=== PATIENT | male | born 1950 | race Caucasian/White ===

== ENCOUNTER 2018-11-16 13:27 | Observation (INO) | payer MEDICARE, OTHER ==
[~2018-11-16] VITALS: Ht 182.9 cm; Wt 84.8 kg
--- OUTSIDE RECORDS SUMMARY | 2018-11-16 13:32 | XMS REPORT | Summary of Care ---
Author Author [facility] Address Unknown Phone Unavailable Encounter HQ Mame(ASHVIN) [id number] Date(s): 07/11/16 - 07/18/16 [facility] [address] [place] [address]- [phone] Discharge Disposition: Home or Self Care Attending Physician: Abelardo Houston MD Admitting Physician: Abelardo Houston MD Vital Signs 1 2 3 Most recent to oldest [Reference Range]: 182.88 cm (07/11/16 2:36 PM) Height 98.9 DegF (07/18/16 8:00 AM) 98 DegF (07/17/16 8:41 PM) 98.0 DegF (07/17/16 3:10 PM) Temperature Oral [96.4-99.1 DegF] 130/70 mmHg (07/18/16 8:00 AM) 126/75 mmHg (07/17/16 3:10 PM) Blood Pressure [90-140/60-90 mmHg] 127 mmHg (07/17/16 8:41 PM) Systolic Blood Pressure [90-140 mmHg] 72 mmHg (07/17/16 8:41 PM) Diastolic Blood Pressure [60-90 mmHg] 16 BRMIN (07/17/16 8:41 PM) 16 BRMIN (07/17/16 3:10 PM) 16 BRMIN (07/17/16 7:48 AM) Respiratory Rate [14-20 BRMIN] 78 bpm (07/18/16 8:00 AM) 80 bpm (07/17/16 8:41 PM) 74 bpm (07/17/16 3:10 PM) Peripheral Pulse Rate [60-100 bpm] 87.364 kg (07/11/16 2:36 PM) Weight 26.12 m2 (07/11/16 2:36 PM) Body Mass Index Problem List Condition Effective Dates Status Health Status Informant Atrial Active fibrillation(Confirm ed) Diabetes(Confirmed) Resolved FH: Resolved hyperlipidemia(Confi rmed) C1 cervical Active fracture(Confirmed) HTN Resolved (hypertension)(Confi rmed) Acute kidney Active injury(Confirmed) Generalized muscle Active weakness(Confirmed) Allergies, Adverse Reactions, Alerts Substance Reaction Severity Status penicillins Active Medications AMIODarone 200 mg oral tablet 200 mg=1 tab, PO, BID, # 60 tab, 0 Refill(s), Pharmacy: [facility] [id number] Start Date: 07/18/16 Stop Date: 08/17/16 Status: Ordered amLODIPine 5 mg, 1 tab, Route: PO, Drug form: TAB, Daily, Dosing Weight 95, kg, Start date: 07/12/16 9:00:00 CDT, Duration: 30 day, Stop date: 08/10/16 9:00:00 CDT Notes: (Same as: Norvasc) Start Date: 07/12/16 Stop Date: 07/12/16 Status: Discontinued aspirin 81 mg tablet, chewable 81 mg, 1 tab, Route: PO, Drug form: CHEWTAB, Daily, Dosing Weight 95, kg, Start date: 07/12/16 9:00:00 CDT, Duration: 30 day, Stop date: 08/10/16 9:00:00 CDT Notes: Take with food. Start Date: 07/12/16 Stop Date: 07/18/16 Status: Discontinued aspirin 81 mg tablet, chewable 81 mg=1 tab, PO, Daily, # 30 tab, 0 Refill(s), Pharmacy: [facility] [id number] Start Date: 07/18/16 Stop Date: 08/17/16 Status: Ordered atorvastatin 40 mg oral tablet 40 mg=1 tab, PO, Bedtime, # 30 tab, 0 Refill(s), Pharmacy: [facility] [id number] Start Date: 07/18/16 Stop Date: 08/17/16 Status: Ordered bisacodyl 10 mg, 1 supp, Route: ME, Drug form: SUPP, Daily, Dosing Weight 95, kg, PRN Cons tipation, Start date: 07/11/16 14:36:00 CDT, Duration: 30 day, Stop date: 14:35:00 CDT Notes: (Same As: Dulcolax, Bisco-Lax) Start Date: 07/11/16 Stop Date: 07/18/16 Status: Discontinued Carafate 1 gm, Route: PO, Drug form: TAB, BID, Dosing Weight 87.364, kg, Start date: 06/19 09/03 9:00:00 CDT, Duration: 30 day, Stop date: 08/10/16 17:00:00 CDT Start Date: 07/12/16 Stop Date: 07/11/16 Status: Canceled Carafate 1 g/10 mL oral suspension 1 gm, 1 tab, Route: PO, Drug form: TAB, BID, Dosing Weight 87.364, kg, Start drake e: 07/12/16 9:00:00 CDT, Duration: 30 day, Stop date: 08/10/16 17:00:00 CDT Notes: May interfere w/enteral feeds - Take 1 hr before or 2 hr after antacids, dairy pdt, meals & minerals - On empty stomach.For patients unable to swallow tablet, dissolve in 10mL - 30mL of water or juice and stir before giving. (Same As: Carafate) Start Date: 07/12/16 Stop Date: 07/18/16 Status: Discontinued Carafate 1 g/10 mL oral suspension 1 gm=10 mL, PO, BID, # 420 mL, 0 Refill(s), Pharmacy: [facility] [id number] Start Date: 07/18/16 Stop Date: 08/08/16 Status: Ordered Cordarone 200 mg, 1 tab, Route: PO, Drug form: TAB, BID, Dosing Weight 87.273, kg, Start d ate: 07/11/16 17:00:00 CDT, Duration: 30 day, Stop date: 08/10/16 9:00:00 CDT Notes: (Same as: Cordarone) Start Date: 07/11/16 Stop Date: 07/18/16 Status: Discontinued Coumadin 4 mg, 2 tab, Route: PO, Drug form: TAB, Q5PM, Dosing Weight 95, kg, Start date: 07/11/16 17:00:00 CDT, Duration: 30 day, Stop date: 08/09/16 17:00:00 CDT Notes: Nurse to ensure documentation of patient education per anticoagulation po licy.Avoid large intake of vitamin-K containing foods diet.(Same As: Coumadin)[place]: F/P - P Waste Black; E - P Waste Black Start Date: 07/11/16 Stop Date: 07/16/16 Status: Discontinued Dextrose 50% Syringe 25 gm, 50 mL, Route: IVP, Drug Form: INJ, Dosing Weight 87.364, kg, PRN, PRN Blo od Glucose Results, Start date: 07/11/16 14:51:00 CDT, Duration: 30 day, Stop da te: 08/10/16 14:50:00 CDT Start Date: 07/11/16 Stop Date: 07/18/16 Status: Discontinued Dextrose 50% Syringe 12.5 gm, 25 mL, Route: IVP, Drug Form: INJ, Dosing Weight 87.364, kg, PRN, PRN B lood Glucose Results, Start date: 07/11/16 14:51:00 CDT, Duration: 30 day, Stop date: 08/10/16 14:50:00 CDT Start Date: 07/11/16 Stop Date: 07/18/16 Status: Discontinued docusate 100 mg, 10 mL, Route: PO, Drug form: LIQ, BID, Dosing Weight 87.273, kg, PRN Con stipation, Start date: 07/11/16 14:51:00 CDT, Duration: 30 day, Stop date: 08/10 14:50:00 CDT Notes: (Same as: Colace) Start Date: 07/11/16 Stop Date: 07/18/16 Status: Discontinued docusate sodium 100 mg oral capsule 100 mg, 1 cap, Route: PO, Drug form: CAP, BID, Dosing Weight 95, kg, PRN Constip ation, Start date: 07/11/16 14:36:00 CDT, Duration: 30 day, Stop date: 08/10/16 14:35:00 CDT Notes: (Same as: Colace) (Do Not Crush) Start Date: 07/11/16 Stop Date: 07/18/16 Status: Discontinued epoetin carlos 10,000 units/mL preservative-free injectable solution 10,000 unit=1 mL, SUB-Q, Q, X 14 day, # 6 mL, 0 Refill(s), Pharmacy: [facility] [id number] Start Date: 07/18/16 Stop Date: 08/01/16 Status: Ordered Epogen 10,000 unit, 1 mL, Route: SUB-Q, Drug form: INJ, Q-Sa, Dosing Weight 87.36 4, kg, Start date: 07/15/16 17:00:00 CDT, Duration: 30 day, Stop date: 08/12/16 17:00:00 CDT Notes: (Same as: Procrit) epoetin carlos 84276 unit/1 ml VL.For dialysis use only. (Procrit)[place]: F/P - Red; E -Red MEDICATION WASTE Product Size: 33642 unitProduct Wasted: ___ unit Start Date: 07/15/16 Stop Date: 07/18/16 Status: Discontinued Epogen (ESRD) 10,000 unit, 1 mL, Route: IVP, Drug form: INJ, Q, Dosing Weight 87.364, kg, Priority: NOW, Start date: 07/12/16 11:45:00 CDT, Duration: 30 day, Stop da te: 08/09/16 17:00:00 CDT Notes: (Same as: Procrit) epoetin carlos 20722 unit/1 ml VL.For dialysis use only. (Procrit)[place]: F/P - Red; E -Red MEDICATION WASTE Product Size: 54878 unitProduct Wasted: ___ unit Start Date: 07/12/16 Stop Date: 07/14/16 Status: Discontinued glucagon 1 mg, Route: IM, Drug form: PDR/INJ, PRN, Dosing Weight 87.364, kg, PRN Blood Gl ucose Results, Start date: 07/11/16 14:51:00 CDT, Duration: 30 day, Stop date: 0 08/10/16 14:50:00 CDT Start Date: 07/11/16 Stop Date: 07/18/16 Status: Discontinued hydrocortisone topical 1% cream 1 appl, Route: TOP, BID, Drug form: CRM, PRN Rash, Start date: 07/11/16 14:50:00 CDT, Duration: 30 day, Stop date: 08/10/16 14:49:00 CDT Start Date: 07/11/16 Stop Date: 07/18/16 Status: Discontinued insulin aspart 1 unit, 0.01 mL, Route: SUB-Q, Drug form: SOLN, Bedtime, Dosing Weight 87.364, k g, PRN Blood Glucose Results, Start date: 07/11/16 14:51:00 CDT, Duration: 30 da y, Stop date: 08/10/16 14:50:00 CDT Notes: Roll in palms of hands gently; Do not shake vigorously. (Same as: Margaret Zurita)"single patient use only"[place]: F/P - Black; E - Municipal Trash Bin Stable f or 28 days at room temperature.Expires in days from Date Start Date: 07/11/16 Stop Date: 07/18/16 Status: Discontinued insulin aspart 4 unit, 0.04 mL, Route: SUB-Q, Drug form: SOLN, Bedtime, Dosing Weight 87.364, k g, PRN Blood Glucose Results, Start date: 07/11/16 14:51:00 CDT, Duration: 30 da y, Stop date: 08/10/16 14:50:00 CDT Notes: Roll in palms of hands gently; Do not shake vigorously. (Same as: Margaret Zurita)"single patient use only"[place]: F/P - Black; E - Municipal Trash Bin Stable f or 28 days at room temperature.Expires in days from Date Start Date: 07/11/16 Stop Date: 07/18/16 Status: Discontinued insulin aspart 3 unit, 0.03 mL, Route: SUB-Q, Drug form: SOLN, Bedtime, Dosing Weight 87.364, k g, PRN Blood Glucose Results, Start date: 07/11/16 14:51:00 CDT, Duration: 30 da y, Stop date: 08/10/16 14:50:00 CDT Notes: Roll in palms of hands gently; Do not shake vigorously. (Same as: Margaret Zurita)"single patient use only"[place]: F/P - Black; E - Municipal Trash Bin Stable f or 28 days at room temperature.Expires in days from Date Start Date: 07/11/16 Stop Date: 07/18/16 Status: Discontinued insulin aspart 2 unit, 0.02 mL, Route: SUB-Q, Drug form: SOLN, Bedtime, Dosing Weight 87.364, k g, PRN Blood Glucose Results, Start date: 07/11/16 14:51:00 CDT, Duration: 30 da y, Stop date: 08/10/16 14:50:00 CDT Notes: Roll in palms of hands gently; Do not shake vigorously. (Same as: Margaret Zurita)"single patient use only"[place]: F/P - Black; E - Municipal Trash Bin Stable f or 28 days at room temperature.Expires in days from Date Start Date: 07/11/16 Stop Date: 07/18/16 Status: Discontinued insulin aspart 3 unit, 0.03 mL, Route: SUB-Q, Drug form: SOLN, TID-Before Meals, Dosing Weight 87.364, kg, PRN Blood Glucose Results, Start date: 07/11/16 14:51:00 CDT, Durati on: 30 day, Stop date: 08/10/16 14:50:00 CDT Notes: Roll in palms of hands gently; Do not shake vigorously. (Same as: Margaret Zurita)"single patient use only"[place]: F/P - Black; E - Municipal Trash Bin Stable f or 28 days at room temperature.Expires in days from Date Start Date: 07/11/16 Stop Date: 07/18/16 Status: Discontinued insulin aspart 2 unit, 0.02 mL, Route: SUB-Q, Drug form: SOLN, TID-Before Meals, Dosing Weight 87.364, kg, PRN Blood Glucose Results, Start date: 07/11/16 14:51:00 CDT, Durati on: 30 day, Stop date: 08/10/16 14:50:00 CDT Notes: Roll in palms of hands gently; Do not shake vigorously. (Same as: NovoFROILAN G)"single patient use only"[place]: F/P - Black; E - Municipal Trash Bin Stable f or 28 days at room temperature.Expires in days from Date Start Date: 07/11/16 Stop Date: 07/18/16 Status: Discontinued insulin aspart 1 unit, 0.01 mL, Route: SUB-Q, Drug form: SOLN, TID-Before Meals, Dosing Weight 87.364, kg, PRN Blood Glucose Results, Start date: 07/11/16 14:51:00 CDT, Durati on: 30 day, Stop date: 08/10/16 14:50:00 CDT Notes: Roll in palms of hands gently; Do not shake vigorously. (Same as: NovoFROILAN G)"single patient use only"WASTE: F/P - Black; E - Municipal Trash Bin Stable f or 28 days at room temperature.Expires in days from Date Start Date: 07/11/16 Stop Date: 07/18/16 Status: Discontinued insulin aspart 5 unit, 0.05 mL, Route: SUB-Q, Drug form: SOLN, TID-Before Meals, Dosing Weight 87.364, kg, PRN Blood Glucose Results, Start date: 07/11/16 14:51:00 CDT, Durati on: 30 day, Stop date: 08/10/16 14:50:00 CDT Notes: Roll in palms of hands gently; Do not shake vigorously. (Same as: NovoFROILAN Zurita)"single patient use only"WASTE: F/P - Black; E - Municipal Trash Bin Stable f or 28 days at room temperature.Expires in days from Date Start Date: 07/11/16 Stop Date: 07/18/16 Status: Discontinued insulin aspart 4 unit, 0.04 mL, Route: SUB-Q, Drug form: SOLN, TID-Before Meals, Dosing Weight 87.364, kg, PRN Blood Glucose Results, Start date: 07/11/16 14:51:00 CDT, Durati on: 30 day, Stop date: 08/10/16 14:50:00 CDT Notes: Roll in palms of hands gently; Do not shake vigorously. (Same as: Margaret Zurita)"single patient use only"[place]STE: F/P - Black; E - Municipal Trash Bin Stable f or 28 days at room temperature.Expires in days from Date Start Date: 07/11/16 Stop Date: 07/18/16 Status: Discontinued Everett 24 gm packet 1 pkt, Route: PO, Drug Form: PWDR, Dosing Weight 87.364, kg, BID-Before Meals, S tart date: 07/14/16 16:30:00 CDT, Duration: 14 day, Stop date: 07/28/16 7:30:00 CDT Notes: (Same as: Everett Dhaliwal) Start Date: 07/14/16 Stop Date: 07/18/16 Status: Discontinued Klor-Con 20 mEq, 1 tab, Route: PO, Drug form: ERTAB, BID, Dosing Weight 87.364, kg, Start date: 07/14/16 9:51:00 CDT, Duration: 30 day, Stop date: 08/13/16 9:00:00 CDT Notes: (Same as: K-Dur 20)"Do Not Crush" With food and full glass of water Start Date: 07/14/16 Stop Date: 07/18/16 Status: Discontinued Lasix 40 mg, 4 mL, Route: IVP, Drug form: INJ, ONCE, Dosing Weight 87.364, kg, Start d ate: 07/11/16 18:34:00 CDT, Stop date: 07/11/16 18:34:00 CDT Notes: (Same as: Lasix) MEDICATION WASTE Product Size: 40 mgProduct Was grecia: ___ mg Start Date: 07/11/16 Stop Date: 07/11/16 Status: Completed Lasix 40 mg, 4 mL, Route: IVP, Drug form: INJ, Daily, Dosing Weight 87.364, kg, Priori ty: NOW, Start date: 07/12/16 11:44:00 CDT, Duration: 30 day, Stop date: 7 9:00:00 CDT Notes: (Same as: Lasix) MEDICATION WASTE Product Size: 40 mgProduct Was grecia: ___ mg Start Date: 07/12/16 Stop Date: 07/17/16 Status: Discontinued Lasix 20 mg oral tablet 40 mg, 1 tab, Route: PO, Drug form: TAB, Daily, Dosing Weight 87.364, kg, Start date: 07/18/16 9:00:00 CDT, Duration: 30 day, Stop date: 08/16/16 9:00:00 CDT Notes: (Same as: Lasix) May cause GI upset. Give with food or milk. Start Date: 07/18/16 Stop Date: 07/18/16 Status: Discontinued Lasix 40 mg oral tablet 40 mg=1 tab, PO, Daily, # 30 tab, 0 Refill(s), Pharmacy: [facility] [id number] Start Date: 07/18/16 Stop Date: 08/17/16 Status: Ordered Lipitor 40 mg, 1 tab, Route: PO, Drug form: TAB, Bedtime, Dosing Weight 87.273, kg, Star t date: 07/11/16 21:00:00 CDT, Duration: 30 day, Stop date: 08/09/16 21:00:00 CD T Notes: (Same as: Lipitor) Start Date: 07/11/16 Stop Date: 07/18/16 Status: Discontinued magnesium sulfate 2 gm, 50 mL, Route: IVPB, Drug form: INJ, Q2H, Dosing Weight 87.364, kg, Total d ose=4 gm, Start date: 07/12/16 20:00:00 CDT, Duration: 2 doses or times, Stop da te: 07/12/16 22:00:00 CDT Notes: WASTE: F/P - Sink; E - Municipal Trash Bin Start Date: 07/12/16 Stop Date: 07/12/16 Status: Completed melatonin 3 mg, 1 tab, Route: PO, Drug form: TAB, Bedtime, Dosing Weight 87.273, kg, PRN S leep, Start date: 07/11/16 14:53:00 CDT, Duration: 30 day, Stop date: 08/10/16 1 4:52:00 CDT Notes: (Same as: Melatonin) Start Date: 07/11/16 Stop Date: 07/18/16 Status: Discontinued metoprolol 100 mg oral tablet, extended release 100 mg=1 tab, PO, Daily, # 30 tab, 0 Refill(s), Pharmacy: [facility] [id number] Start Date: 07/18/16 Stop Date: 08/17/16 Status: Ordered MiraLax 17 gm, 1 pkt, Route: PO, Drug form: PWDR, BID, Dosing Weight 87.273, kg, PRN Con stipation, Start date: 07/11/16 14:53:00 CDT, Duration: 30 day, Stop date: 08/10 14:52:00 CDT Notes: Dissolve in 8 oz of water or juice.(Same as: Miralax) Start Date: 07/11/16 Stop Date: 07/11/16 Status: Deleted MiraLax 17 gm, 1 pkt, Route: PO, Drug form: PWDR, BID, Dosing Weight 95, kg, PRN Constip ation, Start date: 07/11/16 14:36:00 CDT, Duration: 30 day, Stop date: 08/10/16 14:35:00 CDT Notes: Dissolve in 8 oz of water or juice.(Same as: Miralax) Start Date: 07/11/16 Stop Date: 07/18/16 Status: Discontinued Occupational Therapy See Instructions, MISC, ONCALL, Evaluate and Treat 2-3 times per week for2-4 wee ks, # 1 unit, 0 Refill(s) Start Date: 07/18/16 Status: Ordered pantoprazole 40 mg oral enteric coated tablet 40 mg=1 tab, PO, BID, # 42 tab, 0 Refill(s), Pharmacy: [id number] Start Date: 07/18/16 Stop Date: 08/08/16 Status: Ordered Physical Therapy See Instructions, MISC, ONCALL, Evaluate and Treat 2-3 times per week for 4-6 we eks, # 1 ea, 0 Refill(s) Start Date: 07/18/16 Status: Ordered potassium chloride 40 mEq, 2 tab, Route: PO, Drug form: ERTAB, ONCE, Dosing Weight 87.364, kg, Star t date: 07/15/16 11:39:00 CDT, Stop date: 07/15/16 11:39:00 CDT Start Date: 07/15/16 Stop Date: 07/15/16 Status: Completed potassium chloride 20 mEq oral tablet, extended release 20 mEq=1 tab, PO, BID, # 60 tab, 0 Refill(s), Pharmacy: [facility] Start Date: 07/18/16 Stop Date: 08/17/16 Status: Ordered prednisoLONE acetate ophthalmic 1 drp, Route: RIGHT EYE, Daily, Drug form: SUSP, Start date: 07/12/16 9:00:00 CD T, Duration: 30 day, Stop date: 08/10/16 9:00:00 CDT Notes: (Same as: Pred Forte) Start Date: 07/12/16 Stop Date: 07/18/16 Status: Discontinued Protonix 40 mg, 1 tab, Route: PO, Drug form: ECTAB, BID, Dosing Weight 87.364, kg, Start date: 07/11/16 21:00:00 CDT, Duration: 30 day, Stop date: 08/10/16 17:00:00 CDT Notes: Tablet should not be chewed or crushed.(Same as: Protonix) Start Date: 07/11/16 Stop Date: 07/18/16 Status: Discontinued Renvela 0.8 gm, 1 pkt, Route: PO, Drug form: PDR/REC, TID-Meals, Dosing Weight 95, kg, S tart date: 07/11/16 17:00:00 CDT, Duration: 30 day, Stop date: 08/10/16 12:00:00 CDT Notes: Same as: Renvela Start Date: 07/11/16 Stop Date: 07/12/16 Status: Discontinued Saline Flush 0.9% 10 ml, Route: IVP, Drug Form: INJ, Dosing Weight 95, kg, PRN, PRN Line Flush, St art date: 07/11/16 14:36:00 CDT, Duration: 30 day, Stop date: 08/10/16 14:35:00 CDT Notes: (Same as: BD Posiflush) Start Date: 07/11/16 Stop Date: 07/18/16 Status: Discontinued Saline Flush 0.9% 10 ml, Route: IVP, Drug Form: INJ, Dosing Weight 95, kg, Q12H, Start date: 07/11 21:00:00 CDT, Duration: 30 day, Stop date: 08/10/16 9:00:00 CDT Notes: (Same as: BD Posiflush) Start Date: 07/11/16 Stop Date: 07/18/16 Status: Discontinued Senokot 8.6 mg, 1 tab, Route: PO, Drug Form: TAB, Dosing Weight 87.273, kg, BID, PRN Con stipation, Start date: 07/11/16 14:56:00 CDT, Duration: 30 day, Stop date: 08/10 14:55:00 CDT Notes: (Same as: Senokot) Start Date: 07/11/16 Stop Date: 07/18/16 Status: Discontinued Senokot S 1 tab, Route: PO, Drug Form: TAB, Dosing Weight 95, kg, Daily, Start date: 07/12 9:00:00 CDT, Duration: 30 day, Stop date: 08/10/16 9:00:00 CDT Notes: (Same as Senokot-S) Equiv. to Cris-Colace. Start Date: 07/12/16 Stop Date: 07/18/16 Status: Discontinued Toprol-XL 100 mg oral tablet, extended release 100 mg, 1 tab, Route: PO, Drug form: ERTAB, Daily, Start date: 07/12/16 9:00:00 CDT, Duration: 30 day, Stop date: 08/10/16 9:00:00 CDT Notes: (Same as: Toprol XL) May split tab, but do not crush. Start Date: 07/12/16 Stop Date: 07/18/16 Status: Discontinued trazodone 50 mg, 1 tab, Route: PO, Drug form: TAB, Bedtime, Dosing Weight 95, kg, PRN Inso mnia, Start date: 07/11/16 14:36:00 CDT, Duration: 30 day, Stop date: 08/10/16 1 4:35:00 CDT Notes: (Same As: Desyrel) Start Date: 07/11/16 Stop Date: 07/18/16 Status: Discontinued Tylenol 650 mg, 20.3 mL, Route: PO, Drug form: LIQ, Q6H, Dosing Weight 95, kg, PRN Pain Score 1-3, Start date: 07/11/16 14:48:00 CDT, Duration: 30 day, Stop date: 08/10 14:47:00 CDT Notes: Max btcmjrostyijx=8283tn/day (4 gm/day). (Same as: Tylenol) Start Date: 07/11/16 Stop Date: 07/18/16 Status: Discontinued Venofer + sodium chloride 0.9% INJ 90 mL 200 mg, 10 mL, Route: IVPB, Daily, Dosing Weight 87.364, kg, Start date: 7 9:00:00 CDT, Stop date: 07/16/16 6:00:00 CDT Notes: Each 5ml contains 100mg elemental iron. Mix with NSNon-Formulary(Same as :Venofer)Administer IV only. MEDICATION WASTE Product Size: [address] Wasted: ___ mg Start Date: 07/12/16 Stop Date: 07/16/16 Status: Completed warfarin 3 mg, 3 tab, Route: PO, Drug form: TAB, Q5PM, Dosing Weight 87.364, kg, Start da te: 07/16/16 17:00:00 CDT, Duration: 30 day, Stop date: 08/14/16 17:00:00 CDT Notes: Nurse to ensure documentation of patient education per anticoagulation po licy.Avoid large intake of vitamin-K containing foods diet.(Same As: Coumadin)[place]: F/P - P Waste Black; E - P Waste Black Start Date: 07/16/16 Stop Date: 07/18/16 Status: Discontinued warfarin 1 mg oral tablet 3 mg=3 tab, PO, Q5PM, # 90 tab, 0 Refill(s), Pharmacy: [facility] [id number] Start Date: 07/18/16 Stop Date: 08/17/16 Status: Ordered Xylocaine-MPF 1% preservative-free injectable solution 10 mL, Route: INJ, Drug form: INJ, ONCE, Dosing Weight 87.364, kg, Start date: 0 07/17/16 12:46:00 CDT, Stop date: 07/17/16 12:46:00 CDT Notes: (Same as: Xylocaine) Start Date: 07/17/16 Stop Date: 07/17/16 Status: Completed Results ELECTROLYTES Most recent to 1 2 3 4 oldest [Reference Range]: Sodium Lvl [135-145 139 mEq/L 140 mEq/L 137 mEq/L 138 mEq/L mEq/L] (07/18/16 4:40 AM) (07/17/16 5:25 AM) (07/16/16 12:40 PM) (07/16/16 12:40 PM) Potassium Lvl 3.3 mEq/L 3.7 mEq/L 3.8 mEq/L 4.0 mEq/L [3.5-5.1 mEq/L] *LOW* (07/17/16 5:25 AM) (07/16/16 12:40 PM) (07/16/16 12:40 PM) (07/18/16 4:40 AM) Chloride Lvl [95-109 105 mEq/L 104 mEq/L 99 mEq/L 99 mEq/L mEq/L] (07/18/16 4:40 AM) (07/17/16 5:25 AM) (07/16/16 12:40 PM) (07/16/16 12:40 PM) CO2 [24-32 mEq/L] 27 mEq/L 29 mEq/L 27 mEq/L 28 mEq/L (07/18/16 4:40 AM) (07/17/16 5:25 AM) (07/16/16 12:40 PM) (07/16/16 12:40 PM) AGAP [10.0-20.0 10.3 mEq/L 10.7 mEq/L 14.8 mEq/L 15.0 mEq/L mEq/L] (07/18/16 4:40 AM) (07/17/16 5:25 AM) (07/16/16 12:40 PM) (07/16/16 12:40 PM) CHEM PANEL Most recent to 1 2 3 4 oldest [Reference Range]: Creatinine Lvl 3.30 mg/dL 3.40 mg/dL 3.50 mg/dL 3.50 mg/dL [0.50-1.40 mg/dL] *HI* *HI* *HI* *HI* (07/18/16 4:40 AM) (07/17/16 5:25 AM) (07/16/16 12:40 PM) (07/16/16 12:40 PM) eGFR 18 mL/min/1.73m2 1 18 mL/min/1.73m2 2 17 mL/min/1.73m2 3 17 mL/min/1.73m2 4 *NA* *NA* *NA* *NA* (07/18/16 4:40 AM) (07/17/16 5:25 AM) (07/16/16 12:40 PM) (07/16/16 12:40 PM) BUN [7-22 mg/dL] 53 mg/dL 46 mg/dL 47 mg/dL 49 mg/dL *HI* *HI* *HI* *HI* (07/18/16 4:40 AM) (07/17/16 5:25 AM) (07/16/16 12:40 PM) (07/16/16 12:40 PM) B/C Ratio [6-25] 9 (07/12/16 4:03 AM) Glucose Lvl [70-99 140 mg/dL 101 mg/dL 108 mg/dL 110 mg/dL mg/dL] *HI* *HI* *HI* *HI* (07/18/16 4:40 AM) (07/17/16 5:25 AM) (07/16/16 12:40 PM) (07/16/16 12:40 PM) Total Protein 5.1 g/dL 5.0 g/dL [6.4-8.4 g/dL] *LOW* *LOW* (07/12/16 4:03 AM) (07/12/16 4:03 AM) Albumin Lvl [3.5-5.0 2.1 g/dL 2.2 g/dL 2.5 g/dL g/dL] *LOW* *LOW* *LOW* (07/18/16 4:40 AM) (07/17/16 5:25 AM) (07/16/16 12:40 PM) Globulin [2.7-4.2 3.0 g/dL g/dL] (07/12/16 4:03 AM) A/G Ratio [0.7-1.6] 0.7 (07/12/16 4:03 AM) Calcium Lvl 7.4 mg/dL 7.9 mg/dL 8.0 mg/dL 7.7 mg/dL [8.5-10.5 mg/dL] *LOW* *LOW* *LOW* *LOW* (07/18/16 4:40 AM) (07/17/16 5:25 AM) (07/16/16 12:40 PM) (07/16/16 12:40 PM) Phosphorus [2.5-4.5 2.0 mg/dL 2.5 mg/dL 2.4 mg/dL mg/dL] *LOW* (07/17/16 5:25 AM) *LOW* (07/18/16 4:40 AM) (07/16/16 12:40 PM) Magnesium Lvl 2.0 mg/dL 1.4 mg/dL [1.8-2.4 mg/dL] (07/14/16 6:20 AM) *LOW* (07/12/16 4:03 AM) ALT [0-65 unit/L] 43 unit/L (07/12/16 4:03 AM) AST [0-37 unit/L] 23 unit/L (07/12/16 4:03 AM) Alk Phos [39-136 110 unit/L unit/L] (07/12/16 4:03 AM) Bili Total [0.2-1.3 0.7 mg/dL mg/dL] (07/12/16 4:03 AM) 1Result Comment: The eGFR is calculated using the CKD-EPI formula. In most young, healthy individuals the eGFR will be >90 mL/min/1.73m2. The eGFR declines with age. An eGFR of 60-89 may be normal in some populations, particularly the elderly, for whom the CKD-EPI formula has not been extensively validated. Use of the eGFR is not recommended in the following populations: Individuals with unstable creatinine concentrations, including patients and those with serious co-morbid conditions. Patients with extremes in muscle mass or diet. The data above are obtained from the [employer] ( [employer]) which additionally recommends that when the eGFR is used in patients with extremes of body mass index for purposes of drug dosing, the eGFR should be mul tiplied by the estimated BMI. 2Result Comment: The eGFR is calculated using the CKD-EPI formula. In most young, healthy individuals the eGFR will be >90 mL/min/1.73m2. The eGFR declines with age. An eGFR of 60-89 may be normal in some populations, particularly the elderly, for whom the CKD-EPI formula has not been extensively validated. Use of the eGFR is not recommended in the following populations: Individuals with unstable creatinine concentrations, including patients and those with serious co-morbid conditions. Patients with extremes in muscle mass or diet. The data above are obtained from the [employer] [facility] Disease Education Program ( [employer]) which additionally recommends that when the eGFR is used in patients with extremes of body mass index for purposes of drug dosing, the eGFR should be mul tiplied by the estimated BMI. 3Result Comment: The eGFR is calculated using the CKD-EPI formula. In most young, healthy individuals the eGFR will be >90 mL/min/1.73m2. The eGFR declines with age. An eGFR of 60-89 may be normal in some populations, particularly the elderly, for whom the CKD-EPI formula has not been extensively validated. Use of the eGFR is not recommended in the following populations: Individuals with unstable creatinine concentrations, including patients and those with serious co-morbid conditions. Patients with extremes in muscle mass or diet. The data above are obtained from the National Kidney Disease Education Program ( [employer]) which additionally recommends that when the eGFR is used in patients with extremes of body mass index for purposes of drug dosing, the eGFR should be mul tiplied by the estimated BMI. 4Result Comment: The eGFR is calculated using the CKD-EPI formula. In most young, healthy individuals the eGFR will be >90 mL/min/1.73m2. The eGFR declines with age. An eGFR of 60-89 may be normal in some populations, particularly the elderly, for whom the CKD-EPI formula has not been extensively validated. Use of the eGFR is not recommended in the following populations: Individuals with unstable creatinine concentrations, including patients and those with serious co-morbid conditions. Patients with extremes in muscle mass or diet. The data above are obtained from the National Kidney Disease Education Program ( [employer]) which additionally recommends that when the eGFR is used in patients with extremes of body mass index for purposes of drug dosing, the eGFR should be mul tiplied by the estimated BMI. IMMUNOLOGY Most recent to 1 2 3 4 oldest [Reference Range]: Prealbumin 16.8 mg/dL [18.0-45.0 mg/dL] *LOW* (07/12/16 4:03 AM) HEMATOLOGY Most recent to 1 2 3 4 oldest [Reference Range]: WBC [3.7-10.4 K/CMM] 6.6 K/CMM 5.3 K/CMM 5.3 K/CMM (07/17/16 5:25 AM) (07/14/16 6:20 AM) (07/12/16 4:03 AM) RBC [4.70-6.10 2.86 M/CMM 2.64 M/CMM 2.69 M/CMM M/CMM] *LOW* *LOW* *LOW* (07/17/16 5:25 AM) (07/14/16 6:20 AM) (07/12/16 4:03 AM) Hgb [14.0-18.0 g/dL] 7.9 g/dL 7.3 g/dL 7.4 g/dL *LOW* *LOW* *LOW* (07/17/16 5:25 AM) (07/14/16 6:20 AM) (07/12/16 4:03 AM) Hct [42.0-54.0 %] 24.1 % 21.8 % 21.9 % *LOW* *LOW* *LOW* (07/17/16 5:25 AM) (07/14/16 6:20 AM) (07/12/16 4:03 AM) MCV [80.0-94.0 fL] 84.3 fL 82.5 fL 81.5 fL (07/17/16 5:25 AM) (07/14/16 6:20 AM) (07/12/16 4:03 AM) MCH [27.0-31.0 pg] 27.7 pg 27.6 pg 27.7 pg (07/17/16 5:25 AM) (07/14/16 6:20 AM) (07/12/16 4:03 AM) MCHC [32.0-36.0 32.8 g/dL 33.4 g/dL 34.0 g/dL g/dL] (07/17/16 5:25 AM) (07/14/16 6:20 AM) (07/12/16 4:03 AM) RDW [11.5-14.5 %] 18.0 % 17.7 % 17.3 % *HI* *HI* *HI* (07/17/16 5:25 AM) (07/14/16 6:20 AM) (07/12/16 4:03 AM) Platelet [133-450 189 K/CMM 168 K/CMM 185 K/CMM K/CMM] (07/17/16 5:25 AM) (07/14/16 6:20 AM) (07/12/16 4:03 AM) MPV [7.4-10.4 fL] 7.2 fL 6.8 fL 7.4 fL *LOW* *LOW* (07/12/16 4:03 AM) (07/17/16 5:25 AM) (07/14/16 6:20 AM) Segs [45.0-75.0 %] 66.8 % (07/12/16 4:03 AM) Lymphocytes 16.0 % [20.0-40.0 %] *LOW* (07/12/16 4:03 AM) Monocytes [2.0-12.0 10.3 % %] (07/12/16 4:03 AM) Eosinophils [0.0-4.0 6.1 % %] *HI* (07/12/16 4:03 AM) Basophils [0.0-1.0 0.8 % %] (07/12/16 4:03 AM) Segs-Bands # 3.5 K/CMM [1.5-8.1 K/CMM] (07/12/16 4:03 AM) Lymphocytes # 0.8 K/CMM [1.0-5.5 K/CMM] *LOW* (07/12/16 4:03 AM) Monocytes # [0.0-0.8 0.5 K/CMM K/CMM] (07/12/16 4:03 AM) Eosinophils # 0.3 K/CMM [0.0-0.5 K/CMM] (07/12/16 4:03 AM) PT [12.0-14.7 30.4 seconds 28.9 seconds 31.1 seconds seconds] *HI* *HI* *HI* (07/18/16 4:19 AM) (07/17/16 5:25 AM) (07/16/16 12:40 PM) INR [0.85-1.17] 2.85 2.67 2.94 *HI* *HI* *HI* (07/18/16 4:19 AM) (07/17/16 5:25 AM) (07/16/16 12:40 PM) Immunizations Not Given Vaccine Date Status Refusal Reason influenza virus vaccine, inactivated 06/22/16 Not Given Patient Refuses Procedures Procedure Date Related Diagnosis Body Site Laser eye surgery Social History Social History Type Response Alcohol Current, Type Liquor. Previous treatment: None. Alcohol use interferes with work or home: No. Drinks more than intended: No. Others hurt by drinking: No. Ready to change: No. Household alcohol concerns: No. Smoking Status Never smoker; Ready to change: No; Concerns about tobacco use in household: No; Exposure to Tobacco Smoke None; Cigarette Smoking Last 365 Days No; Reg Smoking Cessation Counseling No Assessment and Plan Extracted from: Title: Clinical Document Author: Aldo Barrientos MD Date: 07/18/16 Progress Note SUBJECTIVE: Patient was seen early this morning and doing well. Patient to be discharged home later today. Patient seen and evaluated at bedside. No overnight events. Denies chest pain, nausea, vomiting, diarrhea, headache, lightheadness, abdomen pain or dizziness. OBJECTIVE: VitalsTmp(F)[id number] 07/18 08:[id number]/70--98--- 07/17 20:[id number]/7216------ 07/17 15:[id number]--- 07/17 07:[id number]/305224--- 07/16 20:0098.125455/72--98--- 24 Hr Tmax: 98.9F (37.17c) at 07/18 08:00Vital Signs are the last 5 in the past 48 hours. I&ORecordInOutBal 3124hr Tot 10 0 10 3024hr Tot 24 [id number] Labs (Last four charted values) WBC 6.6(JUL 17)5.3(JUL 14)5.3(JUL 12) Hgb L 7.9(JUL 17)L 7.3(JUL 14)L 7.4(JUL 12) Hct L 24.1(JUL 17)L 21.8(JUL 14)L 21.9(JUL 12) Plt 189(JUL 17)168(JUL 14)185(JUL 12) Na 139(JUL 18)140(JUL 17)137(JUL 16)138(JUL 16) K L 3.3(JUL 18)3.7(JUL 17)4.0(JUL 16)3.8(JUL 16) CO2 27(JUL 18)29(JUL 17)27(JUL 16)28(JUL 16) Cl 105(JUL 18)104(JUL 17)99(JUL 16)99(JUL 16) Cr H 3.30(JUL 18)H 3.40(JUL 17)H 3.50(JUL 16)H 3.50(JUL 16) BUN H 53(JUL 18)H 46(JUL 17)H 47(JUL 16)H 49(JUL 16) Glucose Random H 140(JUL 18)H 101(JUL 17)H 108(JUL 16)H 110(JUL 16) Mg 2.0(JUL 14)L 1.4(JUL 12) Phos L 2.0(JUL 18)2.5(JUL 17)L 2.4(JUL 16)2.6(JUL 15) Ca L 7.4(JUL 18)L 7.9(JUL 17)L 7.7(JUL 16)L 8.0(JUL 16) PT H 30.4(JUL 18)H 28.9(JUL 17)H 31.1(JUL 16)H 27.9(JUL 15) INR H 2.85(JUL 18)H 2.67(JUL 17)H 2.94(JUL 16)H 2.56(JUL 15) No qualifying data available PHYSICAL EXAM: General: Alert and oriented, No acute distress. Eye: Pupils are equal, round and reactive to light, Extraocular movements are intact, Normal conjunctiva. HENT: Normocephalic, Oral mucosa is moist. Neck: Supple, Non-tender, No jugular venous distention. Respiratory: Lungs are clear to auscultation, Respirations are non-labored, Breath sounds are equal, Symmetrical chest wall expansion. Cardiovascular: Normal rate, Regular rhythm, No murmur. Gastrointestinal: Soft, Non-tender, Non-distended. Genitourinary: No costovertebral angle tenderness. Lymphatics: No lymphadenopathy neck, axilla, groin. Musculoskeletal Normal range of motion. Normal strength. Integumentary: Warm, Dry, Intact. 2-3+ pedal edema bilateral lower extremities Neurologic: Alert, Oriented. Cognition and Speech: Oriented, Speech clear and coherent. Psychiatric: Cooperative, Appropriate mood & affect. Review / Management Results review: No qualifying data available. Upper extremity venous Doppler: IMPRESSION: 1. Thrombosis of the right cephalic vein. 2. No thrombus in the left upper extremity. ECHO: Conclusions 1) This is a limited echocardiogram. 2) The left ventricle is normal in size with low-normal global systolic function. Estimated left ventricular ejection fraction is 50-55%. 3) Right ventricle is normal in size and systolic function. 4) The left and right atria are mildly dilated. 5) Aortic valve is trileaflet with no aortic regurgitation. 6) Trace mitral regurgitation is seen. 7) There is mild tricuspid regurgitation present. 8) No pericardial effusion is seen. 9) The visualized ascending aorta is mildly dilated with a diameter of 3.8 cm. 10) Compared to TTE dated 06/27/2016, there is a slight improvement in ejection fraction. Impression and Plan 1. C1 fracture with J collar-according to the records neurosurgery recommends outpatient follow-up in their office for further surgical knee--> needs to follow-up with the outpatient neurosurgeon from the [facility] after discharge 2. Recent septic shock with multiorgan failure-all resolved 3. Cardiac tamponade status post her cardiocentesis status post 600 cc of bloody fluid removed-repeat echo shows EF of 50-55%, continue to follow, patient had multiple repeat echo at [facility], continue to follow 4. Acute kidney injury likely secondary to ATN from shock creatinine is stable and improving, nephrology consulted, Lasix 40 mg IV daily--> discharge on oral diuretics and needs to follow-up outpatient with the ore buyer 5. Anemia multifactorial from recent sickness, iron deficiency anemia and renal failure-hemoglobin 7.9, hemodynamically stable, may give 1 unit packed RBCs to help the patient's stamina, iron infusions 5 doses and Epogen, hemoglobin stable 6. Type 2 diabetes insulin sliding scale, Accu-Cheks, hemoglobin A1c: 7 7. Hypertension stable, continue same home medications 8. A. fib rate controlled, warfarin, cont w/ rate controlling medications, daily INR's, INR 2.8 continue same dose for now adjust accordingly 9. Right upper extremity thrombus-venous Doppler shows thrombus in the right cephalic vein, on anticoagulation 10. Prophylaxis warfarin 11. Fluid electrolytes nutrients diabetic diet, no IV fluids indicated 12. PT/OT inpatient rehab 13. Questionable GI bleed at [facility] recommends 4 weeks of PPI and Carafate, EGD and colonoscopy performed no evidence of bleeding, monitor stool 14. Disposition inpatient rehab, nephrology consulted 15. Hypokalemia replaced Discussed with the patient and the at bedside. Patient was discharged will need to follow-up with his oyster grader, neurosurgeon, nephrology, GI and primary care physician as an outpatient within 1-2 weeks. Extracted from: Title: Internal Medicine Author: Aldo Barrientos MD Date: 07/11/16 Consultation Impression and Plan 1. C1 fracture with J collar-according to the records neurosurgery recommends outpatient follow-up in their office for further surgical knee 2. Recent septic shock with multiorgan failure-all resolving 3. Cardiac tamponade status post her cardiocentesis status post 600 cc of bloody fluid removed-repeat echo shows EF of 50-55%, continue to follow, patient had multiple repeat echo was at [facility], continue to follow 4. Acute kidney injury likely secondary to ATN from shock creatinine is stable, nephrology consulted, Lasix 40 mg IV 1 5. Anemia multifactorial from recent sickness, iron deficiency anemia and renal failure-hemoglobin 7.3, hemodynamically stable, may give 1 unit packed RBCs to help the patient's stamina, iron infusions and Epogen 6. Type 2 diabetes insulin sliding scale, Accu-Cheks, hemoglobin A1c: 7 7. Hypertension stable, continue same home medications 8. A. fib rate controlled, warfarin, cont w/ rate controlling medications, daily INR's 9. Right upper extremity thrombus-venous Doppler shows thrombus in the right cephalic vein, on anticoagulation 10. Prophylaxis warfarin 11. Fluid electrolytes nutrients diabetic diet, no IV fluids indicated 12. PT/OT inpatient rehab 13. Questionable GI bleed at [facility] recommends 4 weeks of PPI and Carafate, EGD and colonoscopy performed no evidence of bleeding, monitor stool 14. Disposition inpatient rehab, nephrology consulted
--- OUTSIDE RECORDS SUMMARY | 2018-11-16 13:32 | XMS REPORT | Continuity of Care Document ---
Author Author [employer] Address Unknown Phone Unavailable Care Team Providers Care [employer] Server Name Role Phone [employer] Information [employer] Unavailable Unavailable Problems Problem Status Onset Date Classification Date Reported Comments Source CERVICAL FRACTURE Active 07/19/2016 [facility] [place] [facility] [employer] C1 CERVICAL FRACTURE Active 07/07/2016 [facility] DKA Active 06/18/2016 [facility] CARDIAC TAMPONADE, DKA Active 06/18/2016 [facility] Atrial fibrillation Active Problem 07/21/2016 [facility] Diabetes Resolved Problem 07/21/2016 [facility] FH: hyperlipidemia Resolved Problem 07/21/2016 [facility] C1 cervical fracture Active Problem 07/21/2016 [facility] HTN (Confirmed) Resolved Problem 07/21/2016 [facility] Acute kidney injury Active Problem 07/21/2016 [facility] Generalized muscle weakness Active Problem 07/21/2016 [facility] CARDIAC TAMPONADE Active [facility] QUADRIPLEGIA, UNSPECIFIED Active [facility] Medications Medication Details Route Status Patient Instructions Ordering Provider Order Date Source Physical Therapy See Instructions, MISC, ONCALL, Evaluate and Treat 2-3 times per week for 4-6 weeks, # 1 ea, 0 Refill(s) Active 07/18/2016 [facility] Occupational Therapy See Instructions, MISC, ONCALL, Evaluate and Treat 2-3 times per week for2-4 weeks, # 1 unit, 0 Refill(s) Active 07/18/2016 [facility] Furosemide 20 MG Oral Tablet [Lasix] 40 mg, 1 tab, Route: PO, Drug form: TAB, Daily, Dosing Weight 87.364, kg, Start date: 07/18/16 9:00:00 CDT, Duration: 30 day, Stop date: 08/16/16 9:00:00 CDTNotes: (Same as: Lasix) May cause GI upset. Give with food or milk. Inactive 07/18/2016 [facility] metoprolol 100 mg oral tablet, extended release 100 mg=1 tab, PO, Daily, # 30 tab, 0 Refill(s), Pharmacy: [facility] [id number] Active 07/18/2016 [facility] atorvastatin 40 mg oral tablet 40 mg=1 tab, PO, Bedtime, # 30 tab, 0 Refill(s), Pharmacy: [facility] [id number] Active 07/18/2016 [facility] Aspirin 81 MG Chewable Tablet 81 mg=1 tab, PO, Daily, # 30 tab, 0 Refill(s), Pharmacy: [facility] [id number] Active 07/18/2016 [facility] Furosemide 40 MG Oral Tablet [Lasix] 40 mg=1 tab, PO, Daily, # 30 tab, 0 Refill(s), Pharmacy: [facility] [id number] Active 07/18/2016 [facility] epoetin carlos 10,000 units/mL preservative-free injectable solution 10,000 unit=1 mL, SUB-Q, Q, X 14 day, # 6 mL, 0 Refill(s), Pharmacy: [facility] [id number] Active 07/18/2016 [facility] warfarin 1 mg oral tablet 3 mg=3 tab, PO, Q5PM, # 90 tab, 0 Refill(s), Pharmacy: [facility] [id number] Active 07/18/2016 [facility] pantoprazole 40 mg oral enteric coated tablet 40 mg=1 tab, PO, BID, # 42 tab, 0 Refill(s), Pharmacy: [facility] [id number] Active 07/18/2016 [facility] AMIODarone 200 mg oral tablet 200 mg=1 tab, PO, BID, # 60 tab, 0 Refill(s), Pharmacy: [facility] [id number] Active 07/18/2016 [facility] Sucralfate 100 MG/ML Oral Suspension [Carafate] 1 gm=10 mL, PO, BID, # 420 mL, 0 Refill(s), Pharmacy: [facility] [id number] Active 07/18/2016 [facility] potassium chloride 20 mEq oral tablet, extended release 20 mEq=1 tab, PO, BID, # 60 tab, 0 Refill(s), Pharmacy: [place] [id number] Active 07/18/2016 [facility] Xylocaine-MPF 1% preservative-free injectable solution 10 mL, Route: INJ, Drug form: INJ, ONCE, Dosing Weight 87.364, kg, Start date: 07/17/16 12:46:00 CDT, Stop date: 07/17/16 12:46:00 CDTNotes: (Same as: Xylocaine) Inactive 07/17/2016 [facility] Warfarin 3 mg, 3 tab, Route: PO, Drug form: TAB, Q5PM, Dosing Weight 87.364, kg, Start date: 07/16/16 17:00:00 CDT, Duration: 30 day, Stop date: 08/14/16 17:00:00 CDTNotes: Nurse to ensure documentation of patient education per anticoagulation policy. Avoid large intake of vitamin-K containing foods diet. (Same As: Coumadin) WASTE: F/P - P Waste Black; E - P Waste Black No Longer Active 07/16/2016 [facility] Epogen 10,000 unit, 1 mL, Route: SUB-Q, Drug form: INJ, Q-, Dosing Weight 87.364, kg, Start date: 07/15/16 17:00:00 CDT, Duration: 30 day, Stop date: 08/12/16 17:00:00 CDTNotes: (Same as: Procrit) epoe tin carlos 71665 unit/1 ml VL. For dialysis use only. (Procrit) WASTE: F/P - Red; E -Red MEDICATION WASTE Product Size: 00647 unit Product Wasted: ___ unit No Longer Active 07/15/2016 [facility] potassium chloride 40 mEq, 2 tab, Route: PO, Drug form: ERTAB, ONCE, Dosing Weight 87.364, kg, Start date: 07/15/16 11:39:00 CDT, Stop date: 07/15/16 11:39:00 CDT Inactive 07/15/2016 [facility] Everett 24 gm packet 1 pkt, Route: PO, Drug Form: PWDR, Dosing Weight 87.364, kg, BID-Before Meals, Start date: 07/14/16 16:30:00 CDT, Duration: 14 day, Stop date: 07/28/16 7:30:00 CDTNotes: (Same as: [place]) No Longer Active 07/14/2016 [facility] Klor-Con 20 mEq, 1 tab, Route: PO, Drug form: ERTAB, BID, Dosing Weight 87.364, kg, Start date: 07/14/16 9:51:00 CDT, Duration: 30 day, Stop date: 08/13/16 9:00:00 CDTNotes: (Same as: K-Dur 20) "Do Not Crush" With food and full glass of water No Longer Active 07/14/2016 [facility] Magnesium Sulfate 2 gm, 50 mL, Route: IVPB, Drug form: INJ, Q2H, Dosing Weight 87.364, kg, Total dose=4 gm, Start date: 07/12/16 20:00:00 CDT, Duration: 2 doses or times, Stop date: 07/12/16 22:00:00 CDTNotes: WASTE: F/P - Sink; E - Municipal Trash Bin Inactive 07/13/2016 [facility] Epogen 10,000 unit, 1 mL, Route: IVP, Drug form: INJ, Q, Dosing Weight 87.364, kg, Priority: NOW, Start date: 07/12/16 11:45:00 CDT, Duration: 30 day, Stop date: 08/09/16 17:00:00 CDTNotes: (Same as: Procrit) epoetin carlos 74080 unit/1 ml VL. For dialysis use only. (Procrit) WASTE: F/P - Red; E -Red MEDICATION WASTE Product Size: 80056 unit Product Wasted: ___ unit No Longer Active 07/12/2016 [facility] Lasix 40 mg, 4 mL, Route: IVP, Drug form: INJ, Daily, Dosing Weight 87.364, kg, Priority: NOW, Start date: 07/12/16 11:44:00 CDT, Duration: 30 day, Stop date: 08/11/16 9:00:00 CDTNotes: (Same as: Lasix) MEDICATION WASTE Product Size: 40 mg Product Wasted: ___ mg No Longer Active 07/12/2016 [facility] aspirin 81 mg tablet, chewable 81 mg, 1 tab, Route: PO, Drug form: CHEWTAB, Daily, Dosing Weight 95, kg, Start date: 07/12/16 9:00:00 CDT, Duration: 30 day, Stop date: 08/10/16 9:00:00 CDTNotes: Take with food. No Longer Active 07/12/2016 [facility] Carafate 1 gm, Route: PO, Drug form: TAB, BID, Dosing Weight 87.364, kg, Start date: 07/12/16 9:00:00 CDT, Duration: 30 day, Stop date: 08/10/16 17:00:00 CDT No Longer Active 07/12/2016 [facility] Venofer 200 mg, 10 mL, Route: IVPB, Daily, Dosing Weight 87.364, kg, Start date: 07/12/16 9:00:00 CDT, Stop date: 07/16/16 6:00:00 CDTNotes: Each 5ml contains 100mg elemental iron. Mix with NS Non-Formulary (S radha as:Venofer) Administer IV only. MEDICATION WASTE Product Size: 100 mg Product Wasted: ___ mg No Longer Active 07/12/2016 [facility] prednisoLONE acetate ophthalmic 1 drp, Route: RIGHT EYE, Daily, Drug form: SUSP, Start date: 07/12/16 9:00:00 CDT, Duration: 30 day, Stop date: 08/10/16 9:00:00 CDTNotes: (Same as: Pred Forte) No Longer Active 07/12/2016 [facility] Sucralfate 100 MG/ML Oral Suspension [Carafate] 1 gm, 1 tab, Route: PO, Drug form: TAB, BID, Dosing Weight 87.364, kg, Start date: 07/12/16 9:00:00 CDT, Duration: 30 day, Stop date: 08/10/16 17:00:00 CDTNotes: May interfere w/enteral feeds - Take 1 hr before or 2 hr after antacids, dairy pdt, meals & minerals - On empty stomach. For patients unable to swallow tablet, dissolve in 10mL - 30mL of water or juice and stir before giving. (Same As: Carafate) No Longer Active 07/12/2016 [facility] Toprol-XL 100 mg oral tablet, extended release 100 mg, 1 tab, Route: PO, Drug form: ERTAB, Daily, Start date: 07/12/16 9:00:00 CDT, Duration: 30 day, Stop date: 08/10/16 9:00:00 CDTNotes: (Same as: Toprol XL) May split tab, but do not crush. No Longer Active 07/12/2016 [facility] amLODIPine 5 mg, 1 tab, Route: PO, Drug form: TAB, Daily, Dosing Weight 95, kg, Start date: 07/12/16 9:00:00 CDT, Duration: 30 day, Stop date: 08/10/16 9:00:00 CDTNotes: (Same as: Norvasc) Inactive 07/12/2016 [facility] Senokot S 1 tab, Route: PO, Drug Form: TAB, Dosing Weight 95, kg, Daily, Start date: 07/12/16 9:00:00 CDT, Duration: 30 day, Stop date: 08/10/16 9:00:00 CDTNotes: (Same as Senokot-S) Equiv. to Cris-Colace. No Longer Active 07/12/2016 [facility] Lipitor 40 mg, 1 tab, Route: PO, Drug form: TAB, Bedtime, Dosing Weight 87.273, kg, Start date: 07/11/16 21:00:00 CDT, Duration: 30 day, Stop date: 08/09/16 21:00:00 CDTNotes: (Same as: Lipitor) No Longer Active 07/12/2016 [facility] Protonix 40 mg, 1 tab, Route: PO, Drug form: ECTAB, BID, Dosing Weight 87.364, kg, Start date: 07/11/16 21:00:00 CDT, Duration: 30 day, Stop date: 08/10/16 17:00:00 CDTNotes: Tablet should not be chewed or crushed. (Same as: Protonix) No Longer Active 07/12/2016 [facility] Saline Flush 0.9% 10 ml, Route: IVP, Drug Form: INJ, Dosing Weight 95, kg, Q12H, Start date: 07/11/16 21:00:00 CDT, Duration: 30 day, Stop date: 08/10/16 9:00:00 CDTNotes: (Same as: BD Posiflush) No Longer Active 07/12/2016 [facility] Lasix 40 mg, 4 mL, Route: IVP, Drug form: INJ, ONCE, Dosing Weight 87.364, kg, Start date: 07/11/16 18:34:00 CDT, Stop date: 07/11/16 18:34:00 CDTNotes: (Same as: Lasix) MEDICATION WASTE Product Size: 40 mg Product Wasted: ___ mg Inactive 07/11/2016 [facility] Renvela 0.8 gm, 1 pkt, Route: PO, Drug form: PDR/REC, TID- Meals, Dosing Weight 95, kg, Start date: 07/11/16 17:00:00 CDT, Duration: 30 day, Stop date: 08/10/16 12:00:00 CDTNotes: Same as: Renvela No Longer Active 07/11/2016 [facility] Coumadin 4 mg, 2 tab, Route: PO, Drug form: TAB, Q5PM, Dosing Weight 95, kg, Start date: 07/11/16 17:00:00 CDT, Duration: 30 day, Stop date: 08/09/16 17:00:00 CDTNotes: Nurse to ensure documentation of patient e ducation per anticoagulation policy. Avoid large intake of vitamin-K containing foods diet. (Same As: Coumadin) WASTE: F/P - P Waste Black; E - P Waste Black No Longer Active 07/11/2016 [facility] Cordarone 200 mg, 1 tab, Route: PO, Drug form: TAB, BID, Dosing Weight 87.273, kg, Start date: 07/11/16 17:00:00 CDT, Duration: 30 day, Stop date: 08/10/16 9:00:00 CDTNotes: (Same as: Cordarone) No Longer Active 07/11/2016 [facility] Warfarin 4 mg, 2 tab, Route: PO, Drug form: TAB, Q5PM, Dosing Weight 95, kg, Start date: 07/11/16 17:00:00 CDT, Duration: 1 doses or times, Stop date: 07/11/16 17:00:00 CDTNotes: Nurse to ensure documentation of patient education per anticoagulation policy. Avoid large intake of vitamin-K containing foods diet. (Same As: Coumadin) WASTE: F/P - P Waste Black; E - P Waste Black Inactive 07/11/2016 [facility] Senokot 8.6 mg, 1 tab, Route: PO, Drug Form: TAB, Dosing Weight 87.273, kg, BID, PRN Constipation, Start date: 07/11/16 14:56:00 CDT, Duration: 30 day, Stop date: 08/10/16 14:55:00 CDTNotes: (Same as: Senokot) No Longer Active 07/11/2016 [facility] MiraLax 17 gm, 1 pkt, Route: PO, Drug form: PWDR, BID, Dosing Weight 87.273, kg, PRN Constipation, Start date: 07/11/16 14:53:00 CDT, Duration: 30 day, Stop date: 08/10/16 14:52:00 CDTNotes: Dissolve in 8 oz of water or juice. (Same as: Miralax) Inactive 07/11/2016 [facility] melatonin 3 mg, 1 tab, Route: PO, Drug form: TAB, Bedtime, Dosing Weight 87.273, kg, PRN Sleep, Start date: 07/11/16 14:53:00 CDT, Duration: 30 day, Stop date: 08/10/16 14:52:00 CDTNotes: (Same as: Melatonin) No Longer Active 07/11/2016 [facility] Insulin, Aspart, Human 1 unit, 0.01 mL, Route: SUB-Q, Drug form: SOLN, Bedtime, Dosing Weight 87.364, kg, PRN Blood Glucose Results, Start date: 07/11/16 14:51:00 CDT, Duration: 30 day, Stop date: 08/10/16 14:50:00 CDTNotes: Roll in palms of hands gently; Do not shake vigorously. (Same as: NovoLOG) "single patient use only" WASTE: F/P - Black; E - Municipal Trash Bin Stable for 28 days at room temperature. Expires in days from Date No Longer Active 07/11/2016 [facility] Dextrose 50% Syringe 25 gm, 50 mL, Route: IVP, Drug Form: INJ, Dosing Weight 87.364, kg, PRN, PRN Blood Glucose Results, Start date: 07/11/16 14:51:00 CDT, Duration: 30 day, Stop date: 08/10/16 14:50:00 CDT No Longer Active 07/11/2016 [facility] Glucagon 1 mg, Route: IM, Drug form: PDR/INJ, PRN, Dosing Weight 87.364, kg, PRN Blood Glucose Results, Start date: 07/11/16 14:51:00 CDT, Duration: 30 day, Stop date: 08/10/16 14:50:00 CDT No Longer Active 07/11/2016 [facility] docusate 100 mg, 10 mL, Route: PO, Drug form: LIQ, BID, Dosing Weight 87.273, kg, PRN Constipation, Start date: 07/11/16 14:51:00 CDT, Duration: 30 day, Stop date: 08/10/16 14:50:00 CDTNotes: (Same as: Colace) No Longer Active 07/11/2016 [facility] hydrocortisone topical 1% cream 1 appl, Route: TOP, BID, Drug form: CRM, PRN Rash, Start date: 07/11/16 14:50:00 CDT, Duration: 30 day, Stop date: 08/10/16 14:49:00 CDT No Longer Active 07/11/2016 [facility] Tylenol 650 mg, 20.3 mL, Route: PO, Drug form: LIQ, Q6H, Dosing Weight 95, kg, PRN Pain Score 1-3, Start date: 07/11/16 14:48:00 CDT, Duration: 30 day, Stop date: 08/10/16 14:47:00 CDTNotes: Max acetaminophe p=8069wp/day (4 gm/day). (Same as: Tylenol) No Longer Active 07/11/2016 [facility] Saline Flush 0.9% 10 ml, Route: IVP, Drug Form: INJ, Dosing Weight 95, kg, PRN, PRN Line Flush, Start date: 07/11/16 14:36:00 CDT, Duration: 30 day, Stop date: 08/10/16 14:35:00 CDTNotes: (Same as: BD Posiflush) No Longer Active 07/11/2016 [facility] Trazodone 50 mg, 1 tab, Route: PO, Drug form: TAB, Bedtime, Dosing Weight 95, kg, PRN Insomnia, Start date: 07/11/16 14:36:00 CDT, Duration: 30 day, Stop date: 08/10/16 14:35:00 CDTNotes: (Same As: Desyrel) No Longer Active 07/11/2016 [facility] Docusate Sodium 100 MG Oral Capsule 100 mg, 1 cap, Route: PO, Drug form: CAP, BID, Dosing Weight 95, kg, PRN Constipation, Start date: 07/11/16 14:36:00 CDT, Duration: 30 day, Stop date: 08/10/16 14:35:00 CDTNotes: (Same as: Colace) (Do Not Crush) No Longer Active 07/11/2016 [facility] Miralax 17 gm, 1 pkt, Route: PO, Drug form: PWDR, BID, Dosing Weight 95, kg, PRN Constipation, Start date: 07/11/16 14:36:00 CDT, Duration: 30 day, Stop date: 08/10/16 14:35:00 CDTNotes: Dissolve in 8 oz of water or juice. (Same as: Miralax) No Longer Active 07/11/2016 [facility] Bisacodyl 10 mg, 1 supp, Route: CT, Drug form: SUPP, Daily, Dosing Weight 95, kg, PRN Constipation, Start date: 07/11/16 14:36:00 CDT, Duration: 30 day, Stop date: 08/10/16 14:35:00 CDTNotes: (Same As: Dulcolax, Bisco-Lax) No Longer Active 07/11/2016 [facility] Aspirin 81 MG Chewable Tablet 81 mg=1 tab, PO, Daily, # 30 tab, 0 Refill(s) Active 07/11/2016 [facility] amLODIPine 5 mg oral tablet 5 mg=1 tab, PO, Daily, # 30 tab, 0 Refill(s) Active 07/11/2016 [facility] AMIODarone 200 mg oral tablet 200 mg=1 tab, PO, BID, # 60 tab, 0 Refill(s) Active 07/11/2016 [facility] warfarin 2 mg oral tablet 4 mg=2 tab, PO, Q5PM, # 60 tab, 0 Refill(s) Active 07/11/2016 [facility] prednisolone acetate 10 MG/ML Ophthalmic Suspension 1 drp, RIGHT EYE, Daily, X 14 day, # 15 mL, 0 Refill(s) Active 07/11/2016 [facility] metoprolol 100 mg oral tablet, extended release 100 mg=1 tab, PO, Daily, # 30 tab, 0 Refill(s) Active 07/11/2016 [facility] pantoprazole 40 mg oral enteric coated tablet 40 mg=1 tab, PO, Daily, # 30 tab, 0 Refill(s) Active 07/11/2016 [facility] insulin aspart 100 units/mL subcutaneous solution 3 unit, SUB-Q, TID-Before Meals, # 15 mL, 0 Refill(s) Active 07/11/2016 [facility] sevelamer carbonate 26.7 MG/ML Oral Suspension 0.8 gm=1 pkt, PO, TID-Meals, # 90 pkt, 0 Refill(s) Active 07/11/2016 [facility] Insulin Glargine 100 UNT/ML Injectable Solution 10 unit, SUB-Q, Daily, # 10 mL, 0 Refill(s) Active 07/11/2016 [facility] Docusate Sodium 50 MG / sennosides, INTERMEDIATE 8.6 MG Oral Tablet 1 tab, PO, Daily, X 10 day, # 10 tab, 0 Refill(s) Active 07/11/2016 [facility] atorvastatin 40 mg oral tablet 40 mg=1 tab, PO, Bedtime, # 30 tab, 0 Refill(s) Active 07/11/2016 [facility] polyethylene glycol 3350 oral powder for reconstitution 17 gm, PO, Daily, X 7 day, # 12 ea, 0 Refill(s) Active 07/11/2016 [facility] Potassium Chloride 1.33 MEQ/ML Oral Solution 20 mEq, 15 mL, Route: PO, Drug form: LIQ, ONCE, Dosing Weight 95, kg, Start date: 07/11/16 7:45:00 CDT, Stop date: 07/11/16 7:45:00 CDTNotes: (Same as: Potassium Chloride) Inactive 07/11/2016 [facility] Warfarin 4 mg, 2 tab, Route: PO, Drug form: TAB, Q5PM, Dosing Weight 95, kg, Start date: 07/10/16 17:00:00 CDT, Duration: 1 doses or times, Stop date: 07/10/16 17:00:00 CDTNotes: Nurse to ensure documentation of patient education per anticoagulation policy. Avoid large intake of vitamin-K containing foods diet. (Same As: Coumadin) WASTE: F/P - P Waste Black; E - P Waste Black Inactive 07/10/2016 [facility] Potassium Chloride 1.33 MEQ/ML Oral Solution 20 mEq, 15 mL, Route: PO, Drug form: LIQ, ONCE, Dosing Weight 95, kg, Start date: 07/10/16 10:20:00 CDT, Stop date: 07/10/16 10:20:00 CDTNotes: (Same as: Potassium Chloride) Inactive 07/10/2016 [facility] Miralax 17 gm, 1 pkt, Route: PO, Drug form: PWDR, Daily, Dosing Weight 95, kg, Start date: 07/10/16 9:00:00 CDT, Duration: 30 day, Stop date: 08/08/16 9:00:00 CDTNotes: Dissolve in 8 oz of water or juice. (Same as: Miralax) No Longer Active 07/10/2016 [facility] Toprol-XL 100 mg oral tablet, extended release 100 mg, 1 tab, Route: PO, Drug form: ERTAB, Daily, Start date: 07/10/16 9:00:00 CDT, Duration: 30 day, Stop date: 08/08/16 9:00:00 CDTNotes: (Same as: Toprol XL) May split tab, but do not crush. No Longer Active 07/10/2016 [facility] Benadryl 25 mg, 1 cap, Route: PO, Drug form: CAP, ONCE, Dosing Weight 95, kg, Start date: 07/09/16 18:06:00 CDT, Stop date: 07/09/16 18:06:00 CDTNotes: (Same as: Benadryl) Inactive 07/09/2016 [facility] Warfarin 4 mg, 2 tab, Route: PO, Drug form: TAB, Q5PM, Dosing Weight 95, kg, Start date: 07/09/16 17:00:00 CDT, Duration: 1 doses or times, Stop date: 07/09/16 17:00:00 CDTNotes: Nurse to ensure documentation of patient education per anticoagulation policy. Avoid large intake of vitamin-K containing foods diet. (Same As: Coumadin) WASTE: F/P - P Waste Black; E - P Waste Black Inactive 07/09/2016 [facility] hydrocortisone topical 1% cream 1 appl, Route: TOP, BID, Drug form: CRM, PRN Rash, Start date: 07/09/16 11:49:00 CDT, Duration: 30 day, Stop date: 08/08/16 11:48:00 CDT No Longer Active 07/09/2016 [facility] Venofer 200 mg, 10 mL, Route: IVPB, Daily, Dosing Weight 95, kg, Start date: 07/09/16 9:00:00 CDT, Stop date: 07/12/16 9:00:00 CDTNotes: Each 5ml contains 100mg elemental iron. Mix with NS Non-Formulary (Same as:Venofer) Administer IV only. MEDICATION WASTE Product Size: 100 mg Product Wasted: ___ mg No Longer Active 07/09/2016 [facility] Warfarin 4 mg, 2 tab, Route: PO, Drug form: TAB, Q5PM, Dosing Weight 95, kg, Start date: 07/08/16 17:00:00 CDT, Duration: 1 doses or times, Stop date: 07/08/16 17:00:00 CDTNotes: Nurse to ensure documentation of patient education per anticoagulation policy. Avoid large intake of vitamin-K containing foods diet. (Same As: Coumadin) WASTE: F/P - P Waste Black; E - P Waste Black Inactive 07/08/2016 [facility] Docusate Sodium 50 MG / sennosides, INTERMEDIATE 8.6 MG Oral Tablet 1 tab, Route: PO, Drug Form: TAB, Dosing Weight 95, kg, Daily, Start date: 07/08/16 9:00:00 CDT, Duration: 30 day, Stop date: 08/06/16 9:00:00 CDTNotes: (Same as Senokot-S) Equiv. to Cris-Colace. No Longer Active 07/08/2016 [facility] potassium chloride 20 mEq oral tablet, extended release 40 mEq, 2 tab, Route: PO, Drug form: ERTAB, Q2H, Dosing Weight 95, kg, Start date: 07/08/16 6:00:00 CDT, Duration: 2 doses or times, Stop date: 07/08/16 8:00:00 CDTNotes: (Same as: K-Dur 20) "Do Not Crush" With food and full glass of water Inactive 07/08/2016 [facility] Warfarin 3 mg, 1 tab, Route: PO, Drug form: TAB, Q5PM, Dosing Weight 95, kg, Start date: 07/07/16 17:00:00 CDT, Duration: 1 doses or times, Stop date: 07/07/16 17:00:00 CDTNotes: Nurse to ensure documentation of patient education per anticoagulation policy. Avoid large intake of vitamin-K containing foods diet. (Same As: Coumadin) WASTE: F/P - P Waste Black; E - P Waste Black Inactive 07/07/2016 [facility] Miralax 17 gm, 1 pkt, Route: PO, Drug form: PWDR, ONCE, Dosing Weight 95, kg, Start date: 07/07/16 10:56:00 CDT, Duration: 1 doses or times, Stop date: 07/07/16 10:56:00 CDTNotes: Dissolve in 8 oz of water or juice. (Same as: Miralax) Inactive 07/07/2016 [facility] Potassium Chloride 1.33 MEQ/ML Oral Solution 40 mEq, 30 mL, Route: PO, Drug form: LIQ, BID, Dosing Weight 95, kg, Start date: 07/07/16 9:00:00 CDT, Duration: 1 day, Stop date: 07/07/16 17:00:00 CDT Inactive 07/07/2016 [facility] Insulin Glargine 10 unit, 0.1 mL, Route: SUB-Q, Drug form: SOLN, Daily, Dosing Weight 95, kg, Start date: 07/06/16 21:00:00 CDT, Duration: 30 day, Stop date: 08/04/16 21:00:00 CDTNotes: Same as: Lantus) Do not hold i nsulin without contacting prescriber WASTE: F/P - Black; E - Municipal Trash Bin No Longer Active 07/07/2016 [facility] Lasix 40 mg, 4 mL, Route: IV, Drug form: INJ, BID, Dosing Weight 87.273, kg, Start date: 07/06/16 20:00:00 CDT, Duration: 30 day, Stop date: 08/05/16 8:00:00 CDTNotes: (Same as: Lasix) MEDICATION WASTE Product Size: 40 mg Product Wasted: ___ mg No Longer Active 07/07/2016 [facility] Warfarin 3 mg, 1 tab, Route: PO, Drug form: TAB, Q5PM, Dosing Weight 95, kg, Start date: 07/06/16 17:00:00 CDT, Duration: 1 doses or times, Stop date: 07/06/16 17:00:00 CDTNotes: Nurse to ensure documentation of patient education per anticoagulation policy. Avoid large intake of vitamin-K containing foods diet. (Same As: Coumadin) WASTE: F/P - P Waste Black; E - P Waste Black Inactive 07/06/2016 [facility] Insulin, Aspart, Human 3 unit, 0.03 mL, Route: SUB-Q, Drug form: SOLN, TID-Before Meals, Dosing Weight 95, kg, Start date: 07/06/16 16:30:00 CDT, Duration: 30 day, Stop date: 08/05/16 11:30:00 CDTNotes: Roll in palms of hands gently; Do not shake vigorously. (Same as: NovoLOG) "single patient use only" WASTE: F/P - Black; E - Municipal Trash Bin Stable for 28 days at room temperature. Expires in days from Date No Longer Active 07/06/2016 [facility] Insulin Glargine 8 unit, 0.08 mL, Route: SUB-Q, Drug form: SOLN, Daily, Dosing Weight 95, kg, Start date: 07/05/16 21:00:00 CDT, Duration: 30 day, Stop date: 08/03/16 21:00:00 CDTNotes: Same as: Lantus) Do not hold i nsulin without contacting prescriber WASTE: F/P - Black; E - Municipal Trash Bin No Longer Active 07/06/2016 [facility] Insulin, Aspart, Human 2 unit, 0.02 mL, Route: SUB-Q, Drug form: SOLN, TID-Before Meals, Dosing Weight 95, kg, Start date: 07/05/16 11:30:00 CDT, Duration: 30 day, Stop date: 08/04/16 7:30:00 CDTNotes: Roll in palms of hands gently; Do not shake vigorously. (Same as: NovoLOG) "single patient use only" WASTE: F/P - Black; E - Municipal Trash Bin Stable for 28 days at room temperature. Expires in days from Date No Longer Active 07/05/2016 [facility] Insulin, Aspart, Human 2 unit, 0.02 mL, Route: SUB-Q, Drug form: SOLN, TID-Before Meals, Dosing Weight 95, kg, PRN Blood Glucose Results, Start date: 07/05/16 10:06:00 CDT, Duration: 30 day, Stop date: 08/04/16 10:05:00 CDTNotes: Roll in palms of hands gently; Do not shake vigorously. (Same as: NovoLOG) "single patient use only" WASTE: F/P - Black; E - Municipal Trash Bin Stable for 28 days at room temperature. Expires in days from Date No Longer Active 07/05/2016 [facility] Dextrose 50% Syringe 25 gm, 50 mL, Route: IVP, Drug Form: INJ, Dosing Weight 95, kg, PRN, PRN Blood Glucose Results, Start date: 07/05/16 10:06:00 CDT, Duration: 30 day, Stop date: 08/04/16 10:05:00 CDT No Longer Active 07/05/2016 [facility] Glucagon 1 mg, Route: IM, Drug form: PDR/INJ, PRN, Dosing Weight 95, kg, PRN Blood Glucose Results, Start date: 07/05/16 10:06:00 CDT, Duration: 30 day, Stop date: 08/04/16 10:05:00 CDT No Longer Active 07/05/2016 [facility] Venofer 200 mg, Route: IV, Daily, Dosing Weight 95, kg, Start date: 07/05/16 9:00:00 CDT, Duration: 5 day, Stop date: 07/09/16 9:00:00 CDT Inactive 07/05/2016 [facility] insulin, isophane 7 unit, 0.07 mL, Route: SUB-Q, Drug form: INJ, BID, Dosing Weight 95, kg, Start date: 07/05/16 9:00:00 CDT, Duration: 30 day, Stop date: 08/03/16 17:00:00 CDTNotes: Roll in palms of hands gently; Do not shake vigorously. (Same as: Humulin N) Do not hold insulin without contacting prescriber WASTE: F/P - Black; E - Municipal Trash Bin Stable for 28 days at room temperature Expires in days from Date Inactive 07/05/2016 [facility] Ferrlecit + sodium chloride 0.9% INJ 100 mL 125 mg, 10 mL, Route: IVPB, Daily, Start date: 07/05/16 9:00:00 CDT, Stop date: 07/12/16 9:00:00 CDT No Longer Active 07/05/2016 [facility] Calcium Gluconate 1,000 mg, 10 mL, Route: IVPB, ONCE, Dosing Weight 95, kg, Start date: 07/05/16 4:53:00 CDT, Stop date: 07/05/16 4:53:00 CDTNotes: WASTE: F/P - Sink; E - Municipal Trash Bin Inactive 07/05/2016 [facility] benzocaine-menthol topical 1 lozenge, Route: MUCOUS MEM, Drug Form: DAHLIA, Q2H, PRN Sore Throat, Start date: 07/04/16 22:29:00 CDT, Duration: 30 day, Stop date: 08/03/16 22:28:00 CDTNotes: Cepacol lozenges Dispense 1 box=16 lozenges (Same As: Cepacol Lozenges) No Longer Active 07/05/2016 [facility] Menthol 2.5 MG Lozenge 2.5 mg, 1 lozenge, Route: PO, Q2H, Start date: 07/04/16 22:00:00 CDT, Duration: 30 day, Stop date: 08/03/16 20:00:00 CDT Inactive 07/05/2016 [facility] Renvela 0.8 gm, 1 pkt, Route: PO, Drug form: PDR/REC, TID- Meals, Dosing Weight 95, kg, Start date: 07/04/16 18:12:00 CDT, Stop date: 08/03/16 17:00:00 CDTNotes: Same as: Renvela No Longer Active 07/04/2016 [facility] sevelamer 800 mg, 1 pkt, Route: PO, Drug form: PDR/REC, TID-Meals, Dosing Weight 95, kg, Start date: 07/04/16 17:00:00 CDT, Stop date: 08/03/16 12:00:00 CDTNotes: Same as: Renvela Inactive 07/04/2016 [facility] insulin, isophane 7 unit, 0.07 mL, Route: SUB-Q, Drug form: INJ, Q8H, Dosing Weight 95, kg, Start date: 07/04/16 16:00:00 CDT, Duration: 30 day, Stop date: 08/03/16 8:00:00 CDTNotes: Roll in palms of hands gently; Do not shake vigorously. (Same as: Humulin N) Do not hold insulin without contacting prescriber WASTE: F/P - Black; E - Municipal Trash Bin Stable for 28 days at room temperature Expires in days from Date No Longer Active 07/04/2016 [facility] Ondansetron 4 mg, 2 mL, Route: IVP, Drug form: INJ, ONCE, Dosing Weight 95, kg, PRN Nausea & Vomiting, Start date: 07/04/16 10:02:00 CDTNotes: (Same as: Zofran) MEDICATION WASTE Product Size: 4 mg Pro duct Wasted: ___ mg Inactive 07/04/2016 [facility] Naloxone 0.4 mg, 1 mL, Route: IVP, Drug form: INJ, Q2MIN, Dosing Weight 95, kg, PRN Narcotic Reversal, Start date: 07/04/16 10:02:00 CDT, Duration: 8 doses or times, Stop date: Limited # of timesNotes: Same as Narcan Inactive 07/04/2016 [facility] Flumazenil 0.2 mg, 2 mL, Route: IVP, Drug form: INJ, PRN, Dosing Weight 95, kg, PRN Benzodiazepine Reversal, Initial dose, Start date: 07/04/16 10:02:00 CDT, Duration: 30 day, Stop date: 08/03/16 10:01:00 CDTNotes: (Same as: Romazicon) Inactive 07/04/2016 [facility] Hydromorphone 0.5 mg, 0.25 mL, Route: IVP, Drug form: INJ, Q5Min, Dosing Weight 95, kg, PRN Pain Score 7-10, Start date: 07/04/16 10:02:00 CDT, Duration: 4 doses or times, Stop date: Limited # of timesNotes: Same as: Dilaudid Inactive 07/04/2016 [facility] Morphine 2 mg, 1 mL, Route: IVP, Drug form: INJ, Q5Min, Dosing Weight 95, kg, PRN Pain Score 4-6, Start date: 07/04/16 10:02:00 CDT, Duration: 5 doses or times, Stop date: Limited # of timesNotes: (Same as:MO RPhine Sulfate) Inactive 07/04/2016 [facility] Hydralazine 10 mg, 0.5 mL, Route: IVP, Drug form: INJ, Q20Min, Dosing Weight 95, kg, PRN Elevated BP, Start date: 07/04/16 10:02:00 CDT, Duration: 2 doses or times, Stop date: Limited # of timesNotes: (Same as: Apresoline) Push over 5 minutes Inactive 07/04/2016 [facility] Labetalol 10 mg, 2 mL, Route: IVP, Drug form: INJ, Q5Min, Dosing Weight 95, kg, PRN Elevated BP, Start date: 07/04/16 10:02:00 CDT, Duration: 5 doses or times, Stop date: Limited # of times Inactive 07/04/2016 [facility] Golytely 4,000 ml, Route: NG, Drug Form: PDR/REC, Dosing Weight 95, kg, ONCE, Start date: 07/03/16 17:53:00 CDT, Duration: 1 doses or times, Stop date: 07/03/16 17:53:00 CDTNotes: (polyethylene glycol electrolyte solution 4 Liter bottle) (Same as: Golytely, Colyte) Inactive 07/03/2016 [facility] sodium chloride 0.9% 500 ml INJ 500 mL 500 mL, Rate: 250 ml/hr, Infuse over: 2 hr, Route: IV, Dosing Weight 95 kg, Total Volume: 500, Start date: 07/03/16 11:53:00 CDT, Duration: 1 doses or times, Stop date: 07/03/16 13:52:00 CDT Inactive 07/03/2016 [facility] heparin additive 25,000 unit [14 unit/kg/hr] + Premix Diluent Dextrose 5% 500 mL 500 mL, Rate: 23.68 ml/hr, Infuse over: 21.1 hr, Route: IV, Dosing Weight 84.56 kg, Total Volume: 500 mL, Start date: 07/03/16 11:05:00 CDT, Duration: 30 day, Stop date: 08/02/16 11:04:00 CDT No Longer Active 07/03/2016 [facility] metoprolol tartrate 25 mg, 1 tab, Route: PO, Drug form: TAB, ONCE, Dosing Weight 95, kg, Start date: 07/03/16 10:42:00 CDT, Stop date: 07/03/16 10:42:00 CDTNotes: (Same as: Lopressor) Inactive 07/03/2016 [facility] metoprolol tartrate 50 mg, Route: PO, Drug form: TAB, ONCE, Dosing Weight 95, kg, Start date: 07/03/16 10:41:00 CDT, Stop date: 07/03/16 10:41:00 CDT Inactive 07/03/2016 [facility] Amiodarone 150 mg, 3 mL, Route: IVPB, ONCE, Dosing Weight 95, kg, Start date: 07/02/16 22:02:00 CDT, Stop date: 07/02/16 22:02:00 CDTNotes: Central administration only for concentrations > 2 mg/ml. "Recommendation: Use an in-line filter during administration for continuous infusions to reduce the incidence of phlebitis" (Same as Codarone) MEDICATION WASTE Product Size: 150 mg Product Wasted: 0___ mg Inactive 07/03/2016 [facility] Dulcolax Laxative 10 mg, 2 tab, Route: PO, Drug form: ECTAB, Q8H, Dosing Weight 95, kg, Start date: 07/02/16 12:00:00 CDT, Duration: 3 doses or times, Stop date: 07/03/16 0:00:00 CDTNotes: (Same As: Dulcolax, Correctol) (Do Not Crush) "Do Not Crush" No Longer Active 07/02/2016 [facility] Golytely 4,000 ml, Route: PO, Drug Form: PDR/REC, Dosing Weight 95, kg, ONCE, Start date: 07/02/16 10:19:00 CDT, Duration: 1 doses or times, Stop date: 07/02/16 10:19:00 CDTNotes: (Same as: Nulytely) Inactive 07/02/2016 [facility] Cordarone 200 mg, 1 tab, Route: PO, Drug form: TAB, BID, Dosing Weight 87.273, kg, Start date: 07/02/16 10:00:00 CDT, Duration: 30 day, Stop date: 08/01/16 9:00:00 CDTNotes: (Same as: Cordarone) No Longer Active 07/02/2016 [facility] sodium chloride 0.9% INJ 250 mL 250 mL, Rate: inbound call center representative for use with blood product administration, Dosing Weight 95, kg, Route: IV, Total Volume: 250, Start Date: 07/02/16 7:11:00 CDT, Duration: 30 day, Stop date: 08/01/16 7:10:00 CDT, Replace Every: 24 hr No Longer Active 07/02/2016 [facility] vancomycin + sodium chloride 0.9% INJ 50 mL 125 mg, Route: CT, Q6H, Start date: 07/02/16 0:00:00 CDT, Duration: 30 day, Stop date: 07/31/16 18:00:00 CDTNotes: TIME CRITICAL MEDICATION (Same As: Vancocin) Inactive 07/02/2016 [facility] Lopressor 5 mg, 5 mL, Route: IV, Drug form: INJ, Q6H, Start date: 07/02/16 0:00:00 CDT, Duration: 30 day, Stop date: 07/31/16 18:00:00 CDTNotes: (Same as: Lopressor) Push over 2 minutes Inactive 07/02/2016 [facility] AMIODarone 900 mg + D5W 500 ml INJ 482 mL 482 mL, Rate: 0.5mg/min, Route: IV, Dosing Weight 95 kg, Total Volume: 500, Start date: 07/01/16 22:45:00 CDT, Duration: 30 day, Stop date: 07/31/16 22:44:00 CDTNotes: Central administration only for concentration > 2 mg/ml. Use Glass Bottle or Non PVC Bag "Use 0.22 micron in-line filter" MEDICATION WASTE Product Size: 900 mg Product Wasted: ___ mg No Longer Active 07/02/2016 [facility] NovoLIN 70/30 7 unit, Route: SUB-Q, BID-Before Meals, Dosing Weight 95, kg, Start date: 07/01/16 16:30:00 CDT, Duration: 30 day, Stop date: 07/31/16 7:30:00 CDT Inactive 07/01/2016 [facility] Vancomycin 125 mg, 2.5 mL, Route: PO, Drug form: SOLN, ABXQ6H, Dosing Weight 95, kg, Start date: 07/01/16 14:00:00 CDT, Duration: 30 day, Stop date: 07/31/16 8:00:00 CDTNotes: TIME CRITICAL MEDICATION Concentratio n=50 mg/ml. Keep in refrigerator. For oral use only. Vancomycin 1gm vial are used and reconstituted with 20ml of sterile water for a concentration of 50mg/ml. Draw up in shama po syringes. DO NOT USE IV SYRINGES. No Longer Active 07/01/2016 [facility] Labetalol 10 mg, 2 mL, Route: IVP, Drug form: INJ, Q5Min, Dosing Weight 95, kg, PRN Elevated BP, Start date: 07/01/16 12:08:00 CDT, Duration: 5 doses or times, Stop date: 07/02/16 0:00:00 CDT Inactive 07/01/2016 [facility] Hydralazine 10 mg, 0.5 mL, Route: IVP, Drug form: INJ, Q20Min, Dosing Weight 95, kg, PRN Elevated BP, Start date: 07/01/16 12:08:00 CDT, Duration: 2 doses or times, Stop date: 07/02/16 0:00:00 CDTNotes: (Same as: Apresoline) Push over 5 minutes Inactive 07/01/2016 [facility] Morphine 2 mg, 1 mL, Route: IVP, Drug form: INJ, Q5Min, Dosing Weight 95, kg, PRN Pain Score 4-6, Start date: 07/01/16 12:08:00 CDT, Duration: 5 doses or times, Stop date: 07/02/16 0:00:00 CDTNotes: (Same as: MORPhine Sulfate) Inactive 07/01/2016 [facility] Naloxone 0.4 mg, 1 mL, Route: IVP, Drug form: INJ, Q2MIN, Dosing Weight 95, kg, PRN Narcotic Reversal, Start date: 07/01/16 12:08:00 CDT, Duration: 8 doses or times, Stop date: 07/02/16 0:00:00 CDTNotes: Same as Narcan Inactive 07/01/2016 [facility] Flumazenil 0.2 mg, 2 mL, Route: IVP, Drug form: INJ, PRN, Dosing Weight 95, kg, PRN Benzodiazepine Reversal, Initial dose, Start date: 07/01/16 12:08:00 CDT, Duration: 30 day, Stop date: 07/31/16 12:07:00 CDTNotes: (Same as: Romazicon) Inactive 07/01/2016 [facility] Ondansetron 4 mg, 2 mL, Route: IVP, Drug form: INJ, ONCE, Dosing Weight 95, kg, PRN Nausea & Vomiting, Start date: 07/01/16 12:08:00 CDTNotes: (Same as: Zofran) MEDICATION WASTE Product Size: 4 mg Pro duct Wasted: ___ mg Inactive 07/01/2016 [facility] lovastatin 20 mg oral tablet 20 mg=1 tab, PO, Bedtime, # 30 tab, 0 Refill(s) No Longer Active 07/01/2016 [facility] warfarin 5 mg oral tablet 7.5 mg=1.5 tab, PO, Daily, 0 Refill(s) No Longer Active 07/01/2016 [facility] Metformin hydrochloride 500 MG Oral Tablet 500 mg=1 tab, PO, BID-Meals, # 30 tab, 0 Refill(s) No Longer Active 07/01/2016 [facility] Colesevelam hydrochloride 625 MG Oral Tablet [Welchol] 1,875 mg=3 tab, PO, BID-Meals, # 180 tab, 0 Refill(s) No Longer Active 07/01/2016 [facility] metoprolol tartrate 50 mg oral tablet 50 mg=1 tab, PO, BID, 0 Refill(s) No Longer Active 07/01/2016 [facility] losartan 25 mg oral tablet See Instructions, 1 or 2 tab PO Daily if systolic BP is higher than 140, 0 Refill(s) No Longer Active 07/01/2016 [facility] NovoLIN 70/30 7 unit, 0.07 mL, Route: SUB-Q, Drug form: INJ, ONCE, Dosing Weight 95, kg, Start date: 07/01/16 9:24:00 CDT, Stop date: 07/01/16 9:24:00 CDTNotes: Roll in palms of hands gently; Do not shake. (Same a s: NovoLIN Mix 70/30) Do not hold insulin without contacting prescriber WASTE: F/P - Black; E - Municipal Trash Bin Inactive 07/01/2016 [facility] sodium chloride 0.9% INJ 250 mL 250 mL, Rate: Engraving Supervisor for use with blood product administration., Dosing Weight 95, kg, Route: IV, Total Volume: 250, Priority: Routine, Start Date: 07/01/16 8:54:00 CDT, Duration: 1 day, Stop date: 07/02/16 8:53:00 CDT, Replace Every: 24 hr No Longer Active 07/01/2016 [facility] metoprolol tartrate 25 mg, 1 tab, Route: PO, Drug form: TAB, ONCE, Dosing Weight 95, kg, Start date: 07/01/16 0:57:00 CDT, Stop date: 07/01/16 0:57:00 CDTNotes: (Same as: Lopressor) Inactive 07/01/2016 [facility] metoprolol extended release 50 mg, 1 tab, Route: PO, Drug form: ERTAB, BID, Start date: 06/30/16 17:00:00 CDT, Stop date: 07/30/16 9:00:00 CDTNotes: (Same as: Toprol XL) May split tab, but do not crush. No Longer Active 06/30/2016 [facility] Amlodipine 5 mg, 1 tab, Route: PO, Drug form: TAB, Daily, Dosing Weight 95, kg, Start date: 06/28/16 23:42:00 BLACK ASH BURNER OPERATOR, Duration: 30 day, Stop date: 07/28/16 9:00:00 CDTNotes: (Same as: Norvasc) No Longer Active 06/29/2016 [facility] heparin additive 25,000 unit [14 unit/kg/hr] + Premix Diluent Dextrose 5% 500 mL 500 mL, Rate: 24.44 ml/hr, Infuse over: 20.5 hr, Route: IVPB, Dosing Weight 87.273 kg, Total Volume: 500 mL, Start date: 06/28/16 23:17:00 BLACK ASH BURNER OPERATOR, Duration: 30 day, Stop date: 07/28/16 23:16:00 CDT No Longer Active 06/29/2016 [facility] Nifedical XL 30 mg, 1 tab, Route: PO, Drug form: ERTAB, ONCE, Dosing Weight 95, kg, Start date: 06/28/16 23:13:00 BLACK ASH BURNER OPERATOR, Stop date: 06/28/16 23:13:00 CSTNotes: (Same as: Adalat CC, Procardia XL) Give on empty stomach. Take 1 hour before or 2 hours after meal; "Avoid grapefruit and grapefruit juice". Do not crush Inactive 06/29/2016 [facility] heparin additive 26637 unit [14 unit/kg/hr] + Premix Diluent Dextrose 5% 500 mL 500 mL, Rate: 26.6 ml/hr, Infuse over: 18.8 hr, Route: IV, Dosing Weight 95 kg, Total Volume: 500 mL, Start date: 06/28/16 23:08:00 BLACK ASH BURNER OPERATOR, Duration: 30 day, Stop date: 07/28/16 23:07:00 CDT Inactive 06/29/2016 [facility] Warfarin 4 mg, 2 tab, Route: PO, Drug form: TAB, Q5PM, Dosing Weight 95, kg, Start date: 06/28/16 17:00:00 BLACK ASH BURNER OPERATOR, Duration: 1 doses or times, Stop date: 06/28/16 17:00:00 CSTNotes: Nurse to ensure documentation of patient education per anticoagulation policy. Avoid large intake of vitamin-K containing foods diet. (Same As: Coumadin) WASTE: F/P - P Waste Black; E - P Waste Black Inactive 06/28/2016 [facility] Aspirin 81 MG Chewable Tablet 81 mg, 1 tab, Route: PO, Drug form: CHEWTAB, Daily, Dosing Weight 95, kg, Start date: 06/28/16 15:00:00 BLACK ASH BURNER OPERATOR, Duration: 30 day, Stop date: 07/28/16 9:00:00 CDTNotes: Take with food. No Longer Active 06/28/2016 [facility] Lasix 40 mg, 4 mL, Route: IV, Drug form: INJ, TID, Dosing Weight 87.273, kg, Start date: 06/28/16 13:00:00 BLACK ASH BURNER OPERATOR, Duration: 30 day, Stop date: 07/28/16 9:00:00 CDTNotes: (Same as: Lasix) MEDICATION WASTE Product Size: 40 mg Product Wasted: ___ mg No Longer Active 06/28/2016 [facility] NovoLIN 70/30 14 unit, 0.14 mL, Route: SUB-Q, Drug form: INJ, Q8H, Dosing Weight 95, kg, Priority: Routine, Start date: 06/28/16 10:00:00 BLACK ASH BURNER OPERATOR, Stop date: 07/28/16 8:00:00 CDTNotes: Roll in palms of hands gently; Do not shake. (Same as: NovoLIN Mix 70/30) Do not hold insulin without contacting prescriber WASTE: F/P - Black; E - Municipal Trash Bin No Longer Active 06/28/2016 [facility] Acetaminophen 650 mg, 20.3 mL, Route: PO, Drug form: LIQ, Q6H, Dosing Weight 95, kg, PRN Pain Score 1-3, Start date: 06/28/16 1:39:00 BLACK ASH BURNER OPERATOR, Duration: 30 day, Stop date: 07/28/16 1:38:00 CDTNotes: Max acetaminophen= 4000mg/day (4 gm/day). (Same as: Tylenol) No Longer Active 06/28/2016 [facility] potassium chloride 20 mEq, 15 mL, Route: PO, Drug form: LIQ, ONCE, Dosing Weight 95, kg, Start date: 06/27/16 19:25:00 BLACK ASH BURNER OPERATOR, Stop date: 06/27/16 19:25:00 CSTNotes: (Same as: Potassium Chloride) Inactive 06/28/2016 [facility] NPH Insulin, Human 70 UNT/ML / Regular Insulin, Human 30 UNT/ML Injectable Suspension 28 unit, 0.28 mL, Route: SUB-Q, Drug form: INJ, Q8H, Dosing Weight 95, kg, Priority: NOW, Start date: 06/27/16 18:21:00 BLACK ASH BURNER OPERATOR, Stop date: 07/27/16 16:00:00 CDTNotes: Roll in palms of hands gently; Do not shake. (Same as: NovoLIN Mix 70/30) Do not hold insulin without contacting prescriber WASTE: F/P - Black; E - [employer] Trash Bin No Longer Active 06/28/2016 [facility] potassium chloride 20 mEq, 1 tab, Route: PO, Drug form: ERTAB, ONCE, Dosing Weight 95, kg, Start date: 06/27/16 18:19:00 BLACK ASH BURNER OPERATOR, Stop date: 06/27/16 18:19:00 BLACK ASH BURNER OPERATOR Inactive 06/28/2016 [facility] potassium chloride 40 mEq, 2 tab, Route: PO, Drug form: ERTAB, ONCE, Dosing Weight 95, kg, Start date: 06/27/16 17:57:00 BLACK ASH BURNER OPERATOR, Stop date: 06/27/16 17:57:00 BLACK ASH BURNER OPERATOR Inactive 06/27/2016 [facility] Calcium Gluconate 1,000 mg, 10 mL, Route: IVPB, Drug form: INJ, ONCE, Dosing Weight 95, kg, Start date: 06/27/16 17:56:00 BLACK ASH BURNER OPERATOR, Stop date: 06/27/16 17:56:00 CSTNotes: WASTE: F/P - Sink; E - Municipal Trash Bin Inactive 06/27/2016 [facility] Amiodarone 200 mg, 1 tab, Route: PO, Drug form: TAB, BID, Dosing Weight 87.273, kg, Start date: 06/27/16 17:00:00 BLACK ASH BURNER OPERATOR, Duration: 30 day, Stop date: 07/27/16 9:00:00 CDTNotes: (Same as: Cordarone) No Longer Active 06/27/2016 [facility] Warfarin 5 mg, 1 tab, Route: PO, Drug form: TAB, Q5PM, Dosing Weight 95, kg, Start date: 06/27/16 17:00:00 BLACK ASH BURNER OPERATOR, Duration: 1 doses or times, Stop date: 06/27/16 17:00:00 CSTNotes: Nurse to ensure documentation of patient education per anticoagulation policy. Avoid large intake of vitamin-K containing foods diet. WASTE: F/P - P Waste Black; E - P Waste Black (Same As: Coumadin) Inactive 06/27/2016 [facility] NPH Insulin, Human 70 UNT/ML / Regular Insulin, Human 30 UNT/ML Injectable Suspension 20 unit, 0.2 mL, Route: SUB-Q, Drug form: INJ, Q8H, Dosing Weight 95, kg, Start date: 06/27/16 16:00:00 BLACK ASH BURNER OPERATOR, Duration: 30 day, Stop date: 07/27/16 8:00:00 CDTNotes: Roll in palms of hands gently; Do not shake. (Same as: NovoLIN Mix 70/30) Do not hold insulin without contacting prescriber WASTE: F/P - Black; E - Municipal Trash Bin Inactive 06/27/2016 [facility] Seroquel 25 mg, 1 tab, Route: PO, Drug form: TAB, Bedtime, Dosing Weight 95, kg, Start date: 06/26/16 21:00:00 BLACK ASH BURNER OPERATOR, Duration: 30 day, Stop date: 07/25/16 21:00:00 CDTNotes: (Same as: SEROquel) No Longer Active 06/27/2016 [facility] Flagyl 500 mg, 10 mL, Route: NG, Drug form: SUSP, ABXQ8H, Dosing Weight 87.273, kg, Start date: 06/26/16 19:30:00 BLACK ASH BURNER OPERATOR, Duration: 30 day, Stop date: 07/26/16 11:30:00 CDTNotes: (Same as: Flagyl) Refrigerate - shake well Compounded Product - formulation not commercially available "Avoid alcohol" No Longer Active 06/27/2016 [facility] Coumadin 5 mg, 1 tab, Route: PO, Drug form: TAB, Q5PM, Dosing Weight 95, kg, Start date: 06/26/16 17:00:00 BLACK ASH BURNER OPERATOR, Duration: 1 doses or times, Stop date: 06/26/16 17:00:00 CSTNotes: Nurse to ensure documentation of patient education per anticoagulation policy. Avoid large intake of vitamin-K containing foods diet. WASTE: F/P - P Waste Black; E - P Waste Black (Same As: Coumadin) Inactive 06/26/2016 [facility] Flagyl 500 mg, 10 mL, Route: NG, Drug form: SUSP, ABXQ8H, Dosing Weight 87.273, kg, Start date: 06/26/16 17:00:00 BLACK ASH BURNER OPERATOR, Duration: 30 day, Stop date: 07/26/16 9:00:00 CDTNotes: (Same as: Flagyl) Refrigerate - shake well Compounded Product - formulation not commercially available "Avoid alcohol" Inactive 06/26/2016 [facility] insulin, isophane 16 unit, 0.16 mL, Route: SUB-Q, Drug form: INJ, TID-Before Meals, Dosing Weight 87.273, kg, Priority: Routine, Start date: 06/26/16 16:30:00 BLACK ASH BURNER OPERATOR, Stop date: 07/26/16 11:30:00 CDTNotes: Roll in palms of hands gently; Do not shake vigorously. (Same as: Humulin N) Do not hold insulin without contacting prescriber WASTE: F/P - Black; E - Municipal Trash Bin Stable for 28 days at room temperature Expires in days from Date No Longer Active 06/26/2016 [facility] 24 HR Nifedipine 30 MG Extended Release Tablet [Procardia] 30 mg, Route: PO, Drug form: ERTAB, Daily, Dosing Weight 87.273, kg, Start date: 06/26/16 9:00:00 BLACK ASH BURNER OPERATOR, Duration: 30 day, Stop date: 07/25/16 9:00:00 CDT Inactive 06/26/2016 [facility] insulin, isophane 10 unit, 0.1 mL, Route: SUB-Q, Drug form: INJ, Q8H, Dosing Weight 87.273, kg, Priority: Routine, Start date: 06/26/16 8:00:00 BLACK ASH BURNER OPERATOR, Duration: 30 day, Stop date: 07/26/16 0:00:00 CDTNotes: Roll in palms of hands gently; Do not shake vigorously. (Same as: Humulin N) Do not hold insulin without contacting prescriber WASTE: F/P - Black; E - Municipal Trash Bin Stable for 28 days at room temperature Expires in days from Date Inactive 06/26/2016 [facility] insulin, isophane 8 unit, 0.08 mL, Route: SUB-Q, Drug form: INJ, Q8H, Dosing Weight 87.273, kg, Priority: Routine, Start date: 06/26/16 0:00:00 BLACK ASH BURNER OPERATOR, Duration: 30 day, Stop date: 07/25/16 16:00:00 CDTNotes: Roll in palms of hands gently; Do not shake vigorously. (Same as: Humulin N) Do not hold insulin without contacting prescriber WASTE: F/P - Black; E - Municipal Trash Bin Stable for 28 days at room temperature Expires in days from Date Inactive 06/26/2016 [facility] atorvastatin 40 mg, 1 tab, Route: PO, Drug form: TAB, Bedtime, Dosing Weight 87.273, kg, Start date: 06/25/16 21:00:00 BLACK ASH BURNER OPERATOR, Duration: 30 day, Stop date: 07/24/16 21:00:00 CDTNotes: (Same as: Lipitor) No Longer Active 06/26/2016 [facility] Melatonin 3 mg, 1 tab, Route: PO, Drug form: TAB, Bedtime, Dosing Weight 87.273, kg, PRN Sleep, Start date: 06/25/16 20:55:00 BLACK ASH BURNER OPERATOR, Duration: 30 day, Stop date: 07/25/16 20:54:00 CDTNotes: (Same as: Melatonin) No Longer Active 06/26/2016 [facility] Coumadin 5 mg, 1 tab, Route: PO, Drug form: TAB, Q5PM, Dosing Weight 87.273, kg, Start date: 06/25/16 17:00:00 BLACK ASH BURNER OPERATOR, Duration: 1 doses or times, Stop date: 06/25/16 17:00:00 CSTNotes: Nurse to ensure documentation of patient education per anticoagulation policy. Avoid large intake of vitamin-K containing foods diet. WASTE: F/P - P Waste Black; E - P Waste Black (Same As: Coumadin) Inactive 06/25/2016 [facility] Lasix 100 mg, 10 mL, Route: IV, Drug form: INJ, TID, Dosing Weight 87.273, kg, Start date: 06/25/16 13:00:00 BLACK ASH BURNER OPERATOR, Stop date: 07/25/16 9:00:00 CDTNotes: (Same as: Lasix) MEDICATION WASTE Product Size: 40 mg Product Wasted: ___ mg No Longer Active 06/25/2016 [facility] Flagyl 500 mg, 100 mL, Route: IVPB, Drug form: INJ, [id number], Dosing Weight 87.273, kg, Start date: 06/25/16 12:00:00 BLACK ASH BURNER OPERATOR, Duration: 30 day, Stop date: 07/25/16 4:00:00 CDTNotes: (Same as: Flagyl) Avoid alcohol. No Longer Active 06/25/2016 [facility] insulin, isophane 8 unit, 0.08 mL, Route: SUB-Q, Drug form: INJ, TID, Dosing Weight 87.273, kg, Priority: Routine, Start date: 06/25/16 9:00:00 BLACK ASH BURNER OPERATOR, Duration: 30 day, Stop date: 07/24/16 17:00:00 CDTNotes: Roll in palms of hands gently; Do not shake vigorously. (Same as: Humulin N) Do not hold insulin without contacting prescriber WASTE: F/P - Black; E - Municipal Trash Bin Stable for 28 days at room temperature Expires in days from Date Inactive 06/25/2016 [facility] heparin additive 63415 unit [14 unit/kg/hr] + Premix Diluent Dextrose 5% 500 mL 500 mL, Rate: 24.44 ml/hr, Infuse over: 20.5 hr, Route: IV, Dosing Weight 87.273 kg, Total Volume: 500 mL, Start date: 06/25/16 8:44:00 BLACK ASH BURNER OPERATOR, Duration: 30 day, Stop date: 07/25/16 8:43:00 CDT No Longer Active 06/25/2016 [facility] cefepime 1 gm, Route: IVPB, Drug form: INJ, [id number], Dosing Weight 87.273, kg, (CrCl Notes: (Same As: Maxipime) MEDICATION WASTE Product Size: 1000 mg Product Wasted: ___ mg No Longer Active 06/25/2016 [facility] Lactulose 667 MG/ML Oral Solution 10 gm, 15 ml, Route: PO, Drug form: SYRP, ONCE, Dosing Weight 87.273, kg, Start date: 06/25/16 6:23:00 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 Avoid large intake of vitamin-K containing foods diet. 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 "single patient use only" (Restricted to patients requiring a dose > 60 units) WASTE: F/P - Black; E - Municipal Trash Bin Stable for 28 days at room temperature Expires in days from Date No Longer Active 06/24/2016 [facility] Glucagon 1 mg, Route: IM, Drug form: PDR/INJ, PRN, Dosing Weight 87.273, kg, PRN Blood Glucose Results, Start date: 06/24/16 14:42:00 BLACK ASH BURNER OPERATOR, Duration: 30 day, Stop date: 07/24/16 15:41:00 CDT No Longer Active 06/24/2016 [facility] Dextrose 50% Syringe 25 gm, 50 mL, Route: IVP, Drug Form: INJ, Dosing Weight 87.273, kg, PRN, PRN Blood Glucose Results, Start date: 06/24/16 14:42:00 BLACK ASH BURNER OPERATOR, Duration: 30 day, Stop date: 07/24/16 15:41:00 CDT No Longer Active 06/24/2016 [facility] insulin, isophane 8 unit, 0.08 mL, Route: SUB-Q, Drug form: INJ, BID, Dosing Weight 87.273, kg, Priority: Routine, Start date: 06/24/16 9:00:00 BLACK ASH BURNER OPERATOR, Stop date: 07/23/16 17:00:00 CDTNotes: Roll in palms of hands gently; Do not shake vigorously. (Same as: Humulin N) Do not hold insulin without contacting prescriber WASTE: F/P - Black; E - Municipal Trash Bin Stable for 28 days at room temperature Expires in days from Date No Longer Active 06/24/2016 [facility] Aspirin 81 mg, 1 tab, Route: PO, Drug form: ECTAB, Daily, Dosing Weight 87.273, kg, Start date: 06/24/16 9:00:00 BLACK ASH BURNER OPERATOR, Duration: 30 day, Stop date: 07/23/16 9:00:00 CDTNotes: Do not crush or chew. (Same As: Ecotrin) No Longer Active 06/24/2016 [facility] Dulcolax Laxative 10 mg, 1 supp, Route: CT, Drug form: SUPP, ONCE, Dosing Weight 87.273, kg, Start date: 06/24/16 7:46:00 BLACK ASH BURNER OPERATOR, Stop date: 06/24/16 7:46:00 CSTNotes: (Same As: Dulcolax, Bisco-Lax) Inactive 06/24/2016 [facility] Fleet Enema 133 mL, Route: CT, Drug Form: TEJAS, Dosing Weight 87.273, kg, ONCE, Start date: 06/24/16 6:23:00 BLACK ASH BURNER OPERATOR, Stop date: 06/24/16 6:23:00 BLACK ASH BURNER OPERATOR Inactive 06/24/2016 [facility] Miralax 17 gm, 1 pkt, Route: PO, Drug form: PWDR, BID, Dosing Weight 87.273, kg, PRN Constipation, Start date: 06/23/16 17:00:00 BLACK ASH BURNER OPERATOR, Duration: 30 day, Stop date: 07/23/16 9:00:00 CDTNotes: Dissolve in 8 oz of water or juice. (Same as: Miralax) No Longer Active 06/23/2016 [facility] insulin, isophane 5 unit, 0.05 mL, Route: SUB-Q, Drug form: INJ, Daily, Dosing Weight 87.273, kg, Priority: Routine, Start date: 06/23/16 17:00:00 BLACK ASH BURNER OPERATOR, Duration: 30 day, Stop date: 07/23/16 9:00:00 CDTNotes: Roll in p alms of hands gently; Do not shake vigorously. (Same as: Humulin N) Do not hold insulin without contacting prescriber WASTE: F/P - Black; E - Municipal Trash Bin Stable for 28 days at room temperature Expires in days from Date No Longer Active 06/23/2016 [facility] Lasix 80 mg, 8 mL, Route: IV, Drug form: INJ, BID, Dosing Weight 87.273, kg, Priority: NOW, Start date: 06/23/16 13:38:00 BLACK ASH BURNER OPERATOR, Duration: 30 day, Stop date: 07/23/16 9:00:00 CDTNotes: (Same as: Lasix) MEDICATION WASTE Product Size: 40 mg Product Wasted: _0_ mg No Longer Active 06/23/2016 [facility] cefepime 1 gm, Route: IVPB, Drug form: INJ, [id number], Dosing Weight 87.273, kg, (CrCl 10 - 29 ml/min), Start date: 06/23/16 12:00:00 BLACK ASH BURNER OPERATOR, Duration: 30 day, Stop date: 07/22/16 12:00:00 CDTNotes: (Same As: Maxipime) MEDICATION WASTE Product Size: 1000 mg Product Wasted: ___ mg No Longer Active 06/23/2016 [facility] Bisacodyl 10 mg, 1 supp, Route: CT, Drug form: SUPP, ONCE, Dosing Weight 87.273, kg, Start date: 06/23/16 11:03:00 BLACK ASH BURNER OPERATOR, Stop date: 06/23/16 11:03:00 CSTNotes: (Same As: Dulcolax, Bisco-Lax) Inactive 06/23/2016 [facility] Amiodarone 400 mg, 2 tab, Route: PO, Drug form: TAB, BID, Dosing Weight 87.273, kg, Start date: 06/23/16 9:00:00 BLACK ASH BURNER OPERATOR, Duration: 30 day, Stop date: 07/22/16 17:00:00 CDTNotes: (Same as: Cordarone) No Longer Active 06/23/2016 [facility] Sodium Chloride 0.9% IV 99 mL + Insulin regular 100 unit 99 mL, Rate: Start Insulin Drip Per ICU Protocol, Dosing Weight 87.273, kg, Route: IVPB, Total Volume: 99, Start Date: 06/23/16 8:16:00 BLACK ASH BURNER OPERATOR, Duration: 30 day, Stop date: 07/23/16 9:15:00 CDT, Replace Every: 24 hr Inactive 06/23/2016 [facility] Dextrose 50% Syringe 25 gm, 50 mL, Route: IVP, Drug Form: INJ, Dosing Weight 87.273, kg, PRN, PRN Blood Glucose Results, Start date: 06/23/16 8:16:00 BLACK ASH BURNER OPERATOR, Duration: 30 day, Stop date: 07/23/16 9:15:00 CDT No Longer Active 06/23/2016 [facility] heparin additive 25,000 unit [14 unit/kg/hr] + Premix Diluent Dextrose 5% 500 mL 500 mL, Rate: 24.44 ml/hr, Infuse over: 20.5 hr, Route: IV, Dosing Weight 87.273 kg, Total Volume: 500 mL, Start date: 06/22/16 21:00:00 BLACK ASH BURNER OPERATOR, Duration: 30 day, Stop date: 07/22/16 20:59:00 CDT No Longer Active 06/23/2016 [facility] Zofran 4 mg, 2 mL, Route: IVP, Drug form: INJ, Q8H, Dosing Weight 87.273, kg, PRN Nausea, Start date: 06/22/16 19:26:00 BLACK ASH BURNER OPERATOR, Duration: 30 day, Stop date: 07/22/16 19:25:00 CDTNotes: (Same as: Zofran) MEDICATION WASTE Product Size: 4 mg Product Wasted: _0__ mg No Longer Active 06/23/2016 [facility] docusate 100 mg, 10 mL, Route: PO, Drug form: LIQ, BID, Dosing Weight 87.273, kg, PRN Other -See Comment, Start date: 06/22/16 17:04:00 BLACK ASH BURNER OPERATOR, Duration: 30 day, Stop date: 07/22/16 17:00:00 CDTNotes: (Same as: Colace) No Longer Active 06/22/2016 [facility] Docusate Sodium 100 MG Oral Capsule [Colace] 100 mg, 10 mL, Route: PO, Drug form: LIQ, BID, Dosing Weight 87.273, kg, Start date: 06/22/16 17:00:00 BLACK ASH BURNER OPERATOR, Stop date: 07/22/16 9:00:00 CDTNotes: (Same as: Colace) Inactive 06/22/2016 [facility] sennosides, INTERMEDIATE 8.6 mg, 1 tab, Route: PO, Drug Form: TAB, Dosing Weight 87.273, kg, BID, PRN Other -See Comment, Start date: 06/22/16 17:00:00 BLACK ASH BURNER OPERATOR, Duration: 30 day, Stop date: 07/22/16 9:00:00 CDTNotes: (Same as: Senokot) No Longer Active 06/22/2016 [facility] Calcium Gluconate 1 gm, Route: IVPB, PRN, Dosing Weight 87.273, kg, PRN Abnormal Lab Result, Start date: 06/22/16 15:06:00 BLACK ASH BURNER OPERATOR, Duration: 30 day, Stop date: 07/22/16 16:05:00 CDT, FOR ICU USE ONLY Inactive 06/22/2016 [facility] Magnesium Oxide 800 mg, Route: PO, PRN, Dosing Weight 87.273, kg, PRN Abnormal Lab Result, FOR ICU USE ONLY, Start date: 06/22/16 15:06:00 BLACK ASH BURNER OPERATOR, Duration: 30 day, Stop date: 07/22/16 16:05:00 CDT Inactive 06/22/2016 [facility] Calcium Carbonate 500 MG Chewable Tablet 1,000 mg, Route: PO, PRN, Dosing Weight 87.273, kg, PRN Abnormal Lab Result, FOR ICU USE ONLY, Start date: 06/22/16 15:06:00 BLACK ASH BURNER OPERATOR, Duration: 30 day, Stop date: 07/22/16 16:05:00 CDT Inactive 06/22/2016 [facility] sodium phosphate 45 mmol, Route: IVPB, PRN, Dosing Weight 87.273, kg, PRN Abnormal Lab Result, Start date: 06/22/16 15:06:00 BLACK ASH BURNER OPERATOR, Duration: 30 day, Stop date: 07/22/16 16:05:00 CDT, FOR ICU USE ONLY Inactive 06/22/2016 [facility] potassium phosphate-sodium phosphate 250 mg-280 mg-160 mg oral powder for reconstitution 2 pkt, Route: PO, Dosing Weight 87.273, kg, PRN, PRN Abnormal Lab Result, FOR ICU USE ONLY, Start date: 06/22/16 15:06:00 BLACK ASH BURNER OPERATOR, Duration: 30 day, Stop date: 07/22/16 16:05:00 CDT Inactive 06/22/2016 [facility] potassium phosphate 30 mmol, Route: IVPB, PRN, Dosing Weight 87.273, kg, PRN Abnormal Lab Result, Start date: 06/22/16 15:06:00 BLACK ASH BURNER OPERATOR, Duration: 30 day, Stop date: 07/22/16 16:05:00 CDT, FOR ICU USE ONLY Inactive 06/22/2016 [facility] Magnesium Sulfate 2 gm, Route: IVPB, PRN, Dosing Weight 87.273, kg, PRN Abnormal Lab Result, Start date: 06/22/16 15:06:00 BLACK ASH BURNER OPERATOR, Duration: 30 day, Stop date: 07/22/16 16:05:00 CDT, FOR ICU USE ONLY Inactive 06/22/2016 [facility] potassium chloride 20 mEq, Route: PO, Drug form: ERTAB, PRN, Dosing Weight 87.273, kg, PRN Abnormal Lab Result, Start date: 06/22/16 15:06:00 BLACK ASH BURNER OPERATOR, Duration: 30 day, Stop date: 07/22/16 16:05:00 CDT, FOR ICU USE ONLY Inactive 06/22/2016 [facility] Flagyl 500 mg, 1 tab, Route: PO, Drug form: TAB, [id number], Dosing Weight 87.273, kg, Start date: 06/22/16 12:00:00 BLACK ASH BURNER OPERATOR, Duration: 30 day, Stop date: 07/22/16 4:00:00 CDTNotes: (Same as: Flagyl) Take with food/ avoid alcohol No Longer Active 06/22/2016 [facility] metoprolol tartrate 25 mg, 1 tab, Route: PO, Drug form: TAB, Q12H, Dosing Weight 87.273, kg, Start date: 06/22/16 9:00:00 BLACK ASH BURNER OPERATOR, Duration: 30 day, Stop date: 07/21/16 21:00:00 CDTNotes: (Same as: Lopressor) No Longer Active 06/22/2016 [facility] alteplase 2 mg injection 2 mg, 2 mL, Route: INJ, Drug form: INJ, ONCE, Dosing Weight 87.273, kg, CVC clearance, Start date: 06/21/16 21:53:00 BLACK ASH BURNER OPERATOR, Stop date: 06/21/16 21:53:00 CSTNotes: "Syringe for catheter clearance or interventional radiology use. Reconstitute each vial of Cathflo Activase with 2.2 ml Sterile Water resulting in a 1 mg/ml solution. Stable for 8 hours only. (Same as: Activase) MEDICATION WASTE Product Size: 2 mg Product Wasted: ___ mg Inactive 06/22/2016 [facility] alteplase 2 mg injection 2 mg, 2 mL, Route: INJ, Drug form: INJ, ONCE, Dosing Weight 87.273, kg, CVC clearance, Start date: 06/21/16 20:41:00 BLACK ASH BURNER OPERATOR, Stop date: 06/21/16 20:41:00 CSTNotes: "Syringe for catheter clearance or interventional radiology use. Reconstitute each vial of Cathflo Activase with 2.2 ml Sterile Water resulting in a 1 mg/ml solution. Stable for 8 hours only. (Same as: Activase) MEDICATION WASTE Product Size: 2 mg Product Wasted: ___ mg Inactive 06/22/2016 [facility] prednisoLONE acetate ophthalmic 1 drp, Route: RIGHT EYE, Daily, Drug form: SUSP, Start date: 06/21/16 9:00:00 BLACK ASH BURNER OPERATOR, Duration: 30 day, Stop date: 07/20/16 9:00:00 CDTNotes: (Same as: Pred Forte) No Longer Active 06/21/2016 [facility] Insulin regular 4 unit, 0.04 mL, Route: SUB-Q, Drug form: SOLN, Sliding Scale, Dosing Weight 87.273, kg, PRN Blood Glucose Results, Start date: 06/20/16 22:52:00 BLACK ASH BURNER OPERATOR, Duration: 30 day, Stop date: 07/20/16 23:51:00 C DTNotes: (Same as: Humulin R) Roll in palms of hands gently; Do not shake vigorously. "single patient use only" (Restricted to patients requiring a dose > 60 units) WASTE: F/P - Black; E - Municipal Trash Bin Stable for 28 days at room temperature Expires in days from Date No Longer Active 06/21/2016 [facility] Dextrose 50% Syringe 12.5 gm, 25 mL, Route: IVP, Drug Form: INJ, Dosing Weight 87.273, kg, PRN, PRN Blood Glucose Results, Start date: 06/20/16 22:52:00 BLACK ASH BURNER OPERATOR, Duration: 30 day, Stop date: 07/20/16 23:51:00 CDT No Longer Active 06/21/2016 [facility] Glucagon 1 mg, Route: IM, Drug form: PDR/INJ, PRN, Dosing Weight 87.273, kg, PRN Blood Glucose Results, Start date: 06/20/16 22:52:00 BLACK ASH BURNER OPERATOR, Duration: 30 day, Stop date: 07/20/16 23:51:00 CDT No Longer Active 06/21/2016 [facility] Beneprotein 7 gm pkt 1 pkt, Route: T FEED, Drug Form: PWDR, Dosing Weight 87.273, kg, TID-Before Meals, Start date: 06/20/16 16:30:00 BLACK ASH BURNER OPERATOR, Duration: 30 day, Stop date: 07/20/16 11:30:00 CDTNotes: (Same as: Beneprotein) No Longer Active 06/20/2016 [facility] Cathflo Activase 2 mg injection 2 mg, 2 mL, Route: MISC, Drug form: INJ, ONCE, Dosing Weight 87.273, kg, Start date: 06/20/16 13:48:00 BLACK ASH BURNER OPERATOR, Stop date: 06/20/16 13:48:00 CSTNotes: "Syringe for catheter clearance or interventional radiology use. Reconstitute each vial of Cathflo Activase with 2.2 ml Sterile Water resulting in a 1 mg/ml solution. Stable for 8 hours only. (Same as: Activase) MEDICATION WASTE Product Size: 2 mg Product Wasted: ___ mg Inactive 06/20/2016 [facility] nxstage pureflow rfp-401 5000ml SLN 5,000 mL 5,000 mL, Route: DIALYSIS, Irrigation Site: Vein, femoral, Rt, 2,500 ml/hr, 2 hr, Total Volume: 5,000, "For Irrigation Only", Start date: 06/20/16 8:18:00 BLACK ASH BURNER OPERATOR, Duration: 20 day, Stop date: 07/10/16 8:17:00 CDTNotes: NxStage RFP-401=K4/Ca3 Total ingredients in bag Na 140meq/L; K 4meq/L; HCO 35meq/L; Ca 3meq/L; Magnesium 1meq/L; CL 113meq/L; Glucose 100mg/dL; "Break seal Between compartment s and mix before hanging" No Longer Active 06/20/2016 [facility] Insulin regular 1 unit, 0.01 mL, Route: SUB-Q, Drug form: SOLN, TID-Before Meals, Dosing Weight 87.273, kg, PRN Blood Glucose Results, Start date: 06/20/16 7:00:00 BLACK ASH BURNER OPERATOR, Duration: 30 day, Stop date: 07/20/16 6:59:00 CDTNotes: (Same as: Humulin R) Roll in palms of hands gently; Do not shake vigorously. "single patient use only" (Restricted to patients requiring a dose > 60 units) WASTE: F/P - Black; E - Municipal Trash Bin Stable for 28 days at room temperature Expires in days from Date Inactive 06/20/2016 [facility] Dextrose 50% Syringe 12.5 gm, 25 mL, Route: IVP, Drug Form: INJ, Dosing Weight 87.273, kg, PRN, PRN Blood Glucose Results, Start date: 06/20/16 7:00:00 BLACK ASH BURNER OPERATOR, Duration: 30 day, Stop date: 07/20/16 7:59:00 CDT Inactive 06/20/2016 [facility] Glucagon 1 mg, Route: IM, Drug form: PDR/INJ, PRN, Dosing Weight 87.273, kg, PRN Blood Glucose Results, Start date: 06/20/16 7:00:00 BLACK ASH BURNER OPERATOR, Duration: 30 day, Stop date: 07/20/16 7:59:00 CDT Inactive 06/20/2016 [facility] Vancomycin 1,000 mg, Route: IVPB, Drug form: INJ, [id number], Dosing Weight 87.273, kg, Start date: 06/20/16 5:00:00 BLACK ASH BURNER OPERATOR, Duration: 30 day, Stop date: 07/19/16 5:00:00 CDTNotes: TIME CRITICAL MEDICATION (Same As: Van cocin) Infusion rate 2001 mg: infuse over 2.5 hours MEDICATION WASTE Product Size: 1000 mg Product Wasted: ___ mg No Longer Active 06/20/2016 [facility] alteplase 2 mg injection 2 mg, 2 mL, Route: INJ, Drug form: INJ, ONCE, Dosing Weight 87.273, kg, Start date: 06/20/16 3:56:00 BLACK ASH BURNER OPERATOR, Stop date: 06/20/16 3:56:00 CSTNotes: "Syringe for catheter clearance or interventional radiology use. Reconstitute each vial of Cathflo Activase with 2.2 ml Sterile Water resulting in a 1 mg/ml solution. Stable for 8 hours only. (Same as: Activase) MEDICATION WASTE Product Size: 2 mg Product Wasted: ___ mg Inactive 06/20/2016 [facility] alteplase 2 mg injection 2 mg, 2 mL, Route: INJ, Drug form: INJ, ONCE, Dosing Weight 87.273, kg, Start date: 06/20/16 3:55:00 BLACK ASH BURNER OPERATOR, Stop date: 06/20/16 3:55:00 CSTNotes: "Syringe for catheter clearance or interventional radiology use. Reconstitute each vial of Cathflo Activase with 2.2 ml Sterile Water resulting in a 1 mg/ml solution. Stable for 8 hours only. (Same as: Activase) MEDICATION WASTE Product Size: 2 mg Product Wasted: ___ mg Inactive 06/20/2016 [facility] Vancomycin 750 mg, Route: IVPB, Q12H, Dosing Weight 87.273, kg, Start date: 06/19/16 20:00:00 BLACK ASH BURNER OPERATOR, Stop date: 07/19/16 12:00:00 CDTNotes: TIME CRITICAL MEDICATION (Same As: Vancocin) No Longer Active 06/20/2016 [facility] nxstage pureflow rfp-454 5000ml SLN 5,000 mL 5,000 mL, Route: DIALYSIS, Irrigation Site: Vein, femoral, Lt, 200 ml/hr, 25 hr, Total Volume: 5,000, "For Irrigation Only", Start date: 06/19/16 13:57:00 BLACK ASH BURNER OPERATOR, Duration: 30 day, Stop date: 07/19/16 13:56:00 CDTNotes: Total ingredients in bag Na 130meq/L; K+ 4meq/L; HCO 25meq/L; Ca 0meq/L; Magnesium 1.5meq/L; Glucose 1g/L; "Break seal Between compartments and mix before hanging" No Longer Active 06/19/2016 [facility] Magnesium Sulfate 4 gm, 100 mL, Route: IVPB, Drug form: INJ, Q2H, Dosing Weight 87.273, kg, PRN Abnormal Lab Result, Via central line, Start date: 06/19/16 13:16:00 BLACK ASH BURNER OPERATOR, Duration: 2 doses or times, Stop date: 06/20/16 0:00:00 CSTNotes: WASTE: F/P - Sink; E - Municipal Trash Bin No Longer Active 06/19/2016 [facility] Calcium Chloride 1 gm, 10 mL, Route: IVPB, PRN, Dosing Weight 87.273, kg, PRN Abnormal Lab Result, Via central line, Start date: 06/19/16 13:16:00 BLACK ASH BURNER OPERATOR, Duration: 30 day, Stop date: 07/19/16 14:15:00 CDTNotes: WASTE: F/P - Sink; E - Municipal Trash Bin No Longer Active 06/19/2016 [facility] sodium phosphate + sodium chloride 0.9% INJ 250 mL 15 mmol, 5 mL, Route: IVPB, PRN, Dosing Weight 87.273, kg, PRN Abnormal Lab Result, Via central line, Start date: 06/19/16 13:16:00 BLACK ASH BURNER OPERATOR, Duration: 30 day, Stop date: 07/19/16 14:15:00 CDT No Longer Active 06/19/2016 [facility] potassium chloride 20 mEq, 100 mL, Route: IVPB, Drug form: INJ, PRN, Dosing Weight 87.273, kg, PRN Abnormal Lab Result, Via central line, Start date: 06/19/16 13:16:00 BLACK ASH BURNER OPERATOR, Duration: 30 day, Stop date: 07/19/16 14:15:0 0 CDTNotes: (Same as: KCL) Infuse no faster than 10 mEq/hr if given peripherally. No Longer Active 06/19/2016 [facility] Sodium Chloride 0.154 MEQ/ML Injectable Solution 73.6 mL, Rate: 140 ml/hr, Infuse over: 7.1 hr, Route: IV, Dosing Weight 87.273 kg, Total Volume: 1,000 mL, Start date: 06/19/16 13:16:00 BLACK ASH BURNER OPERATOR, Duration: 30 day, Stop date: 07/19/16 13:15:00 CDT No Longer Active 06/19/2016 [facility] nxstage pureflow rfp-401 5000ml SLN 5,000 mL 5,000 mL, Route: DIALYSIS, Irrigation Site: Vein, femoral, Lt, 2,500 ml/hr, 2 hr, Total Volume: 5,000 mL, "For Irrigation Only", Start date: 06/19/16 13:16:00 BLACK ASH BURNER OPERATOR, Duration: 30 day, Stop date: 07/19/16 13:15:00 CDTNotes: NxStage RFP-401=K4/Ca3 Total ingredients in bag Na 140meq/L; K 4meq/L; HCO 35meq/L; Ca 3meq/L; Magnesium 1meq/L; CL 113meq/L; Glucose 100mg/dL; "Break seal Between compar tments and mix before hanging" Inactive 06/19/2016 [facility] sodium citrate 500 mL, Rate: 200 ml/hr, Infuse over: 2.5 hr, Route: IV, Dosing Weight 87.273 kg, Total Volume: 500 mL, Start date: 06/19/16 13:16:00 BLACK ASH BURNER OPERATOR, Duration: 30 day, Stop date: 07/19/16 13:15:00 CDTNotes: (Same as: Sodium Citrate, anticoagulant) . No Longer Active 06/19/2016 [facility] Vancomycin 1,500 mg, Route: IVPB, Drug form: INJ, [id number], Dosing Weight 87.273, kg, Start date: 06/19/16 12:00:00 BLACK ASH BURNER OPERATOR, Duration: 30 day, Stop date: 07/19/16 0:00:00 CDT Inactive 06/19/2016 [facility] Insulin regular 100 unit + sodium chloride 0.9% INJ 99 mL 99 mL, Rate: Start Insulin Drip Per ICU Protocol, Dosing Weight 87.273, kg, Route: IVPB, Total Volume: 100, Start Date: 06/19/16 10:03:00 BLACK ASH BURNER OPERATOR, Duration: 30 day, Stop date: 07/19/16 10:02:00 CDT, Replace Every: 24 hrNotes: (Same as: Humulin R and NovoLIN R) WASTE: F/P - Black; E - Municipal Trash Bin (Do not shake) Inactive 06/19/2016 [facility] Dextrose 50% Syringe 25 gm, 50 mL, Route: IVP, Drug Form: INJ, Dosing Weight 87.273, kg, PRN, PRN Blood Glucose Results, Start date: 06/19/16 10:03:00 BLACK ASH BURNER OPERATOR, Duration: 30 day, Stop date: 07/19/16 11:02:00 CDT Inactive 06/19/2016 [facility] influenza virus vaccine, inactivated 0.5 mL, Route: IM, Drug Form: SUSP, Daily, Start date: 06/19/16 9:00:00 BLACK ASH BURNER OPERATOR, Duration: 1 doses or times, Stop date: 06/19/16 9:00:00 CSTNotes: (Same as: Fluzone Quadrivalent, Fluarix Quadrivalent) For 3 years of age and older (0.5 mL IM) Shake well before use Inactive 06/19/2016 [facility] sodium phosphate + sodium chloride 0.9% INJ 250 mL 30 mmol, 10 mL, Route: IVPB, PRN, Dosing Weight 87.273, kg, PRN Abnormal Lab Result, Via central line, Start date: 06/19/16 7:13:00 BLACK ASH BURNER OPERATOR, Duration: 30 day, Stop date: 07/19/16 8:12:00 CDT Inactive 06/19/2016 [facility] Magnesium Sulfate 4 gm, 100 mL, Route: IVPB, Drug form: INJ, Q2H, Dosing Weight 87.273, kg, PRN Abnormal Lab Result, Via central line, Start date: 06/19/16 7:13:00 BLACK ASH BURNER OPERATOR, Duration: 2 doses or times, Stop date: 07/20/16 0:00:00 CDTNotes: WASTE: F/P - Sink; E - Municipal Trash Bin Inactive 06/19/2016 [facility] Calcium Chloride 2 gm, 20 mL, Route: IVPB, PRN, Dosing Weight 87.273, kg, PRN Abnormal Lab Result, Via central line, Start date: 06/19/16 7:13:00 BLACK ASH BURNER OPERATOR, Duration: 30 day, Stop date: 07/19/16 8:12:00 CDTNotes: WASTE: F/P - Sink; E - Municipal Trash Bin Inactive 06/19/2016 [facility] potassium chloride 20 mEq, 100 mL, Route: IVPB, Drug form: INJ, PRN, Dosing Weight 87.273, kg, PRN Abnormal Lab Result, Via central line, Start date: 06/19/16 7:13:00 BLACK ASH BURNER OPERATOR, Duration: 30 day, Stop date: 07/19/16 8:12:00 CDTNotes: (Same as: KCL) Infuse no faster than 10 mEq/hr if given peripherally. Inactive 06/19/2016 [facility] cefepime 1 gm, Route: IVPB, Drug form: INJ, [id number], Dosing Weight 87.273, kg, (CrCl >/=50 ml/min), Start date: 06/19/16 7:00:00 BLACK ASH BURNER OPERATOR, Duration: 30 day, Stop date: 07/18/16 23:00:00 CDTNotes: (Same As: Maxipime) MEDICATION WASTE Product Size: 1000 mg Product Wasted: ___ mg No Longer Active 06/19/2016 [facility] nxstage pureflow rfp-400 5000ml SLN 5,000 mL 5,000 mL, Route: DIALYSIS, Irrigation Site: Vein, femoral, Lt, 3,500 ml/hr, 1.4 hr, Total Volume: 5,000 mL, "For Irrigation Only", Start date: 06/19/16 5:02:00 BLACK ASH BURNER OPERATOR, Duration: 30 day, Stop date: 07/19/16 5:01:00 CDTNotes: NxStage RFP-400=K2/Ca3 Total ingredients in bag Na 140meq/L; K 2meq/L; HCO 35meq/L; Ca 3meq/L; Magnesium 1meq/L; CL 111meq/L; Glucose 100mg/dL; "Break seal Between ceci rtments and mix before hanging" Inactive 06/19/2016 [facility] Calcium Chloride 1 gm, 10 mL, Route: IVPB, PRN, Dosing Weight 87.273, kg, PRN Abnormal Lab Result, Via central line, Start date: 06/19/16 5:02:00 BLACK ASH BURNER OPERATOR, Stop date: 07/19/16 6:01:00 CDTNotes: WASTE: F/P - Sink; E - Municipal Trash Bin Inactive 06/19/2016 [facility] Magnesium Sulfate 4 gm, 100 mL, Route: IVPB, Drug form: INJ, PRN, Dosing Weight 87.273, kg, PRN Abnormal Lab Result, Via central line, Start date: 06/19/16 5:02:00 BLACK ASH BURNER OPERATOR, Duration: 30 day, Stop date: 07/19/16 6:01:00 CDTNotes: WASTE: F/P - Sink; E - Municipal Trash Bin Inactive 06/19/2016 [facility] sodium phosphate + sodium chloride 0.9% INJ 250 mL 15 mmol, 5 mL, Route: IVPB, PRN, Dosing Weight 87.273, kg, PRN Abnormal Lab Result, Via central line, Start date: 06/19/16 5:02:00 BLACK ASH BURNER OPERATOR, Duration: 30 day, Stop date: 07/19/16 6:01:00 CDT Inactive 06/19/2016 [facility] potassium chloride 20 mEq, 100 mL, Route: IVPB, Drug form: INJ, PRN, Dosing Weight 87.273, kg, PRN Abnormal Lab Result, Via central line, Start date: 06/19/16 5:02:00 BLACK ASH BURNER OPERATOR, Duration: 30 day, Stop date: 07/19/16 6:01:00 CDTNotes: (Same as: KCL) Infuse no faster than 10 mEq/hr if given peripherally. 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, Stop date: 06/19/16 4:03:00 CSTNotes: (sodium bicarb 8.4% (1 mEq/ml) 50 ml VL) Inactive 06/19/2016 [facility] sodium chloride 0.9% INJ 150 mL 150 mL, Rate: To prime line and flush remaining blood products., Dosing Weight 87.273, kg, Route: IV, Total Volume: 150, Start Date: 06/19/16 4:02:00 BLACK ASH BURNER OPERATOR, Duration: 30 day, Stop date: 07/19/16 4:01:00 CDT, Replace Every: 24 hr No Longer Active 06/19/2016 [facility] sodium chloride 0.9% INJ 250 mL 250 mL, Rate: Engraving Supervisor for use with blood product administration., Dosing Weight 87.273, kg, Route: IV, Total Volume: 250, Priority: Routine, Start Date: 06/19/16 4:00:00 BLACK ASH BURNER OPERATOR, Duration: 30 day, Stop date: 07/19/16 3:59:00 CDT, Replace Every: 24 hr No Longer Active 06/19/2016 [facility] Tamiflu 75 mg, Route: PO, Drug form: CAP, [id number], Dosing Weight 87.273, kg, CrCl > 60 ml/hr, Start date: 06/19/16 4:00:00 BLACK ASH BURNER OPERATOR, Duration: 5 day, Stop date: 06/23/16 16:00:00 BLACK ASH BURNER OPERATOR Inactive 06/19/2016 [facility] Calcium Chloride 0.0014 MEQ/ML / Potassium Chloride 0.004 MEQ/ML / Sodium Chloride 0.103 MEQ/ML / Sodium Lactate 0.028 MEQ/ML Injectable Solution 1,000 mL, 4000 ml/hr, Infuse Over: 15 minutes, Route: IV, 1,000, Drug form: INJ, ONCE, Priority: STAT, Dosing Weight 87.273 kg, Start date: 06/19/16 3:48:00 BLACK ASH BURNER OPERATOR, Duration: 1 doses or times, Stop date: 06/19/16 3:48:00 BLACK ASH BURNER OPERATOR Inactive 06/19/2016 [facility] Calcium Chloride 0.0014 MEQ/ML / Potassium Chloride 0.004 MEQ/ML / Sodium Chloride 0.103 MEQ/ML / Sodium Lactate 0.028 MEQ/ML Injectable Solution 1,000 mL, 4,000 ml/hr, Infuse Over: 15 minutes, Route: IV, 1,000, Drug form: INJ, ONCE, Dosing Weight 87.273 kg, Start date: 06/19/16 3:47:00 BLACK ASH BURNER OPERATOR, Stop date: 06/19/16 3:47:00 BLACK ASH BURNER OPERATOR Inactive 06/19/2016 [facility] Calcium Chloride 0.0014 MEQ/ML / Potassium Chloride 0.004 MEQ/ML / Sodium Chloride 0.103 MEQ/ML / Sodium Lactate 0.028 MEQ/ML Injectable Solution 1,000 mL, 333.33 ml/hr, Infuse Over: 3 hr, Route: IV, 1,000, Drug form: INJ, ONCE, Priority: STAT, Dosing Weight 87.273 kg, Start date: 06/19/16 3:27:00 BLACK ASH BURNER OPERATOR, Duration: 1 doses or times, Stop date: 06/19/16 3:27:00 BLACK ASH BURNER OPERATOR Inactive 06/19/2016 [facility] Fentanyl 1,000 microgram, 20 mL, Rate: Titrate, Start Dose: 50 microgram/hr, Titration: 25 microgram/hour every 15 minutes, Goal(s): RASS - 2, Max Dose: 300 microgram/hr, Route: IV, Dosing Weight 87.273 kg, Total Volume: 20, Start date: 06/19/16 2:57:00 BLACK ASH BURNER OPERATOR, Du... No Longer Active 06/19/2016 [facility] sodium bicarbonate 8.4% 50 mEq, 50 ml, Route: IVP, Drug Form: INJ, Dosing Weight 87.273, kg, ONCE, Start date: 06/19/16 2:51:00 BLACK ASH BURNER OPERATOR, Stop date: 06/19/16 2:51:00 CSTNotes: (sodium bicarb 8.4% (1 mEq/ml) 50 ml VL) Inactive 06/19/2016 [facility] Norepinephrine 8 mg, 8 mL, Rate: Titrate, Start Dose: 5 microgram/min, Titration: 2 microgram/min every 2-5 minutes, Goal(s): MAP >=65 mmHg, Max Dose: 70 microgram/min, Route: IV, Dosing Weight 87.273 kg, Total Vol ume: 250, Start date: 06/19/16 0:56:00 BLACK ASH BURNER OPERATOR, Duratio...Notes: Not for direct administration - DILUTE. Protect from light. (Same as:Levophed). Administer by either central venous catheter or peripherally-inserted central catheter (PICC) line. No Longer Active 06/19/2016 [facility] sodium bicarbonate 8.4% 50 ml, Route: IVP, Dosing Weight 87.273, kg, ONCE, Start date: 06/19/16 0:27:00 BLACK ASH BURNER OPERATOR, Stop date: 06/19/16 0:27:00 BLACK ASH BURNER OPERATOR Inactive 06/19/2016 [facility] Amiodarone 150 mg, 3 mL, Route: IVPB, ONCE, Dosing Weight 87.273, kg, Start date: 06/19/16 0:16:00 BLACK ASH BURNER OPERATOR, Stop date: 06/19/16 0:16:00 CSTNotes: Central administration only for concentrations > 2 mg/ml. "Recommendation: Use an in-line filter during administration for continuous infusions to reduce the incidence of phlebitis" (Same as Codarone) MEDICATION WASTE Product Size: 150 mg Product Wasted: ___ mg Inactive 06/19/2016 [facility] AMIODarone INJ 900 mg + D5W 500 ml INJ 482 mL 900 mg, 18 mL, Rate: 1 mg/min for 6 hours, then reduce to 0.5 mg/min, Dosing Weight 87.273, kg, Route: IV, Total Volume: 500, Start Date: 06/19/16 0:16:00 BLACK ASH BURNER OPERATOR, Duration: 30 day, Stop date: 07/19/16 0:15:00 CDT, Replace Every: 24 hrNotes: Central administration only for concentration > 2 mg/ml. Use Glass Bottle or Non PVC Bag "Use 0.22 micron in-line filter" MEDICATION WASTE Product Size: 900 mg Product Wasted: ___ mg No Longer Active 06/19/2016 [facility] pantoprazole 40 mg, Route: IVP, Drug form: INJ, Daily, Dosing Weight 87.273, kg, Patient is NPO, Start date: 06/19/16 0:14:00 BLACK ASH BURNER OPERATOR, Duration: 30 day, Stop date: 07/18/16 9:00:00 CDTNotes: For IV push reconstitute with 10 ml 0.9% sodium chloride and push over 2 minutes. (Same as: Protonix) No Longer Active 06/19/2016 [facility] Vancomycin 2,000 mg, Route: IVPB, ONCE, Dosing Weight 87.273, kg, Start date: 06/19/16 0:02:00 BLACK ASH BURNER OPERATOR, Stop date: 06/19/16 0:02:00 CSTNotes: TIME CRITICAL MEDICATION (Same As: Vancocin) Infusion rate 2001 mg: infuse over 2.5 hours MEDICATION WASTE Product Size: 1000 mg Product Wasted: ___ mg Inactive 06/19/2016 [facility] D5W 1/2NS 1,000 mL 1,000 mL, Rate: 250 ml/hr, Infuse over: 4 hr, Route: IV, Dosing Weight 87.273 kg, Total Volume: 1,000, Start date: 06/18/16 23:33:00 BLACK ASH BURNER OPERATOR, Duration: 30 day, Stop date: 07/18/16 23:32:00 CDT No Longer Active 06/19/2016 [facility] Sodium Chloride 0.154 MEQ/ML Injectable Solution 1,000 mL, Rate: 250 ml/hr, Infuse over: 4 hr, Route: IV, Dosing Weight 87.273 kg, Total Volume: 1,000, When Finger stick blood glucose values remain ABOVE 250 mg/dL administer until BG is less than 250 mg/dL., Start date: 06/18/16 23:33:00 BLACK ASH BURNER OPERATOR, Durati... No Longer Active 06/19/2016 [facility] Insulin (regular) Titrate IV additive 100 unit + sodium chloride 0.9% INJ 99 mL 99 mL, Rate: Titrate, Dosing Weight 87.273, kg, Route: IV, Total Volume: 100, Priority: Routine, Start Date: 06/18/16 23:33:00 BLACK ASH BURNER OPERATOR, Duration: 30 day, Stop date: 07/18/16 23:32:00 CDT, Replace Every: 24 hrNotes: (Same as: Humulin R and NovoLIN R) WASTE: F/P - Black; E - Municipal Trash Bin (Do not shake) No Longer Active 06/19/2016 [facility] potassium phosphate + sodium chloride 0.9% INJ 250 mL 30 mmol, 10 mL, Route: IVPB, PRN, Dosing Weight 87.273, kg, PRN Abnormal Lab Result, Start date: 06/18/16 23:33:00 BLACK ASH BURNER OPERATOR, Duration: 30 day, Stop date: 07/19/16 0:32:00 CDTNotes: (Same as: K Phosphate.) 1 mMol phoshate has 1.47 mEq potassium Infuse over 4 hours No Longer Active 06/19/2016 [facility] Magnesium Sulfate 1 gm, 100 mL, Route: IVPB, Drug form: INJ, PRN, Dosing Weight 87.273, kg, PRN Abnormal Lab Result, Start date: 06/18/16 23:33:00 BLACK ASH BURNER OPERATOR, Duration: 30 day, Stop date: 07/19/16 0:32:00 CDTNotes: WASTE: F/P - Sink; E - Municipal Trash Bin No Longer Active 06/19/2016 [facility] Glucagon 1 mg, Route: IM, Drug form: PDR/INJ, PRN, Dosing Weight 87.273, kg, PRN Blood Glucose Results, Start date: 06/18/16 23:33:00 BLACK ASH BURNER OPERATOR, Duration: 30 day, Stop date: 07/19/16 0:32:00 CDT No Longer Active 06/19/2016 [facility] Dextrose 50% Syringe 25 gm, 50 mL, Route: IVP, Drug Form: INJ, Dosing Weight 87.273, kg, PRN, PRN Blood Glucose Results, Start date: 06/18/16 23:33:00 BLACK ASH BURNER OPERATOR, Duration: 30 day, Stop date: 07/19/16 0:32:00 CDT No Longer Active 06/19/2016 [facility] potassium chloride 10 mEq, 50 mL, Route: IVPB, Drug form: INJ, PRN, Dosing Weight 87.273, kg, PRN Abnormal Lab Result, Via peripheral line, Start date: 06/18/16 23:33:00 BLACK ASH BURNER OPERATOR, Duration: 30 day, Stop date: 07/19/16 0:32:00 CDTNotes: (Same as: KCL) Infuse over 2 hours. No Longer Active 06/19/2016 [facility] Ondansetron 4 mg, 2 mL, Route: IVP, Drug form: INJ, Q6H, Dosing Weight 87.273, kg, PRN Nausea & Vomiting, Start date: 06/18/16 23:29:00 BLACK ASH BURNER OPERATOR, Duration: 30 day, Stop date: 07/18/16 23:28:00 CDTNotes: (Same as: Ezra) MEDICATION WASTE Product Size: 4 mg Product Wasted: ___ mg No Longer Active 06/19/2016 [facility] Sodium Chloride 0.154 MEQ/ML Injectable Solution 1,000 mL, 1000 ml/hr, Infuse Over: 1 hr, Route: IV, 1,000, Drug form: INJ, ONCE, Priority: STAT, Dosing Weight 87.273 kg, Start date: 06/18/16 22:15:00 BLACK ASH BURNER OPERATOR, Duration: 1 doses or times, Stop date: 06/18/16 22:15:00 BLACK ASH BURNER OPERATOR No Longer Active 06/19/2016 [facility] phytonadione + sodium chloride 0.9% INJ 50 mL 10 mg, 1 mL, Route: IVPB, ONCE, Dosing Weight 87.273, kg, Priority: STAT, Start date: 06/18/16 22:14:00 BLACK ASH BURNER OPERATOR, Stop date: 06/18/16 22:14:00 CSTNotes: (Same as: Aqua- [place], Vitamin K) MEDICATION WASTE Product Size: 10 mg Product Wasted: ___ mg Inactive 06/19/2016 [facility] Factor 2-7-9-10 Prothrombin Complex Concentrate 4,268 unit + empty container 1 ea Route: IV, Drug form: INJ, ONCE, Dosing Weight 87.273, kg, ; INR > or=6; Use 100 kg max dosing weight for pt. > 100kg, Priority: STAT, Start date: 06/18/16 22:14:00 BLACK ASH BURNER OPERATOR, Stop date: 06/18/16 22:14:00 CSTNotes: Same as: Kcentra WASTE: F/P - Red; E -Red Maximum crlr=3259 units; Round down dose to the nearest vial size Hematology clinical pharmacist consult required Inactive 06/19/2016 [facility] Diltiazem 125 mg, 25 mL, Rate: Titrate, Start Dose: 5 mg/hr, Titration: 5 mg/hr every hour, Goal(s): Maintain HR Notes: (Same as: Cardizem) No Longer Active 06/19/2016 [facility] Magnesium Sulfate 1 gm, 100 mL, Route: IVPB, Drug form: INJ, PRN, Dosing Weight 87.273, kg, PRN Abnormal Lab Result, Start date: 06/18/16 22:11:00 BLACK ASH BURNER OPERATOR, Duration: 30 day, Stop date: 07/18/16 23:10:00 CDTNotes: WASTE: F/P - Sink; E - Municipal Trash Bin No Longer Active 06/19/2016 [facility] potassium chloride 10 mEq, 50 mL, Route: IVPB, Drug form: INJ, PRN, Dosing Weight 87.273, kg, PRN Abnormal Lab Result, Via peripheral line, Start date: 06/18/16 22:11:00 BLACK ASH BURNER OPERATOR, Duration: 30 day, Stop date: 07/18/16 23:10:00 CDTNotes: (Same as: KCL) Infuse over 2 hours. No Longer Active 06/19/2016 [facility] potassium phosphate + sodium chloride 0.9% INJ 250 mL 15 mmol, 5 mL, Route: IVPB, PRN, Dosing Weight 87.273, kg, PRN Abnormal Lab Result, Start date: 06/18/16 22:11:00 BLACK ASH BURNER OPERATOR, Duration: 30 day, Stop date: 07/18/16 23:10:00 CDTNotes: (Same as: K Phosphate.) 1 mMol phoshate has 1.47 mEq potassium Infuse over 4 hours No Longer Active 06/19/2016 [facility] Dextrose 50% Syringe 25 gm, 50 mL, Route: IVP, Drug Form: INJ, Dosing Weight 87.273, kg, PRN, PRN Blood Glucose Results, Start date: 06/18/16 22:11:00 BLACK ASH BURNER OPERATOR, Duration: 30 day, Stop date: 07/18/16 23:10:00 CDT No Longer Active 06/19/2016 [facility] Glucagon 1 mg, Route: IM, Drug form: PDR/INJ, PRN, Dosing Weight 87.273, kg, PRN Blood Glucose Results, Start date: 06/18/16 22:11:00 BLACK ASH BURNER OPERATOR, Duration: 30 day, Stop date: 07/18/16 23:10:00 CDT No Longer Active 06/19/2016 [facility] Insulin (regular) Titrate IV additive 100 unit + sodium chloride 0.9% INJ 99 mL 99 mL, Rate: Titrate, Dosing Weight 87.273, kg, Route: IV, Total Volume: 100, Priority: Routine, Start Date: 06/18/16 22:11:00 BLACK ASH BURNER OPERATOR, Duration: 30 day, Stop date: 07/18/16 22:10:00 CDT, Replace Every: 24 hrNotes: (Same as: Humulin R and NovoLIN R) WASTE: F/P - Black; E - Municipal Trash Bin (Do not shake) No Longer Active 06/19/2016 [facility] D5W 1/2NS 1,000 mL 1,000 mL, Rate: 250 ml/hr, Infuse over: 4 hr, Route: IV, Dosing Weight 87.273 kg, Total Volume: 1,000, Start date: 06/18/16 22:11:00 BLACK ASH BURNER OPERATOR, Duration: 30 day, Stop date: 07/18/16 22:10:00 CDT No Longer Active 06/19/2016 [facility] Diltiazem 125 mg, 25 mL, Rate: Titrate, Start Dose: 5 mg/hr, Titration: 5 mg/hr every hour, Goal(s): Maintain HR Notes: (Same as: Cardizem) No Longer Active 06/19/2016 [facility] cefepime 1 gm, Route: IVPB, ONCE, Dosing Weight 87.273, kg, Priority: STAT, Start date: 06/18/16 21:52:00 BLACK ASH BURNER OPERATOR, Stop date: 06/18/16 21:52:00 BLACK ASH BURNER OPERATOR Inactive 06/19/2016 [facility] niCARdipine 20 mg 20 mg, 200 mL, Rate: Titrate, Start Dose: 5 mg/hr, Titration: 2.5 mg/hr every 15 minutes, Goal(s): SBP Inactive 06/19/2016 [facility] Calcium Chloride 0.0014 MEQ/ML / Potassium Chloride 0.004 MEQ/ML / Sodium Chloride 0.103 MEQ/ML / Sodium Lactate 0.028 MEQ/ML Injectable Solution 1,000 mL, 2,000 ml/hr, Route: IV, ONCE, Priority: STAT, Dosing Weight 87.273 kg, Start date: 06/18/16 21:09:00 BLACK ASH BURNER OPERATOR, Duration: 1 doses or times, Stop date: 06/18/16 21:09:00 BLACK ASH BURNER OPERATOR Inactive 06/19/2016 [facility] Saline Flush 0.9% 10 mL, Route: IVP, Drug Form: INJ, Dosing Weight 87.273, kg, PRN, PRN Line Flush, Start date: 06/18/16 21:09:00 BLACK ASH BURNER OPERATOR, Duration: 30 day, Stop date: 07/18/16 22:08:00 CDTNotes: (Same as: BD Posiflush) No Longer Active 06/19/2016 [facility] Saline Flush 0.9% 10 mL, Route: IVP, Drug Form: INJ, Dosing Weight 87.273, kg, PRN, PRN Line Flush, Start date: 06/18/16 21:06:00 BLACK ASH BURNER OPERATOR, Duration: 30 day, Stop date: 07/18/16 22:05:00 CDT Inactive 06/19/2016 [facility] Allergies, Adverse Reactions, Alerts Substance Category Reaction Severity Reaction type Status Date Reported Comments Source penicillins Assertion Drug allergy Active [facility] Immunizations Immunization Date Given Site Status Last Updated Comments Source influenza virus vaccine, inactivated 06/23/2016 Not Given [facility] Results Order Name Results Value Reference Range Date Interpretation Comments Source CHEM PANEL Phosphorus 2.0 2.5 - 4.5 07/18/2016 [facility] CHEM PANEL eGFR 18 07/18/2016 Result Comment: The eGFR is calculated using the [...] from the National Kidney Disease Education Program (NKDEP) which additionally recommends that when the eGFR is used in patients with extremes of body mass index for purposes of drug dosing, the eGFR should be multiplied by the estimated BMI. [facility] CHEM PANEL Calcium Lvl 7.4 8.5 - 10.5 07/18/2016 [facility] CHEM PANEL CO2 27 24 - 32 07/18/2016 [facility] CHEM PANEL Albumin Lvl 2.1 3.5 - 5.0 07/18/2016 [facility] CHEM PANEL AGAP 10.3 10.0 - 20.0 07/18/2016 [facility] CHEM PANEL Glucose Lvl 140 70 - 99 07/18/2016 [facility] CHEM PANEL Chloride Lvl 105 95 - 109 07/18/2016 [facility] CHEM PANEL Potassium Lvl 3.3 3.5 - 5.1 07/18/2016 [facility] CHEM PANEL Sodium Lvl 139 135 - 145 07/18/2016 [facility] CHEM PANEL BUN 53 7 - 22 07/18/2016 [facility] CHEM PANEL Creatinine Lvl 3.30 0.50 - 1.40 07/18/2016 [facility] HEMATOLOGY PT 30.4 12.0 - 14.7 07/18/2016 [facility] HEMATOLOGY INR 2.85 0.85 - 1.17 07/18/2016 [facility] CHEM PANEL eGFR 18 07/17/2016 Result Comment: The eGFR is calculated using the [...] from the National Kidney Disease Education Program (NKDEP) which additionally recommends that when the eGFR is used in patients with extremes of body mass index for purposes of drug dosing, the eGFR should be multiplied by the estimated BMI. [facility] CHEM PANEL Calcium Lvl 7.9 8.5 - 10.5 07/17/2016 [facility] CHEM PANEL CO2 29 24 - 32 07/17/2016 [facility] CHEM PANEL Sodium Lvl 140 135 - 145 07/17/2016 [facility] CHEM PANEL Chloride Lvl 104 95 - 109 07/17/2016 [facility] CHEM PANEL Potassium Lvl 3.7 3.5 - 5.1 07/17/2016 [facility] CHEM PANEL BUN 46 7 - 22 07/17/2016 [facility] CHEM PANEL Glucose Lvl 101 70 - 99 07/17/2016 [facility] CHEM PANEL Creatinine Lvl 3.40 0.50 - 1.40 07/17/2016 [facility] CHEM PANEL Albumin Lvl 2.2 3.5 - 5.0 07/17/2016 [facility] CHEM PANEL AGAP 10.7 10.0 - 20.0 07/17/2016 [facility] CHEM PANEL Phosphorus 2.5 2.5 - 4.5 07/17/2016 [facility] HEMATOLOGY INR 2.67 0.85 - 1.17 07/17/2016 [facility] HEMATOLOGY PT 28.9 12.0 - 14.7 07/17/2016 [facility] RDW 18.0 11.5 - 14.5 07/17/2016 [facility] Hgb 7.9 14.0 - 18.0 07/17/2016 [facility] Hct 24.1 42.0 - 54.0 07/17/2016 [facility] MPV 7.2 7.4 - 10.4 07/17/2016 [facility] WBC 6.6 3.7 - 10.4 07/17/2016 [facility] RBC 2.86 4.70 - 6.10 07/17/2016 [facility] MCH 27.7 27.0 - 31.0 07/17/2016 [facility] MCV 84.3 80.0 - 94.0 07/17/2016 [facility] MCHC 32.8 32.0 - 36.0 07/17/2016 [facility] Platelet 189 133 - 450 07/17/2016 [facility] CHEM PANEL Phosphorus 2.4 2.5 - 4.5 07/16/2016 [facility] CHEM PANEL eGFR 17 07/16/2016 Result Comment: The eGFR is calculated using the [...] from the National Kidney Disease Education Program (NKDEP) which additionally recommends that when the eGFR is used in patients with extremes of body mass index for purposes of drug dosing, the eGFR should be multiplied by the estimated BMI. [facility] CHEM PANEL Sodium Lvl 137 135 - 145 07/16/2016 [facility] CHEM PANEL Creatinine Lvl 3.50 0.50 - 1.40 07/16/2016 [facility] CHEM PANEL Potassium Lvl 3.8 3.5 - 5.1 07/16/2016 [facility] CHEM PANEL Chloride Lvl 99 95 - 109 07/16/2016 [facility] CHEM PANEL CO2 27 24 - 32 07/16/2016 [facility] CHEM PANEL Glucose Lvl 108 70 - 99 07/16/2016 [facility] CHEM PANEL BUN 47 7 - 22 07/16/2016 [facility] CHEM PANEL Albumin Lvl 2.5 3.5 - 5.0 07/16/2016 [facility] CHEM PANEL Calcium Lvl 8.0 8.5 - 10.5 07/16/2016 [facility] CHEM PANEL AGAP 14.8 10.0 - 20.0 07/16/2016 [facility] ELECTROLYTES Sodium Lvl 138 135 - 145 07/16/2016 [facility] ELECTROLYTES Creatinine Lvl 3.50 0.50 - 1.40 07/16/2016 [facility] ELECTROLYTES CO2 28 24 - 32 07/16/2016 [facility] ELECTROLYTES Chloride Lvl 99 95 - 109 07/16/2016 [facility] ELECTROLYTES AGAP 15.0 10.0 - 20.0 07/16/2016 [facility] ELECTROLYTES Potassium Lvl 4.0 3.5 - 5.1 07/16/2016 [facility] ELECTROLYTES Calcium Lvl 7.7 8.5 - 10.5 07/16/2016 [facility] ELECTROLYTES eGFR 17 07/16/2016 Result Comment: The eGFR is calculated using the [...] from the National Kidney Disease Education Program (NKDEP) which additionally recommends that when the eGFR is used in patients with extremes of body mass index for purposes of drug dosing, the eGFR should be multiplied by the estimated BMI. [facility] ELECTROLYTES BUN 49 7 - 22 07/16/2016 [facility] [facility] ELECTROLYTES Glucose Lvl 110 70 - 99 07/16/2016 [facility] HEMATOLOGY PT 31.1 12.0 - 14.7 07/16/2016 [facility] HEMATOLOGY INR 2.94 0.85 - 1.17 07/16/2016 [facility] HEMATOLOGY MPV 6.8 7.4 - 10.4 07/14/2016 [facility] HEMATOLOGY Platelet 168 133 - 450 07/14/2016 [facility] HEMATOLOGY RDW 17.7 11.5 - 14.5 07/14/2016 [facility] HEMATOLOGY MCV 82.5 80.0 - 94.0 07/14/2016 [facility] HEMATOLOGY Hct 21.8 42.0 - 54.0 07/14/2016 [facility] Hgb 7.3 14.0 - 18.0 07/14/2016 [facility] RBC 2.64 4.70 - 6.10 07/14/2016 [facility] MCHC 33.4 32.0 - 36.0 07/14/2016 [facility] MCH 27.6 27.0 - 31.0 07/14/2016 [facility] HEMATOLOGY WBC 5.3 3.7 - 10.4 07/14/2016 [facility] CHEM PANEL Magnesium Lvl 2.0 1.8 - 2.4 07/14/2016 [facility] CHEM PANEL Total Protein 5.1 6.4 - 8.4 07/12/2016 [facility] CHEM PANEL Magnesium Lvl 1.4 1.8 - 2.4 07/12/2016 [facility] CHEM PANEL Alk Phos 110 39 - 136 07/12/2016 [facility] CHEM PANEL Bili Total 0.7 0.2 - 1.3 07/12/2016 [facility] CHEM PANEL A/G Ratio 0.7 0.7 - 1.6 07/12/2016 [facility] CHEM PANEL AST 23 0 - 37 07/12/2016 [facility] CHEM PANEL ALT 43 0 - 65 07/12/2016 [facility] CHEM PANEL Total Protein 5.0 6.4 - 8.4 07/12/2016 [facility] CHEM PANEL B/C Ratio 9 6 - 25 07/12/2016 [facility] CHEM PANEL Globulin 3.0 2.7 - 4.2 07/12/2016 [facility] HEMATOLOGY Monocytes 10.3 2.0 - 12.0 07/12/2016 [facility] HEMATOLOGY Segs 66.8 45.0 - 75.0 07/12/2016 [facility] Lymphocytes 16.0 20.0 - 40.0 07/12/2016 [facility] Eosinophils # 0.3 0.0 - 0.5 07/12/2016 [facility] HEMATOLOGY Monocytes # 0.5 0.0 - 0.8 07/12/2016 [facility] HEMATOLOGY Basophils 0.8 0.0 - 1.0 07/12/2016 [facility] Segs-Bands # 3.5 1.5 - 8.1 07/12/2016 [facility] Eosinophils 6.1 0.0 - 4.0 07/12/2016 [facility] Lymphocytes # 0.8 1.0 - 5.5 07/12/2016 [facility] Platelet 185 133 - 450 07/12/2016 [facility] MPV 7.4 7.4 - 10.4 07/12/2016 [facility] RDW 17.3 11.5 - 14.5 07/12/2016 [facility] MCHC 34.0 32.0 - 36.0 07/12/2016 [facility] MCH 27.7 27.0 - 31.0 07/12/2016 [facility] MCV 81.5 80.0 - 94.0 07/12/2016 [facility] Hct 21.9 42.0 - 54.0 07/12/2016 [facility] Hgb 7.4 14.0 - 18.0 07/12/2016 [facility] RBC 2.69 4.70 - 6.10 07/12/2016 [facility] WBC 5.3 3.7 - 10.4 07/12/2016 [facility] IMMUNOLOGY Prealbumin 16.8 18.0 - 45.0 07/12/2016 [facility] CHEM PANEL Magnesium Lvl 1.6 1.8 - 2.4 07/11/2016 [facility] CHEM PANEL eGFR 13 07/11/2016 Result Comment: The eGFR is calculated using the [...] from the National Kidney Disease Education Program (NKDEP) which additionally recommends that when the eGFR is used in patients with extremes of body mass index for purposes of drug dosing, the eGFR should be multiplied by the estimated BMI. [facility] CHEM PANEL Sodium Lvl 138 135 - 145 07/11/2016 [facility] CHEM PANEL Glucose Lvl 88 70 - 99 07/11/2016 [facility] CHEM PANEL BUN 40 7 - 22 07/11/2016 [facility] CHEM PANEL Creatinine Lvl 4.54 0.50 - 1.40 07/11/2016 [facility] CHEM PANEL CO2 28 24 - 32 07/11/2016 [facility] CHEM PANEL Chloride Lvl 100 95 - 109 07/11/2016 [facility] CHEM PANEL Potassium Lvl 3.4 3.5 - 5.1 07/11/2016 [facility] CHEM PANEL Phosphorus 4.0 2.5 - 4.5 07/11/2016 [facility] CHEM PANEL Albumin Lvl 1.9 3.5 - 5.0 07/11/2016 [facility] CHEM PANEL Calcium Lvl 8.1 8.5 - 10.5 07/11/2016 [facility] CHEM PANEL AGAP 13.4 10.0 - 20.0 07/11/2016 [facility] HEMATOLOGY Eosinophils # 0.4 0.0 - 0.5 07/11/2016 [facility] HEMATOLOGY Monocytes # 0.6 0.0 - 0.8 07/11/2016 [facility] HEMATOLOGY Segs 65.1 45.0 - 75.0 07/11/2016 [facility] HEMATOLOGY Basophils 0.4 0.0 - 1.0 07/11/2016 [facility] HEMATOLOGY Eosinophils 6.6 0.0 - 4.0 07/11/2016 [facility] HEMATOLOGY Lymphocytes 16.9 20.0 - 40.0 07/11/2016 [facility] HEMATOLOGY Monocytes 11.0 2.0 - 12.0 07/11/2016 [facility] HEMATOLOGY Segs-Bands # 3.5 1.5 - 8.1 07/11/2016 [facility] HEMATOLOGY Lymphocytes # 0.9 1.0 - 5.5 07/11/2016 [facility] HEMATOLOGY MPV 7.4 7.4 - 10.4 07/11/2016 [facility] HEMATOLOGY Platelet 191 133 - 450 07/11/2016 [facility] HEMATOLOGY Hgb 7.3 14.0 - 18.0 07/11/2016 [facility] HEMATOLOGY Hct 21.6 42.0 - 54.0 07/11/2016 [facility] HEMATOLOGY MCV 81.9 80.0 - 94.0 07/11/2016 [facility] HEMATOLOGY MCH 27.4 27.0 - 31.0 07/11/2016 [facility] HEMATOLOGY MCHC 33.5 32.0 - 36.0 07/11/2016 [facility] HEMATOLOGY RDW 17.3 11.5 - 14.5 07/11/2016 [facility] HEMATOLOGY RBC 2.64 4.70 - 6.10 07/11/2016 [facility] HEMATOLOGY WBC 5.4 3.7 - 10.4 07/11/2016 [facility] HEMATOLOGY INR 1.86 0.85 - 1.17 07/11/2016 [facility] HEMATOLOGY PT 21.8 12.0 - 14.7 07/11/2016 [facility] PARATHYROID PROFILE Ca Norm WB 1.09 1.05 - 1.25 07/11/2016 [facility] PARATHYROID PROFILE Ca Ion WB 1.06 1.05 - 1.25 07/11/2016 [facility] HEMATOLOGY PTT 80.4 22.9 - 35.8 07/10/2016 [facility] CHEM PANEL Magnesium Lvl 1.7 1.8 - 2.4 07/10/2016 [facility] CHEM PANEL Phosphorus 4.6 2.5 - 4.5 07/10/2016 [facility] CHEM PANEL Bili Indirect 0.2 0.0 - 1.0 07/10/2016 [facility] CHEM PANEL Globulin 3.5 2.7 - 4.2 07/10/2016 [facility] CHEM PANEL A/G Ratio 0.5 0.7 - 1.6 07/10/2016 [facility] CHEM PANEL Bili Direct 0.2 0.0 - 0.3 07/10/2016 [facility] CHEM PANEL Alk Phos 118 39 - 136 07/10/2016 [facility] CHEM PANEL Bili Total 0.4 0.2 - 1.3 07/10/2016 [facility] CHEM PANEL AST 27 0 - 37 07/10/2016 [facility] CHEM PANEL Albumin Lvl 1.8 3.5 - 5.0 07/10/2016 [facility] CHEM PANEL ALT 53 0 - 65 07/10/2016 [facility] CHEM PANEL Total Protein 5.3 6.4 - 8.4 07/10/2016 [facility] ELECTROLYTES AGAP 13.4 10.0 - 20.0 07/10/2016 [facility] ELECTROLYTES eGFR 13 07/10/2016 Result Comment: The eGFR is calculated using the [...] from the National Kidney Disease Education Program (NKDEP) which additionally recommends that when the eGFR is used in patients with extremes of body mass index for purposes of drug dosing, the eGFR should be multiplied by the estimated BMI. [facility] ELECTROLYTES Creatinine Lvl 4.48 0.50 - 1.40 07/10/2016 [facility] ELECTROLYTES Glucose Lvl 91 70 - 99 07/10/2016 [facility] ELECTROLYTES Potassium Lvl 3.4 3.5 - 5.1 07/10/2016 [facility] ELECTROLYTES Calcium Lvl 8.1 8.5 - 10.5 07/10/2016 [facility] ELECTROLYTES Chloride Lvl 98 95 - 109 07/10/2016 [facility] ELECTROLYTES Sodium Lvl 136 135 - 145 07/10/2016 [facility] ELECTROLYTES CO2 28 24 - 32 07/10/2016 [facility] ELECTROLYTES BUN 35 7 - 22 07/10/2016 [facility] HEMATOLOGY Hct 22.8 42.0 - 54.0 07/10/2016 [facility] HEMATOLOGY Hgb 7.6 14.0 - 18.0 07/10/2016 [facility] HEMATOLOGY MCH 27.4 27.0 - 31.0 07/10/2016 [facility] HEMATOLOGY WBC 6.1 3.7 - 10.4 07/10/2016 [facility] HEMATOLOGY MCHC 33.2 32.0 - 36.0 07/10/2016 [facility] HEMATOLOGY RDW 17.5 11.5 - 14.5 07/10/2016 [facility] HEMATOLOGY MPV 7.5 7.4 - 10.4 07/10/2016 [facility] HEMATOLOGY MCV 82.5 80.0 - 94.0 07/10/2016 [facility] HEMATOLOGY RBC 2.76 4.70 - 6.10 07/10/2016 [facility] HEMATOLOGY Platelet 203 133 - 450 07/10/2016 [facility] HEMATOLOGY INR 1.74 0.85 - 1.17 07/10/2016 [facility] HEMATOLOGY PT 20.7 12.0 - 14.7 07/10/2016 [facility] HEMATOLOGY Segs 68.9 45.0 - 75.0 07/10/2016 [facility] HEMATOLOGY Lymphocytes # 0.9 1.0 - 5.5 07/10/2016 [facility] HEMATOLOGY Eosinophils 5.6 0.0 - 4.0 07/10/2016 [facility] HEMATOLOGY Segs-Bands # 4.2 1.5 - 8.1 07/10/2016 [facility] HEMATOLOGY Basophils 0.5 0.0 - 1.0 07/10/2016 [facility] HEMATOLOGY Monocytes 10.7 2.0 - 12.0 07/10/2016 [facility] HEMATOLOGY Lymphocytes 14.3 20.0 - 40.0 07/10/2016 [facility] HEMATOLOGY Eosinophils # 0.3 0.0 - 0.5 07/10/2016 [facility] HEMATOLOGY Monocytes # 0.7 0.0 - 0.8 07/10/2016 [facility] HEMATOLOGY PTT 94.4 22.9 - 35.8 07/10/2016 [facility] HEMATOLOGY PTT 76.8 22.9 - 35.8 07/09/2016 [facility] ELECTROLYTES AGAP 13.5 10.0 - 20.0 07/09/2016 [facility] ELECTROLYTES Phosphorus 4.0 2.5 - 4.5 07/09/2016 [facility] ELECTROLYTES Albumin Lvl 1.8 3.5 - 5.0 07/09/2016 [facility] ELECTROLYTES Calcium Lvl 8.0 8.5 - 10.5 07/09/2016 [facility] ELECTROLYTES CO2 28 24 - 32 07/09/2016 [facility] ELECTROLYTES Chloride Lvl 98 95 - 109 07/09/2016 [facility] ELECTROLYTES eGFR 15 07/09/2016 Result Comment: The eGFR is calculated using the [...] from the National Kidney Disease Education Program (NKDEP) which additionally recommends that when the eGFR is used in patients with extremes of body mass index for purposes of drug dosing, the eGFR should be multiplied by the estimated BMI. [facility] ELECTROLYTES BUN 34 7 - 22 07/09/2016 [facility] ELECTROLYTES Potassium Lvl 3.5 3.5 - 5.1 07/09/2016 [facility] ELECTROLYTES Creatinine Lvl 4.01 0.50 - 1.40 07/09/2016 [facility] ELECTROLYTES Sodium Lvl 136 135 - 145 07/09/2016 [facility] ELECTROLYTES Glucose Lvl 94 70 - 99 07/09/2016 [facility] HEMATOLOGY MPV 7.5 7.4 - 10.4 07/09/2016 [facility] HEMATOLOGY Platelet 211 133 - 450 07/09/2016 [facility] HEMATOLOGY RDW 17.9 11.5 - 14.5 07/09/2016 [facility] HEMATOLOGY MCV 82.0 80.0 - 94.0 07/09/2016 [facility] HEMATOLOGY MCH 27.6 27.0 - 31.0 07/09/2016 [facility] HEMATOLOGY MCHC 33.6 32.0 - 36.0 07/09/2016 [facility] HEMATOLOGY RBC 2.75 4.70 - 6.10 07/09/2016 [facility] HEMATOLOGY Hct 22.5 42.0 - 54.0 07/09/2016 [facility] HEMATOLOGY Hgb 7.6 14.0 - 18.0 07/09/2016 [facility] HEMATOLOGY WBC 6.5 3.7 - 10.4 07/09/2016 [facility] HEMATOLOGY PT 17.6 12.0 - 14.7 07/09/2016 [facility] HEMATOLOGY INR 1.42 0.85 - 1.17 07/09/2016 [facility] HEMATOLOGY Eosinophils # 0.3 0.0 - 0.5 07/09/2016 [facility] HEMATOLOGY Monocytes # 0.7 0.0 - 0.8 07/09/2016 [facility] HEMATOLOGY Basophils 0.5 0.0 - 1.0 07/09/2016 [facility] HEMATOLOGY Monocytes 10.5 2.0 - 12.0 07/09/2016 [facility] HEMATOLOGY Eosinophils 4.4 0.0 - 4.0 07/09/2016 [facility] HEMATOLOGY Lymphocytes # 0.8 1.0 - 5.5 07/09/2016 [facility] HEMATOLOGY Segs-Bands # 4.7 1.5 - 8.1 07/09/2016 [facility] HEMATOLOGY Lymphocytes 12.6 20.0 - 40.0 07/09/2016 [facility] HEMATOLOGY Segs 72.0 45.0 - 75.0 07/09/2016 [facility] PARATHYROID PROFILE Ca Norm WB 1.08 1.05 - 1.25 07/09/2016 [facility] PARATHYROID PROFILE Ca Ion WB 1.05 1.05 - 1.25 07/09/2016 [facility] CHEM PANEL Magnesium Lvl 1.8 1.8 - 2.4 07/08/2016 [facility] PARATHYROID PROFILE Ca Norm WB 1.05 1.05 - 1.25 07/08/2016 [facility] PARATHYROID PROFILE Ca Ion WB 1.05 1.05 - 1.25 07/08/2016 [facility] CHEM PANEL Alk Phos 120 39 - 136 07/07/2016 [facility] CHEM PANEL Bili Total 0.5 0.2 - 1.3 07/07/2016 [facility] CHEM PANEL Bili Direct 0.2 0.0 - 0.3 07/07/2016 [facility] CHEM PANEL ALT 64 0 - 65 07/07/2016 [facility] CHEM PANEL AST 24 0 - 37 07/07/2016 [facility] CHEM PANEL Total Protein 5.4 6.4 - 8.4 07/07/2016 [facility] CHEM PANEL Globulin 3.5 2.7 - 4.2 07/07/2016 [facility] CHEM PANEL A/G Ratio 0.5 0.7 - 1.6 07/07/2016 [facility] CHEM PANEL Bili Indirect 0.3 0.0 - 1.0 07/07/2016 [facility] CHEM PANEL Alk Phos 139 39 - 136 07/06/2016 [facility] CHEM PANEL Bili Total 0.5 0.2 - 1.3 07/06/2016 [facility] CHEM PANEL Bili Direct 0.2 0.0 - 0.3 07/06/2016 [facility] CHEM PANEL Total Protein 5.2 6.4 - 8.4 07/06/2016 [facility] CHEM PANEL ALT 75 0 - 65 07/06/2016 [facility] CHEM PANEL AST 29 0 - 37 07/06/2016 [facility] CHEM PANEL A/G Ratio 0.5 0.7 - 1.6 07/06/2016 [facility] CHEM PANEL Bili Indirect 0.3 0.0 - 1.0 07/06/2016 [facility] CHEM PANEL Globulin 3.4 2.7 - 4.2 07/06/2016 [facility] IMMUNOLOGY Myeloperoxidase Ab <0.2 <=0.9 AI 07/06/2016 [facility] IMMUNOLOGY P-ANCA Negative (07/06/16 5:57 AM) Negative 07/06/2016 [facility] IMMUNOLOGY C-ANCA Negative (07/06/16 5:57 AM) Negative 07/06/2016 [facility] IMMUNOLOGY ANGELA Negative (07/06/16 5:57 AM) Negative 07/06/2016 [facility] BLOOD BANK RESULTS Antibody Scrn Negative (07/04/16 3:50 AM) 07/04/2016 [facility] BLOOD BANK RESULTS ABO/Rh B POS 07/04/2016 [facility] BLOOD BANK RESULTS RBC product Product available (07/02/16 7:11 AM) 07/02/2016 [facility] URINE CHEM U12 Cr Clear 2 97 - 137 07/01/2016 [facility] URINE CHEM TV CrCl 12H 223 800 - 1800 07/01/2016 [facility] URINE CHEM HT Crcl 73 07/01/2016 [facility] URINE CHEM WT Crcl 206 07/01/2016 [facility] URINE CHEM BSA Cr Clear 2.17 07/01/2016 [facility] URINE CHEM Ur Creat 35.60 07/01/2016 [facility] MOLECULAR DIAGNOSTIC C difficile DNA Negative (07/01/16 10:07 AM) Negative 07/01/2016 [facility] BLOOD BANK RESULTS FFP product Product available (07/01/16 8:54 AM) 07/01/2016 [facility] URINE AND STOOL Occult Bld Stl Positive *ABN* (06/30/16 6:21 PM) Negative 06/30/2016 [facility] BLOOD BANK RESULTS Antibody Scrn Negative (06/30/16 2:00 PM) 06/30/2016 [facility] BLOOD BANK RESULTS ABO/Rh B POS 06/30/2016 [facility] CHEM PANEL Procalcitonin Lvl 0.30 0.00 - 0.10 06/30/2016 [facility] URINE AND STOOL UA Urobilinogen <=1.0 mg/dL 0.1 - 1.0 06/30/2016 [facility] URINE AND STOOL UA Sq Epi None Seen 06/30/2016 [facility] URINE AND STOOL UA WBC 2 0 - 5 06/30/2016 [facility] URINE AND STOOL UA RBC 11 0 - 2 06/30/2016 [facility] URINE AND STOOL UA Leuk Est Negative (06/30/16 11:05 AM) Negative 06/30/2016 [facility] URINE AND STOOL UA Amorph Shelley Occasional /HPF None Seen /HPF 06/30/2016 [facility] URINE AND STOOL UA Mucus Few /LPF None Seen /LPF 06/30/2016 [facility] URINE AND STOOL UA Spec Grav 1.008 <=1.030 06/30/2016 [facility] URINE AND STOOL UA Turbidity Clear (06/30/16 11:05 AM) Clear 06/30/2016 [facility] URINE AND STOOL UA pH 5.0 5.0 - 8.0 06/30/2016 [facility] URINE AND STOOL UA Color Yellow *NA* (06/30/16 11:05 AM) Yellow 06/30/2016 [facility] URINE AND STOOL UA Nitrite Negative (06/30/16 11:05 AM) Negative 06/30/2016 [facility] URINE AND STOOL UA Blood Moderate *ABN* (06/30/16 11:05 AM) Negative 06/30/2016 [facility] URINE AND STOOL UA Bili Negative *NA* (06/30/16 11:05 AM) Negative 06/30/2016 [facility] URINE AND STOOL UA Protein 20 mg/dL Negative mg/dL 06/30/2016 [facility] URINE AND STOOL UA Ketones Negative mg/dL Negative mg/dL 06/30/2016 [facility] URINE AND STOOL UA Glucose Negative mg/dL Negative mg/dL 06/30/2016 [facility] TOXICOLOGY Vanco Lvl 17.1 06/28/2016 [facility] CHEM PANEL B/C Ratio 16 6 - 25 06/26/2016 [facility] TOXICOLOGY Vanco Lvl 21.7 06/26/2016 [facility] TOXICOLOGY Vanco Lvl 22.9 06/25/2016 [facility] HEMATOLOGY Anti-Xa Unfractionated Heparin 0.43 06/25/2016 [facility] CHEM PANEL Procalcitonin Lvl 0.64 0.00 - 0.10 06/24/2016 [facility] HEMATOLOGY Anti-Xa Unfractionated Heparin 0.42 06/24/2016 [facility] HEMATOLOGY Anti-Xa Unfractionated Heparin 0.37 06/23/2016 [facility] HEMATOLOGY Basophils # 0.1 0.0 - 0.2 06/23/2016 [facility] HEMATOLOGY RBC Morph Normal (06/23/16 5:21 AM) 06/23/2016 [facility] HEMATOLOGY Plt Morph Normal (06/23/16 5:21 AM) 06/23/2016 [facility] IMMUNOLOGY Beta2-Glycoprotein IgG 3.5 <=19.9 unit/mL 06/23/2016 [facility] IMMUNOLOGY Beta2-Glycoprotein IgM 0.7 <=19.9 unit/mL 06/23/2016 [facility] IMMUNOLOGY Beta2-Glycoprotein IgA 0.6 <=19.9 unit/mL 06/23/2016 [facility] IMMUNOLOGY Cardiolipin IgA 0.7 <=19.9 APL 06/23/2016 [facility] IMMUNOLOGY Cardiolipin IgG 2.9 <=19.9 GPL 06/23/2016 [facility] IMMUNOLOGY Cardiolipin IgM 0.5 <=19.9 MPL 06/23/2016 [facility] IMMUNOLOGY Homocyst Tot 8.2 3.7 - 13.9 06/23/2016 [facility] TOXICOLOGY Vanco Tr TND 1130 06/22/2016 [facility] TOXICOLOGY Vanco Tr 32.0 06/22/2016 [facility] HEMATOLOGY Plt Morph Normal (06/22/16 6:11 AM) 06/22/2016 [facility] HEMATOLOGY Atypical Lymphs 0.0 <=0.0 % 06/22/2016 [facility] HEMATOLOGY Metamyelocytes 5.0 0.0 - 1.0 06/22/2016 [facility] HEMATOLOGY Anisocyte 1+ *ABN* (06/22/16 6:11 AM) None Seen 06/22/2016 [facility] HEMATOLOGY Bands 1.0 0.0 - 11.0 06/22/2016 [facility] HEMATOLOGY Polychrom Moderate *ABN* (06/22/16 6:11 AM) None Seen 06/22/2016 [facility] HEMATOLOGY Schistocyte 1-3 per HPF (06/22/16 6:11 AM) None Seen 06/22/2016 [facility] IMMUNOLOGY 24UIFE Int Urine immunofixation electrophoresis revealed spillage of polyclonal immunoglobulins mainly of IgG and IgA isotypes. There is no spillage of monoclonal immunoglobulins or free monoclonal light chains. Relevant medical information in the EMR was reviewed. I have personally reviewed the test results and concur with the resident's interpretation. CPT 61805-[id number] 06/21/2016 [facility] IMMUNOLOGY 24UIFE Pattern Diffusely staining immunoreactivity is present in IgG, IgA, kappa and lambda lanes. No monoclonal bands are seen. 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 There is a faint constriction present in the anodal part of the gamma region. However, urine immunofixation electrophoresis is negative for the presence of either monoclonal immunoglobulin or free monoclonal light chains. I have personally reviewed the test results and concur with the resident's interpretation. CPT: [id number] 06/21/2016 [facility] HEMATOLOGY RBC Morph Normal (06/21/16 5:49 AM) 06/21/2016 [facility] HEMATOLOGY Plt Morph Normal (06/21/16 5:49 AM) 06/21/2016 [facility] CHEM PANEL LDH 658 98 - 192 06/20/2016 [facility] CHEM PANEL Uric Acid 6.5 3.8 - 8.0 06/20/2016 Result Comment: Specimen Slightly Hemolyzed. [facility] IMMUNOLOGY C-ANCA Negative (06/20/16 9:52 AM) Negative 06/20/2016 [facility] IMMUNOLOGY P-ANCA Negative (06/20/16 9:52 AM) Negative 06/20/2016 [facility] IMMUNOLOGY ANGELA Negative (06/20/16 9:52 AM) Negative 06/20/2016 [facility] IMMUNOLOGY Tot Prot (SPE) 4.4 6.4 - 8.4 06/20/2016 [facility] IMMUNOLOGY SPE Interp Total protein is significantly decreased. Serum protein electrophoresis shows markedly reduced albumin level and mild hypogammaglobulinemia. The other protein fractions are within the reference ranges. No monoclonal immunoglobulins or other evidence of monoclonal process is identified. This serum protein electrophoresis pattern is consistent with significant protein loss. I have personally reviewed the test results and concur with the resident's interpretation. CPT [id number] 06/20/2016 [facility] IMMUNOLOGY Alpha 2 Glob 0.68 0.45 - 1.00 06/20/2016 [facility] IMMUNOLOGY Gamma Glob 0.59 0.71 - 1.57 06/20/2016 [facility] IMMUNOLOGY Beta Glob 0.56 0.50 - 1.15 06/20/2016 [facility] IMMUNOLOGY Gamma % 13.4 11.1 - 18.7 06/20/2016 [facility] IMMUNOLOGY Albumin (SPE) 2.21 3.57 - 5.55 06/20/2016 [facility] IMMUNOLOGY Alpha 1 Glob 0.36 0.18 - 0.41 06/20/2016 [facility] IMMUNOLOGY Albumin % 50.3 55.8 - 66.1 06/20/2016 [facility] IMMUNOLOGY Alpha 2 % 15.4 7.0 - 11.9 06/20/2016 [facility] IMMUNOLOGY Alpha 1 % 8.2 2.8 - 4.9 06/20/2016 [facility] IMMUNOLOGY Beta % 12.7 7.8 - 13.7 06/20/2016 [facility] IMMUNOLOGY HIV 1/2 Ab Negative *NA* (06/20/16 9:52 AM) Negative 06/20/2016 [facility] IMMUNOLOGY Hep C Ab Negative *NA* (06/20/16 9:52 AM) 06/20/2016 [facility] IMMUNOLOGY Hep B Core IgM Negative *NA* (06/20/16 9:52 AM) Negative 06/20/2016 [facility] IMMUNOLOGY Hep A IgM Negative *NA* (06/20/16 9:52 AM) Negative 06/20/2016 [facility] IMMUNOLOGY Hep Bs Ag Negative *NA* (06/20/16 9:52 AM) Negative 06/20/2016 [facility] IMMUNOLOGY DNA Ab (DS) Negative (06/20/16 9:52 AM) Negative 06/20/2016 [facility] IMMUNOLOGY C4 Complement 9 16 - 47 06/20/2016 [facility] IMMUNOLOGY C3 Complement 39 88 - 201 06/20/2016 [facility] SPECIAL CHEMISTRY Hgb A1C 7.0 <=5.6 % 06/20/2016 [facility] CHEM PANEL Lactic Acid Lvl 1.8 0.5 - 2.2 06/19/2016 [facility] CHEM PANEL Lactic Acid Lvl 3.0 0.5 - 2.2 06/19/2016 [facility] CHEM PANEL Ketone Quantitative 0.24 <=0.27 mmol/L 06/19/2016 [facility] CHEM PANEL Lactic Acid Lvl 6.4 0.5 - 2.2 06/19/2016 Result Comment: Critical Result(s) called to Ksenia Barry at 06/19/2016 08:59 by ET. Read back OK. [facility] CHEM PANEL B/C Ratio 13 6 - 25 06/19/2016 [facility] HEMATOLOGY D-Dimer 4.19 06/19/2016 [facility] HEMATOLOGY Fibrinogen Lvl 400 230 - 510 06/19/2016 [facility] HEMATOLOGY Toxic Gran Moderate *ABN* (06/19/16 7:37 AM) None Seen 06/19/2016 [facility] HEMATOLOGY Polychrom Moderate *ABN* (06/19/16 7:37 AM) None Seen 06/19/2016 [facility] HEMATOLOGY PB Smear Path Peripheral smear shows normocytic normochromic anemia with mild anisocytosis and polychromasia. Neutrophilic leukocytosis with mild reactive features. Platelets are adequate, with large forms and rare microscopic clumps. Comment: The actual platelet count may be higher. For accurate platelet count, recommend recollection for CBC in a blue- top tube. CPT: 68749 06/19/2016 [facility] BLOOD BANK RESULTS RBC product Product available (06/19/16 4:08 AM) 06/19/2016 [facility] BLOOD BANK RESULTS FFP product Product available (06/19/16 4:08 AM) 06/19/2016 [facility] BLOOD BANK RESULTS Platelet product Product available (06/19/16 4:02 AM) 06/19/2016 [facility] BLOOD BANK RESULTS FFP product Product available (06/19/16 4:02 AM) 06/19/2016 [facility] BLOOD BANK RESULTS RBC product Product available (06/19/16 4:00 AM) 06/19/2016 [facility] HEMATOLOGY D-Dimer 3.89 06/19/2016 [facility] HEMATOLOGY Fibrinogen Lvl 482 230 - 510 06/19/2016 [facility] HEMATOLOGY Thrombin Time 13.8 15.0 - 21.2 06/19/2016 [facility] BODY FLUIDS Lymph BF 8 06/19/2016 [facility] BODY FLUIDS CellCnt BF Type Pericard (06/19/16 2:18 AM) 06/19/2016 [facility] BODY FLUIDS Macrophage BF 5 06/19/2016 [facility] BODY FLUIDS Segs BF 87 06/19/2016 [facility] BODY FLUIDS RBC BF [id number] 06/19/2016 [facility] BODY FLUIDS Color BF Red *ABN* (06/19/16 2:18 AM) Colorless 06/19/2016 [facility] [place] [id number] 06/19/2016 [facility] BODY FLUIDS Supernat BF Yellow *ABN* (06/19/16 2:18 AM) Colorless 06/19/2016 [facility] BODY FLUIDS Clarity BF Marked *ABN* (06/19/16 2:18 AM) Clear 06/19/2016 [facility] CHEM PANEL B/C Ratio 11 6 - 25 06/19/2016 [facility] HEMATOLOGY Myelocytes 4.0 <=0.0 % 06/19/2016 [facility] HEMATOLOGY Metamyelocytes 2.0 0.0 - 1.0 06/19/2016 [facility] HEMATOLOGY Promyelocytes 1.0 <=0.0 % 06/19/2016 [facility] HEMATOLOGY Bands 6.0 0.0 - 11.0 06/19/2016 [facility] HEMATOLOGY RBC Morph Normal (06/19/16 2:18 AM) 06/19/2016 [facility] HEMATOLOGY Atypical Lymphs 0.0 <=0.0 % 06/19/2016 [facility] BACTERIAL - SEROLOGY MRSA by PCR Negative (06/19/16 12:25 AM) 06/19/2016 [facility] BLOOD BANK RESULTS Antibody Scrn Negative (06/19/16 12:25 AM) 06/19/2016 [facility] BLOOD BANK RESULTS ABO/Rh B POS 06/19/2016 [facility] CARDIAC ENZYMES CK MB Index 0.7 0.0 - 2.5 06/19/2016 [facility] CARDIAC ENZYMES CK MB 0.6 0.5 - 3.6 06/19/2016 [facility] CARDIAC ENZYMES Total CK 90 12 - 191 06/19/2016 [facility] CARDIAC ENZYMES Troponin-T <0.010 0.000 - 0.100 06/19/2016 [facility] CARDIAC ENZYMES Troponin-I 0.01 0.00 - 0.40 06/19/2016 [facility] CHEM PANEL Procalcitonin Lvl 0.20 0.00 - 0.10 06/19/2016 [facility] CHEM PANEL Ketone Quantitative 0.64 <=0.27 mmol/L 06/19/2016 [facility] HEMATOLOGY Bands 3.0 0.0 - 11.0 06/19/2016 [facility] HEMATOLOGY Metamyelocytes 1.0 0.0 - 1.0 06/19/2016 [facility] HEMATOLOGY Anisocyte 1+ *ABN* (06/19/16 12:25 AM) None Seen 06/19/2016 [facility] HEMATOLOGY Atypical Lymphs 0.0 <=0.0 % 06/19/2016 [facility] HEMATOLOGY Large Plt slight 06/19/2016 [facility] LIPIDS CHD Risk 2.44 4.00 - 7.30 06/19/2016 [facility] LIPIDS VLDL 18 06/19/2016 [facility] LIPIDS LDL (Calculated) 21 <=99 mg/dL 06/19/2016 [facility] LIPIDS HDL 27 >=61 mg/dL 06/19/2016 [facility] LIPIDS Trig 89 <=149 mg/dL 06/19/2016 [facility] LIPIDS Chol 66 <=199 mg/dL 06/19/2016 [facility] MOLECULAR DIAGNOSTIC Source Respiratory Panel PCR Flocked MACHINE FORMER Swab (06/19/16 12:25 AM) 06/19/2016 [facility] MOLECULAR DIAGNOSTIC Influenza B PCR Negative (06/19/16 12:25 AM) Negative 06/19/2016 [facility] MOLECULAR DIAGNOSTIC Influenza A PCR Negative (06/19/16 12:25 AM) Negative 06/19/2016 [facility] MOLECULAR DIAGNOSTIC RSV PCR Negative (06/19/16 12:25 AM) Negative 06/19/2016 [facility] MYOGLOBIN Myoglobin 296 25 - 72 06/19/2016 [facility] SPECIAL CHEMISTRY Hgb A1C 7.0 <=5.6 % 06/19/2016 [facility] DRUG SCREEN U Amph Scr Negative *NA* (06/18/16 9:45 PM) Negative 06/19/2016 [facility] DRUG SCREEN U Cocaine Scr Negative *NA* (06/18/16 9:45 PM) Negative 06/19/2016 [facility] DRUG SCREEN U Benzodia Scr Negative *NA* (06/18/16 9:45 PM) Negative 06/19/2016 [facility] DRUG SCREEN U Maribell Scr Negative *NA* (06/18/16 9:45 PM) Negative 06/19/2016 [facility] DRUG SCREEN UDS Note See Note *NA* (06/18/16 9:45 PM) 06/19/2016 [facility] DRUG SCREEN U Phencyc Scr Negative *NA* (06/18/16 9:45 PM) Negative 06/19/2016 [facility] DRUG SCREEN U Opiate Scr Negative *NA* (06/18/16 9:45 PM) Negative 06/19/2016 [facility] DRUG SCREEN U Cannab Scr Negative *NA* (06/18/16 9:45 PM) Negative 06/19/2016 [facility] URINE AND STOOL UA Glucose 500 mg/dL Negative mg/dL 06/19/2016 [facility] URINE AND STOOL UA Protein 30 mg/dL Negative mg/dL 06/19/2016 [facility] URINE AND STOOL UA Ketones Negative *NA* (06/18/16 9:45 PM) Negative 06/19/2016 [facility] URINE AND STOOL UA Nitrite Negative (06/18/16 9:45 PM) Negative 06/19/2016 [facility] URINE AND STOOL UA Urobilinogen 0.2 0.1 - 1.0 06/19/2016 [facility] URINE AND STOOL UA Blood Large *ABN* (06/18/16 9:45 PM) Negative 06/19/2016 [facility] URINE AND STOOL UA Bili Negative *NA* (06/18/16 9:45 PM) Negative 06/19/2016 [facility] URINE AND STOOL UA Leuk Est Negative (06/18/16 9:45 PM) Negative 06/19/2016 [facility] URINE AND STOOL UA Color Yellow *NA* (06/18/16 9:45 PM) Yellow 06/19/2016 [facility] URINE AND STOOL UA Turbidity Slight Cloudy (06/18/16 9:45 PM) Clear 06/19/2016 [facility] URINE AND STOOL UA Spec Grav 1.020 <=1.030 06/19/2016 [facility] URINE AND STOOL UA pH 5.0 5.0 - 8.0 06/19/2016 [facility] URINE AND STOOL UA Sq Epi None Seen (06/18/16 9:45 PM) Few 06/19/2016 [facility] URINE AND STOOL UA WBC 0-2 /HPF None Seen /HPF 06/19/2016 [facility] URINE AND STOOL UA Mucus None Seen (06/18/16 9:45 PM) None Seen 06/19/2016 [facility] URINE AND STOOL UA RBC 51-100 /HPF 0 - 2 06/19/2016 [facility] URINE AND STOOL UA Amorph Shelley Moderate /HPF None Seen /HPF 06/19/2016 [facility] URINE AND STOOL UA Bacteria Few /HPF None Seen /HPF 06/19/2016 [facility] URINE AND STOOL UA Hyal Cast 3-5 (06/18/16 9:45 PM) 0 - 2 06/19/2016 [facility] HEMATOLOGY ACT (TEG) Rapid 269 86 - 118 06/19/2016 [facility] HEMATOLOGY Angle Rapid 80 64 - 80 06/19/2016 [facility] HEMATOLOGY Max Amplitude Rapid 81 52 - 71 06/19/2016 [facility] HEMATOLOGY G-value Rapid 21.2 5.0 - 11.6 06/19/2016 [facility] HEMATOLOGY K-time Rapid 0.8 0.6 - 2.3 06/19/2016 [facility] HEMATOLOGY R-time Rapid 2.3 0.4 - 0.7 06/19/2016 [facility] HEMATOLOGY Split Point Rapid 2.0 06/19/2016 [facility] HEMATOLOGY Estimated % Lysis Rapid 3.2 0.0 - 7.5 06/19/2016 Result Comment: "Significant Findings called to Dr. Zambrano/ER at 06/18/2016 22:21 by VV.Read Back OK." [facility] CARDIAC ENZYMES Troponin-I <0.02 0.00 - 0.40 06/19/2016 [facility] TOXICOLOGY Ethanol Lvl <3.0 mg/dL 06/19/2016 [facility] TOXICOLOGY Etoh (%) <0.003 % 06/19/2016 [facility] Pathology Reports No Data Provided for This Section Diagnostic Reports Report Value Date Source Ext Lower Venous Doppler Bilat US VENOUS DOPPLER BILATERAL LOWER EXTREMITIES: HISTORY: Bilateral lower extremity swelling for 3 weeks. FINDINGS: Compression duplex ultrasound of the lower extremities was done from the inguinal through the infrageniculate popliteal regions. The visualized superficial and deep veins are patent and compressible without evidence of intraluminal thrombus. Satisfactory spontaneous and augmented flow is demonstrated in the visualized segments. Mild subcutaneous edema is noted in both eyes. IMPRESSION: Negative venous Doppler of the lower extremities. SL [id number] 07/11/2016 [facility] Ext Upper Venous Doppler Bilat US DOPPLER ULTRASOUND OF THE BILATERAL UPPER EXTREMITY HISTORY: Swelling of limbs; COMPARISON: None available. TECHNIQUE: Sonographic evaluation of the bilateral upper extremity veins was performed using high resolution B-mode imaging, along with pulse and color Doppler imaging. RIGHT UPPER EXTREMITY: Echogenic noncompressible thrombus within the proximal, mid, and distal cephalic vein. The right internal jugular vein, subclavian vein, axillary vein, and brachial vein are patent. The basilic vein is patent and compressible. LEFT UPPER EXTREMITY: The left internal jugular vein, subclavian vein, axillary vein, and brachial vein are patent. There is no echogenic debris to suggest deep venous thrombosis. The basilic and cephalic veins are patent. IMPRESSION: 1. Thrombosis of the right cephalic vein. 2. No thrombus in the left upper extremity. SL: IRVING 07/11/2016 [facility] Abdomen AP DX EXAM: XR ABDOMEN 1 VIEW DATE: 07/03/2016 11:59 AM CDT INDICATION: Tube placement/removal/reposition TECHNIQUE: AP view of the abdomen. Exams at 1202 and 1359 on July 03. FINDINGS: Both exams show a feeding tube in place. The first study shows the feeding tube tip in the fundus. Second study shows that the feeding tube has been advanced so that the tube tip is along the greater curvature in the distal stomach. It is prepyloric. A double-lumen catheter enters from an inferior location and terminates at the T12 level just to the right of the spinal column. There is gaseous distention of large and small bowel loops without pathologic dilatation. There are patchy airspace densities in the left lung with or without left pleural effusion. IMPRESSION: 1. The second study shows that the feeding tube is directed towards the pylorus; recommend advancing it into the duodenum. 2. Left lower lung airspace disease with or without left pleural effusion. 07/03/2016 [facility] Abdomen AP DX EXAM: XR ABDOMEN 1 VIEW DATE: 07/03/2016 11:59 AM CDT INDICATION: Tube placement/removal/reposition TECHNIQUE: AP view of the abdomen. Exams at 1202 and 1359 on July 03. FINDINGS: Both exams show a feeding tube in place. The first study shows the feeding tube tip in the fundus. Second study shows that the feeding tube has been advanced so that the tube tip is along the greater curvature in the distal stomach. It is prepyloric. A double-lumen catheter enters from an inferior location and terminates at the T12 level just to the right of the spinal column. There is gaseous distention of large and small bowel loops without pathologic dilatation. There are patchy airspace densities in the left lung with or without left pleural effusion. IMPRESSION: 1. The second study shows that the feeding tube is directed towards the pylorus; recommend advancing it into the duodenum. 2. Left lower lung airspace disease with or without left pleural effusion. 07/03/2016 [facility] CVC insert tunnel w/-w/o port/pump age 5+ yrs VR EXAM: CVC insert tunnel w/-w/o port/pump age 5+ yrs VR HISTORY: 65 years old Male with renal failure presents for a dialysis catheter placement. FACULTY: LUKE CRAIG M.D. RESIDENT/FELLOW/HAIR CLIPPER POWER: Hesham Bunch RPA SUPERVISION: Level 1 Direct supervision: The supervising provider is physically present with the patient during the procedure. ANESTHESIA/SEDATION: Moderate sedation PHYSICIAN SUPERVISED ANESTHESIA TIME: 30 min SPECIMEN: None DRAINS: None ESTIMATED BLOOD LOSS: Less than 10 cc COMPLICATIONS: None immediate FLUOROSCOPY TIME: 0.1 min RADIATION DOZE: 0.9 mGy PROCEDURE: After the risks, benefits, and alternatives of the procedure were explained to the patient, verbal and written consent were obtained and a copy was placed in the chart. A time-out was performed. IV Versed and Fentanyl were titrated for moderate sedation by a trained observer. There is an existing nontunneled catheter in the right groin. 1% Lidocaine with epinephrine was used to anesthetize the subcutaneous tissues overlying the right femoral vein. The existing catheter in the right femoral vein was removed over a wire. A subcutaneous tunnel was created adjacent to the access site. The catheter was placed through the subcutaneous tunnel. The peel-away sheath was placed over the guidewire into the femoral vein.The catheter was deployed through the peel-away sheath and the catheter tip was positioned in the hepatic portion of the inferior vena cava under fluoroscopic visualization. The catheter hubs were secured to the catheter with the locking device. Satisfactory flow through the system was confirmed with saline flush. The venotomy site was closed with absorbable suture. The catheter was secured to the skin with 2-0 Prolene and an antibiotic disc was placed at the exit site. The catheter ports were packed with Heparin (1000 units/ml) and sterile caps were placed. An antiseptic dressing was applied. The patient was discharged to the recovery area in stable condition. FINDINGS: A 15-Wallisian, 55-cm long Medcomp tunneled hemodialysis catheter was placed. The tip of the catheter was positioned in the retrocaval inferior vena cava using fluoroscopic guidance. IMPRESSION: 1. Right common femoral vein tunneled dialysis catheter was placed without complications. FOLLOW-UP RECOMMENDATIONS: Per clinical team. 07/01/2016 [facility] Chest 1view DX EXAM: XR CHEST 1 VIEW DATE: 06/30/2016 at 1832 hours INDICATION: Line Placement COMPARISON: 06/30/2016 at 0747 hours TECHNIQUE: AP chest FINDINGS: Lines, tubes and hardware: Unchanged. Airway, lungs and pleura: After accounting for differences in technique, no significant changes are identified. Left retrocardiac opacity is unchanged. No pneumothorax. Heart, mediastinum and yann: Heart is unchanged in size. Other mediastinal contours are unchanged. Bones and soft tissues: Unchanged. IMPRESSION: 1. No significant change in cardiopulmonary status. 06/30/2016 [facility] Chest 1view DX EXAM: XR CHEST 1 VIEW DATE: 06/30/2016 3:00 AM CDT INDICATION: Coughing COMPARISON: Yesterday. TECHNIQUE: AP chest FINDINGS: Lines and tubes: Right IJ catheter with its tip overlying the SVC. Nasogastric tube extends below the inferior border of the exam. Lungs and pleura: Left retrocardiac opacity representing atelectasis, consolidation with or without layering pleural fluid. The right lung is clear. Heart and mediastinum: Stable mediastinal contours. IMPRESSION: 1. No significant changes. 06/30/2016 [facility] Chest 1view DX EXAM: XR CHEST 1 VIEW DATE: 06/29/2016 at 0740 hours INDICATION: Abnormal chest sounds . Comparison is made with 7 hours earlier today FINDINGS: Cartilage mediastinal silhouette and life-support lines are stable. There is an opacity at the left lung base obscuring the left hemidiaphragm and the silhouette of the descending thoracic aorta. This opacity may represent left pleural effusion with or without left lower lobe consolidation or atelectasis.. The left upper lobe and right lung are clear IMPRESSION: No significant interval change when compared to prior radiograph. 06/29/2016 [facility] Chest 1view DX EXAM: XR CHEST 1 VIEW DATE: 06/29/2016 at 24 minutes after midnight INDICATION: Shortness of Breath . Comparison is made with June 27 FINDINGS: Cardiomediastinal silhouette and life-support lines are stable. There is a left pleural effusion. The right costophrenic sulcus is sharp. There is an opacity at the left lung base obscuring the left hemidiaphragm and the silhouette of the descending thoracic aorta. This opacity may represent left pleural effusion with or without left lower lobe consolidation or atelectasis.. . The remainder of the lungs are clear IMPRESSION: No significant interval change when compared to prior radiograph. 06/29/2016 [facility] Chest 1view DX EXAM: XR CHEST 1 VIEW DATE: 06/27/2016 at 2145 hours INDICATION: Shortness of Breath . Comparison is made with 1 hour ago FINDINGS: Cardiomediastinal silhouette and life-support lines are stable. There is an opacity at the left lung base obscuring the left hemidiaphragm and the silhouette of the descending thoracic aorta. This opacity may represent left pleural effusion with or without left lower lobe consolidation or atelectasis.. The remainder the lungs are clear IMPRESSION: No significant interval change when compared to prior radiograph. 06/27/2016 [facility] Chest 1view DX EXAM: Chest 1view DX DATE: 06/27/2016 7:59 PM BLACK ASH BURNER OPERATOR INDICATION: Line Placement ADDITIONAL HISTORY: None. COMPARISON: 06/27/2016 at 0717 hours TECHNIQUE: Portable AP semierect chest with a total of 1 image(s). FINDINGS: Dobbhoff tube has been removed. NG tube in place with the tip in the gastric fundus. Right subclavian line with tip in the SVC is noted. Changes of cardiomegaly and a left basilar partial atelectasis versus consolidation of the left lower lobe remain unchanged. IMPRESSION: 1. Left basilar atelectasis/consolidation unchanged 2. Cardiomegaly. 06/27/2016 [facility] Chest 1view DX EXAM: XR CHEST 1 VIEW DATE: 06/27/2016 3:00 AM BLACK ASH BURNER OPERATOR INDICATION: Shortness of Breath COMPARISON: X-ray chest 1 view performed June 25, 2016 TECHNIQUE: AP chest FINDINGS: Support lines and tubes are unchanged in position. Low lung volumes result in vascular crowding and mild bibasilar subsegmental atelectasis. There are left retrocardiac opacities obscuring the left hemidiaphragm and silhouette of the descending thoracic aorta. The heart size is stable. No acute bony abnormality is identified. IMPRESSION: 1. Low lung volumes result in vascular crowding and mild bibasilar subsegmental atelectasis. 2. Left retrocardiac opacities obscure the left hemidiaphragm and silhouette of the descending thoracic aorta and may represent left pleural effusion with or without underlying atelectasis or consolidation of left lower lobe. 06/27/2016 [facility] Chest 1view DX EXAM: XR CHEST 1 VIEW DATE: 06/25/2016 3:00 AM BLACK ASH BURNER OPERATOR INDICATION: Pleural effusion. FINDINGS: Comparison is made to yesterday morning. The cardiomediastinal silhouette is stable. There is a small left pleural effusion. There is a left retrocardiac opacity which may be due to a layering left pleural effusion and/or a left lower lobe airspace opacity such as pneumonia or atelectasis. The left upper lobe and right lung are clear. A Dobbhoff feeding tube has been inserted. Other life-support lines and tubes remain in place. IMPRESSION: New Dobbhoff feeding tube. Otherwise, no significant change from yesterday morning. 06/25/2016 [facility] Abdomen AP DX EXAM: XR ABDOMEN 1 VIEW DATE: 06/24/2016 4:19 PM BLACK ASH BURNER OPERATOR INDICATION: Tube placement/removal/reposition ADDITIONAL INFORMATION: None. COMPARISON: Abdominal radiograph 06/24/2016 at 5:58 AM TECHNIQUE: AP view of the abdomen. FINDINGS: Lines and tubes: Nasogastric tube tip overlying the gastric antrum. Dobbhoff tube is been placed with tip overlying the pylorus. Lower thorax: Unremarkable where visualized. Bowel: Normal. Solid organs: No abnormal mass or organomegaly seen. No abnormal calcifications found. Bones: Mild lower lumbar spondylosis. IMPRESSION: 1. Dobbhoff tube placed with tip overlying the pylorus. 06/24/2016 [facility] Abdomen AP DX EXAM: XR ABDOMEN 1 VIEW DATE: 06/24/2016 5:09 AM BLACK ASH BURNER OPERATOR INDICATION: Vomiting TECHNIQUE: AP view of the abdomen. FINDINGS: Compared with 06/19/2016. An NG tube is present. The NG tube follows the course the greater curvature stomach with tip in the distal stomach. Tubing is projected over the penis consistent with a Stahl catheter. There is gaseous distention of the colon without pathologic dilatation. Gas is present in the distal colon. IMPRESSION: 1. The NG tube is in good position. 2. Gaseous distention of the colon without pathologic dilatation. 06/24/2016 [facility] Chest 1view DX EXAM: XR CHEST 1 VIEW DATE: 06/24/2016 INDICATION: Dyspnea . Comparison is made with yesterday FINDINGS: Cardiomediastinal silhouette and life-support lines are stable. Bilateral retrocardiac opacities. The upper lungs are clear IMPRESSION: No significant interval change when compared to prior radiograph. 06/24/2016 [facility] Chest 1view DX EXAM: XR CHEST 1 VIEW DATE: 06/23/2016 11:01 AM BLACK ASH BURNER OPERATOR INDICATION: Absent of breath sounds COMPARISON: Previous Day FINDINGS: Feeding tube coursing past the inferior field of view and right subclavian central venous catheter are stable. Drainage catheter overlying the left chest is been removed. There stable prominence of the cardiac silhouette. Trace right and small left pleural effusions with superimposed left retrocardiac airspace opacity again noted. While evaluation is limited given semi-erect positioning, no distinct pneumothorax is identified. IMPRESSION: 1. Removal of drainage catheter overlying the left chest. 2. Other lines and tubes stable. 3. Asymmetric to the left small effusions with superimposed atelectasis and/or pneumonia. 06/23/2016 [facility] Spine Cranio-junction wo contrast MRI EXAM: MRI CERVICAL SPINE WITHOUT CONTRAST EXAM: MRI CRANIOCERVICAL JUNCTION WITHOUT CONTRAST DATE: 06/22/2016 22:12 PM BLACK ASH BURNER OPERATOR INDICATION: Fracture COMPARISON: Cervical spine CT dated 06/18/2016 TECHNIQUE: Multiplanar, multisequence noncontrast MR imaging of the cervical spine. Axial and coronal high resolution images of the craniocervical junction. IV contrast: None. FINDINGS: Cervical spine: The craniocervical junction is normal. A segmental fracture of the anterior arch of C1 is again identified, better depicted in the CT. The height and alignment of the other vertebral bodies is normal, without bone marrow edema. A hemangioma in the T3 vertebral body is incidentally noted. Desiccation and minimal diffuse bulging is identified at C3-C4, C4-C5, C5-C6 and C7-T1. No significant narrowing of the spinal canal or the neural foramina is demonstrated. The facet joints are unremarkable. The cervical spinal cord has normal caliber and signal intensity. There is no intra or extra-axial hematoma. Swelling in the supraspinous soft tissues from C3 through C5 is demonstrated. There is no widening of the interspinous spaces. The ligamenta flava are intact. There is a lipoma in the left dorsal soft tissues at the in the upper thoracic region. Craniocervical junction: The images are slightly limited by motion artifact. Asymmetric positioning of the dens at the time of the exam is demonstrated, however, the C1-C2 lateral masses are well aligned. The transverse ligament is intact. The alar ligaments are difficult to visualize. IMPRESSION: 1. Segmental fracture of the anterior arch of C1 is again demonstrated. 2. The transverse ligament, tectorial membrane/posterior longitudinal ligament, and the anterior longitudinal ligament are intact. The alar ligaments are difficult to evaluate. 3. No cord contusion or spinal canal hematoma. 06/22/2016 [facility] Spine cervical wo contrast MRI EXAM: MRI CERVICAL SPINE WITHOUT CONTRAST EXAM: MRI CRANIOCERVICAL JUNCTION WITHOUT CONTRAST DATE: 06/22/2016 22:12 PM BLACK ASH BURNER OPERATOR INDICATION: Fracture COMPARISON: Cervical spine CT dated 06/18/2016 TECHNIQUE: Multiplanar, multisequence noncontrast MR imaging of the cervical spine. Axial and coronal high resolution images of the craniocervical junction. IV contrast: None. FINDINGS: Cervical spine: The craniocervical junction is normal. A segmental fracture of the anterior arch of C1 is again identified, better depicted in the CT. The height and alignment of the other vertebral bodies is normal, without bone marrow edema. A hemangioma in the T3 vertebral body is incidentally noted. Desiccation and minimal diffuse bulging is identified at C3-C4, C4-C5, C5-C6 and C7-T1. No significant narrowing of the spinal canal or the neural foramina is demonstrated. The facet joints are unremarkable. The cervical spinal cord has normal caliber and signal intensity. There is no intra or extra-axial hematoma. Swelling in the supraspinous soft tissues from C3 through C5 is demonstrated. There is no widening of the interspinous spaces. The ligamenta flava are intact. There is a lipoma in the left dorsal soft tissues at the in the upper thoracic region. Craniocervical junction: The images are slightly limited by motion artifact. Asymmetric positioning of the dens at the time of the exam is demonstrated, however, the C1-C2 lateral masses are well aligned. The transverse ligament is intact. The alar ligaments are difficult to visualize. IMPRESSION: 1. Segmental fracture of the anterior arch of C1 is again demonstrated. 2. The transverse ligament, tectorial membrane/posterior longitudinal ligament, and the anterior longitudinal ligament are intact. The alar ligaments are difficult to evaluate. 3. No cord contusion or spinal canal hematoma. 06/22/2016 [facility] Chest 1view DX EXAM: XR CHEST 1 VIEW DATE: 06/22/2016 11:07 AM BLACK ASH BURNER OPERATOR INDICATION: Coughing. FINDINGS: Comparison is made to June 22 at 2:31 AM. The cardiomediastinal silhouette is stable. There is a small left pleural effusion. There is a left retrocardiac opacity which may be due to a layering left pleural effusion and/or a left lower lobe airspace opacity such as pneumonia or atelectasis. The left upper lobe and right lung are clear. Life support lines and tubes remain in place. IMPRESSION: No significant change. 06/22/2016 [facility] Chest 1view DX EXAM: XR CHEST 1 VIEW DATE: 06/22/2016 3:00 AM BLACK ASH BURNER OPERATOR INDICATION: Respiratory distress. FINDINGS: Comparison is made to yesterday morning. The cardiomediastinal silhouette is stable. The endotracheal tube has been removed. Other life-support lines and tubes remain in place. There is a small left pleural effusion. There is a left retrocardiac opacity which may be due to a layering left pleural effusion and/or a left lower lobe airspace opacity such as pneumonia or atelectasis. IMPRESSION: Extubated. Otherwise, no significant change from yesterday morning. 06/22/2016 [facility] Chest 1view DX EXAM: XR CHEST 1 VIEW DATE: 06/21/2016 6:23 AM BLACK ASH BURNER OPERATOR INDICATION: Abnormal chest sounds. FINDINGS: Comparison is made to yesterday. The cardiomediastinal silhouette, life-support lines and tubes are stable. A small left pleural effusion obscures the left base. There is a left retrocardiac opacity which may be due to a layering left pleural effusion and/or a left lower lobe airspace opacity such as pneumonia or atelectasis. IMPRESSION: No significant change. 06/21/2016 [facility] Chest 1 v for Placement DX Chest one view, 06/20/2016 at 1753 hours HISTORY: 65-year-old man with central line placement. FINDINGS: Comparison is made to June 20 at 2:57 AM. The cardiomediastinal silhouette is stable. Life support lines and tubes remain in place. There is a new right subclavian central venous catheter with tip near the atriocaval junction. A small left pleural effusion layers posteriorly. There is a left retrocardiac opacity which may be due to a layering left pleural effusion and/or a left lower lobe airspace opacity such as pneumonia or atelectasis. IMPRESSION: New right subclavian central venous catheter. Otherwise, no significant change. 06/20/2016 [facility] Abdomen RUQ US EXAM: US ABDOMEN LIMITED DATE: 06/20/2016 6:08 AM BLACK ASH BURNER OPERATOR INDICATION: Abnormal Lab tests- LFT ADDITIONAL INFORMATION: 65-year-old male with cardiac tamponade. COMPARISON: CT chest 06/20/2016 TECHNIQUE: Multiplanar grayscale and color Doppler ultrasound of the right upper quadrant. FINDINGS: Liver: Craniocaudal length: 14.6 cm. Echogenicity: Diffuse increased parenchymal echogenicity, suggestive of steatosis. Surface nodularity: Normal. Mass (size and location): None. Portal vein: Portal vein is patent with normal direction of flow. It measures 0.7 cm which is within normal limits. Bile ducts: Common bile duct diameter: 0.4 cm at the rodney hepatis, which is within normal limits. Intrahepatic ducts: Normal. Gallbladder: Normal. Gallstones: None. Gallbladder sludge: None. Gallbladder wall: 0.3 cm. Pericholecystic fluid: None. Sonographic Yanes sign: Absent. Pancreas: Head and uncinate process: Normal. Body and tail: Not seen. Right kidney: Hydronephrosis: None. Size: 12.0 x 5.6 x 5.6 cm. Echogenicity: Normal. Mass/Stone/Cyst (size and location): 2.3 x 1.8 x 1.9 cm cyst in the mid pole. Ascites: None. Other: The visualized abdominal aorta has normal caliber. The visualized IVC is within normal limits. IMPRESSION: Diffuse hepatic steatosis. 06/20/2016 [facility] Chest 1view DX EXAM: XR CHEST 1 VIEW DATE: 06/20/2016 3:00 AM BLACK ASH BURNER OPERATOR INDICATION: Shortness of Breath COMPARISON: Yesterday. TECHNIQUE: AP chest FINDINGS: Lines and tubes: ET tube, NG tube, pericardial drain with stable positioning. Lungs and pleura: Left pleural effusion is noted. Right effusion better seen on chest CT. Left retrocardiac atelectasis. Heart and mediastinum: Stable mediastinal contours. IMPRESSION: 1. No significant changes. 06/20/2016 [facility] Chest wo contrast CT EXAM: CT CHEST WITHOUT CONTRAST DATE: 06/19/2016 3:12 PM BLACK ASH BURNER OPERATOR INDICATION: Mass TECHNIQUE: Volumetric CT acquisition of the chest without contrast. Axial, sagittal and coronal reconstructions. IV contrast: None. DLP: 1173.30 mGy-cm COMPARISON: Chest radiograph dated 06/20/2016, 06/19/2016, 01/27/2012. DISCUSSION: Lines and Tubes: ET tube in the trachea with adequate clearance of the ese. Minimal secretions in the trachea at the level of the ET tube. Pericardial drain is in place, looped posteriorly and terminating anteriorly and superiorly in the pericardial space. Enteric tube is seen with side-port and tip in the stomach. The side-port is in the mid gastric body. The tip is in the distal gastric body. Lower Neck: The visible portions or the lower neck and thyroid are unremarkable. Heart and Great Vessels: The heart is borderline in size. A small intermediate attenuation pericardial effusion is demonstrated. Accurate Hounsfield units difficult to determine due to small size of the effusion. Mild left anterior descending and branch coronary calcification is demonstrated. Lymph Nodes: Nonspecific mediastinal lymph nodes. No thoracic lymphadenopathy otherwise. Note limited evaluation of the yann without intravenous contrast. Lungs: Compressive atelectasis in the bilateral lower lobes. There is mild septal thickening in the right apex. Otherwise, no large focal airspace consolidation identified. Pleura: Small bilateral layering effusions. No pneumothorax. Upper abdomen: The visualized liver, gallbladder, spleen, adrenal glands, visualized upper kidneys are grossly unremarkable. Mild mesenteric stranding trace perihepatic, small perisplenic fluid, which could represent mesenteric edema. Bones and Soft Tissues: Unremarkable. IMPRESSION: 1. Small dense pericardial effusion, which is compatible with history of hemopericardium. 2. A pericardial drain is in place. 3. Other life-support lines as described above. 4. Small pleural effusions with lateral lower lobe compressive atelectasis. 06/20/2016 [facility] Brain wo contrast MRI and MRA EXAM: MRI BRAIN WITHOUT CONTRAST EXAM: MRA BRAIN WITHOUT CONTRAST DATE: 06/19/2016 11:22 AM BLACK ASH BURNER OPERATOR INDICATION: Syncope. Concern for CVA. COMPARISON: CT brain June 18, 2016 TECHNIQUE: - Multiplanar multisequence non-contrast MRI images of the brain were performed. - Three-dimensional time of flight brain MR angiography of the brain is performed, and MIP reformatted images are presented in multiple 3-D rotational projections. IV contrast: None. DISCUSSION: BRAIN MRI: Diffusion-weighted imaging does not demonstrate areas of acute infarct. Cluster of susceptibility artifact in the left middle frontal gyrus likely represent age-indeterminate hemorrhage. A few scattered FLAIR hyperintensities for example in the right frontal lobe (series 601, image 23) and in the periventricular white matter likely represents microangiopathic changes. Incidental note is made of a small arachnoid cyst in the posterior fossa. There is no mass or mass-effect. The ventricles and sulci are normal in size and shape. The basal cisterns are patent. There is extracalvarial fluid collections in the suboccipital, temporal and parietal convexities. Evidence of prior right lens extraction noted. Fluid levels are present in the sphenoid and ethmoidal sinuses.. BRAIN MRA: There is no aneurysm, stenosis, vascular malformation or branch occlusion of the major arteries of the [place]. IMPRESSION: 1. Age-indeterminate hemorrhage in the left middle frontal gyrus. 2. Extra calvarial fluid along the suboccipital, bilateral temporal and parietal convexities. 3. Fluid levels in the sphenoid, ethmoidal sinuses could be secondary to intubation. 4. No acute intracranial abnormality. No vascular abnormality on the brain MRA. 06/20/2016 [facility] Chest 1view DX EXAM: XR CHEST 1 VIEW DATE: 06/19/2016 at 1115 hours INDICATION: Tube placement/removal/reposition COMPARISON: Single view chest 06/19/2016 at 0407 hours TECHNIQUE: AP chest FINDINGS: Lines and tubes: Endotracheal tube remains in place with tip measured 3.64 cm above ese. There is interval placement of gastric drainage tube with the tip proceeding well below the level of left diaphragm and beyond the image border. Pericardial drain in place with tip overlying the medial aspect of left heart. Lungs and pleura: Focal alveolar opacity of retrocardiac left lung base persists. Left effusion layers posteriorly. Heart and mediastinum: The cardiomediastinal silhouette is stable. Bones: No acute bony abnormality is identified. IMPRESSION: 1. Endotracheal tube remains in place with tip measured 3.64 cm above ese. 2. Gastric drainage tube in place with tip traveling well below the level of left diaphragm and beyond the image border. 3. No change in position or appearance of pericardial drain overlying the left heart associated with a stable appearing cardiomediastinal silhouette. 4. Persistent left lower lobe opacity due singly or in combination to effusion, atelectasis or superimposed consolidation. 5. Left effusion. 06/19/2016 [facility] Abdomen 1 v for Placement DX EXAM: XR ABDOMEN 1 VIEW DATE: 06/19/2016 8:26 AM BLACK ASH BURNER OPERATOR INDICATION: Tube Placement NG ADDITIONAL INFORMATION: None. COMPARISON: None. TECHNIQUE: Limited AP view of the abdomen for tube placement assessment. Number of images: 1 FINDINGS: Transesophageal feeding tube: None Transesophageal suction tube: Suction tube side port and tip project over the gastric fundus and antrum respectively. Other tubes, lines and hardware: Drainage catheter overlying the left medial hemithorax may represent a pericardial drainage catheter. No other changes. IMPRESSION: 1. Tube positions as above. 06/19/2016 [facility] Chest 1view DX EXAM: XR CHEST 1 VIEW DATE: 06/19/2016 4:01 AM BLACK ASH BURNER OPERATOR INDICATION: Abnormal chest sounds. FINDINGS: Comparison is made to June 19 at 1:02 AM. There is a new drain over the left mid hemithorax medially. According to the electronic medical record, the patient is status post thoracentesis and placement of a pericardial drain for pericardial tamponade. This has resulted in decreased prominence of the cardiomediastinal silhouette. A left pleural effusion obscures the left lower lobe and left cardiac margin. There is a left retrocardiac opacity which may be due to a layering left pleural effusion and/or a left lower lobe airspace opacity such as pneumonia or atelectasis. The left upper lobe and right lung are clear. The patient is intubated. IMPRESSION: The cardiomediastinal silhouette has become less prominent following placement of a pericardial drain. 2. Left pleural effusion. 3. There is a left retrocardiac opacity which may be due to a layering left pleural effusion and/or a left lower lobe airspace opacity such as pneumonia or atelectasis. 06/19/2016 [facility] Chest 1view DX EXAM: XR CHEST 1 VIEW DATE: 06/19/2016 12:54 AM BLACK ASH BURNER OPERATOR INDICATION: Line Placement. FINDINGS: Comparison is made to June 18 at 0031 minutes after midnight. The cardiomediastinal silhouette is enlarged but stable. According to the electronic medical record, the patient has cardiac tamponade. The left retrocardiac opacity could be due to atelectasis and/or pneumonia. There is a small left pleural effusion. The patient is now intubated with the tip of the ET tube well above the ese. IMPRESSION: Intubated. Otherwise, no significant change. 06/19/2016 [facility] Chest 1view DX EXAM: XR CHEST 1 VIEW DATE: 06/19/2016 12:20 AM BLACK ASH BURNER OPERATOR INDICATION: Arrhythmias. FINDINGS: Comparison is made to yesterday. The cardiomediastinal silhouette is prominent but stable. A left retrocardiac opacity could be due to atelectasis and/or pneumonia. There is a small left pleural effusion. IMPRESSION: No significant change. 06/19/2016 [facility] Brain-Outside Consult CT EXAM: CT BRAIN WITHOUT CONTRAST DATE: 06/18/2016 9:43 PM BLACK ASH BURNER OPERATOR INDICATION: Second opinion consultation COMPARISON: None available TECHNIQUE: A brain CT obtained at [facility] was submitted for 2nd opinion consultation following patient transfer. FINDINGS: A fracture of the anterior arch of C1 is again demonstrated, already described in the CT of the cervical spine obtained the same day. Non-contrast images of the head demonstrate no edema, hemorrhage, mass lesion or other acute intracranial abnormality. The ventricles and sulci are minimally prominent, normal for the patient's age. The paranasal sinuses, orbits and mastoids are unremarkable. IMPRESSION: Fracture of the anterior arch of C1. No intracranial injury. I agree with the outside report. 06/18/2016 [facility] Spine-Outside Consult CT EXAM: CT CERVICAL SPINE WITHOUT CONTRAST DATE: 06/18/2016 9:36 PM BLACK ASH BURNER OPERATOR INDICATION: Outside facility CT for reinterpretation COMPARISON: None TECHNIQUE: Volumetric acquisition of the cervical spine without contrast. Axial, sagittal and coronal reconstructions. IV contrast: None. DLP: 1277.62 mGy-cm FINDINGS: The spine is imaged from the skull base to the level of T1. Mildly displaced segmental fracture of the anterior arch of atlas is visualized with oblique fractures extending through the right and left lateral aspects of the anterior arch. Posterior arch and bilateral lateral masses are intact. No extension of fracture into the foramen transversarium. Mild anterior subluxation of the left C1-C2 facet joint is likely positional. Alignment of the anterior atlantodental axial joint is normal. Note made of mild prevertebral soft tissue prominence at C1-C2 level. There is mild thickening and calcifications of the posterior longitudinal ligament at C2. Note is made of transverse ligament calcifications as well. There is a minimally displaced small left occipital condyle avulsion fracture consistent with type III injury. Alignment of the atlantooccipital joints is normal. No other acute cervical spine fracture is visualized. There are multilevel degenerative changes of the spine with C7-T1 disc space narrowing representing degenerative disc disease and multilevel anterior osteophytes. No apical pneumothorax is visualized. IMPRESSION: 1. Mildly displaced segmental fracture of the anterior arch of atlas with mild associated prevertebral soft tissue prominence likely representing prevertebral hematoma. 2. Small minimally displaced intra-articular ligament avulsion fracture of the left occipital condyle-type III fracture. 3. Multilevel degenerative changes of the cervical spine with C7-T1 degenerative disc disease 06/18/2016 [facility] Chest 1view DX EXAM: XR CHEST 1 VIEW DATE: 06/18/2016 9:05 PM BLACK ASH BURNER OPERATOR INDICATION: Fall COMPARISON: 01/27/2012 TECHNIQUE: AP chest FINDINGS: The cardiac silhouette is markedly enlarged. The upper mediastinum is also widened. Of note, the cardiac size was normal on prior chest x-ray dated 01/27/2012. A left retrocardiac opacity is present obscuring the left hemidiaphragm. The right lung appears clear. No acute bony abnormality is identified. IMPRESSION: Widened upper mediastinum and markedly enlarged cardiac silhouette. A CT of the chest is recommended for further evaluation. 06/18/2016 [facility] Pelvis AP DX EXAM: XR PELVIS 1 VIEW DATE: 06/18/2016 9:06 PM BLACK ASH BURNER OPERATOR INDICATION: Fall COMPARISON: None TECHNIQUE: A single AP supine radiograph of the pelvis FINDINGS: Multiple overlying button artifacts are identified. No acute fracture or malalignment is identified. The soft tissues are unremarkable. IMPRESSION: No acute bony abnormality. 06/18/2016 [facility] Consultation Notes No Data Provided for This Section Discharge Summaries No Data Provided for This Section History and Physicals No Data Provided for This Section Vital Signs Vital Sign Value Date Comments Source Heart Rate 78 07/18/2016 [facility] Temperature Oral (F) 98.9 F 07/18/2016 [facility] Systolic (mm Hg) 130 07/18/2016 [facility] Diastolic (mm Hg) 70 07/18/2016 [facility] Temperature Oral (F) 98 F 07/18/2016 [facility] Heart Rate 80 07/18/2016 [facility] Diastolic (mm Hg) 72 07/18/2016 [facility] Respitory Rate 16 07/18/2016 [facility] Systolic (mm Hg) 127 07/18/2016 [facility] Heart Rate 74 07/17/2016 [facility] Temperature Oral (F) 98.0 F 07/17/2016 [facility] Systolic (mm Hg) 126 07/17/2016 [facility] Diastolic (mm Hg) 75 07/17/2016 [facility] Respitory Rate 16 07/17/2016 [facility] Respitory Rate 16 07/17/2016 [facility] BMI Calculated 26.12 07/11/2016 [facility] Height 182.88 cm 07/11/2016 [facility] Weight 87.364 07/11/2016 [facility] Systolic (mm Hg) 114 07/11/2016 [facility] Diastolic (mm Hg) 69 07/11/2016 [facility] Respitory Rate 18 07/11/2016 [facility] Heart Rate 80 07/11/2016 [facility] Temperature Oral (F) 98.8 F 07/11/2016 [facility] Heart Rate 92 07/11/2016 [facility] Temperature Oral (F) 98.5 F 07/11/2016 [facility] Respitory Rate 18 07/11/2016 [facility] Systolic (mm Hg) 119 07/11/2016 [facility] Diastolic (mm Hg) 79 07/11/2016 [facility] Systolic (mm Hg) 125 07/11/2016 [facility] Diastolic (mm Hg) 79 07/11/2016 [facility] Temperature Oral (F) 98.2 F 07/11/2016 [facility] Heart Rate 85 07/11/2016 [facility] Respitory Rate 18 07/11/2016 [facility] Weight 95 06/26/2016 [facility] Height 182.88 cm 06/21/2016 [facility] Height 182.88 cm 06/21/2016 [facility] Height 182.88 cm 06/21/2016 [facility] Weight 87.273 06/19/2016 [facility] BMI Calculated 26.09 06/19/2016 [facility] Encounters Location Location Details Encounter Type Encounter Number Reason For Visit Attending Provider ADM Date DC Date Status Source [facility] Inpatient [id number] Tyrese Pineda 06/19/2016 07/11/2016 [facility] [id number] Abelardo Loco 07/11/2016 07/18/2016 [facility] Procedures Procedure Code Date Perfomer Comments Source Laser eye surgery [id number] [facility] Laser eye surgery [id number] [facility] Assessment and Plan Assessment and Plan Date Source Extracted from:Title: Clinical Document Author: Aldo Barrientos MD Date: 07/18/16 Progress Note SUBJECTIVE: Patient was seen early this morning and doing well. Patient to be discharged home later today. Patient seen and evaluated at bedside. No overnight events. Denies chest pain, nausea, vomiting, diarrhea, headache, lightheadness, abdomen pain or dizziness. OBJECTIVE: Vitals Tmp(F) Pulse BP RR SpO2 FIO2 07/18 08:00 98.9 78 130/70 -- 98 --- 07/17 20:41 98 80 127/72 16 --- --- 07/17 15:10 98.0 74 126/75 16 99 --- 07/17 07:48 98.0 81 130/75 16 98 --- 07/16 20:00 98.7 77 119/72 -- 98 --- 24 Hr Tmax: 98.9F (37.17c) at 07/18 08:00 Vital Signs are the last 5 in the past 48 hours. I&O Record In Out Bal 07/18 24hr Tot 10 0 10 07/17 24hr Tot 24 1890 -[id number] Labs (Last four charted values) WBC 6.6 (JUL 17) 5.3 (JUL 14) 5.3 (JUL 12) Hgb L 7.9 (JUL 17) L 7.3 (JUL 14) L 7.4 (JUL 12) Hct L 24.1 (JUL 17) L 21.8 (JUL 14) L 21.9 (JUL 12) Plt 189 (JUL 17) 168 (JUL 14) 185 (JUL 12) Na 139 (JUL 18) 140 (JUL 17) 137 (JUL 16) 138 (JUL 16) K L 3.3 (JUL 18) 3.7 (JUL 17) 4.0 (JUL 16) 3.8 (JUL 16) CO2 27 (JUL 18) 29 (JUL 17) 27 (JUL 16) 28 (JUL 16) Cl 105 (JUL 18) 104 (JUL 17) 99 (JUL 16) 99 (JUL 16) Cr H 3.30 (JUL 18) H 3.40 (JUL 17) H 3.50 (JUL 16) H 3.50 (JUL 16) BUN H 53 (JUL 18) H 46 (JUL 17) H 47 (JUL 16) H 49 (JUL 16) Glucose Random H 140 (JUL 18) H 101 (JUL 17) H 108 (JUL 16) H 110 (JUL 16) Mg 2.0 (JUL 14) L 1.4 (JUL 12) Phos L 2.0 (JUL 18) 2.5 (JUL 17) L 2.4 (JUL 16) 2.6 (JUL 15) Ca L 7.4 (JUL 18) L 7.9 (JUL 17) L 7.7 (JUL 16) L 8.0 (JUL 16) PT H 30.4 (JUL 18) H 28.9 (JUL 17) H 31.1 (JUL 16) H 27.9 (JUL 15) INR H 2.85 (JUL 18) H 2.67 (JUL 17) H 2.94 (JUL 16) H 2.56 (JUL 15) No qualifying data available PHYSICAL EXAM: [...] clear and coherent. Psychiatric: Cooperative, Appropriate mood and affect. Review / Management Results review: No [...] follow-up with the outpatient neurosurgeon from the [facility] after discharge 2. Recent septic shock with multiorgan failure-all resolved 3. Cardiac tamponade status post her cardiocentesis status post 600 cc of bloody fluid removed-repeat echo shows EF of 50-55%, continue to follow, patient had multiple [place] [facility] [place] continue to follow 4. Acute kidney injury likely secondary to ATN from shockcreatinine is stable and improving, nephrology consulted, Lasix 40 mg IV daily--> discharge on oral diuretics and needs to follow-up outpatient with the nitroglycerin separator operator 5. Anemia multifactorial from recent sickness, iron deficiency anemia and renal failure-hemoglobin 7.9, hemodynamically stable, may give 1 unit packed RBCs to help the patient's stamina, iron infusions 5 doses and Epogen, hemoglobin stable 6. Type 2 diabetesinsulin sliding scale, Accu-Cheks, hemoglobin A1c: 7 7. Hypertensionstable, continue same home medications 8. A. fibrate controlled, warfarin, cont w/ rate controlling medications, daily INR's, INR 2.8 continue same dose for now adjust accordingly 9. Right upper extremity thrombus-venous Doppler shows thrombus in the right cephalic vein, on anticoagulation 10. Prophylaxiswarfarin 11. Fluid electrolytes nutrientsdiabetic diet, no IV fluids indicated 12. PT/OTinpatient rehab 13. Questionable GI bleed at [facility] recommends 4 weeks of PPI and Carafate, EGD and colonoscopy performed no evidence of bleeding, monitor stool 14. Dispositioninpatient rehab, nephrology consulted 15. Hypokalemiareplaced Discussed with the patient and the at bedside. Patient was discharged will need to follow-up with his transcribing machine operator, neurosurgeon, nephrology, GI and primary care physician as an outpatient within 1-2 weeks. Extracted from:Title: Internal Medicine Consultation Author: Aldo Barrientos MD Date: 07/11/16 Impression and Plan 1. C1 fracture with J collar-according to the records neurosurgery recommends outpatient follow-up in their office for further surgical knee 2. Recent septic shock with multiorgan failure-all resolving 3. Cardiac tamponade status post her cardiocentesis status post 600 cc of bloody fluid removed-repeat echo shows EF of 50-55%, continue to follow, patient had multiple repeat echo was [place] [facility] [place] continue to follow 4. Acute kidney injury likely secondary to ATN from shockcreatinine is stable, nephrology consulted, Lasix 40 mg IV 1 5. Anemia multifactorial from recent sickness, iron deficiency anemia and renal failure-hemoglobin 7.3, hemodynamically stable, may give 1 unit packed RBCs to help the patient's stamina, iron infusions and Epogen 6. Type 2 diabetesinsulin sliding scale, Accu-Cheks, hemoglobin A1c: 7 7. Hypertensionstable, continue same home medications 8. A. fibrate controlled, warfarin, cont w/ rate controlling medications, daily INR's 9. Right upper extremity thrombus-venous Doppler shows thrombus in the right cephalic vein, on anticoagulation 10. Prophylaxiswarfarin 11. Fluid electrolytes nutrientsdiabetic diet, no IV fluids indicated 12. PT/OTinpatient rehab 13. Questionable GI bleed at [facility] recommends 4 weeks of PPI and Carafate, EGD and colonoscopy performed no evidence of bleeding, monitor stool 14. Dispositioninpatient rehab, nephrology consulted 07/18/2016 [facility] Plan of Care No Data Provided for This Section Social History Social History Date Source Social History TypeResponse Alcohol Current, Type Liquor. Previous treatment: None. [...] Days No; Reg Smoking Cessation Counseling No 06/19/2016 [facility] Social History TypeResponse Alcohol Current, Type Liquor. Previous treatment: None. [...] Days No; Reg Smoking Cessation Counseling No 06/19/2016 [facility] Family History No Data Provided for This Section Advance Directives No Data Provided for This Section Functional Status No Data Provided for This Section
--- OUTSIDE RECORDS SUMMARY | 2018-11-16 13:33 | XMS REPORT | Summary of Care ---
Author Author [facility] Organization [facility] Address Unknown Phone Unavailable Encounter GERALD Vilchis(ASHVIN) [id number] Date(s): 06/18/16 - 07/11/16 [facility] [address] [employer] provided by [facility] [place] [address]- Discharge Disposition: Acute Care Attending Physician: Sally Mills MD Admitting Physician: Shivam Angel MD Referring Physician: Tyrese Pineda MD Vital Signs 1 2 3 Most recent to oldest [Reference Range]: 182.88 cm (06/21/16 11:50 AM) 182.88 cm (06/21/16 8:20 AM) 182.88 cm (06/21/16 2:50 AM) Height 92.227 kg (07/01/16 5:51 AM) 93.818 kg (06/30/16 6:40 AM) Current Weight 98.8 DegF (07/11/16 11:28 AM) 98.5 DegF (07/11/16 7:47 AM) 98.2 DegF (07/11/16 3:40 AM) Temperature Oral [96.4-99.1 DegF] 114/69 mmHg (07/11/16 11:28 AM) 119/79 mmHg (07/11/16 7:47 AM) 125/79 mmHg (07/11/16 3:40 AM) Blood Pressure [90-140/60-90 mmHg] 18 BRMIN (07/11/16 11:28 AM) 18 BRMIN (07/11/16 7:47 AM) 18 BRMIN (07/11/16 3:40 AM) Respiratory Rate [14-20 BRMIN] 80 bpm (07/11/16 11:28 AM) 92 bpm (07/11/16 7:47 AM) 85 bpm (07/11/16 3:40 AM) Peripheral Pulse Rate [60-100 bpm] 95 kg (06/26/16 11:18 AM) 87.273 kg (06/18/16 8:47 PM) Weight 26.09 m2 (06/18/16 8:47 PM) Body Mass Index Problem List Condition Effective Dates Status Health Status Informant Atrial Active fibrillation(Confirm ed) Diabetes(Confirmed) Resolved FH: Resolved hyperlipidemia(Confi rmed) C1 cervical Active fracture(Confirmed) HTN Resolved (hypertension)(Confi rmed) Acute kidney Active injury(Confirmed) Generalized muscle Active weakness(Confirmed) Allergies, Adverse Reactions, Alerts Substance Reaction Severity Status penicillins Active Medications acetaminophen 650 mg, 20.3 mL, Route: PO, Drug form: LIQ, Q6H, Dosing Weight 95, kg, PRN Pain Score 1-3, Start date: 06/28/16 1:39:00 FLORAL ARTIST, Duration: 30 day, Stop date: 1:38:00 CDT Notes: Max lsiyjojaarmws=9042uc/day (4 gm/day). (Same as: Tylenol) Start Date: 06/28/16 Stop Date: 07/11/16 Status: Discontinued alteplase 2 mg injection 2 mg, 2 mL, Route: INJ, Drug form: INJ, ONCE, Dosing Weight 87.273, kg, CVC eliza cathleen, Start date: 06/21/16 21:53:00 FLORAL ARTIST, Stop date: 06/21/16 21:53:00 FLORAL ARTIST Notes: "Syringe for catheter clearance or interventional radiology use.Reconstit missy each vial of Cathflo Activase with 2.2 ml Sterile Water resulting in a 1 mg/ ml solution. Stable for 8 hours only. (Same as: Activase) MEDICATION WASTE * Product Size: 2 mgProduct Wasted: ___ mg Start Date: 06/21/16 Stop Date: 06/21/16 Status: Completed alteplase 2 mg injection 2 mg, 2 mL, Route: INJ, Drug form: INJ, ONCE, Dosing Weight 87.273, kg, Start da te: 06/20/16 3:56:00 FLORAL ARTIST, Stop date: 06/20/16 3:56:00 FLORAL ARTIST Notes: "Syringe for catheter clearance or interventional radiology use.Reconstit missy each vial of Cathflo Activase with 2.2 ml Sterile Water resulting in a 1 mg/ ml solution. Stable for 8 hours only. (Same as: Activase) MEDICATION WASTE * Product Size: 2 mgProduct Wasted: ___ mg Start Date: 06/20/16 Stop Date: 06/20/16 Status: Completed alteplase 2 mg injection 2 mg, 2 mL, Route: INJ, Drug form: INJ, ONCE, Dosing Weight 87.273, kg, Start da te: 06/20/16 3:55:00 FLORAL ARTIST, Stop date: 06/20/16 3:55:00 FLORAL ARTIST Notes: "Syringe for catheter clearance or interventional radiology use.Reconstit missy each vial of Cathflo Activase with 2.2 ml Sterile Water resulting in a 1 mg/ ml solution. Stable for 8 hours only. (Same as: Activase) MEDICATION WASTE * Product Size: 2 mgProduct Wasted: ___ mg Start Date: 06/20/16 Stop Date: 06/20/16 Status: Completed alteplase 2 mg injection 2 mg, 2 mL, Route: INJ, Drug form: INJ, ONCE, Dosing Weight 87.273, kg, CVC eliza cathleen, Start date: 06/21/16 20:41:00 FLORAL ARTIST, Stop date: 06/21/16 20:41:00 FLORAL ARTIST Notes: "Syringe for catheter clearance or interventional radiology use.Reconstit missy each vial of Cathflo Activase with 2.2 ml Sterile Water resulting in a 1 mg/ ml solution. Stable for 8 hours only. (Same as: Activase) MEDICATION WASTE * Product Size: 2 mgProduct Wasted: ___ mg Start Date: 06/21/16 Stop Date: 06/21/16 Status: Completed AMIODarone 200 mg, 1 tab, Route: PO, Drug form: TAB, BID, Dosing Weight 87.273, kg, Start d ate: 06/27/16 17:00:00 FLORAL ARTIST, Duration: 30 day, Stop date: 07/27/16 9:00:00 CDT Notes: (Same as: Cordarone) Start Date: 06/27/16 Stop Date: 07/02/16 Status: Discontinued AMIODarone 400 mg, 2 tab, Route: PO, Drug form: TAB, BID, Dosing Weight 87.273, kg, Start d ate: 06/23/16 9:00:00 FLORAL ARTIST, Duration: 30 day, Stop date: 07/22/16 17:00:00 CDT Notes: (Same as: Cordarone) Start Date: 06/23/16 Stop Date: 06/27/16 Status: Discontinued AMIODarone + D5W 100 mL 150 mg, 3 mL, Route: IVPB, ONCE, Dosing Weight 95, kg, Start date: 07/02/16 22:0 2:00 CDT, Stop date: 07/02/16 22:02:00 CDT Notes: Central administration only for concentrations > 2 mg/ml."Recommendation: Use an in-line filter during administration for continuous infusions to reduce the incidence of phlebitis"(Same as Codarone) MEDICATION WASTE Product Size: 150 mgProduct Wasted: 0___ mg Start Date: 07/02/16 Stop Date: 07/02/16 Status: Completed AMIODarone + D5W 100 mL 150 mg, 3 mL, Route: IVPB, ONCE, Dosing Weight 87.273, kg, Start date: 06/19/16 0:16:00 FLORAL ARTIST, Stop date: 06/19/16 0:16:00 FLORAL ARTIST Notes: Central administration only for concentrations > 2 mg/ml."Recommendation: Use an in-line filter during administration for continuous infusions to reduce the incidence of phlebitis"(Same as Codarone) MEDICATION WASTE Product Size: 150 mgProduct Wasted: ___ mg Start Date: 06/19/16 Stop Date: 06/19/16 Status: Completed AMIODarone 200 mg oral tablet 200 mg=1 tab, PO, BID, # 60 tab, 0 Refill(s) Start Date: 07/11/16 Stop Date: 08/10/16 Status: Ordered AMIODarone 900 mg + D5W 500 ml INJ 482 mL 482 mL, Rate: 0.5mg/min, Route: IV, Dosing Weight 95 kg, Total Volume: 500, Star t date: 07/01/16 22:45:00 CDT, Duration: 30 day, Stop date: 07/31/16 22:44:00 CD T Notes: Central administration only for concentration > 2 mg/ml. Use Glass Bottle or Non PVC Bag"Use 0.22 micron in-line filter" MEDICATION WASTE Product Size: 900 mgProduct Wasted: ___ mg Start Date: 07/01/16 Stop Date: 07/02/16 Status: Discontinued AMIODarone INJ 900 mg + D5W 500 ml INJ 482 mL 900 mg, 18 mL, Rate: 1 mg/min for 6 hours, then reduce to 0.5 mg/min, Dosing Shay ght 87.273, kg, Route: IV, Total Volume: 500, Start Date: 06/19/16 0:16:00 FLORAL ARTIST, Duration: 30 day, Stop date: 07/19/16 0:15:00 CDT, Replace Every: 24 hr Notes: Central administration only for concentration > 2 mg/ml. Use Glass Bottle or Non PVC Bag"Use 0.22 micron in-line filter" MEDICATION WASTE Product Size: 900 mgProduct Wasted: ___ mg Start Date: 06/19/16 Stop Date: 06/23/16 Status: Discontinued amLODIPine 5 mg, 1 tab, Route: PO, Drug form: TAB, Daily, Dosing Weight 95, kg, Start date: 06/28/16 23:42:00 FLORAL ARTIST, Duration: 30 day, Stop date: 07/28/16 9:00:00 CDT Notes: (Same as: Norvasc) Start Date: 06/28/16 Stop Date: 07/11/16 Status: Discontinued amLODIPine 5 mg oral tablet 5 mg=1 tab, PO, Daily, # 30 tab, 0 Refill(s) Start Date: 07/11/16 Stop Date: 08/10/16 Status: Ordered ANES flumazenil 0.2 mg, 2 mL, Route: IVP, Drug form: INJ, PRN, Dosing Weight 95, kg, PRN Benzodi azepine Reversal, Initial dose, Start date: 07/04/16 10:02:00 CDT, Duration: 30 day, Stop date: 08/03/16 10:01:00 CDT Notes: (Same as: Romazicon) Start Date: 07/04/16 Stop Date: 07/04/16 Status: Discontinued ANES flumazenil 0.2 mg, 2 mL, Route: IVP, Drug form: INJ, PRN, Dosing Weight 95, kg, PRN Benzodi azepine Reversal, Initial dose, Start date: 07/01/16 12:08:00 CDT, Duration: 30 day, Stop date: 07/31/16 12:07:00 CDT Notes: (Same as: Romazicon) Start Date: 07/01/16 Stop Date: 07/01/16 Status: Discontinued ANES hydrALAZINE 10 mg, 0.5 mL, Route: IVP, Drug form: INJ, Q20Min, Dosing Weight 95, kg, PRN Ebony vated BP, Start date: 07/04/16 10:02:00 CDT, Duration: 2 doses or times, Stop da te: Limited # of times Notes: (Same as: Apresoline)Push over 5 minutes Start Date: 07/04/16 Stop Date: 07/04/16 Status: Discontinued ANES hydrALAZINE 10 mg, 0.5 mL, Route: IVP, Drug form: INJ, Q20Min, Dosing Weight 95, kg, PRN Ebony vated BP, Start date: 07/01/16 12:08:00 CDT, Duration: 2 doses or times, Stop da te: 07/02/16 0:00:00 CDT Notes: (Same as: Apresoline)Push over 5 minutes Start Date: 07/01/16 Stop Date: 07/01/16 Status: Discontinued ANES HYDROmorphone 0.5 mg, 0.25 mL, Route: IVP, Drug form: INJ, Q5Min, Dosing Weight 95, kg, PRN Pa in Score 7-10, Start date: 07/04/16 10:02:00 CDT, Duration: 4 doses or times, St op date: Limited # of times Notes: Same as: Dilaudid Start Date: 07/04/16 Stop Date: 07/04/16 Status: Discontinued ANES labetalol 10 mg, 2 mL, Route: IVP, Drug form: INJ, Q5Min, Dosing Weight 95, kg, PRN Elevat ed BP, Start date: 07/04/16 10:02:00 CDT, Duration: 5 doses or times, Stop date: Limited # of times Start Date: 07/04/16 Stop Date: 07/04/16 Status: Discontinued ANES labetalol 10 mg, 2 mL, Route: IVP, Drug form: INJ, Q5Min, Dosing Weight 95, kg, PRN Elevat ed BP, Start date: 07/01/16 12:08:00 CDT, Duration: 5 doses or times, Stop date: 07/02/16 0:00:00 CDT Start Date: 07/01/16 Stop Date: 07/01/16 Status: Discontinued ANES morphine Sulfate 2 mg, 1 mL, Route: IVP, Drug form: INJ, Q5Min, Dosing Weight 95, kg, PRN Pain Sc ore 4-6, Start date: 07/04/16 10:02:00 CDT, Duration: 5 doses or times, Stop drake e: Limited # of times Notes: (Same as:MORPhine Sulfate) Start Date: 07/04/16 Stop Date: 07/04/16 Status: Discontinued ANES morphine Sulfate 2 mg, 1 mL, Route: IVP, Drug form: INJ, Q5Min, Dosing Weight 95, kg, PRN Pain Sc ore 4-6, Start date: 07/01/16 12:08:00 CDT, Duration: 5 doses or times, Stop drake e: 07/02/16 0:00:00 CDT Notes: (Same as:MORPhine Sulfate) Start Date: 07/01/16 Stop Date: 07/01/16 Status: Discontinued ANES naloxone 0.4 mg, 1 mL, Route: IVP, Drug form: INJ, Q2MIN, Dosing Weight 95, kg, PRN Narco tic Reversal, Start date: 07/04/16 10:02:00 CDT, Duration: 8 doses or times, Sto p date: Limited # of times Notes: Same as Narcan Start Date: 07/04/16 Stop Date: 07/04/16 Status: Discontinued ANES naloxone 0.4 mg, 1 mL, Route: IVP, Drug form: INJ, Q2MIN, Dosing Weight 95, kg, PRN Narco tic Reversal, Start date: 07/01/16 12:08:00 CDT, Duration: 8 doses or times, Sto p date: 07/02/16 0:00:00 CDT Notes: Same as Narcan Start Date: 07/01/16 Stop Date: 07/01/16 Status: Discontinued ANES ondansetron 4 mg, 2 mL, Route: IVP, Drug form: INJ, ONCE, Dosing Weight 95, kg, PRN Nausea & Vomiting, Start date: 07/04/16 10:02:00 CDT Notes: (Same as: Zofran) MEDICATION WASTE Product Size: 4 mgProduct Was grecia: ___ mg Start Date: 07/04/16 Stop Date: 07/04/16 Status: Discontinued ANES ondansetron 4 mg, 2 mL, Route: IVP, Drug form: INJ, ONCE, Dosing Weight 95, kg, PRN Nausea & Vomiting, Start date: 07/01/16 12:08:00 CDT Notes: (Same as: Zofran) MEDICATION WASTE Product Size: 4 mgProduct Was grecia: ___ mg Start Date: 07/01/16 Stop Date: 07/01/16 Status: Discontinued anticoagulant sod citrate 4% 500 ml INJ 500 mL 500 mL, Rate: 200 ml/hr, Infuse over: 2.5 hr, Route: IV, Dosing Weight 87.273 kg , Total Volume: 500 mL, Start date: 06/19/16 13:16:00 FLORAL ARTIST, Duration: 30 day, Sto p date: 07/19/16 13:15:00 CDT Notes: (Same as: Sodium Citrate, anticoagulant) . Start Date: 06/19/16 Stop Date: 06/20/16 Status: Discontinued aspirin 81 mg, 1 tab, Route: PO, Drug form: ECTAB, Daily, Dosing Weight 87.273, kg, Star t date: 06/24/16 9:00:00 FLORAL ARTIST, Duration: 30 day, Stop date: 07/23/16 9:00:00 CDT Notes: Do not crush or chew.(Same As: Ecotrin) Start Date: 06/24/16 Stop Date: 06/28/16 Status: Discontinued aspirin 81 mg tablet, chewable 81 mg=1 tab, PO, Daily, # 30 tab, 0 Refill(s) Start Date: 07/11/16 Stop Date: 08/10/16 Status: Ordered aspirin 81 mg tablet, chewable 81 mg, 1 tab, Route: PO, Drug form: CHEWTAB, Daily, Dosing Weight 95, kg, Start date: 06/28/16 15:00:00 FLORAL ARTIST, Duration: 30 day, Stop date: 07/28/16 9:00:00 CDT Notes: Take with food. Start Date: 06/28/16 Stop Date: 07/11/16 Status: Discontinued atorvastatin 40 mg, 1 tab, Route: PO, Drug form: TAB, Bedtime, Dosing Weight 87.273, kg, Star t date: 06/25/16 21:00:00 FLORAL ARTIST, Duration: 30 day, Stop date: 07/24/16 21:00:00 CD T Notes: (Same as: Lipitor) Start Date: 06/25/16 Stop Date: 07/11/16 Status: Discontinued atorvastatin 40 mg oral tablet 40 mg=1 tab, PO, Bedtime, # 30 tab, 0 Refill(s) Start Date: 07/11/16 Stop Date: 08/10/16 Status: Ordered Benadryl 25 mg, 1 cap, Route: PO, Drug form: CAP, ONCE, Dosing Weight 95, kg, Start date: 07/09/16 18:06:00 CDT, Stop date: 07/09/16 18:06:00 CDT Notes: (Same as: Benadryl) Start Date: 07/09/16 Stop Date: 07/09/16 Status: Completed Beneprotein 7 gm pkt 1 pkt, Route: T FEED, Drug Form: PWDR, Dosing Weight 87.273, kg, TID-Before Meal s, Start date: 06/20/16 16:30:00 FLORAL ARTIST, Duration: 30 day, Stop date: 07/20/16 11:3 0:00 CDT Notes: (Same as: Beneprotein) Start Date: 06/20/16 Stop Date: 06/26/16 Status: Discontinued benzocaine-menthol topical 1 lozenge, Route: MUCOUS MEM, Drug Form: DAHLIA, Q2H, PRN Sore Throat, Start date: 07/04/16 22:29:00 CDT, Duration: 30 day, Stop date: 08/03/16 22:28:00 CDT Notes: Cepacol lozengesDispense 1 box=16 lozenges (Same As: Cepacol Lozenges) Start Date: 07/04/16 Stop Date: 07/11/16 Status: Discontinued bisacodyl 10 mg, 1 supp, Route: ID, Drug form: SUPP, ONCE, Dosing Weight 87.273, kg, Start date: 06/23/16 11:03:00 FLORAL ARTIST, Stop date: 06/23/16 11:03:00 FLORAL ARTIST Notes: (Same As: Dulcolax, Bisco-Lax) Start Date: 06/23/16 Stop Date: 06/23/16 Status: Completed calcium carbonate 500 mg (200 mg elemental calcium) oral tablet 1,000 mg, Route: PO, PRN, Dosing Weight 87.273, kg, PRN Abnormal Lab Result, FOR ICU USE ONLY, Start date: 06/22/16 15:06:00 FLORAL ARTIST, Duration: 30 day, Stop date: 0 07/22/16 16:05:00 CDT Start Date: 06/22/16 Stop Date: 06/22/16 Status: Discontinued calcium carbonate 500 mg (200 mg elemental calcium) oral tablet 500 mg, Route: PO, PRN, Dosing Weight 87.273, kg, PRN Abnormal Lab Result, FOR I CU USE ONLY, Start date: 06/22/16 15:06:00 FLORAL ARTIST, Duration: 30 day, Stop date: 08/04 16:05:00 CDT Start Date: 06/22/16 Stop Date: 06/22/16 Status: Discontinued calcium chloride + sodium chloride 0.9% INJ 100 mL 2 gm, 20 mL, Route: IVPB, PRN, Dosing Weight 87.273, kg, PRN Abnormal Lab Result , Via central line, Start date: 06/19/16 5:02:00 FLORAL ARTIST, Stop date: 07/19/16 6:01:0 0 CDT Notes: WASTE: F/P - Sink; E - Municipal Trash Bin Start Date: 06/19/16 Stop Date: 06/19/16 Status: Discontinued calcium chloride + sodium chloride 0.9% INJ 100 mL 2 gm, 20 mL, Route: IVPB, PRN, Dosing Weight 87.273, kg, PRN Abnormal Lab Result , Via central line, Start date: 06/19/16 13:16:00 FLORAL ARTIST, Duration: 30 day, Stop da te: 07/19/16 14:15:00 CDT Notes: WASTE: F/P - Sink; E - Municipal Trash Bin Start Date: 06/19/16 Stop Date: 06/22/16 Status: Discontinued calcium chloride + sodium chloride 0.9% INJ 100 mL 2 gm, 20 mL, Route: IVPB, PRN, Dosing Weight 87.273, kg, PRN Abnormal Lab Result , Via central line, Start date: 06/19/16 7:13:00 FLORAL ARTIST, Duration: 30 day, Stop drake e: 07/19/16 8:12:00 CDT Notes: WASTE: F/P - Sink; E - Municipal Trash Bin Start Date: 06/19/16 Stop Date: 06/19/16 Status: Discontinued calcium chloride + sodium chloride 0.9% INJ 50 mL 1 gm, 10 mL, Route: IVPB, PRN, Dosing Weight 87.273, kg, PRN Abnormal Lab Result , Via central line, Start date: 06/19/16 5:02:00 FLORAL ARTIST, Stop date: 07/19/16 6:01:0 0 CDT Notes: WASTE: F/P - Sink; E - Municipal Trash Bin Start Date: 06/19/16 Stop Date: 06/19/16 Status: Discontinued calcium chloride + sodium chloride 0.9% INJ 50 mL 1 gm, 10 mL, Route: IVPB, PRN, Dosing Weight 87.273, kg, PRN Abnormal Lab Result , Via central line, Start date: 06/19/16 13:16:00 FLORAL ARTIST, Duration: 30 day, Stop da te: 07/19/16 14:15:00 CDT Notes: WASTE: F/P - Sink; E - Municipal Trash Bin Start Date: 06/19/16 Stop Date: 06/22/16 Status: Discontinued calcium chloride + sodium chloride 0.9% INJ 50 mL 1 gm, 10 mL, Route: IVPB, PRN, Dosing Weight 87.273, kg, PRN Abnormal Lab Result , Via central line, Start date: 06/19/16 7:13:00 FLORAL ARTIST, Duration: 30 day, Stop drake e: 07/19/16 8:12:00 CDT Notes: WASTE: F/P - Sink; E - Municipal Trash Bin Start Date: 06/19/16 Stop Date: 06/19/16 Status: Discontinued calcium chloride INJ 7,360 mg + sodium chloride 0.9% 1000 ml INJ 926.4 mL 73.6 mL, Rate: 140 ml/hr, Infuse over: 7.1 hr, Route: IV, Dosing Weight 87.273 k g, Total Volume: 1,000 mL, Start date: 06/19/16 13:16:00 FLORAL ARTIST, Duration: 30 day, Stop date: 07/19/16 13:15:00 CDT Start Date: 06/19/16 Stop Date: 06/20/16 Status: Discontinued calcium gluconate 1 gm, Route: IVPB, PRN, Dosing Weight 87.273, kg, PRN Abnormal Lab Result, Start date: 06/22/16 15:06:00 FLORAL ARTIST, Duration: 30 day, Stop date: 07/22/16 16:05:00 CDT, FOR ICU USE ONLY Start Date: 06/22/16 Stop Date: 06/22/16 Status: Discontinued calcium gluconate + sodium chloride 0.9% INJ 50 mL 1,000 mg, 10 mL, Route: IVPB, Drug form: INJ, ONCE, Dosing Weight 95, kg, Start date: 06/27/16 17:56:00 FLORAL ARTIST, Stop date: 06/27/16 17:56:00 FLORAL ARTIST Notes: WASTE: F/P - Sink; E - Municipal Trash Bin Start Date: 06/27/16 Stop Date: 06/27/16 Status: Completed calcium gluconate + sodium chloride 0.9% INJ 50 mL 1,000 mg, 10 mL, Route: IVPB, ONCE, Dosing Weight 95, kg, Start date: 07/05/16 4 :53:00 CDT, Stop date: 07/05/16 4:53:00 CDT Notes: WASTE: F/P - Sink; E - Municipal Trash Bin Start Date: 07/05/16 Stop Date: 07/05/16 Status: Completed Cathflo Activase 2 mg injection 2 mg, 2 mL, Route: MISC, Drug form: INJ, ONCE, Dosing Weight 87.273, kg, Start d ate: 06/20/16 13:48:00 FLORAL ARTIST, Stop date: 06/20/16 13:48:00 FLORAL ARTIST Notes: "Syringe for catheter clearance or interventional radiology use.Reconstit missy each vial of Cathflo Activase with 2.2 ml Sterile Water resulting in a 1 mg/ ml solution. Stable for 8 hours only. (Same as: Activase) MEDICATION WASTE * Product Size: 2 mgProduct Wasted: ___ mg Start Date: 06/20/16 Stop Date: 06/20/16 Status: Completed cefepime 1 gm, Route: IVPB, Drug form: INJ, [id number], Dosing Weight 87.273, kg, (CrCl >/=50 ml/min), Start date: 06/19/16 7:00:00 FLORAL ARTIST, Duration: 30 day, Stop date: 07/18/16 23:00:00 CDT Notes: (Same As: Maxipime) MEDICATION WASTE Product Size: 1000 mgProduc t Wasted: ___ mg Start Date: 06/19/16 Stop Date: 06/22/16 Status: Discontinued cefepime 1 gm, Route: IVPB, Drug form: INJ, [id number], Dosing Weight 87.273, kg, (CrCl <10 ml/min or IHD), Start date: 06/25/16 8:00:00 FLORAL ARTIST, Duration: 30 day, Stop date: 07/24/16 8:00:00 CDT Notes: (Same As: Maxipime) MEDICATION WASTE Product Size: 1000 mgProduc t Wasted: ___ mg Start Date: 06/25/16 Stop Date: 06/29/16 Status: Discontinued cefepime 1 gm, Route: IVPB, ONCE, Dosing Weight 87.273, kg, Priority: STAT, Start date: 0 06/18/16 21:52:00 FLORAL ARTIST, Stop date: 06/18/16 21:52:00 FLORAL ARTIST Start Date: 06/18/16 Stop Date: 06/18/16 Status: Completed cefepime 1 gm, Route: IVPB, Drug form: INJ, [id number], Dosing Weight 87.273, kg, (CrCl 10 - 29 ml/min), Start date: 06/23/16 12:00:00 FLORAL ARTIST, Duration: 30 day, Stop date: 08/04 12:00:00 CDT Notes: (Same As: Maxipime) MEDICATION WASTE Product Size: 1000 mgProduc t Wasted: ___ mg Start Date: 06/23/16 Stop Date: 06/24/16 Status: Discontinued Cordarone 200 mg, 1 tab, Route: PO, Drug form: TAB, BID, Dosing Weight 87.273, kg, Start d ate: 07/02/16 10:00:00 CDT, Duration: 30 day, Stop date: 08/01/16 9:00:00 CDT Notes: (Same as: Cordarone) Start Date: 07/02/16 Stop Date: 07/11/16 Status: Discontinued Coumadin 5 mg, 1 tab, Route: PO, Drug form: TAB, Q5PM, Dosing Weight 95, kg, Start date: 06/26/16 17:00:00 FLORAL ARTIST, Duration: 1 doses or times, Stop date: 06/26/16 17:00:00 FLORAL ARTIST Notes: Nurse to ensure documentation of patient education per anticoagulation po licy.Avoid large intake of vitamin-K containing foods diet.WASTE: F/P - P Waste Black; E - P Waste Black(Same As: Coumadin) Start Date: 06/26/16 Stop Date: 06/26/16 Status: Completed Coumadin 5 mg, 1 tab, Route: PO, Drug form: TAB, Q5PM, Dosing Weight 87.273, kg, Start da te: 06/25/16 17:00:00 FLORAL ARTIST, Duration: 1 doses or times, Stop date: 06/25/16 17:00 :00 FLORAL ARTIST Notes: Nurse to ensure documentation of patient education per anticoagulation po licy.Avoid large intake of vitamin-K containing foods diet.WASTE: F/P - P Waste Black; E - P Waste Black(Same As: Coumadin) Start Date: 06/25/16 Stop Date: 06/25/16 Status: Completed D5W 1/2NS 1,000 mL 1,000 mL, Rate: 250 ml/hr, Infuse over: 4 hr, Route: IV, Dosing Weight 87.273 kg , Total Volume: 1,000, Start date: 06/18/16 23:33:00 FLORAL ARTIST, Duration: 30 day, Stop date: 07/18/16 23:32:00 CDT Start Date: 06/18/16 Stop Date: 06/19/16 Status: Discontinued D5W 1/2NS 1,000 mL 1,000 mL, Rate: 250 ml/hr, Infuse over: 4 hr, Route: IV, Dosing Weight 87.273 kg , Total Volume: 1,000, Start date: 06/18/16 22:11:00 FLORAL ARTIST, Duration: 30 day, Stop date: 07/18/16 22:10:00 CDT Start Date: 06/18/16 Stop Date: 06/19/16 Status: Discontinued Dextrose 50% Syringe 25 gm, 50 mL, Route: IVP, Drug Form: INJ, Dosing Weight 95, kg, PRN, PRN Blood G lucose Results, Start date: 07/05/16 10:06:00 CDT, Duration: 30 day, Stop date: 08/04/16 10:05:00 CDT Start Date: 07/05/16 Stop Date: 07/11/16 Status: Discontinued Dextrose 50% Syringe 12.5 gm, 25 mL, Route: IVP, Drug Form: INJ, Dosing Weight 95, kg, PRN, PRN Blood Glucose Results, Start date: 07/05/16 10:06:00 CDT, Duration: 30 day, Stop date: 08/04/16 10:05:00 CDT Start Date: 07/05/16 Stop Date: 07/11/16 Status: Discontinued Dextrose 50% Syringe 25 gm, 50 mL, Route: IVP, Drug Form: INJ, Dosing Weight 87.273, kg, PRN, PRN Blo od Glucose Results, Start date: 06/18/16 23:33:00 FLORAL ARTIST, Duration: 30 day, Stop da te: 07/19/16 0:32:00 CDT Start Date: 06/18/16 Stop Date: 06/19/16 Status: Discontinued Dextrose 50% Syringe 12.5 gm, 25 mL, Route: IVP, Drug Form: INJ, Dosing Weight 87.273, kg, PRN, PRN B lood Glucose Results, Start date: 06/18/16 23:33:00 FLORAL ARTIST, Duration: 30 day, Stop date: 07/19/16 0:32:00 CDT Start Date: 06/18/16 Stop Date: 06/19/16 Status: Discontinued Dextrose 50% Syringe 25 gm, 50 mL, Route: IVP, Drug Form: INJ, Dosing Weight 87.273, kg, PRN, PRN Blo od Glucose Results, Start date: 06/23/16 8:16:00 FLORAL ARTIST, Duration: 30 day, Stop drake e: 07/23/16 9:15:00 CDT Start Date: 06/23/16 Stop Date: 06/24/16 Status: Discontinued Dextrose 50% Syringe 12.5 gm, 25 mL, Route: IVP, Drug Form: INJ, Dosing Weight 87.273, kg, PRN, PRN B lood Glucose Results, Start date: 06/23/16 8:16:00 [employer]OR[employer], Duration: 30 day, Stop d ate: 07/23/16 9:15:00 CDT Start Date: 06/23/16 Stop Date: 06/24/16 Status: Discontinued Dextrose 50% Syringe 25 gm, 50 mL, Route: IVP, Drug Form: INJ, Dosing Weight 87.273, kg, PRN, PRN Blo od Glucose Results, Start date: 06/24/16 14:42:00 FLORAL ARTIST, Duration: 30 day, Stop da te: 07/24/16 15:41:00 CDT Start Date: 06/24/16 Stop Date: 07/05/16 Status: Discontinued Dextrose 50% Syringe 12.5 gm, 25 mL, Route: IVP, Drug Form: INJ, Dosing Weight 87.273, kg, PRN, PRN B lood Glucose Results, Start date: 06/24/16 14:42:00 [employer]ORAL ARTIST, Duration: 30 day, Stop date: 07/24/16 15:41:00 CDT Start Date: 06/24/16 Stop Date: 07/05/16 Status: Discontinued Dextrose 50% Syringe 12.5 gm, 25 mL, Route: IVP, Drug Form: INJ, Dosing Weight 87.273, kg, PRN, PRN B lood Glucose Results, Start date: 06/20/16 22:52:00 FLORAL [employer]IST, Duration: 30 day, Stop date: 07/20/16 23:51:00 CDT Start Date: 06/20/16 Stop Date: 06/23/16 Status: Discontinued Dextrose 50% Syringe 25 gm, 50 mL, Route: IVP, Drug Form: INJ, Dosing Weight 87.273, kg, PRN, PRN Blo od Glucose Results, Start date: 06/20/16 22:52:00 FLORAL ARTIST, Duration: 30 day, Stop da te: 07/20/16 23:51:00 CDT Start Date: 06/20/16 Stop Date: 06/23/16 Status: Discontinued Dextrose 50% Syringe 12.5 gm, 25 mL, Route: IVP, Drug Form: INJ, Dosing Weight 87.273, kg, PRN, PRN B lood Glucose Results, Start date: 06/20/16 7:00:00 FLORAL ARTIST, Duration: 30 day, Stop d ate: 07/20/16 7:59:00 CDT Start Date: 06/20/16 Stop Date: 06/20/16 Status: Discontinued Dextrose 50% Syringe 25 gm, 50 mL, Route: IVP, Drug Form: INJ, Dosing Weight 87.273, kg, PRN, PRN Blo od Glucose Results, Start date: 06/20/16 7:00:00 FLORAL ARTIST, Duration: 30 day, Stop drake e: 07/20/16 7:59:00 CDT Start Date: 06/20/16 Stop Date: 06/20/16 Status: Discontinued Dextrose 50% Syringe 25 gm, 50 mL, Route: IVP, Drug Form: INJ, Dosing Weight 87.273, kg, PRN, PRN Blo od Glucose Results, Start date: 06/18/16 22:11:00 FLORAL ARTIST, Duration: 30 day, Stop da te: 07/18/16 23:10:00 CDT Start Date: 06/18/16 Stop Date: 06/19/16 Status: Discontinued Dextrose 50% Syringe 12.5 gm, 25 mL, Route: IVP, Drug Form: INJ, Dosing Weight 87.273, kg, PRN, PRN B lood Glucose Results, Start date: 06/18/16 22:11:00 FLORAL ARTIST, Duration: 30 day, Stop date: 07/18/16 23:10:00 CDT Start Date: 06/18/16 Stop Date: 06/19/16 Status: Discontinued Dextrose 50% Syringe 25 gm, 50 mL, Route: IVP, Drug Form: INJ, Dosing Weight 87.273, kg, PRN, PRN Blo od Glucose Results, Start date: 06/19/16 10:03:00 FLORAL ARTIST, Duration: 30 day, Stop da te: 07/19/16 11:02:00 CDT Start Date: 06/19/16 Stop Date: 06/19/16 Status: Discontinued Dextrose 50% Syringe 12.5 gm, 25 mL, Route: IVP, Drug Form: INJ, Dosing Weight 87.273, kg, PRN, PRN B lood Glucose Results, Start date: 06/19/16 10:03:00 FLORAL ARTIST, Duration: 30 day, Stop date: 07/19/16 11:02:00 CDT Start Date: 06/19/16 Stop Date: 06/19/16 Status: Discontinued diltiazem 25 mg/5 ml VL 125 mg + sodium chloride 0.9% INJ 100 mL 125 mg, 25 mL, Rate: Titrate, Start Dose: 5 mg/hr, Titration: 5 mg/hr every hour , Goal(s): Maintain HR < 100, Max Dose: 15 mg/hr, Route: IV, Dosing Weight 87.273 kg, Total Volume: 125, Start date: 06/18/16 22:12:00 FLORAL ARTIST, Duration: 30 day, Stop date: 03... Notes: (Same as: Cardizem) Start Date: 06/18/16 Stop Date: 06/20/16 Status: Discontinued diltiazem 25 mg/5 ml VL 125 mg + sodium chloride 0.9% INJ 100 mL 125 mg, 25 mL, Rate: Titrate, Start Dose: 5 mg/hr, Titration: 5 mg/hr every hour , Goal(s): Maintain HR < 100, Max Dose: 15 mg/hr, Route: IV, Dosing Weight 87.273 kg, Total Volume: 125, Start date: 06/18/16 22:11:00 FLORAL ARTIST, Duration: 30 day, Stop date: 03... Notes: (Same as: Cardizem) Start Date: 06/18/16 Stop Date: 06/19/16 Status: Discontinued docusate 100 mg, 10 mL, Route: PO, Drug form: LIQ, BID, Dosing Weight 87.273, kg, PRN Oth er -See Comment, Start date: 06/22/16 17:04:00 FLORAL ARTIST, Duration: 30 day, Stop date: 07/22/16 17:00:00 CDT Notes: (Same as: Colace) Start Date: 06/22/16 Stop Date: 07/11/16 Status: Discontinued docusate 100 mg, 10 mL, Route: PO, Drug form: LIQ, BID, Dosing Weight 87.273, kg, Start d ate: 06/22/16 17:00:00 FLORAL ARTIST, Stop date: 07/22/16 9:00:00 CDT Notes: (Same as: Colace) Start Date: 06/22/16 Stop Date: 06/22/16 Status: Discontinued docusate-senna 50 mg-8.6 mg oral tablet 1 tab, Route: PO, Drug Form: TAB, Dosing Weight 95, kg, Daily, Start date: 07/08 9:00:00 CDT, Duration: 30 day, Stop date: 08/06/16 9:00:00 CDT Notes: (Same as Senokot-S) Equiv. to Cris-Colace. Start Date: 07/08/16 Stop Date: 07/11/16 Status: Discontinued docusate-senna 50 mg-8.6 mg oral tablet 1 tab, PO, Daily, X 10 day, # 10 tab, 0 Refill(s) Start Date: 07/11/16 Stop Date: 07/21/16 Status: Ordered Dulcolax Laxative 10 mg, 1 supp, Route: ID, Drug form: SUPP, ONCE, Dosing Weight 87.273, kg, Start date: 06/24/16 7:46:00 FLORAL ARTIST, Stop date: 06/24/16 7:46:00 FLORAL ARTIST Notes: (Same As: Dulcolax, Bisco-Lax) Start Date: 06/24/16 Stop Date: 06/24/16 Status: Completed Dulcolax Laxative 10 mg, 2 tab, Route: PO, Drug form: ECTAB, Q8H, Dosing Weight 95, kg, Start date : 07/02/16 12:00:00 CDT, Duration: 3 doses or times, Stop date: 07/03/16 0:00:00 CDT Notes: (Same As: Dulcolax, Correctol) (Do Not Crush) "Do Not Crush" Start Date: 07/02/16 Stop Date: 07/03/16 Status: Completed Factor 2-7-9-10 Prothrombin Complex Concentrate 4,268 unit + empty container 1 e a Route: IV, Drug form: INJ, ONCE, Dosing Weight 87.273, kg, ; INR > or=6; Use 100 kg max dosing weight for pt. > 100kg, Priority: STAT, Start date: 06/18/16 22:14:00 FLORAL ARTIST, Stop date: 06/18/16 22:14:00 FLORAL ARTIST Notes: Same as: KcentrYonathan: F/P - Red; E -Red Maximum kscz=2097 units; Round down dose to the nearest vial size Hematology clinical pharmacist consult requi red Start Date: 06/18/16 Stop Date: 06/18/16 Status: Completed fentaNYL 1000microgram/20ml drip (pyxis) 1,000 microgram 1,000 microgram, 20 mL, Rate: Titrate, Start Dose: 50 microgram/hr, Titration: 2 5 microgram/hour every 15 minutes, Goal(s): RASS -2, Max Dose: 300 microgram/hr, Route: IV, Dosing Weight 87.273 kg, Total Volume: 20, Start date: 06/19/16 2:57 :00 FLORAL ARTIST, Du... Start Date: 06/19/16 Stop Date: 06/22/16 Status: Discontinued Ferrlecit + sodium chloride 0.9% INJ 100 mL 125 mg, 10 mL, Route: IVPB, Daily, Start date: 07/05/16 9:00:00 CDT, Stop date: 07/12/16 9:00:00 CDT Start Date: 07/05/16 Stop Date: 07/07/16 Status: Discontinued Flagyl 500 mg, 100 mL, Route: IVPB, Drug form: INJ, ABXQ8H, Dosing Weight 87.273, kg, S tart date: 06/25/16 12:00:00 FLORAL ARTIST, Duration: 30 day, Stop date: 07/25/16 4:00:00 CDT Notes: (Same as: Flagyl) Avoid alcohol. Start Date: 06/25/16 Stop Date: 06/26/16 Status: Discontinued Flagyl 500 mg, 1 tab, Route: PO, Drug form: TAB, ABXQ8H, Dosing Weight 87.273, kg, Star t date: 06/22/16 12:00:00 FLORAL ARTIST, Duration: 30 day, Stop date: 07/22/16 4:00:00 CDT Notes: (Same as: Flagyl) Take with food/ avoid alcohol Start Date: 06/22/16 Stop Date: 06/25/16 Status: Discontinued Flagyl 500 mg, 10 mL, Route: NG, Drug form: SUSP, ABXQ8H, Dosing Weight 87.273, kg, Sta rt date: 06/26/16 19:30:00 FLORAL ARTIST, Duration: 30 day, Stop date: 07/26/16 11:30:00 C DT Notes: (Same as: Flagyl)Refrigerate - shake well Compounded Product - formula tion not commercially available"Avoid alcohol" Start Date: 06/26/16 Stop Date: 07/02/16 Status: Discontinued Flagyl 500 mg, 10 mL, Route: NG, Drug form: SUSP, ABXQ8H, Dosing Weight 87.273, kg, Sta rt date: 06/26/16 17:00:00 FLORAL ARTIST, Duration: 30 day, Stop date: 07/26/16 9:00:00 CD T Notes: (Same as: Flagyl)Refrigerate - shake well Compounded Product - formula tion not commercially available"Avoid alcohol" Start Date: 06/26/16 Stop Date: 06/26/16 Status: Discontinued Fleet Enema 133 mL, Route: ID, Drug Form: TEJAS, Dosing Weight 87.273, kg, ONCE, Start date: 06/24/16 6:23:00 FLORAL ARTIST, Stop date: 06/24/16 6:23:00 FLORAL ARTIST Start Date: 06/24/16 Stop Date: 06/24/16 Status: Discontinued glucagon 1 mg, Route: IM, Drug form: PDR/INJ, PRN, Dosing Weight 95, kg, PRN Blood Glucos e Results, Start date: 07/05/16 10:06:00 CDT, Duration: 30 day, Stop date: 08/04 10:05:00 CDT Start Date: 07/05/16 Stop Date: 07/11/16 Status: Discontinued glucagon 1 mg, Route: IM, Drug form: PDR/INJ, PRN, Dosing Weight 87.273, kg, PRN Blood Gl ucose Results, Start date: 06/18/16 23:33:00 FLORAL ARTIST, Duration: 30 day, Stop date: 0 07/19/16 0:32:00 CDT Start Date: 06/18/16 Stop Date: 06/19/16 Status: Discontinued glucagon 1 mg, Route: IM, Drug form: PDR/INJ, PRN, Dosing Weight 87.273, kg, PRN Blood Gl ucose Results, Start date: 06/24/16 14:42:00 FLORAL ARTIST, Duration: 30 day, Stop date: 0 07/24/16 15:41:00 CDT Start Date: 06/24/16 Stop Date: 07/05/16 Status: Discontinued glucagon 1 mg, Route: IM, Drug form: PDR/INJ, PRN, Dosing Weight 87.273, kg, PRN Blood Gl ucose Results, Start date: 06/20/16 22:52:00 FLORAL ARTIST, Duration: 30 day, Stop date: 0 07/20/16 23:51:00 CDT Start Date: 06/20/16 Stop Date: 06/25/16 Status: Discontinued glucagon 1 mg, Route: IM, Drug form: PDR/INJ, PRN, Dosing Weight 87.273, kg, PRN Blood Gl ucose Results, Start date: 06/20/16 7:00:00 FLORAL ARTIST, Duration: 30 day, Stop date: 7:59:00 CDT Start Date: 06/20/16 Stop Date: 06/20/16 Status: Discontinued glucagon 1 mg, Route: IM, Drug form: PDR/INJ, PRN, Dosing Weight 87.273, kg, PRN Blood Gl ucose Results, Start date: 06/18/16 22:11:00 FLORAL ARTIST, Duration: 30 day, Stop date: 0 07/18/16 23:10:00 CDT Start Date: 06/18/16 Stop Date: 06/19/16 Status: Discontinued GoLYTELY 4,000 ml, Route: PO, Drug Form: PDR/REC, Dosing Weight 95, kg, ONCE, Start date: 07/02/16 10:19:00 CDT, Duration: 1 doses or times, Stop date: 07/02/16 10:19:00 CDT Notes: (Same as: Nulytely) Start Date: 07/02/16 Stop Date: 07/02/16 Status: Completed GoLYTELY 4,000 ml, Route: NG, Drug Form: PDR/REC, Dosing Weight 95, kg, ONCE, Start date: 07/03/16 17:53:00 CDT, Duration: 1 doses or times, Stop date: 07/03/16 17:53:00 CDT Notes: (polyethylene glycol electrolyte solution 4 Liter bottle) (Same as: Nima ytely Colyte) Start Date: 07/03/16 Stop Date: 07/03/16 Status: Completed heparin additive 25,000 unit [14 unit/kg/hr] + Premix Diluent Dextrose 5% 500 mL 500 mL, Rate: 24.44 ml/hr, Infuse over: 20.5 hr, Route: IVPB, Dosing Weight 87.2 73 kg, Total Volume: 500 mL, Start date: 06/28/16 23:17:00 FLORAL ARTIST, Duration: 30 day , Stop date: 07/28/16 23:16:00 CDT Start Date: 06/28/16 Stop Date: 06/29/16 Status: Discontinued heparin additive 25,000 unit [14 unit/kg/hr] + Premix Diluent Dextrose 5% 500 mL 500 mL, Rate: 24.44 ml/hr, Infuse over: 20.5 hr, Route: IV, Dosing Weight 87.273 kg, Total Volume: 500 mL, Start date: 06/22/16 21:00:00 FLORAL ARTIST, Duration: 30 day, Stop date: 07/22/16 20:59:00 CDT Start Date: 06/22/16 Stop Date: 06/25/16 Status: Discontinued heparin additive 25,000 unit [14 unit/kg/hr] + Premix Diluent Dextrose 5% 500 mL 500 mL, Rate: 23.68 ml/hr, Infuse over: 21.1 hr, Route: IV, Dosing Weight 84.56 kg, Total Volume: 500 mL, Start date: 07/03/16 11:05:00 CDT, Duration: 30 day, S top date: 08/02/16 11:04:00 CDT Start Date: 07/03/16 Stop Date: 07/10/16 Status: Discontinued heparin additive 37965 unit [14 unit/kg/hr] + Premix Diluent Dextrose 5% 500 mL 500 mL, Rate: 24.44 ml/hr, Infuse over: 20.5 hr, Route: IV, Dosing Weight 87.273 kg, Total Volume: 500 mL, Start date: 06/25/16 8:44:00 FLORAL ARTIST, Duration: 30 day, S top date: 07/25/16 8:43:00 CDT Start Date: 06/25/16 Stop Date: 06/28/16 Status: Discontinued heparin additive 57902 unit [14 unit/kg/hr] + Premix Diluent Dextrose 5% 500 mL 500 mL, Rate: 26.6 ml/hr, Infuse over: 18.8 hr, Route: IV, Dosing Weight 95 kg, Total Volume: 500 mL, Start date: 06/28/16 23:08:00 FLORAL ARTIST, Duration: 30 day, Stop date: 07/28/16 23:07:00 CDT Start Date: 06/28/16 Stop Date: 06/28/16 Status: Deleted hydrocortisone topical 1% cream 1 appl, Route: TOP, BID, Drug form: CRM, PRN Rash, Start date: 07/09/16 11:49:00 CDT, Duration: 30 day, Stop date: 08/08/16 11:48:00 CDT Start Date: 07/09/16 Stop Date: 07/11/16 Status: Discontinued influenza virus vaccine, inactivated 0.5 mL, Route: IM, Drug Form: SUSP, Daily, Start date: 06/19/16 9:00:00 FLORAL ARTIST, Dur ation: 1 doses or times, Stop date: 06/19/16 9:00:00 FLORAL ARTIST Notes: (Same as: Fluzone Quadrivalent, Fluarix Quadrivalent)For 3 years of age a nd older (0.5 mL IM)Shake well before use Start Date: 06/19/16 Stop Date: 06/19/16 Status: Completed Insulin (regular) Titrate IV additive 100 unit + sodium chloride 0.9% INJ 99 mL 99 mL, Rate: Titrate, Dosing Weight 87.273, kg, Route: IV, Total Volume: 100, Pr iority: Routine, Start Date: 06/18/16 23:33:00 FLORAL ARTIST, Duration: 30 day, Stop date: 07/18/16 23:32:00 CDT, Replace Every: 24 hr Notes: (Same as: Humulin R and NovoLIN R)WASTE: F/P - Black; E - [employer] Trash Bin (Do not shake) Start Date: 06/18/16 Stop Date: 06/19/16 Status: Discontinued Insulin (regular) Titrate IV additive 100 unit + sodium chloride 0.9% INJ 99 mL 99 mL, Rate: Titrate, Dosing Weight 87.273, kg, Route: IV, Total Volume: 100, Pr iority: Routine, Start Date: 06/18/16 22:11:00 FLORAL ARTIST, Duration: 30 day, Stop date: 07/18/16 22:10:00 CDT, Replace Every: 24 hr Notes: (Same as: Humulin R and NovoLIN R)WASTE: F/P - Black; E - [facility] Trash [facility] (Do not shake) Start Date: 06/18/16 Stop Date: 06/19/16 Status: Discontinued insulin aspart 2 unit, 0.02 mL, Route: SUB-Q, Drug form: SOLN, TID-Before Meals, Dosing Weight 95, kg, PRN Blood Glucose Results, Start date: 07/05/16 10:06:00 CDT, Duration: 30 day, Stop date: 08/04/16 10:05:00 CDT Notes: Roll in palms of hands gently; Do not shake vigorously. (Same as: Margaret Zurita)"single patient use only"WASTE: F/P - Black; E - [facility] Trash [facility] Stable f or 28 days at room temperature.Expires in days from Date Start Date: 07/05/16 Stop Date: 07/11/16 Status: Discontinued insulin aspart 3 unit, 0.03 mL, Route: SUB-Q, Drug form: SOLN, TID-Before Meals, Dosing Weight 95, kg, PRN Blood Glucose Results, Start date: 07/05/16 10:06:00 CDT, Duration: 30 day, Stop date: 08/04/16 10:05:00 CDT Notes: Roll in palms of hands gently; Do not shake vigorously. (Same as: Magraret Zurita)"single patient use only"WASTE: F/P - Black; E - [facility] Trash [facility] Stable f or 28 days at room temperature.Expires in days from Date Start Date: 07/05/16 Stop Date: 07/11/16 Status: Discontinued insulin aspart 1 unit, 0.01 mL, Route: SUB-Q, Drug form: SOLN, TID-Before Meals, Dosing Weight 95, kg, PRN Blood Glucose Results, Start date: 07/05/16 10:06:00 CDT, Duration: 30 day, Stop date: 08/04/16 10:05:00 CDT Notes: Roll in palms of hands gently; Do not shake vigorously. (Same as: Margaret Zurita)"single patient use only"WASTE: F/P - Black; E - [facility] Trash [facility] Stable f or 28 days at room temperature.Expires in days from Date Start Date: 07/05/16 Stop Date: 07/11/16 Status: Discontinued insulin aspart 4 unit, 0.04 mL, Route: SUB-Q, Drug form: SOLN, TID-Before Meals, Dosing Weight 95, kg, PRN Blood Glucose Results, Start date: 07/05/16 10:06:00 CDT, Duration: 30 day, Stop date: 08/04/16 10:05:00 CDT Notes: Roll in palms of hands gently; Do not shake vigorously. (Same as: Margaret Zurita)"single patient use only"WASTE: F/P - Black; E - [facility] Trash [facility] Stable f or 28 days at room temperature.Expires in days from Date Start Date: 07/05/16 Stop Date: 07/11/16 Status: Discontinued insulin aspart 5 unit, 0.05 mL, Route: SUB-Q, Drug form: SOLN, TID-Before Meals, Dosing Weight 95, kg, PRN Blood Glucose Results, Start date: 07/05/16 10:06:00 CDT, Duration: 30 day, Stop date: 08/04/16 10:05:00 CDT Notes: Roll in palms of hands gently; Do not shake vigorously. (Same as: Margaret Zurita)"single patient use only"WASTE: F/P - Black; E - [facility] Trash [facility] Stable f or 28 days at room temperature.Expires in days from Date Start Date: 07/05/16 Stop Date: 07/11/16 Status: Discontinued insulin aspart 2 unit, 0.02 mL, Route: SUB-Q, Drug form: SOLN, TID-Before Meals, Dosing Weight 95, kg, Start date: 07/05/16 11:30:00 CDT, Duration: 30 day, Stop date: 08/04/16 7:30:00 CDT Notes: Roll in palms of hands gently; Do not shake vigorously. (Same as: Margaret Zurita)"single patient use only"WASTE: F/P - Black; E - [facility] Trash [facility] Stable f or 28 days at room temperature.Expires in days from Date Start Date: 07/05/16 Stop Date: 07/06/16 Status: Discontinued insulin aspart 3 unit, 0.03 mL, Route: SUB-Q, Drug form: SOLN, TID-Before Meals, Dosing Weight 95, kg, Start date: 07/06/16 16:30:00 CDT, Duration: 30 day, Stop date: 08/05/16 11:30:00 CDT Notes: Roll in palms of hands gently; Do not shake vigorously. (Same as: NovoFROILAN G)"single patient use only"WASTE: F/P - Black; E - [facility]ash [facility] Stable f or 28 days at room temperature.Expires in days from Date Start Date: 07/06/16 Stop Date: 07/11/16 Status: Discontinued insulin aspart 100 units/mL subcutaneous solution 3 unit, SUB-Q, TID-Before Meals, # 15 mL, 0 Refill(s) Start Date: 07/11/16 Stop Date: 08/10/16 Status: Ordered insulin glargine 8 unit, 0.08 mL, Route: SUB-Q, Drug form: SOLN, Daily, Dosing Weight 95, kg, Sta rt date: 07/05/16 21:00:00 CDT, Duration: 30 day, Stop date: 08/03/16 21:00:00 C DT Notes: Same as: Lantus)Do not hold insulin without contacting prescriberWASTE: F /P - Black; E - [facility]ash [facility] Start Date: 07/05/16 Stop Date: 07/06/16 Status: Discontinued insulin glargine 10 unit, 0.1 mL, Route: SUB-Q, Drug form: SOLN, Daily, Dosing Weight 95, kg, Sta rt date: 07/06/16 21:00:00 CDT, Duration: 30 day, Stop date: 08/04/16 21:00:00 C DT Notes: Same as: Lantus)Do not hold insulin without contacting prescriberWASTE: F /P - Black; E - [facility] Trash [facility] Start Date: 07/06/16 Stop Date: 07/11/16 Status: Discontinued insulin glargine 100 units/mL subcutaneous solution 10 unit, SUB-Q, Daily, # 10 mL, 0 Refill(s) Start Date: 07/11/16 Stop Date: 08/10/16 Status: Ordered insulin isophane-insulin regular 70/30 28 unit, 0.28 mL, Route: SUB-Q, Drug form: INJ, Q8H, Dosing Weight 95, kg, Prior ity: NOW, Start date: 06/27/16 18:21:00 FLORAL ARTIST, Stop date: 07/27/16 16:00:00 CDT Notes: Roll in palms of hands gently; Do not shake. (Same as: NovoLIN Mix 70/30) Do not hold insulin without contacting prescriberWASTE: F/P Waqar Berrios; E - [facility] Start Date: 06/27/16 Stop Date: 06/28/16 Status: Discontinued insulin isophane-insulin regular 70/30 20 unit, 0.2 mL, Route: SUB-Q, Drug form: INJ, Q8H, Dosing Weight 95, kg, Start date: 06/27/16 16:00:00 FLORAL ARTIST, Duration: 30 day, Stop date: 07/27/16 8:00:00 CDT Notes: Roll in palms of hands gently; Do not shake. (Same as: NovoLIN Mix 70/30) Do not hold insulin without contacting prescriberWASTE: F/P - Black; E - [facility] Start Date: 06/27/16 Stop Date: 06/27/16 Status: Discontinued insulin isophane-NPH 8 unit, 0.08 mL, Route: SUB-Q, Drug form: INJ, BID, Dosing Weight 87.273, kg, Pr iority: Routine, Start date: 06/24/16 9:00:00 FLORAL ARTIST, Stop date: 07/23/16 17:00:00 CDT Notes: Roll in palms of hands gently; Do not shake vigorously. (Same as: Humuli n N)Do not hold insulin without contacting prescriberWASTE: F/P - Black; E - [employer] [facility] Stable for 28 days at room temperatureExpires in days f rom Date Start Date: 06/24/16 Stop Date: 06/25/16 Status: Discontinued insulin isophane-NPH 8 unit, 0.08 mL, Route: SUB-Q, Drug form: INJ, TID, Dosing Weight 87.273, kg, Pr iority: Routine, Start date: 06/25/16 9:00:00 FLORAL ARTIST, Duration: 30 day, Stop date: 07/24/16 17:00:00 CDT Notes: Roll in palms of hands gently; Do not shake vigorously. (Same as: Danielle patterson N)Do not hold insulin without contacting prescriberWASTE: Jacklyn Berrios; E - [place] [facility] Stable for 28 days at room temperatureExpires in days f rom Date Start Date: 06/25/16 Stop Date: 06/25/16 Status: Discontinued insulin isophane-NPH 7 unit, 0.07 mL, Route: SUB-Q, Drug form: INJ, Q8H, Dosing Weight 95, kg, Start date: 07/04/16 16:00:00 CDT, Duration: 30 day, Stop date: 08/03/16 8:00:00 CDT Notes: Roll in palms of hands gently; Do not shake vigorously. (Same as: Danielle patterson N)Do not hold insulin without contacting prescriberWASTE: Melody/P Waqar Berrios; E - [place] [facility] Stable for 28 days at room temperatureExpires in days f rom Date Start Date: 07/04/16 Stop Date: 07/05/16 Status: Discontinued insulin isophane-NPH 8 unit, 0.08 mL, Route: SUB-Q, Drug form: INJ, Q8H, Dosing Weight 87.273, kg, Pr iority: Routine, Start date: 06/26/16 0:00:00 FLORAL ARTIST, Duration: 30 day, Stop date: 07/25/16 16:00:00 CDT Notes: Roll in palms of hands gently; Do not shake vigorously. (Same as: Danielle Patterson)Do not hold insulin without contacting prescriberWASTE: Melody/P Waqar Black; E - [place] [facility] Stable for 28 days at room temperatureExpires in days f rom Date Start Date: 06/26/16 Stop Date: 06/26/16 Status: Discontinued insulin isophane-NPH 16 unit, 0.16 mL, Route: SUB-Q, Drug form: INJ, TID-Before Meals, Dosing Weight 87.273, kg, Priority: Routine, Start date: 06/26/16 16:30:00 FLORAL ARTIST, Stop date: 12/04 11:30:00 CDT Notes: Roll in palms of hands gently; Do not shake vigorously. (Same as: Danielle Patterson)Do not hold insulin without contacting prescriberWASTE: Jacklyn Berrios; E - [place] [facility] Stable for 28 days at room temperatureExpires in days f rom Date Start Date: 06/26/16 Stop Date: 06/27/16 Status: Discontinued insulin isophane-NPH 7 unit, 0.07 mL, Route: SUB-Q, Drug form: INJ, BID, Dosing Weight 95, kg, Start date: 07/05/16 9:00:00 CDT, Duration: 30 day, Stop date: 08/03/16 17:00:00 CDT Notes: Roll in palms of hands gently; Do not shake vigorously. (Same as: Danielle Patterson)Do not hold insulin without contacting prescriberWASTE: Melody/Angeles Berrios; E - [place] [facility] Stable for 28 days at room temperatureExpires in days f rom Date Start Date: 07/05/16 Stop Date: 07/05/16 Status: Discontinued insulin isophane-NPH 12 unit, 0.12 mL, Route: SUB-Q, Drug form: INJ, TID-Before Meals, Dosing Weight 87.273, kg, Priority: Routine, Start date: 06/26/16 16:30:00 FLORAL ARTIST, Duration: 30 d ay, Stop date: 07/26/16 11:30:00 CDT Notes: Roll in palms of hands gently; Do not shake vigorously. (Same as: Danielle Patterson)Do not hold insulin without contacting prescriberWASTE: ZahraP Waqar Black; E - [place] [facility] Stable for 28 days at room temperatureExpires in days f rom Date Start Date: 06/26/16 Stop Date: 06/26/16 Status: Canceled insulin isophane-NPH 10 unit, 0.1 mL, Route: SUB-Q, Drug form: INJ, Q8H, Dosing Weight 87.273, kg, Pr iority: Routine, Start date: 06/26/16 8:00:00 FLORAL ARTIST, Duration: 30 day, Stop date: 07/26/16 0:00:00 CDT Notes: Roll in palms of hands gently; Do not shake vigorously. (Same as: Danielle Patterson)Do not hold insulin without contacting prescriberWASTE: Jacklyn Berrios; E - [place] [facility] Stable for 28 days at room temperatureExpires in days f rom Date Start Date: 06/26/16 Stop Date: 06/26/16 Status: Discontinued insulin isophane-NPH 5 unit, 0.05 mL, Route: SUB-Q, Drug form: INJ, Daily, Dosing Weight 87.273, kg, Priority: Routine, Start date: 06/23/16 17:00:00 FLORAL ARTIST, Duration: 30 day, Stop drake e: 07/23/16 9:00:00 CDT Notes: Roll in palms of hands gently; Do not shake vigorously. (Same as: Danielle Patterson)Do not hold insulin without contacting prescriberWASTE: Jacklyn Berrios; E - [place] [facility] Stable for 28 days at room temperatureExpires in days f rom Date Start Date: 06/23/16 Stop Date: 06/24/16 Status: Discontinued Insulin regular 1 unit, 0.01 mL, Route: SUB-Q, Drug form: SOLN, Sliding Scale, Dosing Weight 87. 273, kg, PRN Blood Glucose Results, Start date: 06/24/16 14:42:00 FLORAL ARTIST, Duration: 30 day, Stop date: 07/24/16 15:41:00 CDT Notes: (Same as: Humulin R) Roll in palms of hands gently; Do not shake vigorou sly. "single patient use only"(Restricted to patients requiring a dose > 60 units)WASTE: F/P - Black; E - [facility] Stable for 28 days at room temperatureExpires in days from Date Start Date: 06/24/16 Stop Date: 07/05/16 Status: Discontinued Insulin regular 5 unit, 0.05 mL, Route: SUB-Q, Drug form: SOLN, Sliding Scale, Dosing Weight 87. 273, kg, PRN Blood Glucose Results, Start date: 06/24/16 14:42:00 FLORAL ARTIST, Duration: 30 day, Stop date: 07/24/16 15:41:00 CDT Notes: (Same as: Humulin R) Roll in palms of hands gently; Do not shake vigorou sly. "single patient use only"(Restricted to patients requiring a dose > 60 units)WASTE: F/P - Black; E - [facility] Stable for 28 days at room temperatureExpires in days from Date Start Date: 06/24/16 Stop Date: 07/05/16 Status: Discontinued Insulin regular 4 unit, 0.04 mL, Route: SUB-Q, Drug form: SOLN, Sliding Scale, Dosing Weight 87. 273, kg, PRN Blood Glucose Results, Start date: 06/24/16 14:42:00 FLORAL ARTIST, Duration: 30 day, Stop date: 07/24/16 15:41:00 CDT Notes: (Same as: Humulin R) Roll in palms of hands gently; Do not shake vigorou sly. "single patient use only"(Restricted to patients requiring a dose > 60 units)WASTE: F/P - Black; E - Municipal Trash Bin Stable for 28 days at room temperatureExpires in days from Date Start Date: 06/24/16 Stop Date: 07/05/16 Status: Discontinued Insulin regular 3 unit, 0.03 mL, Route: SUB-Q, Drug form: SOLN, Sliding Scale, Dosing Weight 87. 273, kg, PRN Blood Glucose Results, Start date: 06/24/16 14:42:00 FLORAL ARTIST, Duration: 30 day, Stop date: 07/24/16 15:41:00 CDT Notes: (Same as: Humulin R) Roll in palms of hands gently; Do not shake vigorou sly. "single patient use only"(Restricted to patients requiring a dose > 60 units)WASTE: F/P - Black; E - Municipal Trash Bin Stable for 28 days at room temperatureExpires in days from Date Start Date: 06/24/16 Stop Date: 07/05/16 Status: Discontinued Insulin regular 2 unit, 0.02 mL, Route: SUB-Q, Drug form: SOLN, Sliding Scale, Dosing Weight 87. 273, kg, PRN Blood Glucose Results, Start date: 06/24/16 14:42:00 FLORAL ARTIST, Duration: 30 day, Stop date: 07/24/16 15:41:00 CDT Notes: (Same as: Humulin R) Roll in palms of hands gently; Do not shake vigorou sly. "single patient use only"(Restricted to patients requiring a dose > 60 units)WASTE: F/P - Black; E - Municipal Trash Bin Stable for 28 days at room temperatureExpires in days from Date Start Date: 06/24/16 Stop Date: 07/05/16 Status: Discontinued Insulin regular 4 unit, 0.04 mL, Route: SUB-Q, Drug form: SOLN, Sliding Scale, Dosing Weight 87. 273, kg, PRN Blood Glucose Results, Start date: 06/20/16 22:52:00 FLORAL ARTIST, Duration: 30 day, Stop date: 07/20/16 23:51:00 CDT Notes: (Same as: Humulin R) Roll in palms of hands gently; Do not shake vigorou sly. "single patient use only"(Restricted to patients requiring a dose > 60 units)WASTE: F/P - Black; E - Municipal Trash Bin Stable for 28 days at room temperatureExpires in days from Date Start Date: 06/20/16 Stop Date: 06/24/16 Status: Discontinued Insulin regular 5 unit, 0.05 mL, Route: SUB-Q, Drug form: SOLN, Sliding Scale, Dosing Weight 87. 273, kg, PRN Blood Glucose Results, Start date: 06/20/16 22:52:00 FLORAL ARTIST, Duration: 30 day, Stop date: 07/20/16 23:51:00 CDT Notes: (Same as: Humulin R) Roll in palms of hands gently; Do not shake vigorou sly. "single patient use only"(Restricted to patients requiring a dose > 60 units)WASTE: F/P - Black; E - Municipal Trash Bin Stable for 28 days at room temperatureExpires in days from Date Start Date: 06/20/16 Stop Date: 06/24/16 Status: Discontinued Insulin regular 2 unit, 0.02 mL, Route: SUB-Q, Drug form: SOLN, Sliding Scale, Dosing Weight 87. 273, kg, PRN Blood Glucose Results, Start date: 06/20/16 22:52:00 FLORAL ARTIST, Duration: 30 day, Stop date: 07/20/16 23:51:00 CDT Notes: (Same as: Humulin R) Roll in palms of hands gently; Do not shake vigorou sly. "single patient use only"(Restricted to patients requiring a dose > 60 units)WASTE: F/P - Black; E - Municipal Trash Bin Stable for 28 days at room temperatureExpires in days from Date Start Date: 06/20/16 Stop Date: 06/24/16 Status: Discontinued Insulin regular 3 unit, 0.03 mL, Route: SUB-Q, Drug form: SOLN, Sliding Scale, Dosing Weight 87. 273, kg, PRN Blood Glucose Results, Start date: 06/20/16 22:52:00 FLORAL ARTIST, Duration: 30 day, Stop date: 07/20/16 23:51:00 CDT Notes: (Same as: Humulin R) Roll in palms of hands gently; Do not shake vigorou sly. "single patient use only"(Restricted to patients requiring a dose > 60 units)WASTE: F/P - Black; E - Municipal Trash Bin Stable for 28 days at room temperatureExpires in days from Date Start Date: 06/20/16 Stop Date: 06/24/16 Status: Discontinued Insulin regular 1 unit, 0.01 mL, Route: SUB-Q, Drug form: SOLN, Sliding Scale, Dosing Weight 87. 273, kg, PRN Blood Glucose Results, Start date: 06/20/16 22:52:00 FLORAL ARTIST, Duration: 30 day, Stop date: 07/20/16 23:51:00 CDT Notes: (Same as: Humulin R) Roll in palms of hands gently; Do not shake vigorou sly. "single patient use only"(Restricted to patients requiring a dose > 60 units)WASTE: F/P - Black; E - Municipal Trash Bin Stable for 28 days at room temperatureExpires in days from Date Start Date: 06/20/16 Stop Date: 06/24/16 Status: Discontinued Insulin regular 1 unit, 0.01 mL, Route: SUB-Q, Drug form: SOLN, TID-Before Meals, Dosing Weight 87.273, kg, PRN Blood Glucose Results, Start date: 06/20/16 7:00:00 FLORAL ARTIST, Duratio n: 30 day, Stop date: 07/20/16 6:59:00 CDT Notes: (Same as: Humulin R) Roll in palms of hands gently; Do not shake vigorou sly. "single patient use only"(Restricted to patients requiring a dose > 60 units)WASTE: F/P - Black; E - Municipal Trash Bin Stable for 28 days at room temperatureExpires in days from Date Start Date: 06/20/16 Stop Date: 06/20/16 Status: Discontinued Insulin regular 5 unit, 0.05 mL, Route: SUB-Q, Drug form: SOLN, TID-Before Meals, Dosing Weight 87.273, kg, PRN Blood Glucose Results, Start date: 06/20/16 7:00:00 FLORAL ARTIST, Duratio n: 30 day, Stop date: 07/20/16 6:59:00 CDT Notes: (Same as: Humulin R) Roll in palms of hands gently; Do not shake vigorou sly. "single patient use only"(Restricted to patients requiring a dose > 60 units)WASTE: F/P - Black; E - Municipal Trash Bin Stable for 28 days at room temperatureExpires in days from Date Start Date: 06/20/16 Stop Date: 06/20/16 Status: Discontinued Insulin regular 2 unit, 0.02 mL, Route: SUB-Q, Drug form: SOLN, TID-Before Meals, Dosing Weight 87.273, kg, PRN Blood Glucose Results, Start date: 06/20/16 7:00:00 FLORAL ARTIST, Duratio n: 30 day, Stop date: 07/20/16 6:59:00 CDT Notes: (Same as: Humulin R) Roll in palms of hands gently; Do not shake vigorou sly. "single patient use only"(Restricted to patients requiring a dose > 60 units)WASTE: F/P - Black; E - Municipal Trash Bin Stable for 28 days at room temperatureExpires in days from Date Start Date: 06/20/16 Stop Date: 06/20/16 Status: Discontinued Insulin regular 3 unit, 0.03 mL, Route: SUB-Q, Drug form: SOLN, TID-Before Meals, Dosing Weight 87.273, kg, PRN Blood Glucose Results, Start date: 06/20/16 7:00:00 FLORAL ARTIST, Duratio n: 30 day, Stop date: 07/20/16 6:59:00 CDT Notes: (Same as: Humulin R) Roll in palms of hands gently; Do not shake vigorou sly. "single patient use only"(Restricted to patients requiring a dose > 60 units)WASTE: F/P - Black; E - Municipal Trash Bin Stable for 28 days at room temperatureExpires in days from Date Start Date: 06/20/16 Stop Date: 06/20/16 Status: Discontinued Insulin regular 4 unit, 0.04 mL, Route: SUB-Q, Drug form: SOLN, TID-Before Meals, Dosing Weight 87.273, kg, PRN Blood Glucose Results, Start date: 06/20/16 7:00:00 FLORAL ARTIST, Duratio n: 30 day, Stop date: 07/20/16 6:59:00 CDT Notes: (Same as: Humulin R) Roll in palms of hands gently; Do not shake vigorou sly. "single patient use only"(Restricted to patients requiring a dose > 60 units)WASTE: F/P - Black; E - Municipal Trash Bin Stable for 28 days at room temperatureExpires in days from Date Start Date: 06/20/16 Stop Date: 06/20/16 Status: Discontinued Insulin regular 100 unit + sodium chloride 0.9% INJ 99 mL 99 mL, Rate: Start Insulin Drip Per ICU Protocol, Dosing Weight 87.273, kg, Rout e: IVPB, Total Volume: 100, Start Date: 06/19/16 10:03:00 FLORAL ARTIST, Duration: 30 day, Stop date: 07/19/16 10:02:00 CDT, Replace Every: 24 hr Notes: (Same as: Humulin R and NovoLIN R)WASTE: F/P - Black; E - Municipal Trash Bin (Do not shake) Start Date: 06/19/16 Stop Date: 06/19/16 Status: Discontinued Lactated Ringers (Bolus) IV 1,000 mL, 333.33 ml/hr, Infuse Over: 3 hr, Route: IV, 1,000, Drug form: INJ, ONC E, Priority: STAT, Dosing Weight 87.273 kg, Start date: 06/19/16 3:27:00 FLORAL ARTIST, Du ration: 1 doses or times, Stop date: 06/19/16 3:27:00 FLORAL ARTIST Start Date: 06/19/16 Stop Date: 06/19/16 Status: Discontinued Lactated Ringers (Bolus) IV 1,000 mL, 2,000 ml/hr, Route: IV, ONCE, Priority: STAT, Dosing Weight 87.273 kg, Start date: 06/18/16 21:09:00 FLORAL ARTIST, Duration: 1 doses or times, Stop date: 06/18 21:09:00 FLORAL ARTIST Start Date: 06/18/16 Stop Date: 06/18/16 Status: Completed Lactated Ringers (Bolus) IV 1,000 mL, 4000 ml/hr, Infuse Over: 15 minutes, Route: IV, 1,000, Drug form: INJ, ONCE, Priority: STAT, Dosing Weight 87.273 kg, Start date: 06/19/16 3:48:00 FLORAL ARTIST, Duration: 1 doses or times, Stop date: 06/19/16 3:48:00 FLORAL ARTIST Start Date: 06/19/16 Stop Date: 06/19/16 Status: Completed Lactated Ringers (Bolus) IV 1,000 mL, 4,000 ml/hr, Infuse Over: 15 minutes, Route: IV, 1,000, Drug form: INJ , ONCE, Dosing Weight 87.273 kg, Start date: 06/19/16 3:47:00 FLORAL ARTIST, Stop date: 3:47:00 FLORAL ARTIST Start Date: 06/19/16 Stop Date: 06/19/16 Status: Completed lactulose 10 g/15 mL oral syrup 10 gm, 15 ml, Route: PO, Drug form: SYRP, ONCE, Dosing Weight 87.273, kg, Start date: 06/25/16 6:23:00 FLORAL ARTIST, Stop date: 06/25/16 6:23:00 FLORAL ARTIST Notes: (Same as:Chronulac) Start Date: 06/25/16 Stop Date: 06/25/16 Status: Completed Lasix 80 mg, 8 mL, Route: IV, Drug form: INJ, BID, Dosing Weight 87.273, kg, Priority: NOW, Start date: 06/23/16 13:38:00 FLORAL ARTIST, Duration: 30 day, Stop date: 07/23/16 9 :00:00 CDT Notes: (Same as: Lasix) MEDICATION WASTE Product Size: 40 mgProduct Was grecia: _0_ mg Start Date: 06/23/16 Stop Date: 06/25/16 Status: Discontinued Lasix 100 mg, 10 mL, Route: IV, Drug form: INJ, TID, Dosing Weight 87.273, kg, Start d ate: 06/25/16 13:00:00 FLORAL ARTIST, Stop date: 07/25/16 9:00:00 CDT Notes: (Same as: Lasix) MEDICATION WASTE Product Size: 40 mgProduct Was grecia: ___ mg Start Date: 06/25/16 Stop Date: 06/28/16 Status: Discontinued Lasix 40 mg, 4 mL, Route: IV, Drug form: INJ, BID, Dosing Weight 87.273, kg, Start drake e: 07/06/16 20:00:00 CDT, Duration: 30 day, Stop date: 08/05/16 8:00:00 CDT Notes: (Same as: Lasix) MEDICATION WASTE Product Size: 40 mgProduct Was grecia: ___ mg Start Date: 07/06/16 Stop Date: 07/08/16 Status: Discontinued Lasix 40 mg, 4 mL, Route: IV, Drug form: INJ, TID, Dosing Weight 87.273, kg, Start drake e: 06/28/16 13:00:00 FLORAL ARTIST, Duration: 30 day, Stop date: 07/28/16 9:00:00 CDT Notes: (Same as: Lasix) MEDICATION WASTE Product Size: 40 mgProduct Was grecia: ___ mg Start Date: 06/28/16 Stop Date: 07/06/16 Status: Discontinued Lopressor 5 mg, 5 mL, Route: IV, Drug form: INJ, Q6H, Start date: 07/02/16 0:00:00 CDT, Du ration: 30 day, Stop date: 07/31/16 18:00:00 CDT Notes: (Same as: Lopressor)Push over 2 minutes Start Date: 07/02/16 Stop Date: 07/02/16 Status: Discontinued losartan 25 mg oral tablet See Instructions, 1 or 2 tab PO Daily if systolic BP is higher than 140, 0 Refi ll(s) Start Date: 07/01/16 Stop Date: 07/11/16 Status: Discontinued lovastatin 20 mg oral tablet 20 mg=1 tab, PO, Bedtime, # 30 tab, 0 Refill(s) Start Date: 07/01/16 Stop Date: 07/11/16 Status: Discontinued magnesium oxide 800 mg, Route: PO, PRN, Dosing Weight 87.273, kg, PRN Abnormal Lab Result, FOR I CU USE ONLY, Start date: 06/22/16 15:06:00 FLORAL ARTIST, Duration: 30 day, Stop date: 08/04 16:05:00 CDT Start Date: 06/22/16 Stop Date: 06/22/16 Status: Discontinued magnesium sulfate 4 gm, 100 mL, Route: IVPB, Drug form: INJ, PRN, Dosing Weight 87.273, kg, PRN Ab normal Lab Result, Via central line, Start date: 06/19/16 5:02:00 FLORAL ARTIST, Duration: 30 day, Stop date: 07/19/16 6:01:00 CDT Notes: WASTE: F/P - Sink; E - Municipal Trash Bin Start Date: 06/19/16 Stop Date: 06/19/16 Status: Discontinued magnesium sulfate 2 gm, 50 mL, Route: IVPB, Drug form: INJ, PRN, Dosing Weight 87.273, kg, PRN Abn ormal Lab Result, Via central line, Start date: 06/19/16 5:02:00 FLORAL ARTIST, Duration: 30 day, Stop date: 07/19/16 6:01:00 CDT Notes: WASTE: F/P - Sink; E - Municipal Trash Bin Start Date: 06/19/16 Stop Date: 06/19/16 Status: Discontinued magnesium sulfate 1 gm, 100 mL, Route: IVPB, Drug form: INJ, PRN, Dosing Weight 87.273, kg, PRN Ab normal Lab Result, Start date: 06/18/16 23:33:00 FLORAL ARTIST, Duration: 30 day, Stop drake e: 07/19/16 0:32:00 CDT Notes: WASTE: F/P - Sink; E - Municipal Trash Bin Start Date: 06/18/16 Stop Date: 06/19/16 Status: Discontinued magnesium sulfate 4 gm, 100 mL, Route: IVPB, Drug form: INJ, Q2H, Dosing Weight 87.273, kg, PRN Ab normal Lab Result, Via central line, Start date: 06/19/16 13:16:00 FLORAL ARTIST, Duration : 2 doses or times, Stop date: 06/20/16 0:00:00 FLORAL ARTIST Notes: WASTE: F/P - Sink; E - Municipal Trash Bin Start Date: 06/19/16 Stop Date: 06/20/16 Status: Completed magnesium sulfate 2 gm, 50 mL, Route: IVPB, Drug form: INJ, PRN, Dosing Weight 87.273, kg, PRN Abn ormal Lab Result, Via central line, Start date: 06/19/16 13:16:00 FLORAL ARTIST, Duration: 30 day, Stop date: 07/19/16 14:15:00 CDT Notes: WASTE: F/P - Sink; E - Municipal Trash Bin Start Date: 06/19/16 Stop Date: 06/22/16 Status: Discontinued magnesium sulfate 4 gm, 100 mL, Route: IVPB, Drug form: INJ, Q2H, Dosing Weight 87.273, kg, PRN Ab normal Lab Result, Via central line, Start date: 06/19/16 7:13:00 FLORAL ARTIST, Duration: 2 doses or times, Stop date: 07/20/16 0:00:00 CDT Notes: WASTE: F/P - Sink; E - Municipal Trash Bin Start Date: 06/19/16 Stop Date: 06/19/16 Status: Discontinued magnesium sulfate 2 gm, 50 mL, Route: IVPB, Drug form: INJ, PRN, Dosing Weight 87.273, kg, PRN Abn ormal Lab Result, Via central line, Start date: 06/19/16 7:13:00 FLORAL ARTIST, Duration: 30 day, Stop date: 07/19/16 8:12:00 CDT Notes: WASTE: F/P - Sink; E - Municipal Trash Bin Start Date: 06/19/16 Stop Date: 06/19/16 Status: Discontinued magnesium sulfate 1 gm, 100 mL, Route: IVPB, Drug form: INJ, PRN, Dosing Weight 87.273, kg, PRN Ab normal Lab Result, Start date: 06/18/16 22:11:00 FLORAL ARTIST, Duration: 30 day, Stop drake e: 07/18/16 23:10:00 CDT Notes: WASTE: F/P - Sink; E - Municipal Trash Bin Start Date: 06/18/16 Stop Date: 06/19/16 Status: Discontinued magnesium sulfate 2 gm, Route: IVPB, PRN, Dosing Weight 87.273, kg, PRN Abnormal Lab Result, Start date: 06/22/16 15:06:00 FLORAL ARTIST, Duration: 30 day, Stop date: 07/22/16 16:05:00 CDT, FOR ICU USE ONLY Start Date: 06/22/16 Stop Date: 06/22/16 Status: Discontinued melatonin 3 mg, 1 tab, Route: PO, Drug form: TAB, Bedtime, Dosing Weight 87.273, kg, PRN S leep, Start date: 06/25/16 20:55:00 FLORAL ARTIST, Duration: 30 day, Stop date: 07/25/16 2 0:54:00 CDT Notes: (Same as: Melatonin) Start Date: 06/25/16 Stop Date: 07/11/16 Status: Discontinued menthol topical 2.5 mg lozenge 2.5 mg, 1 lozenge, Route: PO, Q2H, Start date: 07/04/16 22:00:00 CDT, Duration: 30 day, Stop date: 08/03/16 20:00:00 CDT Start Date: 07/04/16 Stop Date: 07/04/16 Status: Deleted metFORMIN 500 mg oral tablet 500 mg=1 tab, PO, BID-Meals, # 30 tab, 0 Refill(s) Start Date: 07/01/16 Stop Date: 07/11/16 Status: Discontinued metoprolol 100 mg oral tablet, extended release 100 mg=1 tab, PO, Daily, # 30 tab, 0 Refill(s) Start Date: 07/11/16 Stop Date: 08/10/16 Status: Ordered metoprolol extended release 50 mg, 1 tab, Route: PO, Drug form: ERTAB, BID, Start date: 06/30/16 17:00:00 CD T, Stop date: 07/30/16 9:00:00 CDT Notes: (Same as: Toprol XL) May split tab, but do not crush. Start Date: 06/30/16 Stop Date: 07/10/16 Status: Discontinued metoprolol tartrate 25 mg, 1 tab, Route: PO, Drug form: TAB, Q12H, Dosing Weight 87.273, kg, Start d ate: 06/22/16 9:00:00 FLORAL ARTIST, Duration: 30 day, Stop date: 07/21/16 21:00:00 CDT Notes: (Same as: Lopressor) Start Date: 06/22/16 Stop Date: 06/30/16 Status: Discontinued metoprolol tartrate 25 mg, 1 tab, Route: PO, Drug form: TAB, ONCE, Dosing Weight 95, kg, Start date: 07/03/16 10:42:00 CDT, Stop date: 07/03/16 10:42:00 CDT Notes: (Same as: Lopressor) Start Date: 07/03/16 Stop Date: 07/03/16 Status: Completed metoprolol tartrate 50 mg, Route: PO, Drug form: TAB, ONCE, Dosing Weight 95, kg, Start date: 10:41:00 CDT, Stop date: 07/03/16 10:41:00 CDT Start Date: 07/03/16 Stop Date: 07/03/16 Status: Discontinued metoprolol tartrate 25 mg, 1 tab, Route: PO, Drug form: TAB, ONCE, Dosing Weight 95, kg, Start date: 07/01/16 0:57:00 CDT, Stop date: 07/01/16 0:57:00 CDT Notes: (Same as: Lopressor) Start Date: 07/01/16 Stop Date: 07/01/16 Status: Completed metoprolol tartrate 50 mg oral tablet 50 mg=1 tab, PO, BID, 0 Refill(s) Start Date: 07/01/16 Stop Date: 07/11/16 Status: Discontinued midazolam 50mg/ NS 50ml drip (premixed) 50 mg 50 mg, 50 mL, Rate: Titrate, Start Dose: 1 mg/hr, Titration: Rebolus 1 mg IV and /or Titrate infusion by 1 mg/hour every 30 minutes, Goal(s): RASS 3 to 4, Max Do se: 10 mg/hr, Route: IV, Dosing Weight 87.273 kg, Total Volume: 50, Start date: 06/19/16 4:... Notes: (Same as: Versed) Start Date: 06/19/16 Stop Date: 06/20/16 Status: Discontinued MiraLax 17 gm, 1 pkt, Route: PO, Drug form: PWDR, ONCE, Dosing Weight 95, kg, Start date : 07/07/16 10:56:00 CDT, Duration: 1 doses or times, Stop date: 07/07/16 10:56:0 0 CDT Notes: Dissolve in 8 oz of water or juice.(Same as: Miralax) Start Date: 07/07/16 Stop Date: 07/07/16 Status: Completed MiraLax 17 gm, 1 pkt, Route: PO, Drug form: PWDR, Daily, Dosing Weight 95, kg, Start drake e: 07/10/16 9:00:00 CDT, Duration: 30 day, Stop date: 08/08/16 9:00:00 CDT Notes: Dissolve in 8 oz of water or juice.(Same as: Miralax) Start Date: 07/10/16 Stop Date: 07/11/16 Status: Discontinued MiraLax 17 gm, 1 pkt, Route: PO, Drug form: PWDR, BID, Dosing Weight 87.273, kg, PRN Con stipation, Start date: 06/23/16 17:00:00 FLORAL ARTIST, Duration: 30 day, Stop date: 07/23 9:00:00 CDT Notes: Dissolve in 8 oz of water or juice.(Same as: Miralax) Start Date: 06/23/16 Stop Date: 07/11/16 Status: Discontinued niCARdipine 20 mg 20 mg, 200 mL, Rate: Titrate, Start Dose: 5 mg/hr, Titration: 2.5 mg/hr every 15 minutes, Goal(s): SBP <160, Max Dose: 15 mg/hr, Route: IV, Dosing Weight 87.273 kg, Total Volume: 200, Start date: 06/18/16 21:20:00 FLORAL ARTIST, Duration: 30 day, Stop date: ... Start Date: 06/18/16 Stop Date: 06/18/16 Status: Deleted Nifedical XL 30 mg, 1 tab, Route: PO, Drug form: ERTAB, ONCE, Dosing Weight 95, kg, Start drake e: 06/28/16 23:13:00 FLORAL ARTIST, Stop date: 06/28/16 23:13:00 FLORAL ARTIST Notes: (Same as: Adalat CC, Procardia XL) Give on empty stomach. Take 1 hour be fore or 2 hours after meal; "Avoid grapefruit and grapefruit juice". Do not cru sh Start Date: 06/28/16 Stop Date: 06/28/16 Status: Discontinued norepinephrine 4 mg/4 ml inj 8 mg + sodium chloride 0.9% INJ 242 mL 8 mg, 8 mL, Rate: Titrate, Start Dose: 5 microgram/min, Titration: 2 microgram/m in every 2-5 minutes, Goal(s): MAP >=65 mmHg, Max Dose: 70 microgram/min, Route: IV, Dosing Weight 87.273 kg, Total Volume: 250, Start date: 06/19/16 0:56:00 FLORAL ARTIST, Duratio... Notes: Not for direct administration - DILUTE. Protect from light. (Same as:Levo phed). Administer by either central venous catheter or peripherally-inserted buzz tral catheter (PICC) line. Start Date: 06/19/16 Stop Date: 06/21/16 Status: Discontinued NovoLIN 70/30 7 unit, 0.07 mL, Route: SUB-Q, Drug form: INJ, ONCE, Dosing Weight 95, kg, Start date: 07/01/16 9:24:00 CDT, Stop date: 07/01/16 9:24:00 CDT Notes: Roll in palms of hands gently; Do not shake. (Same as: NovoLIN Mix 70/30) Do not hold insulin without contacting prescriberWASTE: F/P - Black; E - Municip [facility] Trash Bin Start Date: 07/01/16 Stop Date: 07/01/16 Status: Completed NovoLIN 70/30 7 unit, Route: SUB-Q, BID-Before Meals, Dosing Weight 95, kg, Start date: 16:30:00 CDT, Duration: 30 day, Stop date: 07/31/16 7:30:00 CDT Start Date: 07/01/16 Stop Date: 07/01/16 Status: Canceled NovoLIN 70/30 14 unit, 0.14 mL, Route: SUB-Q, Drug form: INJ, Q8H, Dosing Weight 95, kg, Prior ity: Routine, Start date: 06/28/16 10:00:00 FLORAL ARTIST, Stop date: 07/28/16 8:00:00 CDT Notes: Roll in palms of hands gently; Do not shake. (Same as: NovoLIN Mix 70/30) Do not hold insulin without contacting prescriberWASTE: F/P - Black; E - Municip al Trash Bin Start Date: 06/28/16 Stop Date: 07/05/16 Status: Discontinued nxstage pureflow rfp-400 5000ml SLN 5,000 mL 5,000 mL, Route: DIALYSIS, Irrigation Site: Vein, femoral, Lt, 3,500 ml/hr, 1.4 hr, Total Volume: 5,000 mL, "For Irrigation Only", Start date: 06/19/16 5:02:00 FLORAL ARTIST, Duration: 30 day, Stop date: 07/19/16 5:01:00 CDT Notes: NxStage RFP-[id number] ingredients in bag Na 140meq/L; K 2meq/L; HCO 35meq/L; Ca 3meq/L; Magnesium 1meq/L; CL 111meq/L; Glucose 100mg/dL; "Break seal Between compartments and mix before hanging" Start Date: 06/19/16 Stop Date: 06/19/16 Status: Discontinued nxstage pureflow rfp-401 5000ml SLN 5,000 mL 5,000 mL, Route: DIALYSIS, Irrigation Site: Vein, femoral, Lt, 2,500 ml/hr, 2 hr , Total Volume: 5,000 mL, "For Irrigation Only", Start date: 06/19/16 13:16:[address], Duration: 30 day, Stop date: 07/19/16 13:15:00 CDT Notes: NxStage RFP-[id number] ingredients in bag Na 140meq/L; K 4meq/L; HCO 35meq/L; Ca 3meq/L; Magnesium 1meq/L; CL 113meq/L; Glucose 100mg/dL; "Break seal Between compartments and mix before hanging" Start Date: 06/19/16 Stop Date: 06/19/16 Status: Discontinued nxstage pureflow rfp-401 5000ml SLN 5,000 mL 5,000 mL, Route: DIALYSIS, Irrigation Site: Vein, femoral, Rt, 2,500 ml/hr, 2 hr , Total Volume: 5,000, "For Irrigation Only", Start date: 06/20/16 8:18:00 FLORAL ARTIST, Duration: 20 day, Stop date: 07/10/16 8:17:00 CDT Notes: NxStage [id number]-[id number] ingredients in bag Na 140meq/L; K 4meq/L; HCO 35meq/L; Ca 3meq/L; Magnesium 1meq/L; CL 113meq/L; Glucose 100mg/dL; "Break seal Between compartments and mix before hanging" Start Date: 06/20/16 Stop Date: 07/01/16 Status: Discontinued nxstage pureflow rfp-454 5000ml SLN 5,000 mL 5,000 mL, Route: DIALYSIS, Irrigation Site: Vein, femoral, Lt, 200 ml/hr, 25 hr, Total Volume: 5,000, "For Irrigation Only", Start date: 06/19/16 13:57:00 FLORAL ARTIST, Duration: 30 day, Stop date: 07/19/16 13:56:00 CDT Notes: Total ingredients in bag Na 130meq/L; K+ 4meq/L; HCO 25meq/L; Ca 0meq/L; Magnesium 1.5meq/L; Glucose 1g/L; "Break seal Between compartments and mix befor e hanging" Start Date: 06/19/16 Stop Date: 06/20/16 Status: Discontinued ondansetron 4 mg, 2 mL, Route: IVP, Drug form: INJ, Q6H, Dosing Weight 87.273, kg, PRN Nause a & Vomiting, Start date: 06/18/16 23:29:00 FLORAL ARTIST, Duration: 30 day, Stop date: 07/18/16 23:28:00 CDT Notes: (Same as: Zofran) MEDICATION WASTE Product Size: 4 mgProduct Was grecia: ___ mg Start Date: 06/18/16 Stop Date: 06/26/16 Status: Discontinued pantoprazole 40 mg, Route: IVP, Drug form: INJ, Daily, Dosing Weight 87.273, kg, Patient is N PO, Start date: 06/19/16 0:14:00 FLORAL ARTIST, Duration: 30 day, Stop date: 07/18/16 9:00 :00 CDT Notes: For IV push reconstitute with 10 ml 0.9% sodium chloride and push over 2 minutes. (Same as: Protonix) Start Date: 06/19/16 Stop Date: 07/11/16 Status: Discontinued pantoprazole 40 mg oral enteric coated tablet 40 mg=1 tab, PO, Daily, # 30 tab, 0 Refill(s) Start Date: 07/11/16 Stop Date: 08/10/16 Status: Ordered phytonadione + sodium chloride 0.9% INJ 50 mL 10 mg, 1 mL, Route: IVPB, ONCE, Dosing Weight 87.273, kg, Priority: STAT, Start date: 06/18/16 22:14:00 FLORAL ARTIST, Stop date: 06/18/16 22:14:00 FLORAL ARTIST Notes: (Same as: Aqua-Mephyton, Vitamin K) MEDICATION WASTE Product Size : 10 mgProduct Wasted: ___ mg Start Date: 06/18/16 Stop Date: 06/18/16 Status: Completed polyethylene glycol 3350 oral powder for reconstitution 17 gm, PO, Daily, X 7 day, # 12 ea, 0 Refill(s) Start Date: 07/11/16 Stop Date: 07/18/16 Status: Ordered potassium chloride 40 mEq, 2 tab, Route: PO, Drug form: ERTAB, ONCE, Dosing Weight 95, kg, Start da te: 06/27/16 17:57:00 FLORAL ARTIST, Stop date: 06/27/16 17:57:00 FLORAL ARTIST Start Date: 06/27/16 Stop Date: 06/27/16 Status: Discontinued potassium chloride 20 mEq, 100 mL, Route: IVPB, Drug form: INJ, PRN, Dosing Weight 87.273, kg, PRN Abnormal Lab Result, Via central line, Start date: 06/19/16 5:02:00 FLORAL ARTIST, Duratio n: 30 day, Stop date: 07/19/16 6:01:00 CDT Notes: (Same as: KCL) Infuse no faster than 10 mEq/hr if given peripherally. Start Date: 06/19/16 Stop Date: 06/19/16 Status: Discontinued potassium chloride 10 mEq, 50 mL, Route: IVPB, Drug form: INJ, PRN, Dosing Weight 87.273, kg, PRN A bnormal Lab Result, Via peripheral line, Start date: 06/18/16 23:33:00 FLORAL ARTIST, Dura tion: 30 day, Stop date: 07/19/16 0:32:00 CDT Notes: (Same as: KCL) Infuse over 2 hours. Start Date: 06/18/16 Stop Date: 06/19/16 Status: Discontinued potassium chloride 20 mEq, 100 mL, Route: IVPB, Drug form: INJ, PRN, Dosing Weight 87.273, kg, PRN Abnormal Lab Result, Via central line, Start date: 06/18/16 23:33:00 FLORAL ARTIST, Durati on: 30 day, Stop date: 07/19/16 0:32:00 CDT Notes: (Same as: KCL) Infuse no faster than 10 mEq/hr if given peripherally. Start Date: 06/18/16 Stop Date: 06/19/16 Status: Discontinued potassium chloride 20 mEq, 100 mL, Route: IVPB, Drug form: INJ, PRN, Dosing Weight 87.273, kg, PRN Abnormal Lab Result, Via central line, Start date: 06/19/16 13:16:00 FLORAL ARTIST, Durati on: 30 day, Stop date: 07/19/16 14:15:00 CDT Notes: (Same as: KCL) Infuse no faster than 10 mEq/hr if given peripherally. Start Date: 06/19/16 Stop Date: 06/22/16 Status: Discontinued potassium chloride 20 mEq, 100 mL, Route: IVPB, Drug form: INJ, PRN, Dosing Weight 87.273, kg, PRN Abnormal Lab Result, Via central line, Start date: 06/19/16 7:13:00 FLORAL ARTIST, Duratio n: 30 day, Stop date: 07/19/16 8:12:00 CDT Notes: (Same as: KCL) Infuse no faster than 10 mEq/hr if given peripherally. Start Date: 06/19/16 Stop Date: 06/19/16 Status: Discontinued potassium chloride 20 mEq, 15 mL, Route: PO, Drug form: LIQ, ONCE, Dosing Weight 95, kg, Start date : 06/27/16 19:25:00 FLORAL ARTIST, Stop date: 06/27/16 19:25:00 FLORAL ARTIST Notes: (Same as: Potassium Chloride) Start Date: 06/27/16 Stop Date: 06/27/16 Status: Completed potassium chloride 20 mEq, 1 tab, Route: PO, Drug form: ERTAB, ONCE, Dosing Weight 95, kg, Start da te: 06/27/16 18:19:00 FLORAL ARTIST, Stop date: 06/27/16 18:19:00 FLORAL ARTIST Start Date: 06/27/16 Stop Date: 06/27/16 Status: Deleted potassium chloride 10 mEq, 50 mL, Route: IVPB, Drug form: INJ, PRN, Dosing Weight 87.273, kg, PRN A bnormal Lab Result, Via peripheral line, Start date: 06/18/16 22:11:00 FLORAL ARTIST, Dura tion: 30 day, Stop date: 07/18/16 23:10:00 CDT Notes: (Same as: KCL) Infuse over 2 hours. Start Date: 06/18/16 Stop Date: 06/19/16 Status: Discontinued potassium chloride 20 mEq, 100 mL, Route: IVPB, Drug form: INJ, PRN, Dosing Weight 87.273, kg, PRN Abnormal Lab Result, Via central line, Start date: 06/18/16 22:11:00 FLORAL ARTIST, Durati on: 30 day, Stop date: 07/18/16 23:10:00 CDT Notes: (Same as: KCL) Infuse no faster than 10 mEq/hr if given peripherally. Start Date: 06/18/16 Stop Date: 06/19/16 Status: Discontinued potassium chloride 20 mEq, Route: PO, Drug form: ERTAB, PRN, Dosing Weight 87.273, kg, PRN Abnormal Lab Result, Start date: 06/22/16 15:06:00 FLORAL ARTIST, Duration: 30 day, Stop date: 08/04 16:05:00 CDT, FOR ICU USE ONLY Start Date: 06/22/16 Stop Date: 06/22/16 Status: Discontinued potassium chloride 10 mEq, Route: IVPB, PRN, Dosing Weight 87.273, kg, PRN Abnormal Lab Result, Via peripheral line, Start date: 06/22/16 15:06:00 FLORAL ARTIST, Duration: 30 day, Stop date: 07/22/16 16:05:00 CDT, FOR ICU USE ONLY Start Date: 06/22/16 Stop Date: 06/22/16 Status: Discontinued potassium chloride 20 mEq, Route: NJ, Drug form: LIQ, PRN, Dosing Weight 87.273, kg, PRN Abnormal L ab Result, Start date: 06/22/16 15:06:00 FLORAL ARTIST, Duration: 30 day, Stop date: 07/22 16:05:00 CDT, FOR ICU USE ONLY Start Date: 06/22/16 Stop Date: 06/22/16 Status: Discontinued potassium chloride 20 mEq, Route: IVPB, PRN, Dosing Weight 87.273, kg, PRN Abnormal Lab Result, Via central line, Start date: 06/22/16 15:06:00 FLORAL ARTIST, Duration: 30 day, Stop date: 0 07/22/16 16:05:00 CDT, FOR ICU USE ONLY Start Date: 06/22/16 Stop Date: 06/22/16 Status: Discontinued potassium chloride 20 mEq oral tablet, extended release 40 mEq, 2 tab, Route: PO, Drug form: ERTAB, Q2H, Dosing Weight 95, kg, Start drake e: 07/08/16 6:00:00 CDT, Duration: 2 doses or times, Stop date: 07/08/16 8:00:00 CDT Notes: (Same as: K-Dur 20)"Do Not Crush" With food and full glass of water Start Date: 07/08/16 Stop Date: 07/08/16 Status: Completed potassium chloride 20 mEq/15 mL oral liquid 40 mEq, 30 mL, Route: PO, Drug form: LIQ, BID, Dosing Weight 95, kg, Start date: 07/07/16 9:00:00 CDT, Duration: 1 day, Stop date: 07/07/16 17:00:00 CDT Start Date: 07/07/16 Stop Date: 07/07/16 Status: Canceled potassium chloride 20 mEq/15 mL oral liquid 20 mEq, 15 mL, Route: PO, Drug form: LIQ, ONCE, Dosing Weight 95, kg, Start date : 07/11/16 7:45:00 CDT, Stop date: 07/11/16 7:45:00 CDT Notes: (Same as: Potassium Chloride) Start Date: 07/11/16 Stop Date: 07/11/16 Status: Completed potassium chloride 20 mEq/15 mL oral liquid 20 mEq, 15 mL, Route: PO, Drug form: LIQ, ONCE, Dosing Weight 95, kg, Start date : 07/10/16 10:20:00 CDT, Stop date: 07/10/16 10:20:00 CDT Notes: (Same as: Potassium Chloride) Start Date: 07/10/16 Stop Date: 07/10/16 Status: Completed potassium phosphate 30 mmol, Route: IVPB, PRN, Dosing Weight 87.273, kg, PRN Abnormal Lab Result, St art date: 06/22/16 15:06:00 FLORAL ARTIST, Duration: 30 day, Stop date: 07/22/16 16:05:00 CDT, FOR ICU USE ONLY Start Date: 06/22/16 Stop Date: 06/22/16 Status: Discontinued potassium phosphate 15 mmol, Route: IVPB, PRN, Dosing Weight 87.273, kg, PRN Abnormal Lab Result, St art date: 06/22/16 15:06:00 FLORAL ARTIST, Duration: 30 day, Stop date: 07/22/16 16:05:00 CDT, FOR ICU USE ONLY Start Date: 06/22/16 Stop Date: 06/22/16 Status: Discontinued potassium phosphate 45 mmol, Route: IVPB, PRN, Dosing Weight 87.273, kg, PRN Abnormal Lab Result, St art date: 06/22/16 15:06:00 FLORAL ARTIST, Duration: 30 day, Stop date: 07/22/16 16:05:00 CDT, FOR ICU USE ONLY Start Date: 06/22/16 Stop Date: 06/22/16 Status: Discontinued potassium phosphate + sodium chloride 0.9% INJ 250 mL 30 mmol, 10 mL, Route: IVPB, PRN, Dosing Weight 87.273, kg, PRN Abnormal Lab Res ult, Start date: 06/18/16 23:33:00 FLORAL ARTIST, Duration: 30 day, Stop date: 07/19/16 0: 32:00 CDT Notes: (Same as: K Phosphate.) 1 mMol phoshate has 1.47 mEq potassium Infuse o yannick 4 hours Start Date: 06/18/16 Stop Date: 06/19/16 Status: Discontinued potassium phosphate + sodium chloride 0.9% INJ 250 mL 15 mmol, 5 mL, Route: IVPB, PRN, Dosing Weight 87.273, kg, PRN Abnormal Lab Resu lt, Start date: 06/18/16 23:33:00 FLORAL ARTIST, Duration: 30 day, Stop date: 07/19/16 0:3 2:00 CDT Notes: (Same as: K Phosphate.) 1 mMol phoshate has 1.47 mEq potassium Infuse o yannick 4 hours Start Date: 06/18/16 Stop Date: 06/19/16 Status: Discontinued potassium phosphate + sodium chloride 0.9% INJ 250 mL 15 mmol, 5 mL, Route: IVPB, PRN, Dosing Weight 87.273, kg, PRN Abnormal Lab Resu lt, Start date: 06/18/16 22:11:00 FLORAL ARTIST, Duration: 30 day, Stop date: 07/18/16 23: 10:00 CDT Notes: (Same as: K Phosphate.) 1 mMol phoshate has 1.47 mEq potassium Infuse o yannick 4 hours Start Date: 06/18/16 Stop Date: 06/19/16 Status: Discontinued potassium phosphate + sodium chloride 0.9% INJ 250 mL 30 mmol, 10 mL, Route: IVPB, PRN, Dosing Weight 87.273, kg, PRN Abnormal Lab Res ult, Start date: 06/18/16 22:11:00 FLORAL ARTIST, Duration: 30 day, Stop date: 07/18/16 23 :10:00 CDT Notes: (Same as: K Phosphate.) 1 mMol phoshate has 1.47 mEq potassium Infuse o yannick 4 hours Start Date: 06/18/16 Stop Date: 06/19/16 Status: Discontinued potassium phosphate-sodium phosphate 250 mg-280 mg-160 mg oral powder for recons titution 2 pkt, Route: PO, Dosing Weight 87.273, kg, PRN, PRN Abnormal Lab Result, FOR IC U USE ONLY, Start date: 06/22/16 15:06:00 FLORAL ARTIST, Duration: 30 day, Stop date: 08/04 16:05:00 CDT Start Date: 06/22/16 Stop Date: 06/22/16 Status: Discontinued prednisoLONE acetate ophthalmic 1 drp, Route: RIGHT EYE, Daily, Drug form: SUSP, Start date: 06/21/16 9:00:00 CS T, Duration: 30 day, Stop date: 07/20/16 9:00:00 CDT Notes: (Same as: Pred Forte) Start Date: 06/21/16 Stop Date: 07/11/16 Status: Discontinued prednisoLONE acetate ophthalmic 1% suspension 1 drp, RIGHT EYE, Daily, X 14 day, # 15 mL, 0 Refill(s) Start Date: 07/11/16 Stop Date: 07/25/16 Status: Ordered Procardia XL 30 mg oral tablet, extended release 30 mg, Route: PO, Drug form: ERTAB, Daily, Dosing Weight 87.273, kg, Start date: 06/26/16 9:00:00 FLORAL ARTIST, Duration: 30 day, Stop date: 07/25/16 9:00:00 CDT Start Date: 06/26/16 Stop Date: 06/26/16 Status: Canceled Renvela 0.8 gm, 1 pkt, Route: PO, Drug form: PDR/REC, TID-Meals, Dosing Weight 95, kg, S tart date: 07/04/16 18:12:00 CDT, Stop date: 08/03/16 17:00:00 CDT Notes: Same as: Renvela Start Date: 07/04/16 Stop Date: 07/11/16 Status: Discontinued Saline Flush 0.9% 10 mL, Route: IVP, Drug Form: INJ, Dosing Weight 87.273, kg, PRN, PRN Line Flush , Start date: 06/18/16 21:09:00 FLORAL ARTIST, Duration: 30 day, Stop date: 07/18/16 22:08 :00 CDT Notes: (Same as: BD Posiflush) Start Date: 06/18/16 Stop Date: 07/11/16 Status: Discontinued Saline Flush 0.9% 10 mL, Route: IVP, Drug Form: INJ, Dosing Weight 87.273, kg, PRN, PRN Line Flush , Start date: 06/18/16 21:06:00 FLORAL ARTIST, Duration: 30 day, Stop date: 07/18/16 22:05 :00 CDT Start Date: 06/18/16 Stop Date: 06/18/16 Status: Discontinued senna 8.6 mg, 1 tab, Route: PO, Drug Form: TAB, Dosing Weight 87.273, kg, BID, PRN Oth er -See Comment, Start date: 06/22/16 17:00:00 FLORAL ARTIST, Duration: 30 day, Stop date: 07/22/16 9:00:00 CDT Notes: (Same as: Senokot) Start Date: 06/22/16 Stop Date: 07/11/16 Status: Discontinued SEROquel 25 mg, 1 tab, Route: PO, Drug form: TAB, Bedtime, Dosing Weight 95, kg, Start da te: 06/26/16 21:00:00 FLORAL ARTIST, Duration: 30 day, Stop date: 07/25/16 21:00:00 CDT Notes: (Same as: SEROquel) Start Date: 06/26/16 Stop Date: 07/11/16 Status: Discontinued sevelamer carbonate 0.8 g oral powder for reconstitution 0.8 gm=1 pkt, PO, TID-Meals, # 90 pkt, 0 Refill(s) Start Date: 07/11/16 Stop Date: 08/10/16 Status: Ordered sevelamer carbonate 0.8 g oral powder for reconstitution 800 mg, 1 pkt, Route: PO, Drug form: PDR/REC, TID-Meals, Dosing Weight 95, kg, S tart date: 07/04/16 17:00:00 CDT, Stop date: 08/03/16 12:00:00 CDT Notes: Same as: Renvela Start Date: 07/04/16 Stop Date: 07/04/16 Status: Discontinued sodium bicarbonate 150 mEq + water for injection, sterile 1,000 mL 1,000 mL, Rate: Infuse as directed, Dosing Weight 87.273, kg, Route: IV, Total V olume: 1,150 mL, Start Date: 06/19/16 4:23:00 FLORAL ARTIST, Duration: 30 day, Stop date: 07/19/16 4:22:00 CDT, Replace Every: 24 hr Notes: (sodium bicarb 8.4% (1 mEq/ml) 50 ml VL) Start Date: 06/19/16 Stop Date: 06/20/16 Status: Discontinued sodium bicarbonate 8.4% 50 mEq, 50 ml, Route: IVP, Drug Form: INJ, Dosing Weight 87.273, kg, ONCE, Start date: 06/19/16 4:03:00 FLORAL ARTIST, Stop date: 06/19/16 4:03:00 FLORAL ARTIST Notes: (sodium bicarb 8.4% (1 mEq/ml) 50 ml VL) Start Date: 06/19/16 Stop Date: 06/19/16 Status: Completed sodium bicarbonate 8.4% 50 ml, Route: IVP, Dosing Weight 87.273, kg, ONCE, Start date: 06/19/16 0:27:00 FLORAL ARTIST, Stop date: 06/19/16 0:27:00 FLORAL ARTIST Start Date: 06/19/16 Stop Date: 06/19/16 Status: Completed sodium bicarbonate 8.4% 50 ml, Route: IVP, Dosing Weight 87.273, kg, ONCE, Start date: 06/19/16 0:27:00 FLORAL ARTIST, Stop date: 06/19/16 0:27:00 FLORAL ARTIST Start Date: 06/19/16 Stop Date: 06/19/16 Status: Completed sodium bicarbonate 8.4% 50 mEq, 50 ml, Route: IVP, Drug Form: INJ, Dosing Weight 87.273, kg, ONCE, Start date: 06/19/16 2:51:00 FLORAL ARTIST, Stop date: 06/19/16 2:51:00 FLORAL ARTIST Notes: (sodium bicarb 8.4% (1 mEq/ml) 50 ml VL) Start Date: 06/19/16 Stop Date: 06/19/16 Status: Completed Sodium Chloride 0.9% (Bolus) IV 1,000 mL, 1000 ml/hr, Infuse Over: 1 hr, Route: IV, 1,000, Drug form: INJ, ONCE, Priority: STAT, Dosing Weight 87.273 kg, Start date: 06/18/16 22:15:00 FLORAL ARTIST, Dur ation: 1 doses or times, Stop date: 06/18/16 22:15:00 FLORAL ARTIST Start Date: 06/18/16 Stop Date: 06/19/16 Status: Completed sodium chloride 0.9% 1000 ml INJ 1,000 mL 1,000 mL, Rate: 250 ml/hr, Infuse over: 4 hr, Route: IV, Dosing Weight 87.273 kg , Total Volume: 1,000, When Finger stick blood glucose values remain ABOVE 250 m g/dL administer until BG is less than 250 mg/dL., Start date: 06/18/16 23:33:00 FLORAL ARTIST, Durati... Start Date: 06/18/16 Stop Date: 06/19/16 Status: Discontinued sodium chloride 0.9% 500 ml INJ 500 mL 500 mL, Rate: 250 ml/hr, Infuse over: 2 hr, Route: IV, Dosing Weight 95 kg, Tota l Volume: 500, Start date: 07/03/16 11:53:00 CDT, Duration: 1 doses or times, St op date: 07/03/16 13:52:00 CDT Start Date: 07/03/16 Stop Date: 07/03/16 Status: Completed sodium chloride 0.9% INJ 150 mL 150 mL, Rate: To prime line and flush remaining blood products., Dosing Weight 8 7.273, kg, Route: IV, Total Volume: 150, Start Date: 06/19/16 4:02:00 FLORAL ARTIST, Durat ion: 30 day, Stop date: 07/19/16 4:01:00 CDT, Replace Every: 24 hr Start Date: 06/19/16 Stop Date: 07/11/16 Status: Discontinued sodium chloride 0.9% INJ 250 mL 250 mL, Rate: on call pharmacy technician for use with blood product administration, Dosing Weight 9 5, kg, Route: IV, Total Volume: 250, Start Date: 07/02/16 7:11:00 CDT, Duration: 30 day, Stop date: 08/01/16 7:10:00 CDT, Replace Every: 24 hr Start Date: 07/02/16 Stop Date: 07/11/16 Status: Discontinued sodium chloride 0.9% INJ 250 mL 250 mL, Rate: Ivory Carver for use with blood product administration., Dosing Weight 95, kg, Route: IV, Total Volume: 250, Priority: Routine, Start Date: 07/01/16 8: 54:00 CDT, Duration: 1 day, Stop date: 07/02/16 8:53:00 CDT, Replace Every: 24 h r Start Date: 07/01/16 Stop Date: 07/02/16 Status: Discontinued sodium chloride 0.9% INJ 250 mL 250 mL, Rate: Ivory Carver for use with blood product administration., Dosing Weight 87.273, kg, Route: IV, Total Volume: 250, Priority: Routine, Start Date: 7 4:00:00 FLORAL ARTIST, Duration: 30 day, Stop date: 07/19/16 3:59:00 CDT, Replace Every: 24 hr Start Date: 06/19/16 Stop Date: 06/20/16 Status: Discontinued Sodium Chloride 0.9% IV 99 mL + Insulin regular 100 unit 99 mL, Rate: Start Insulin Drip Per ICU Protocol, Dosing Weight 87.273, kg, Rout e: IVPB, Total Volume: 99, Start Date: 06/23/16 8:16:00 FLORAL ARTIST, Duration: 30 day, S top date: 07/23/16 9:15:00 CDT, Replace Every: 24 hr Start Date: 06/23/16 Stop Date: 06/23/16 Status: Discontinued sodium phosphate 45 mmol, Route: IVPB, PRN, Dosing Weight 87.273, kg, PRN Abnormal Lab Result, St art date: 06/22/16 15:06:00 FLORAL ARTIST, Duration: 30 day, Stop date: 07/22/16 16:05:00 CDT, FOR ICU USE ONLY Start Date: 06/22/16 Stop Date: 06/22/16 Status: Discontinued sodium phosphate 15 mmol, Route: IVPB, PRN, Dosing Weight 87.273, kg, PRN Abnormal Lab Result, St art date: 06/22/16 15:06:00 FLORAL ARTIST, Duration: 30 day, Stop date: 07/22/16 16:05:00 CDT, FOR ICU USE ONLY Start Date: 06/22/16 Stop Date: 06/22/16 Status: Discontinued sodium phosphate 30 mmol, Route: IVPB, PRN, Dosing Weight 87.273, kg, PRN Abnormal Lab Result, St art date: 06/22/16 15:06:00 FLORAL ARTIST, Duration: 30 day, Stop date: 07/22/16 16:05:00 CDT, FOR ICU USE ONLY Start Date: 06/22/16 Stop Date: 06/22/16 Status: Discontinued sodium phosphate + sodium chloride 0.9% INJ 250 mL 15 mmol, 5 mL, Route: IVPB, PRN, Dosing Weight 87.273, kg, PRN Abnormal Lab Resu lt, Via central line, Start date: 06/19/16 5:02:00 FLORAL ARTIST, Duration: 30 day, Stop d ate: 07/19/16 6:01:00 CDT Start Date: 06/19/16 Stop Date: 06/19/16 Status: Discontinued sodium phosphate + sodium chloride 0.9% INJ 250 mL 30 mmol, 10 mL, Route: IVPB, PRN, Dosing Weight 87.273, kg, PRN Abnormal Lab Res ult, Via central line, Start date: 06/19/16 5:02:00 FLORAL ARTIST, Duration: 30 day, Stop date: 07/19/16 6:01:00 CDT Start Date: 06/19/16 Stop Date: 06/19/16 Status: Discontinued sodium phosphate + sodium chloride 0.9% INJ 250 mL 15 mmol, 5 mL, Route: IVPB, PRN, Dosing Weight 87.273, kg, PRN Abnormal Lab Resu lt, Via central line, Start date: 06/19/16 13:16:00 FLORAL ARTIST, Duration: 30 day, Stop date: 07/19/16 14:15:00 CDT Start Date: 06/19/16 Stop Date: 06/22/16 Status: Discontinued sodium phosphate + sodium chloride 0.9% INJ 250 mL 30 mmol, 10 mL, Route: IVPB, PRN, Dosing Weight 87.273, kg, PRN Abnormal Lab Res ult, Via central line, Start date: 06/19/16 13:16:00 FLORAL ARTIST, Duration: 30 day, Stop date: 07/19/16 14:15:00 CDT Start Date: 06/19/16 Stop Date: 06/22/16 Status: Discontinued sodium phosphate + sodium chloride 0.9% INJ 250 mL 30 mmol, 10 mL, Route: IVPB, PRN, Dosing Weight 87.273, kg, PRN Abnormal Lab Res ult, Via central line, Start date: 06/19/16 7:13:00 FLORAL ARTIST, Duration: 30 day, Stop date: 07/19/16 8:12:00 CDT Start Date: 06/19/16 Stop Date: 06/19/16 Status: Discontinued sodium phosphate + sodium chloride 0.9% INJ 250 mL 15 mmol, 5 mL, Route: IVPB, PRN, Dosing Weight 87.273, kg, PRN Abnormal Lab Resu lt, Via central line, Start date: 06/19/16 7:13:00 FLORAL ARTIST, Duration: 30 day, Stop d ate: 07/19/16 8:12:00 CDT Start Date: 06/19/16 Stop Date: 06/19/16 Status: Discontinued TamiFLU 30 mg, 1 cap, Route: PO, Drug form: CAP, [id number], Start date: 06/19/16 5:00:[address], Duration: 5 day, Stop date: 06/23/16 5:00:00 FLORAL ARTIST Notes: Same as: TamilfuTake with Food Start Date: 06/19/16 Stop Date: 06/20/16 Status: Discontinued TamiFLU 75 mg, Route: PO, Drug form: CAP, [id number], Dosing Weight 87.273, kg, CrCl > 60 ml/hr, Start date: 06/19/16 4:00:00 FLORAL ARTIST, Duration: 5 day, Stop date: 06/23/16 16:00:00 FLORAL ARTIST Start Date: 06/19/16 Stop Date: 06/19/16 Status: Deleted Toprol-XL 100 mg oral tablet, extended release 100 mg, 1 tab, Route: PO, Drug form: ERTAB, Daily, Start date: 07/10/16 9:00:00 CDT, Duration: 30 day, Stop date: 08/08/16 9:00:00 CDT Notes: (Same as: Toprol XL) May split tab, but do not crush. Start Date: 07/10/16 Stop Date: 07/11/16 Status: Discontinued vancomycin 125 mg, 2.5 mL, Route: PO, Drug form: SOLN, [id number], Dosing Weight 95, kg, Start date: 07/01/16 14:00:00 CDT, Duration: 30 day, Stop date: 07/31/16 8:00:00 CDT Notes: TIME CRITICAL MEDICATIONConcentration=50 mg/ml. Keep in refrigerator. F or oral use only. Vancomycin 1gm vial are used and reconstituted with 20ml of s terile water for a concentration of 50mg/ml. Draw up in sh[facility] po syringes. DO N OT USE IV SYRINGES. Start Date: 07/01/16 Stop Date: 07/02/16 Status: Discontinued vancomycin 1,500 mg, Route: IVPB, Drug form: INJ, [id number], Dosing Weight 87.273, kg, Start date: 06/19/16 12:00:00 FLORAL ARTIST, Duration: 30 day, Stop date: 07/19/16 0:00:00 CDT Start Date: 06/19/16 Stop Date: 06/19/16 Status: Canceled vancomycin 1,000 mg, Route: IVPB, Drug form: INJ, [id number], Dosing Weight 87.273, kg, Start date: 06/20/16 5:00:00 FLORAL ARTIST, Duration: 30 day, Stop date: 07/19/16 5:00:00 CDT Notes: TIME CRITICAL MEDICATION(Same As: Vancocin)Infusion rate< 1000 mg: infuse over 1 [id number] - 1500 mg: infuse over 1.5 [id number] - 2000 mg: infuse over 2 hours> 2001 mg: infuse over 2.5 hours MEDICATION WASTE Product Size: 1000 mgProduct Wasted: ___ mg Start Date: 06/20/16 Stop Date: 06/19/16 Status: Canceled vancomycin + sodium chloride 0.9% 500 ml INJ 500 mL 2,000 mg, Route: IVPB, ONCE, Dosing Weight 87.273, kg, Start date: 06/19/16 0:02 :00 FLORAL ARTIST, Stop date: 06/19/16 0:02:00 FLORAL ARTIST Notes: TIME CRITICAL MEDICATION(Same As: Vancocin)Infusion rate< 1000 mg: infuse over 1 [id number] - 1500 mg: infuse over 1.5 hoursVancomycin FOR IV SET [id number] - 2000 mg: infuse over 2 hours> 2001 mg: infuse over 2.5 hours MEDICATION WASTE Product Size: 1000 mgProduct Wasted: ___ mg Start Date: 06/19/16 Stop Date: 06/19/16 Status: Completed vancomycin + sodium chloride 0.9% INJ 100 mL 750 mg, Route: IVPB, Q12H, Dosing Weight 87.273, kg, Start date: 06/19/16 20:00: 00 FLORAL ARTIST, Stop date: 07/19/16 12:00:00 CDT Notes: TIME CRITICAL MEDICATION(Same As: Vancocin) Start Date: 06/19/16 Stop Date: 06/22/16 Status: Discontinued vancomycin + sodium chloride 0.9% INJ 50 mL 125 mg, Route: ID, Q6H, Start date: 07/02/16 0:00:00 CDT, Duration: 30 day, Stop date: 07/31/16 18:00:00 CDT Notes: TIME CRITICAL MEDICATION(Same As: Vancocin) Start Date: 07/02/16 Stop Date: 07/02/16 Status: Discontinued vancomycin + sodium chloride 0.9% INJ 50 mL 500 mg, Route: ID, Q6H, Start date: 07/02/16 0:00:00 CDT, Duration: 30 day, Stop date: 07/31/16 18:00:00 CDT Notes: TIME CRITICAL MEDICATION(Same As: Vancocin) Start Date: 07/02/16 Stop Date: 07/01/16 Status: Discontinued Venofer 200 mg, Route: IV, Daily, Dosing Weight 95, kg, Start date: 07/05/16 9:00:00 CDT , Duration: 5 day, Stop date: 07/09/16 9:00:00 CDT Start Date: 07/05/16 Stop Date: 07/05/16 Status: Deleted Venofer + sodium chloride 0.9% INJ 90 mL 200 mg, 10 mL, Route: IVPB, ONCE, Dosing Weight 95, kg, Start date: 07/12/16 9:0 0:00 CDT, Stop date: 07/12/16 9:00:00 CDT Notes: Each 5ml contains 100mg elemental iron. Mix with NSNon-Formulary(Same as :Venofer)Administer IV only. MEDICATION WASTE Product Size: [address] Wasted: ___ mg Start Date: 07/12/16 Stop Date: 07/08/16 Status: Discontinued Venofer + sodium chloride 0.9% INJ 90 mL 200 mg, 10 mL, Route: IVPB, Daily, Dosing Weight 95, kg, Start date: 07/09/16 9: 00:00 CDT, Stop date: 07/12/16 9:00:00 CDT Notes: Each 5ml contains 100mg elemental iron. Mix with NSNon-Formulary(Same as :Venofer)Administer IV only. MEDICATION WASTE Product Size: [address] Wasted: ___ mg Start Date: 07/09/16 Stop Date: 07/11/16 Status: Discontinued warfarin 5 mg, 1 tab, Route: PO, Drug form: TAB, Q5PM, Dosing Weight 87.273, kg, Start da te: 06/24/16 17:00:00 FLORAL ARTIST, Duration: 1 doses or times, Stop date: 06/24/16 17:00 :00 FLORAL ARTIST Notes: Nurse to ensure documentation of patient education per anticoagulation po licy.Avoid large intake of vitamin-K containing foods diet.WASTE: F/P - P Waste Black; E - P Waste Black(Same As: Coumadin) Start Date: 06/24/16 Stop Date: 06/24/16 Status: Completed warfarin 4 mg, 2 tab, Route: PO, Drug form: TAB, Q5PM, Dosing Weight 95, kg, Start date: 07/09/16 17:00:00 CDT, Duration: 1 doses or times, Stop date: 07/09/16 17:00:00 CDT Notes: Nurse to ensure documentation of patient education per anticoagulation po licy.Avoid large intake of vitamin-K containing foods diet.(Same As: Coumadin)ID DAK[place]: F/P - P Waste Black; E - P Waste Black Start Date: 07/09/16 Stop Date: 07/09/16 Status: Completed warfarin 4 mg, 2 tab, Route: PO, Drug form: TAB, Q5PM, Dosing Weight 95, kg, Start date: 06/28/16 17:00:00 FLORAL ARTIST, Duration: 1 doses or times, Stop date: 06/28/16 17:00:00 FLORAL ARTIST Notes: Nurse to ensure documentation of patient education per anticoagulation po licy.Avoid large intake of vitamin-K containing foods diet.(Same As: Coumadin)ID [place]: F/P - P Waste Black; E - P Waste Black Start Date: 06/28/16 Stop Date: 06/28/16 Status: Completed warfarin 4 mg, 2 tab, Route: PO, Drug form: TAB, Q5PM, Dosing Weight 95, kg, Start date: 07/11/16 17:00:00 CDT, Duration: 1 doses or times, Stop date: 07/11/16 17:00:00 CDT Notes: Nurse to ensure documentation of patient education per anticoagulation po licy.Avoid large intake of vitamin-K containing foods diet.(Same As: Coumadin)ID [place]: F/P - P Waste Black; E - P Waste Black Start Date: 07/11/16 Stop Date: 07/11/16 Status: Canceled warfarin 4 mg, 2 tab, Route: PO, Drug form: TAB, Q5PM, Dosing Weight 95, kg, Start date: 07/08/16 17:00:00 CDT, Duration: 1 doses or times, Stop date: 07/08/16 17:00:00 CDT Notes: Nurse to ensure documentation of patient education per anticoagulation po licy.Avoid large intake of vitamin-K containing foods diet.(Same As: Coumadin)ID [place]: F/P - P Waste Black; E - P Waste Black Start Date: 07/08/16 Stop Date: 07/08/16 Status: Completed warfarin 4 mg, 2 tab, Route: PO, Drug form: TAB, Q5PM, Dosing Weight 95, kg, Start date: 07/10/16 17:00:00 CDT, Duration: 1 doses or times, Stop date: 07/10/16 17:00:00 CDT Notes: Nurse to ensure documentation of patient education per anticoagulation po licy.Avoid large intake of vitamin-K containing foods diet.(Same As: Coumadin)ID [place]: F/P - P Waste Black; E - P Waste Black Start Date: 07/10/16 Stop Date: 07/10/16 Status: Completed warfarin 3 mg, 1 tab, Route: PO, Drug form: TAB, Q5PM, Dosing Weight 95, kg, Start date: 07/07/16 17:00:00 CDT, Duration: 1 doses or times, Stop date: 07/07/16 17:00:00 CDT Notes: Nurse to ensure documentation of patient education per anticoagulation po licy.Avoid large intake of vitamin-K containing foods diet.(Same As: Coumadin)ID [place]: F/P - P Waste Black; E - P Waste Black Start Date: 07/07/16 Stop Date: 07/07/16 Status: Completed warfarin 3 mg, 1 tab, Route: PO, Drug form: TAB, Q5PM, Dosing Weight 95, kg, Start date: 07/06/16 17:00:00 CDT, Duration: 1 doses or times, Stop date: 07/06/16 17:00:00 CDT Notes: Nurse to ensure documentation of patient education per anticoagulation po licy.Avoid large intake of vitamin-K containing foods diet.(Same As: Coumadin)ID [place]: F/P - P Waste Black; E - P Waste Black Start Date: 07/06/16 Stop Date: 07/06/16 Status: Completed warfarin 5 mg, 1 tab, Route: PO, Drug form: TAB, Q5PM, Dosing Weight 95, kg, Start date: 06/27/16 17:00:00 FLORAL ARTIST, Duration: 1 doses or times, Stop date: 06/27/16 17:00:00 FLORAL ARTIST Notes: Nurse to ensure documentation of patient education per anticoagulation po licy.Avoid large intake of vitamin-K containing foods diet.WA[place]: F/P - P Waste Black; E - P Waste Black(Same As: Coumadin) Start Date: 06/27/16 Stop Date: 06/27/16 Status: Completed warfarin 2 mg oral tablet 4 mg=2 tab, PO, Q5PM, # 60 tab, 0 Refill(s) Start Date: 07/11/16 Stop Date: 08/10/16 Status: Ordered warfarin 5 mg oral tablet 7.5 mg=1.5 tab, PO, Daily, 0 Refill(s) Start Date: 07/01/16 Stop Date: 07/11/16 Status: Discontinued Welchol 625 mg oral tablet 1,875 mg=3 tab, PO, BID-Meals, # 180 tab, 0 Refill(s) Start Date: 07/01/16 Stop Date: 07/11/16 Status: Discontinued Zofran 4 mg, 2 mL, Route: IVP, Drug form: INJ, Q8H, Dosing Weight 87.273, kg, PRN Nause a, Start date: 06/22/16 19:26:00 FLORAL ARTIST, Duration: 30 day, Stop date: 07/22/16 19:2 5:00 CDT Notes: (Same as: Zofran) MEDICATION WASTE Product Size: 4 mgProduct Was grecia: _0__ mg Start Date: 06/22/16 Stop Date: 07/11/16 Status: Discontinued Results BLOOD BANK RESULTS 1 2 3 Most recent to oldest [Reference Range]: B POS *Unknown* (07/04/16 3:50 AM) B POS *Unknown* (06/30/16 2:00 PM) B POS *Unknown* (06/19/16 12:25 AM) ABO/Rh Negative (07/04/16 3:50 AM) Negative (06/30/16 2:00 PM) Negative (06/19/16 12:25 AM) Antibody Scrn Product available (07/01/16 8:54 AM) Product available (06/19/16 4:08 AM) Product available (06/19/16 4:02 AM) FFP product Product available (06/19/16 4:02 AM) Platelet product Product available (07/02/16 7:11 AM) Product available (06/19/16 4:08 AM) Product available (06/19/16 4:00 AM) RBC product ELECTROLYTES 1 2 3 Most recent to oldest [Reference Range]: 138 mEq/L (07/11/16 6:10 AM) 136 mEq/L (07/10/16 6:47 AM) 136 mEq/L (07/09/16 5:43 AM) Sodium Lvl [135-145 mEq/L] 3.4 mEq/L *LOW* (07/11/16 6:10 AM) 3.4 mEq/L *LOW* (07/10/16 6:47 AM) 3.5 mEq/L (07/09/16 5:43 AM) Potassium Lvl [3.5-5.1 mEq/L] 100 mEq/L (07/11/16 6:10 AM) 98 mEq/L (07/10/16 6:47 AM) 98 mEq/L (07/09/16 5:43 AM) Chloride Lvl [95-109 mEq/L] 28 mEq/L (07/11/16 6:10 AM) 28 mEq/L (07/10/16 6:47 AM) 28 mEq/L (07/09/16 5:43 AM) CO2 [24-32 mEq/L] 13.4 mEq/L (07/11/16 6:10 AM) 13.4 mEq/L (07/10/16 6:47 AM) 13.5 mEq/L (07/09/16 5:43 AM) AGAP [10.0-20.0 mEq/L] CHEM PANEL 1 2 3 Most recent to oldest [Reference Range]: 4.54 mg/dL *HI* (07/11/16 6:10 AM) 4.48 mg/dL *HI* (07/10/16 6:47 AM) 4.01 mg/dL *HI* (07/09/16 5:43 AM) Creatinine Lvl [0.50-1.40 mg/dL] 13 mL/min/1.73m2 1 *NA* (07/11/16 6:10 AM) 13 mL/min/1.73m2 2 *NA* (07/10/16 6:47 AM) 15 mL/min/1.73m2 3 *NA* (07/09/16 5:43 AM) eGFR 40 mg/dL *HI* (07/11/16 6:10 AM) 35 mg/dL *HI* (07/10/16 6:47 AM) 34 mg/dL *HI* (07/09/16 5:43 AM) BUN [7-22 mg/dL] 16 (06/26/16 3:36 AM) 13 (06/19/16 7:37 AM) 11 (06/19/16 2:18 AM) B/C Ratio [6-25] 88 mg/dL (07/11/16 6:10 AM) 91 mg/dL (07/10/16 6:47 AM) 94 mg/dL (07/09/16 5:43 AM) Glucose Lvl [70-99 mg/dL] 6.5 mg/dL 4 (06/20/16 9:52 AM) Uric Acid [3.8-8.0 mg/dL] 5.3 g/dL *LOW* (07/10/16 6:47 AM) 5.4 g/dL *LOW* (07/07/16 5:56 AM) 5.2 g/dL *LOW* (07/06/16 5:57 AM) Total Protein [6.4-8.4 g/dL] 1.9 g/dL *LOW* (07/11/16 6:10 AM) 1.8 g/dL *LOW* (07/10/16 6:47 AM) 1.8 g/dL *LOW* (07/09/16 5:43 AM) Albumin Lvl [3.5-5.0 g/dL] 3.5 g/dL (07/10/16 6:47 AM) 3.5 g/dL (07/07/16 5:56 AM) 3.4 g/dL (07/06/16 5:57 AM) Globulin [2.7-4.2 g/dL] 0.5 *LOW* (07/10/16 6:47 AM) 0.5 *LOW* (07/07/16 5:56 AM) 0.5 *LOW* (07/06/16 5:57 AM) A/G Ratio [0.7-1.6] 8.1 mg/dL *LOW* (07/11/16 6:10 AM) 8.1 mg/dL *LOW* (07/10/16 6:47 AM) 8.0 mg/dL *LOW* (07/09/16 5:43 AM) Calcium Lvl [8.5-10.5 mg/dL] 4.0 mg/dL (07/11/16 6:10 AM) 4.6 mg/dL *HI* (07/10/16 6:47 AM) 4.0 mg/dL (07/09/16 5:43 AM) Phosphorus [2.5-4.5 mg/dL] 1.6 mg/dL *LOW* (07/11/16 6:10 AM) 1.7 mg/dL *LOW* (07/10/16 6:47 AM) 1.8 mg/dL (07/08/16 3:18 AM) Magnesium Lvl [1.8-2.4 mg/dL] 53 unit/L (07/10/16 6:47 AM) 64 unit/L (07/07/16 5:56 AM) 75 unit/L *HI* (07/06/16 5:57 AM) ALT [0-65 unit/L] 27 unit/L (07/10/16 6:47 AM) 24 unit/L (07/07/16 5:56 AM) 29 unit/L (07/06/16 5:57 AM) AST [0-37 unit/L] 118 unit/L (07/10/16 6:47 AM) 120 unit/L (07/07/16 5:56 AM) 139 unit/L *HI* (07/06/16 5:57 AM) Alk Phos [39-136 unit/L] 658 unit/L *HI* (06/20/16 9:52 AM) LDH [98-192 unit/L] 0.4 mg/dL (07/10/16 6:47 AM) 0.5 mg/dL (07/07/16 5:56 AM) 0.5 mg/dL (07/06/16 5:57 AM) Bili Total [0.2-1.3 mg/dL] 0.2 mg/dL (07/10/16 6:47 AM) 0.2 mg/dL (07/07/16 5:56 AM) 0.2 mg/dL (07/06/16 5:57 AM) Bili Direct [0.0-0.3 mg/dL] 0.2 mg/dL (07/10/16 6:47 AM) 0.3 mg/dL (07/07/16 5:56 AM) 0.3 mg/dL (07/06/16 5:57 AM) Bili Indirect [0.0-1.0 mg/dL] 0.24 mmol/L (06/19/16 7:37 AM) 0.64 mmol/L *HI* (06/19/16 12:25 AM) Ketone Quantitative [<=0.27 mmol/L] 1.8 mMol/L (06/19/16 4:31 PM) 3.0 mMol/L *HI* (06/19/16 11:30 AM) 6.4 mMol/L 5 *CRIT* (06/19/16 7:37 AM) Lactic Acid Lvl [0.5-2.2 mMol/L] 0.30 ng/mL *HI* (06/30/16 12:31 PM) 0.64 ng/mL *HI* (06/24/16 2:39 PM) 0.20 ng/mL *HI* (06/19/16 12:25 AM) Procalcitonin Lvl [0.00-0.10 ng/mL] 1Result Comment: The eGFR is calculated using [...] tiplied by the estimated BMI. 4Result Comment: Specimen Slightly Hemolyzed. 5Result Comment: Critical Result(s) called to Ksenia Barry at 06/19/2016 08:59 by ET. Read back OK. CARDIAC ENZYMES 1 2 3 Most recent to oldest [Reference Range]: 90 unit/L (06/19/16 12:25 AM) Total CK [12-191 unit/L] 0.6 ng/mL (06/19/16 12:25 AM) CK MB [0.5-3.6 ng/mL] 0.7 (06/19/16 12:25 AM) CK MB Index [0.0-2.5] <0.010 ng/mL (06/19/16 12:25 AM) Troponin-T [0.000-0.100 ng/mL] 0.01 ng/mL (06/19/16 12:25 AM) <0.02 ng/mL (06/18/16 9:15 PM) Troponin-I [0.00-0.40 ng/mL] MYOGLOBIN 1 2 3 Most recent to oldest [Reference Range]: 296 ng/mL *HI* (06/19/16 12:25 AM) Myoglobin [25-72 ng/mL] LIPIDS 1 2 3 Most recent to oldest [Reference Range]: 2.44 *LOW* (06/19/16 12:25 AM) CHD Risk [4.00-7.30] 66 mg/dL (06/19/16 12:25 AM) Chol [<=199 mg/dL] 89 mg/dL (06/19/16 12:25 AM) Trig [<=149 mg/dL] 27 mg/dL *LOW* (06/19/16 12:25 AM) HDL [>=61 mg/dL] 21 mg/dL (06/19/16 12:25 AM) LDL (Calculated) [<=99 mg/dL] 18 *NA* (06/19/16 12:25 AM) VLDL SPECIAL CHEMISTRY 1 2 3 Most recent to oldest [Reference Range]: 7.0 % *HI* (06/20/16 5:11 AM) 7.0 % *HI* (06/19/16 12:25 AM) Hgb A1C [<=5.6 %] PARATHYROID PROFILE 1 2 3 Most recent to oldest [Reference Range]: 1.06 mMol/L (07/11/16 6:10 AM) 1.05 mMol/L (07/09/16 5:43 AM) 1.05 mMol/L (07/08/16 3:18 AM) Ca Ion WB [1.05-1.25 mMol/L] 1.09 mMol/L (07/11/16 6:10 AM) 1.08 mMol/L (07/09/16 5:43 AM) 1.05 mMol/L (07/08/16 3:18 AM) Ca Norm WB [1.05-1.25 mMol/L] DRUG SCREEN 1 2 3 Most recent to oldest [Reference Range]: Negative *NA* (06/18/16 9:45 PM) U Amph Scr [Negative] Negative *NA* (06/18/16 9:45 PM) U Maribell Scr [Negative] Negative *NA* (06/18/16 9:45 PM) U Benzodia Scr [Negative] Negative *NA* (06/18/16 9:45 PM) U Cocaine Scr [Negative] Negative *NA* (06/18/16 9:45 PM) U Opiate Scr [Negative] Negative *NA* (06/18/16 9:45 PM) U Phencyc Scr [Negative] Negative *NA* (06/18/16 9:45 PM) U Cannab Scr [Negative] See Note *NA* (06/18/16 9:45 PM) UDS Note TOXICOLOGY 1 2 3 Most recent to oldest [Reference Range]: 1130 *NA* (06/22/16 11:34 AM) Vanco Tr TND 17.1 ug/ml *NA* (06/28/16 8:31 AM) 21.7 ug/ml *NA* (06/26/16 3:36 AM) 22.9 ug/ml *NA* (06/25/16 9:24 AM) Vanco Lvl 32.0 ug/ml *NA* (06/22/16 11:34 AM) Vanco Tr <0.003 % (06/18/16 9:15 PM) Etoh (%) <3.0 mg/dL (06/18/16 9:15 PM) Ethanol Lvl URINE CHEM 1 2 3 Most recent to oldest [Reference Range]: 2 mL/min *LOW* (07/01/16 11:21 AM) U12 Cr Clear [97-137 mL/min] 35.60 mg/dL *NA* (07/01/16 11:21 AM) Ur Creat 2.17 *NA* (07/01/16 11:21 AM) BSA Cr Clear 206 lb *NA* (07/01/16 11:21 AM) WT Crcl 73 inch *NA* (07/01/16 11:21 AM) HT Crcl 223 mL *LOW* (07/01/16 11:21 AM) TV CrCl 12H [800-1800 mL] URINE AND STOOL 1 2 3 Most recent to oldest [Reference Range]: Clear (06/30/16 11:05 AM) Slight Cloudy (06/18/16 9:45 PM) UA Turbidity [Clear] Yellow *NA* (06/30/16 11:05 AM) Yellow *NA* (06/18/16 9:45 PM) UA Color [Yellow] 5.0 (06/30/16 11:05 AM) UA pH [5.0-8.0] 5.0 (06/18/16 9:45 PM) UA pH [5.0-8.0] 1.008 (06/30/16 11:05 AM) UA Spec Grav [<=1.030] 1.020 (06/18/16 9:45 PM) UA Spec Grav [<=1.030] Negative mg/dL *NA* (06/30/16 11:05 AM) 500 mg/dL *ABN* (06/18/16 9:45 PM) UA Glucose [Negative mg/dL] Moderate *ABN* (06/30/16 11:05 AM) Large *ABN* (06/18/16 9:45 PM) UA Blood [Negative] Negative mg/dL *NA* (06/30/16 11:05 AM) UA Ketones [Negative mg/dL] Negative *NA* (06/18/16 9:45 PM) UA Ketones [Negative] 20 mg/dL *ABN* (06/30/16 11:05 AM) 30 mg/dL *ABN* (06/18/16 9:45 PM) UA Protein [Negative mg/dL] <=1.0 mg/dL *NA* (06/30/16 11:05 AM) UA Urobilinogen [0.1-1.0 mg/dL] 0.2 EU/dL (06/18/16 9:45 PM) UA Urobilinogen [0.1-1.0 EU/dL] Negative *NA* (06/30/16 11:05 AM) Negative *NA* (06/18/16 9:45 PM) UA Bili [Negative] Negative (06/30/16 11:05 AM) Negative (06/18/16 9:45 PM) UA Leuk Est [Negative] Negative (06/30/16 11:05 AM) Negative (06/18/16 9:45 PM) UA Nitrite [Negative] 2 /HPF (06/30/16 11:05 AM) UA WBC [0-5 /HPF] 0-2 /HPF (06/18/16 9:45 PM) UA WBC [None Seen /HPF] 11 /HPF *HI* (06/30/16 11:05 AM) 51-100 /HPF *ABN* (06/18/16 9:45 PM) UA RBC [0-2 /HPF] Few /HPF (06/18/16 9:45 PM) UA Bacteria [None Seen /HPF] None Seen *NA* (06/30/16 11:05 AM) UA Sq Epi None Seen (06/18/16 9:45 PM) UA Sq Epi [Few] 3-5 (06/18/16 9:45 PM) UA Hyal Cast [0-2] Occasional /HPF *NA* (06/30/16 11:05 AM) Moderate /HPF *ABN* (06/18/16 9:45 PM) UA Amorph Shelley [None Seen /HPF] Few /LPF *NA* (06/30/16 11:05 AM) UA Mucus [None Seen /LPF] None Seen (06/18/16 9:45 PM) UA Mucus [None Seen] Positive *ABN* (06/30/16 6:21 PM) Occult Bld Stl [Negative] BODY FLUIDS 1 2 3 Most recent to oldest [Reference Range]: Red *ABN* (06/19/16 2:18 AM) Color BF [Colorless] Marked *ABN* (06/19/16 2:18 AM) Clarity BF [Clear] Yellow *ABN* (06/19/16 2:18 AM) Supernat BF [Colorless] 1794314 /mm3 *NA* (06/19/16 2:18 AM) [place] [address] /mm3 *NA* (06/19/16 2:18 AM) WBC BF 87 % *NA* (06/19/16 2:18 AM) Segs BF 8 % *NA* (06/19/16 2:18 AM) Lymph BF 5 % *NA* (06/19/16 2:18 AM) Macrophage BF Pericard (06/19/16 2:18 AM) CellCnt BF Type IMMUNOLOGY 1 2 3 Most recent to oldest [Reference Range]: Negative (07/06/16 5:57 AM) Negative (06/20/16 9:52 AM) ANGELA [Negative] 39 mg/dL *LOW* (06/20/16 9:52 AM) C3 Complement [88-201 mg/dL] 9 mg/dL *LOW* (06/20/16 9:52 AM) C4 Complement [16-47 mg/dL] Negative (06/20/16 9:52 AM) DNA Ab (DS) [Negative] Negative (07/06/16 5:57 AM) Negative (06/20/16 9:52 AM) C-ANCA [Negative] Negative (07/06/16 5:57 AM) Negative (06/20/16 9:52 AM) P-ANCA [Negative] Negative *NA* (06/20/16 9:52 AM) HIV 1/2 Ab [Negative] 0.7 APL-U/mL (06/22/16 6:00 PM) Cardiolipin IgA [<=19.9 APL-U/mL] 2.9 GPL-U/mL (06/22/16 6:00 PM) Cardiolipin IgG [<=19.9 GPL-U/mL] 0.5 MPL-U/mL (06/22/16 6:00 PM) Cardiolipin IgM [<=19.9 MPL-U/mL] 0.7 unit/mL (06/22/16 6:00 PM) Beta2-Glycoprotein IgM [<=19.9 unit/mL] 3.5 unit/mL (06/22/16 6:00 PM) Beta2-Glycoprotein IgG [<=19.9 unit/mL] 0.6 unit/mL (06/22/16 6:00 PM) Beta2-Glycoprotein IgA [<=19.9 unit/mL] 8.2 uMol/L (06/22/16 6:00 PM) Homocyst Tot [3.7-13.9 uMol/L] <0.2 AI (07/06/16 5:57 AM) Myeloperoxidase Ab [<=0.9 AI] 50.3 REL % *LOW* (06/20/16 9:52 AM) Albumin % [55.8-66.1 REL %] 8.2 REL % *HI* (06/20/16 9:52 AM) Alpha 1 % [2.8-4.9 REL %] 15.4 REL % *HI* (06/20/16 9:52 AM) Alpha 2 % [7.0-11.9 REL %] 12.7 REL % (06/20/16 9:52 AM) Beta % [7.8-13.7 REL %] 13.4 REL % (06/20/16 9:52 AM) Gamma % [11.1-18.7 REL %] 2.21 g/dL *LOW* (06/20/16 9:52 AM) Albumin (SPE) [3.57-5.55 g/dL] 0.36 g/dL (06/20/16 9:52 AM) Alpha 1 Glob [0.18-0.41 g/dL] 0.68 g/dL (06/20/16 9:52 AM) Alpha 2 Glob [0.45-1.00 g/dL] 0.56 g/dL (06/20/16 9:52 AM) Beta Glob [0.50-1.15 g/dL] 0.59 g/dL *LOW* (06/20/16 9:52 AM) Gamma Glob [0.71-1.57 g/dL] 4.4 g/dL *LOW* (06/20/16 9:52 AM) Tot Prot (SPE) [6.4-8.4 g/dL] Total protein is significantly decreased. Serum protein electrophoresis shows markedly reduced albumin level and mild hypogammaglobulinemia. The other protein fractions are within the reference ranges. No monoclonal immunoglobulins or other evidence of monoclonal process is identified. This serum protein electrophoresis pattern is consistent with significant protein loss. I have personally reviewed the test results and concur with the resident's interpretation. CPT 88215-GJ *NA* (06/20/16 9:52 AM) SPE Interp 368 mg/24hrs *NA* (06/21/16 8:05 AM) 24Hr UPE 142 mg/dL *NA* (06/21/16 8:05 AM) 24 UPE Tot Prot 259 mL *NA* (06/21/16 8:05 AM) 24 UPE Tot Vol Urine protein electrophoresis of a random urine specimen revealed presence of all protein fractions with a dominant albumin fraction consistent with nonselective glomerular proteinuria. There is a faint constriction present in the anodal part of the gamma region. However, urine immunofixation electrophoresis is negative for the presence of either monoclonal immunoglobulin or free monoclonal light c hains. I have personally reviewed the test results and concur with the resident's interpretation. CPT: 64478-OP *NA* (06/21/16 8:05 AM) 24Hr UPE Int Diffusely staining immunoreactivity is present in IgG, IgA, kappa and lambda lanes. No monoclonal bands are seen. *NA* (06/21/16 8:05 AM) 24UIFE Pattern Urine immunofixation electrophoresis revealed spillage of polyclonal immunoglobulins mainly of IgG and IgA isotypes. There is no spillage of monoclonal immunoglobulins or free monoclonal light chains. Relevant medical information in the EMR was reviewed. I have personally reviewed the test results and concur with the resident's interpretation. CPT 53356-RE *NA* (06/21/16 8:05 AM) 24UIFE Int Negative *NA* (06/20/16 9:52 AM) Hep Bs Ag [Negative] Negative *NA* (06/20/16 9:52 AM) Hep B Core IgM [Negative] Negative *NA* (06/20/16 9:52 AM) Hep A IgM [Negative] Negative *NA* (06/20/16 9:52 AM) Hep C Ab HEMATOLOGY 1 2 3 Most recent to oldest [Reference Range]: 5.4 K/CMM (07/11/16 6:10 AM) 6.1 K/CMM (07/10/16 6:47 AM) 6.5 K/CMM (07/09/16 5:43 AM) WBC [3.7-10.4 K/CMM] 2.64 M/CMM *LOW* (07/11/16 6:10 AM) 2.76 M/CMM *LOW* (07/10/16 6:47 AM) 2.75 M/CMM *LOW* (07/09/16 5:43 AM) RBC [4.70-6.10 M/CMM] 7.3 g/dL *LOW* (07/11/16 6:10 AM) 7.6 g/dL *LOW* (07/10/16 6:47 AM) 7.6 g/dL *LOW* (07/09/16 5:43 AM) Hgb [14.0-18.0 g/dL] 21.6 % *LOW* (07/11/16 6:10 AM) 22.8 % *LOW* (07/10/16 6:47 AM) 22.5 % *LOW* (07/09/16 5:43 AM) Hct [42.0-54.0 %] 81.9 fL (07/11/16 6:10 AM) 82.5 fL (07/10/16 6:47 AM) 82.0 fL (07/09/16 5:43 AM) MCV [80.0-94.0 fL] 27.4 pg (07/11/16 6:10 AM) 27.4 pg (07/10/16 6:47 AM) 27.6 pg (07/09/16 5:43 AM) MCH [27.0-31.0 pg] 33.5 g/dL (07/11/16 6:10 AM) 33.2 g/dL (07/10/16 6:47 AM) 33.6 g/dL (07/09/16 5:43 AM) MCHC [32.0-36.0 g/dL] 17.3 % *HI* (07/11/16 6:10 AM) 17.5 % *HI* (07/10/16 6:47 AM) 17.9 % *HI* (07/09/16 5:43 AM) RDW [11.5-14.5 %] 191 K/CMM (07/11/16 6:10 AM) 203 K/CMM (07/10/16 6:47 AM) 211 K/CMM (07/09/16 5:43 AM) Platelet [133-450 K/CMM] 7.4 fL (07/11/16 6:10 AM) 7.5 fL (07/10/16 6:47 AM) 7.5 fL (07/09/16 5:43 AM) MPV [7.4-10.4 fL] 65.1 % (07/11/16 6:10 AM) 68.9 % (07/10/16 6:47 AM) 72.0 % (07/09/16 5:43 AM) Segs [45.0-75.0 %] 1.0 % (06/22/16 6:11 AM) 6.0 % (06/19/16 2:18 AM) 3.0 % (06/19/16 12:25 AM) Bands [0.0-11.0 %] 16.9 % *LOW* (07/11/16 6:10 AM) 14.3 % *LOW* (07/10/16 6:47 AM) 12.6 % *LOW* (07/09/16 5:43 AM) Lymphocytes [20.0-40.0 %] 0.0 % (06/22/16 6:11 AM) 0.0 % (06/19/16 2:18 AM) 0.0 % (06/19/16 12:25 AM) Atypical Lymphs [<=0.0 %] 11.0 % (07/11/16 6:10 AM) 10.7 % (07/10/16 6:47 AM) 10.5 % (07/09/16 5:43 AM) Monocytes [2.0-12.0 %] 6.6 % *HI* (07/11/16 6:10 AM) 5.6 % *HI* (07/10/16 6:47 AM) 4.4 % *HI* (07/09/16 5:43 AM) Eosinophils [0.0-4.0 %] 0.4 % (07/11/16 6:10 AM) 0.5 % (07/10/16 6:47 AM) 0.5 % (07/09/16 5:43 AM) Basophils [0.0-1.0 %] 5.0 % *HI* (06/22/16 6:11 AM) 2.0 % *HI* (06/19/16 2:18 AM) 1.0 % (06/19/16 12:25 AM) Metamyelocytes [0.0-1.0 %] 4.0 % *HI* (06/19/16 2:18 AM) Myelocytes [<=0.0 %] 1.0 % *HI* (06/19/16 2:18 AM) Promyelocytes [<=0.0 %] 3.5 K/CMM (07/11/16 6:10 AM) 4.2 K/CMM (07/10/16 6:47 AM) 4.7 K/CMM (07/09/16 5:43 AM) Segs-Bands # [1.5-8.1 K/CMM] 0.9 K/CMM *LOW* (07/11/16 6:10 AM) 0.9 K/CMM *LOW* (07/10/16 6:47 AM) 0.8 K/CMM *LOW* (07/09/16 5:43 AM) Lymphocytes # [1.0-5.5 K/CMM] 0.6 K/CMM (07/11/16 6:10 AM) 0.7 K/CMM (07/10/16 6:47 AM) 0.7 K/CMM (07/09/16 5:43 AM) Monocytes # [0.0-0.8 K/CMM] 0.4 K/CMM (07/11/16 6:10 AM) 0.3 K/CMM (07/10/16 6:47 AM) 0.3 K/CMM (07/09/16 5:43 AM) Eosinophils # [0.0-0.5 K/CMM] 0.1 K/CMM (06/23/16 5:21 AM) Basophils # [0.0-0.2 K/CMM] Normal (06/23/16 5:21 AM) Normal (06/21/16 5:49 AM) Normal (06/19/16 2:18 AM) RBC Morph 1+ *ABN* (06/22/16 6:11 AM) 1+ *ABN* (06/19/16 12:25 AM) Anisocyte [None Seen] Moderate *ABN* (06/22/16 6:11 AM) Moderate *ABN* (06/19/16 7:37 AM) Polychrom [None Seen] Moderate *ABN* (06/19/16 7:37 AM) Toxic Gran [None Seen] Peripheral smear shows normocytic normochromic anemia with mild anisocytosis and polychromasia. Neutrophilic leukocytosis with mild reactive features. Platelets are adequate, with large forms and rare microscopic clumps. Comment: The actual platelet count may be higher. For accurate platelet count, recommend recollection for CBC in a blue-top tube. CPT: 67031 *NA* (06/19/16 7:37 AM) PB Smear Path 1-3 per HPF (3/5/17 6:11 AM) Schistocyte [None Seen] Normal (06/23/16 5:21 AM) Normal (06/22/16 6:11 AM) Normal (06/21/16 5:49 AM) Plt Morph slight *Unknown* (06/19/16 12:25 AM) Large Plt 21.8 seconds *HI* (07/11/16 6:10 AM) 20.7 seconds *HI* (07/10/16 6:47 AM) 17.6 seconds *HI* (07/09/16 5:43 AM) PT [12.0-14.7 seconds] 1.86 *HI* (07/11/16 6:10 AM) 1.74 *HI* (07/10/16 6:47 AM) 1.42 *HI* (07/09/16 5:43 AM) INR [0.85-1.17] 13.8 seconds *LOW* (06/19/16 3:30 AM) Thrombin Time [15.0-21.2 seconds] 400 mg/dL (06/19/16 7:37 AM) 482 mg/dL (06/19/16 3:30 AM) Fibrinogen Lvl [230-510 mg/dL] 4.19 ug/mL FEU *NA* (06/19/16 7:37 AM) 3.89 ug/mL FEU *NA* (06/19/16 3:30 AM) D-Dimer 80.4 seconds *HI* (07/10/16 6:52 AM) 94.4 seconds *HI* (07/09/16 11:03 PM) 76.8 seconds *HI* (07/09/16 2:39 PM) PTT [22.9-35.8 seconds] 269 seconds *HI* (06/18/16 9:18 PM) ACT (TEG) Rapid [86-118 seconds] 2.0 minutes *NA* (06/18/16 9:18 PM) Split Point Rapid 2.3 minutes *HI* (06/18/16 9:18 PM) R-time Rapid [0.4-0.7 minutes] 0.8 minutes (06/18/16 9:18 PM) K-time Rapid [0.6-2.3 minutes] 80 degrees (06/18/16 9:18 PM) Angle Rapid [64-80 degrees] 81 mm *HI* (06/18/16 9:18 PM) Max Amplitude Rapid [52-71 mm] 21.2 K d/sc *HI* (06/18/16 9:18 PM) G-value Rapid [5.0-11.6 K d/sc] 3.2 % 1 (06/18/16 9:18 PM) Estimated % Lysis Rapid [0.0-7.5 %] 0.43 IU/mL *NA* (06/25/16 12:58 AM) 0.42 IU/mL *NA* (06/24/16 3:42 AM) 0.37 IU/mL *NA* (06/23/16 5:33 PM) Anti-Xa Unfractionated Heparin 1Result Comment: "Significant Findings called to Dr. Zambrano/ER at 06/18/2016 22:21 by [email or web address] Back OK." MOLECULAR DIAGNOSTIC 1 2 3 Most recent to oldest [Reference Range]: Flocked [facility] RN Swab (06/19/16 12:25 AM) Source Respiratory Panel PCR Negative (06/19/16 12:25 AM) Influenza A PCR [Negative] Negative (06/19/16 12:25 AM) Influenza B PCR [Negative] Negative (06/19/16 12:25 AM) RSV PCR [Negative] Negative (07/01/16 10:07 AM) C difficile DNA [Negative] BACTERIAL - SEROLOGY 1 2 3 Most recent to oldest [Reference Range]: Negative (06/19/16 12:25 AM) MRSA by PCR Immunizations Not Given Vaccine Date Status Refusal [...] No Assessment and Plan Extracted from: Title: Medicine Team B Discharge Author: Meg Lyle MD Date: 07/11/16 Summary MEDICINE TEAM B DISCHARGE SUMMARY Name: Calixto Mike Admission Date: 06/18/16 Admission Diagnosis: Syncope Discharge date: 07/11/16 Discharge diagnosis: Cardiac tamponade, Shock liver, acute renal failure requiring HD, esophagitis, C1 cervical fracture, Supratherapeutic INR >10, Age- Indeterminate Hemorrhage, DMII, Atrial fibrillation, chronic Attending Physician: Dr. Mills Procedures: Pericardiocentesis EGD Colonoscopy R groin permacath placement Consults: Neurosurgery Renal GI Hospital Course: Pt is a 65 y.o. CM w/ a PMH significant for Afib s/p PVI on anticoagulation with coumadin, HTN, HLD, DM who presented to the ED after a syncopal episode. Per , patient was complaining of upper respiratory symptoms for over a week since returning from their trip to [place]. In addition, three days prior to admission, he started having decreased PO intake, increased fatigue, malaise, and weakness. On the day of admission, while sitting in a chair in the dining room, he had an episode of lightheadedness and apparent fall (not witnessed by ), patient was found by on the floor lying on his side moments after hearing him collapse. He was responsive, but had no recollection of the event. He denied chest pain or SOB, but was extremely weak and unable to stand on his own. He presented to an OSH and was then transferred to [facility] ED. At baseline patient is independent with his ADLs. In the ED, HR was in AFib w/ RVR (HR 130s) and was started on diltiazem gtt, BP 110s, O2 sats 96% on RA. He was found to have a C1 fracture, high anion gap metabolic acidosis, elevated lactic acidosis and severe pericardial effusion concerning for cardiac tamponade. Also found to have supratherapeutic INR >10, given vit K and 2 units of FFP. Patient was then admitted to CCU for further management of tamponade. He was intubated and underwent bedside pericardiocentesis (drained 600cc bloody fluid) & chest tube placement which was removed on 06/22, required pressors for 1 day only, successfully extubated on 06/21. He had a repeat TTE which showed an improvement in his EF from 25% on initial presentation to 50-55%. Of note, he was noted to have a C1 cervical fracture confirmed by MRI. He was seen by neurosurgery who determined that there was no need for surgical intervention at the time. The pt also had an age- indeterminant brain hemorrhage that neurosurgery also determined did not require surgical intervention. He had a [place] J collar placed which he is to wear at all times until his follow-up visit. He also suffered from shock liver w/ LFTs reaching the close to 8,000. He has had worsening renal dysfunction since the beginning of June, uptrending Cr, worsening volume overload, increasing BUN. Had has had intermittent HD sessions for clearance and recieved a right femoral permacath on 07/01/2016. He was recieving Lasix due to volume overload but was discontinued 2-3 days prior to discharge in order to see if pt's renal function improved. By the time he was discharged, his b/l LE edema had improved from 3+ pitting edema to 1+ pitting edema. He was also noted to have 2+ pitting edema of his R arm concernng for a DVT. An ultrasound was not done since it would not pattern changer if it was discovered he had a DVT since pt is already on anticoagulation. On 06/30/16 he had an episode of melena. His hemoglobin remained stable. He underwent upper endoscopy which was WNL and colonoscopy on 07/05 which showed diverticulosis. He was given 1g of IV iron & asked to complete 4 wks of daily PPI + carafate. He was started on a heparin gtt for his afib & was bridged to Coumadin. He was discharged to [facility] for rehab. Physical exam: General: Alert and oriented, In no acute distress. Eye: Pupils are equal, round and reactive to light, EOMI, Normal conjunctiva. HENT: Normocephalic, moist oral mucosa. nonerythematous oropharynx. Neck: [place] J collar in placed, subclavian central line in placed (c/d/i), R groin permacath in place (c/d/i). Respiratory: Respirations are non-labored, CTAB. Cardiovascular: Normal rate, Regular rhythm, No Murmur, 1+ LE pitting edema to mid-jhaveri, 2+ b/l RUE pitting edema, LUE no edema. Gastrointestinal: Soft, Non-distended, No TTP, R groin permacath w/ slight blood around insertion. Small hematoma around catheter. Musculoskeletal No swelling. No deformity. Moving all extremities equally. Integumentary: Warm. Neurologic: Alert, Oriented, No focal deficits, Cranial Nerves II-XII are grossly intact. Cognition and Speech: Oriented, Speech clear and coherent. Discharge meds: AMIODarone (AMIODarone 200 mg oral tablet) 1 tab, BY MOUTH, 2 Times Daily, 30 day, Refills: 0 amLODIPine (amLODIPine 5 mg oral tablet) 1 tab, BY MOUTH, Daily, 30 day, Refills: 0 aspirin (aspirin 81 mg tablet, chewable) 1 tab, BY MOUTH, Daily, 30 day, Refills: 0 atorvastatin (atorvastatin 40 mg oral tablet) 1 tab, BY MOUTH, Bedtime, 30 day, Refills: 0 docusate-senna (docusate-senna 50 mg-8.6 mg oral tablet) 1 tab, BY MOUTH, Daily, 10 day, Refills: 0 insulin aspart (insulin aspart 100 units/mL subcutaneous solution) 3 unit, Subcutaneous, 3 Times Daily Before Meals, 30 day, Refills: 0 insulin glargine (insulin glargine 100 units/mL subcutaneous solution) 10 unit, Subcutaneous, Daily, 30 day, Refills: 0 metoprolol (metoprolol 100 mg oral tablet, extended release) 1 tab, BY MOUTH, Daily, 30 day, Refills: 0 multivitamin , BY MOUTH, Daily, Refills: 0 omega-3 polyunsaturated fatty acids (Fish Oil 1000 mg oral capsule) 1 cap, BY MOUTH, 3 Times Daily, Refills: 0 pantoprazole (pantoprazole 40 mg oral enteric coated tablet) 1 tab, BY MOUTH, Daily, 30 day, Refills: 0 polyethylene glycol 3350 (polyethylene glycol 3350 oral powder for reconstitution) 17 gm, BY MOUTH, Daily, 7 day, Refills: 0 prednisoLONE ophthalmic (prednisoLONE acetate ophthalmic 1% suspension) 1 drp, Right eye, Daily, 14 day, Refills: 0 sevelamer (sevelamer carbonate 0.8 g oral powder for reconstitution) 1 pkt, BY MOUTH, 3 Times Daily With Meals, 30 day, Refills: 0 warfarin (warfarin 2 mg oral tablet) 2 tab, BY MOUTH, Every Afternoon at 5PM, 30 day, Refills: 0 Discharge condition: Good Discharge diet: Mechanical soft chopped diet w/ thin liquids, meds w/ water Discharge activity: As tolerated Disposition: Re[place] [facility] [place] Follow-up: Provider #1 : Shivam Angel MD Follow-Up Call : Call for appointment Follow-up with MH Provider within : As Needed Reason : Follow Up On Treatment Non MH Provider #1 : Primary Care Physician Follow-Up Call : Call for appointment Follow-Up Within : As Needed Reason : Follow Up On Treatment Addendum I saw and evaluated the patient. Agree with the findings and plan as documented by the by resident Gene. Sally Discharged to inpatient rehab after complicated hospital course as detailed. on Requires close monitoring of creatinine, electrolytes and volume status to determine need 07/11/2016 for HD. 19:13 Sally Mills MD Internal Medicine Extracted from: Title: Nephrology Progress Note Author: Norm Mayo MD Date: 07/11/16 NEPHROLOGY DAILY PROGRESS NOTE SUBJECTIVE: No acute events overnight. Potassium being replaced this morning. UOP 600cc documented in the past 24 hrs. Cr. 4.54 but rate of rise decreased. No complaints or concerns. Patient being transferred to [facility] for further care. OBJECTIVE: Vitals and Temp: VitalsTmp(F)BuyplEIKXFeU9RNK5 07/11 11:2898.733399/657925--- 07/11 07:4798.783285/112466--- 07/11 03:4098.412386/268898--- 07/10 23:1598.579063/623602--- 07/10 20:3898.764544/088601--- 24 Hr Tmax: 98.8F (37.11c) at 07/11 11:28Vital Signs are the last 5 in the past 48 hours. I&ORecordInOutBal 06/2423hr Tot [id number] 06/2323hr Tot 316 600 -284 General: AAOx3, in bed, NAD Head: in [place]-J collar Eyes: PERRL, EOMI Chest: coarse diminished breathsounds throughout Cardiac: RRR, normal S1 and S2, no m/r/g Abd: normoactive BS in all quadrants, NDNT Extremities: no rash, moderate LE edema Psychiatric: cooperative, appropriate Labs: 24hr Labs 07/11 1111 Glucose YUH202 H 07/11 0757 Glucose JVU846 H 07/11 0610 Ca Ion WB1.06 Ca Norm WB1.09 Magnesium Lvl1.6 L Glucose Lvl88 BUN40 H Creatinine Lvl4.54 H Sodium Vvw721 Potassium Lvl3.4 L Chloride Bkb432 CO228 AGAP13.4 Calcium Lvl8.1 L Phosphorus4.0 Albumin Lvl1.9 L eGFR13 WBC5.4 RBC2.64 L Hgb7.3 L Hct21.6 L MCV81.9 MCH27.4 MCHC33.5 RDW17.3 H Qstmopai758 MPV7.4 Segs65.1 Tcktbaqxi88.0 Bovavngcjeg48.9 L Eosinophils6.6 H Basophils0.4 Segs-Bands #3.5 Lymphocytes #0.9 L Monocytes #0.6 Eosinophils #0.4 PT21.8 H INR1.86 H 07/10 2129 Glucose EUZ411 H 07/10 1629 Glucose DVI185 H ASSESSMENT AND PLAN: 65M w/ hx of Afib on coumadin who was brought to the ED s/p syncope. Patient was found to have a C1 vertebral fracture and pericardial effusion in setting of supratherapeutic INR >10. Pt is s/p pericardiocentesis on arrival to the ED due to tamponade. Patient was also found to have ROBERT and was started on iHD. We have been re-evaluating on daily basis for TREE FELLER OPERATOR needs. # Oliguric ROBERT - electrolytes stable, no acidosis, Cr 4.54 today up from 4.48 yesterday and 4.01 prior but rate or rise lower - will asses daily for TREE FELLER OPERATOR; HD last on 07/08 over 4hrs with 800/400, CA 2.5, K 4, Na 140, Bicarb 30, UF 0-1L; no need for HD today - renal function improved and with good UOP - unclear how much is HD, lasix, vs. recovery at this point; continue off diuretics and monitor - avoid nephrotic agents; renally dose medications # Hyperphosphatemia - monitor # Hypervolemia - diuretics off since 07/08 and making good UOP - strict I/O's Thank you for the consult. Please page us with any questions. Please have patient follow-up with autocad draftsman at [facility] to monitor daily labs and UOP for any need for TREE FELLER OPERATOR. Patient discussed with team and attending physician Dr. Delgado. Norm Mayo, Internal Medicine-Pediatrics, PGY-4 MSO [phone] Addendum ATTENDING NOTE by I have reviewed the laboratory data, discussed the pertinent case findings with the Danny resident/fellow, and agree with the assessment and plan as documented below. Karol MD Date of Service on 07/11/2016 07/12/2016 15:34 Extracted from: Title: IR Consult Author: Sowmya Pratt MD Date: 07/01/16 INTERVENTIONAL RADIOLOGY CONSULTATION Reason for Consultation: ROBERT Referring Physician: [facility] team History of Presenting Illness: 65 yr old M with atrial fibrillation on Coumadin, brought to emergency room after he collapsed. He had C1 vertebral fracture, as well as pericardial effusion in the setting of supratherapeutic INR. Ir consulted for recent ROBERT and tunneled catheter placement Past Medical History: HTN (hypertension) FH: hyperlipidemia Diabetes Past Surgical History: Laser eye surgery Social Hx: Alcohol Details: Current, Type Liquor. Previous treatment: None. Alcohol use interferes with work or home: No. Drinks more than intended: No. Others hurt by drinking: No. Ready to change: No. Household alcohol concerns: No. Tobacco Details: Use: Never smoker. Ready to change: No. Household tobacco concerns: No. Tobacco smoke exposure: None. Did the Patient Smoke Cigarettes Anytime During the Last 365 Days? No. Cessation Counseling Provided? No. Family History: No qualifying data available Allergies Reviewed: Allergies: penicillins Current Medications: Medications (36) Active Scheduled Meds (12): 06/27/16 AMIODarone 200 mg PO BID 06/27/16 (Suspended) QUEtiapine (SEROquel) 25 mg PO Bedtime 06/28/16 amLODIPine 5 mg PO Daily 06/28/16 aspirin (aspirin 81 mg tablet, chewable) 81 mg PO Daily 06/25/16 atorvastatin 40 mg PO Bedtime 06/28/16 furosemide (Lasix) 40 mg IV TID 06/28/16 insulin isophane-insulin regular (NovoLIN 70/30) 14 unit SUB-Q Q8H 06/30/16 metoprolol (metoprolol extended release) 37.5 mg PO BID 06/26/16 metroNIDAZOLE (Flagyl) 500 mg NG ABXQ8H 06/19/16 pantoprazole 40 mg IVP Daily 06/21/16 prednisoLONE ophthalmic (prednisoLONE acetate ophthalmic) 1 drp RIGHT EYE Daily 07/01/16 vancomycin 125 mg PO ABXQ6H Unscheduled Meds: None PRN Meds (20): 06/24/16 Dextrose 50% in Water IV (Dextrose 50% Syringe) 12.5 gm IVP PRN 06/24/16 Dextrose 50% in Water IV (Dextrose 50% Syringe) 25 gm IVP PRN 06/24/16 Insulin regular 1 unit SUB-Q Sliding Scale 06/24/16 Insulin regular 2 unit SUB-Q Sliding Scale 06/24/16 Insulin regular 3 unit SUB-Q Sliding Scale 06/24/16 Insulin regular 4 unit SUB-Q Sliding Scale 06/24/16 Insulin regular 5 unit SUB-Q Sliding Scale 06/28/16 acetaminophen 650 mg PO Q6H 06/22/16 docusate 100 mg PO BID 07/01/16 flumazenil (ANES flumazenil) 0.2 mg IVP PRN 06/24/16 glucagon 1 mg IM PRN 07/01/16 hydrALAZINE (ANES hydrALAZINE) 10 mg IVP Q20Min 07/01/16 labetalol (ANES labetalol) 10 mg IVP Q5Min 06/25/16 melatonin 3 mg PO Bedtime 07/01/16 morphine Sulfate (ANES morphine Sulfate) 2 mg IVP Q5Min 07/01/16 naloxone (ANES naloxone) 0.4 mg IVP Q2MIN 06/22/16 ondansetron (Zofran) 4 mg IVP Q8H 06/23/16 polyethylene glycol 3350 (MiraLax) 17 gm PO BID 06/22/16 senna 8.6 mg PO BID 06/18/16 sodium chloride (Saline Flush 0.9%) 10 mL IVP PRN One Time Meds (2): 07/01/16 (Completed) insulin isophane-insulin regular (NovoLIN 70/30) 7 unit SUB- Q ONCE 07/01/16 (Completed) metoprolol (metoprolol tartrate) 25 mg PO ONCE Continuous Infusions (2): 06/19/16 sodium chloride 0.9% INJ 150 mL 150 mL To prime line and flush remaining blood products. 07/01/16 sodium chloride 0.9% INJ 250 mL 250 mL Ivory Carver for use with blood product administration. Labs: 24hr Labs 07/01 1252 Glucose QRI517 H 07/01 0930 Glucose GZS610 H 07/01 0854 FFP productProduct available 07/01 0511 Ca Ion WB1.06 Ca Norm WB1.08 Glucose Cvm916 H BUN49 H Creatinine Lvl3.76 H Sodium Bsc035 Potassium Lvl3.7 Chloride Osl767 CO229 AGAP12.7 Calcium Lvl8.1 L eGFR16 Magnesium Lvl2.3 Phosphorus4.1 WBC21.6 H RBC2.96 L Hgb8.3 L Hct25.0 L MCV84.6 MCH27.9 MCHC33.0 RDW17.8 H Mawvvdvz028 MPV8.3 Segs87.6 H Monocytes8.8 Lymphocytes3.3 L Eosinophils0.2 Basophils0.1 Segs-Bands #18.9 H Lymphocytes #0.7 L Monocytes #1.9 H PT24.6 H INR2.18 H PTT58.8 H 07/01 0013 Glucose FII072 H 06/30 1821 Occult Bld StlPositive 06/30 1737 Glucose SXJ228 H 06/30 1400 ABO/RhB POS Antibody ScrnNegative 06/30 1231 Procalcitonin Lvl0.30 H INR: 2.18 High (07/01/16 06:04:13) No qualifying data available. VitalsTmp(F)Tmp(C)FcjbeCVLTWGbdjtZMLvF3JDV1RGUN8 07/01 05:5098.637.00oral 07/01 05:00 108/063099763--------- 07/01 04:0096.635.89dvpi842/09540548333------ 07/01 03:30 98/905659828--------- 07/01 03:00 95/305241620--------- 24 Hr Tmax: 98.9F (37.17c) at 06/30 18:16Vital Signs are the last 5 in the past 48 hours. 24 Hr Tmin: 96.6F (35.89c) at 07/01 04:00Weights are the last 5 in 60 days, plus initial. DateWt(kg)Wt(lb)Ht(cm)Ht(in)MethodBMIBSA 07/01 92.23 202.90Measured 06/30 93.82 206.40Measured 06/26 95.00 209.00Measured 06/18 (initial) 87.27 192.00Estimated 26.12.11 25186.88 72.00Stated 24 Hr Point of Care Glucoses 07/01 1252Glucose LGS130 H 07/01 0930Glucose NXM480 H 07/01 0013Glucose LIX754 H 06/30 1737Glucose BLY442 H Most Recent Scores: 07/01/16Pain Intensity NRS (0-10)0 07/01/16Glasgow Coma Score15 06/30/16Braden Score14 06/30/16Johns Ahn Fall Score8 06/21/16Ramsey Sedation Score2 Lines, Tubes, and Drains: 06/25/2016 08:00 Central Lines: Subclavian, right Non-tunneled (most common) Triple 06/20/2016 18:15 Central Lines: Femoral, right Dialysis non-tunneled 06/19/2016 09:00 Gastric Tubes: Nasogastric Nostril, left 16 Turkmen 06/19/2016 09:00 (no surgical procedures documented) Impression: istory of Presenting Illness: 65 yr old M with atrial fibrillation on Coumadin, brought to emergency room after he collapsed. He had C1 vertebral fracture, as well as pericardial effusion in the setting of supratherapeutic INR. Ir consulted for recent ROBERT and tunneled catheter placement Plan: - At this time, we will postpone the procedure due to high INR. Recommend optimization of INR prior to intervention for an INR goal of <2. FFP may be administered if clinically indicated. - Plan d/w [facility] team. THANK YOU FOR CONSULTING INTERVENTIONAL RADIOLOGY, IF YOU HAVE ANY QUESTIONS PLEASE CONTACT [phone] Sowmya Pratt MD PGY3 Department of Diagnostic and Interventional Radiology Extracted from: Title: CCU Admission H&P Author: Kirt Thomas Date: 06/19/16 Patient: CALIXTO MIKE Age: 65 years Sex: Male : 1950 Associated Diagnoses: None Author: Kirt Thomas MD Basic Information Admit information: 06/18/2016 . Source of history: Family member, Not self. Present at bedside: Family member. Referral source: Emergency department. History limitation: Clinical condition. Chief Complaint 06/18/2016 20:47 Transfer from [facility] for c1 frx s/p fall w DKA sepsis afib w rvr on cardizem drip - HTC corneal transplant DM HTN HLD History of Present Illness Mr. Mike is a 65 yo male with PMH of Afib s/p PVI on anticoagulation with coumadin, HTN, HLD, DM who presents to the ED after syncopal episode. Per , patient has been complaining of upper respiratory symptoms for over a week since returning from their trip to [place]. Over the past 3 days however, has started having decreased PO intake, increasing fatigue, malaise and weakness. Today while sitting in a chair in the dining room had an episode of lightheadedness and apparent fall (not witnessed by ), patient was found by on the floor lying on his side moments after hearing him collapse. Patient at the time was responsive however had no recollection of the event. Denied chest pain, shortness of breath but was extremely weak and unable to stand on his own. Presented to an OSH and was then transferred to [facility] ED. At baseline patient is independent with his ADLs, however states patient "gets tired easily" and has had some degree of exertional dyspnea. In the ED, HR in the 130s in AFib started on diltiazem gtt, BP 110s, O2 sats 96% on RA. Found to have C1 fracture, high anion gap metabolic acidosis, elevated lactic acidosis and severe pericardial effusion concerning for cardiac tamponade. Also found to have supratherapeutic INR >10, given vit K and 2 units of reversal agent. Patient admitted to CCU for further management of tamponade. Review of Systems Constitutional: Weakness, Fatigue, Decreased activity, No fever, No chills. Eye: No icterus, No discharge, No blurring. Respiratory: Shortness of breath, Cough, Sputum production, No hemoptysis. Cardiovascular: Palpitations, No chest pain, No bradycardia, No tachycardia, No peripheral edema. Gastrointestinal: No nausea, No vomiting, No diarrhea. Genitourinary: No dysuria, No hematuria. Hematology/Lymphatics: No bruising tendency. Endocrine: No excessive thirst. Immunologic: Not immunocompromised. Musculoskeletal: No back pain, No neck pain. Integumentary: No rash, No pruritus, No abrasions. Neurologic: Alert and oriented X4, No abnormal balance, No confusion. Psychiatric: No anxiety, No depression. Health Status Allergies: Allergic Reactions (All) Severity Not Documented Penicillins- No reactions were documented., Allergies (1) ActiveReaction penicillinsNone Documented Current medications: (Selected) Inpatient Medications Ordered D5W 1/2NS 1,000 mL: 250 ml/hr, IV, Stop: 07/18/16 22:10:00 CDT Dextrose 5% with 0.45% NaCl IV 1000 mL: 250 ml/hr, IV, Stop: 07/18/16 23:32:00 CDT Dextrose 50% Syringe: 12.5 gm, 25 mL, IVP, PRN, PRN: Blood Glucose Results Dextrose 50% Syringe: 25 gm, 50 mL, IVP, PRN, PRN: Blood Glucose Results Dextrose 50% Syringe: 25 mL, IVP, PRN, PRN: Blood Glucose Results Dextrose 50% Syringe: 50 mL, IVP, PRN, PRN: Blood Glucose Results Insulin (regular) Titrate IV additive 100 unit + Sodium Chloride 0.9% IV 99 mL: Titrate, IV, Stop: 07/19/16 0:32:00 CDT Insulin (regular) Titrate IV additive 100 unit + sodium chloride 0.9% INJ 99 mL: Titrate, IV, Stop: 07/18/16 22:10:00 CDT Saline Flush 0.9%: 10 mL, IVP, PRN, PRN: Line Flush Sodium Chloride 0.9% (Bolus) IV: 1,000 mL, 1000 ml/hr, IV, ONCE Sodium Chloride 0.9% IV 1000 mL: 250 ml/hr, IV, Stop: 07/18/16 23:32:00 CDT diltiazem 25 mg/5 ml VL 125 mg + sodium chloride 0.9% INJ 100 mL: Titrate, IV, Stop: 07/18/16 22:10:00 CDT diltiazem 25 mg/5 ml VL 125 mg + sodium chloride 0.9% INJ 100 mL: Titrate, IV, Stop: 07/18/16 22:11:00 CDT glucagon: 1 mg, IM, PRN, PRN: Blood Glucose Results glucagon: 1 mg, IM, PRN, PRN: Blood Glucose Results magnesium sulfate: 1 gm, 100 mL, 100 ml/hr, IVPB, PRN, PRN: Abnormal Lab Result magnesium sulfate: 1 gm, IVPB, PRN, PRN: Abnormal Lab Result ondansetron: 4 mg, IVP, Q6H, PRN: Nausea & Vomiting potassium chloride: 10 mEq, 50 mL, 50 ml/hr, IVPB, PRN, PRN: Abnormal Lab Result potassium chloride: 10 mEq, IVPB, PRN, PRN: Abnormal Lab Result potassium chloride: 20 mEq, 100 mL, 50 ml/hr, IVPB, PRN, PRN: Abnormal Lab Result potassium chloride: 20 mEq, IVPB, PRN, PRN: Abnormal Lab Result potassium phosphate + sodium chloride 0.9% INJ 250 mL: 15 mmol, 5 mL, 63.75 ml/hr, IVPB, PRN, PRN: Abnormal Lab Result potassium phosphate + sodium chloride 0.9% INJ 250 mL: 30 mmol, 10 mL, 65 ml/hr, IVPB, PRN, PRN: Abnormal Lab Result potassium phosphate: 15 mmol, IVPB, PRN, PRN: Abnormal Lab Result potassium phosphate: 30 mmol, IVPB, PRN, PRN: Abnormal Lab Result Documented Medications Documented AMIODarone 200 mg oral tablet: 200 mg, 1 tab, PO, Daily Cinnamon 500 mg oral capsule: 1,000 mg, 2 cap, PO, BID, 100 cap Fish Oil 1000 mg oral capsule: 1,000 mg, 1 cap, PO, TID Glucosamine Chondroitin MSM Complex: PO, TID Multaq 400 mg oral tablet: 400 mg, 1 tab, PO, BID, 60 tab Prednisol 1% ophthalmic solution: 1 drp, BOTH EYES, Q4H, 5 ml Vitamin C 500 mg oral capsule: 500 mg, 1 cap, PO, Daily, 30 cap Vitamin D3 400 intl units oral capsule: 400 IntlUnit, 1 cap, PO, Daily Welchol 625 mg oral tablet: 1,875 mg, 3 tab, PO, BID, 180 tab digoxin 125 mcg (0.125 mg) oral tablet: 62.5 microgram, 0.5 tab, PO, Daily echinacea oral tablet: 400, PO, Daily garlic: 1000, PO, Daily loratadine 10 mg oral capsule: 10 mg, 1 cap, PO, Daily, 10 cap lovastatin 20 mg oral tablet: 20 mg, 1 tab, PO, Bedtime, 90 tab metFORMIN 500 mg oral tablet: 500 mg, 1 tab, PO, BID, 180 tab metoprolol tartrate 50 mg oral tablet: 50 mg, 1 tab, PO, BID, 180 tab multivitamin: PO, Daily warfarin 5 mg oral tablet: 5 mg, 1 tab, PO, Daily, 90 tab, Medications (26) Active Scheduled: (1) sodium chloride 0.9% 1000 ml INJ 1,000 mL, IV, ONCE Continuous: (7) D5W 1/2NS 1,000 mL 1,000 mL, IV, 250 ml/hr Dextrose 5% with 0.45% NaCl IV 1000 mL 1,000 mL, IV, 250 ml/hr diltiazem 25 mg/5 ml VL 125 mg + sodium chloride 0.9% INJ 100 mL 125 mg 25 mL, IV diltiazem 25 mg/5 ml VL 125 mg + sodium chloride 0.9% INJ 100 mL 125 mg 25 mL, IV insulin reg human rec 100 unit/ml INJ 1ml 100 unit + sodium chloride 0.9% INJ 99 mL 99 mL, IV Insulin regular 100 unit + Sodium Chloride 0.9% IV 99 mL 99 mL, IV Sodium Chloride 0.9% IV 1000 mL 1,000 mL, IV, 250 ml/hr PRN: (18) Dextrose 50% 50 ml INJ syringe 12.5 gm 25 mL, IVP, PRN Dextrose 50% 50 ml INJ syringe 25 gm 50 mL, IVP, PRN Dextrose 50% in Water IV 25 mL, IVP, PRN Dextrose 50% in Water IV 50 mL, IVP, PRN glucagon 1 mg, IM, PRN glucagon recombinant 1 mg PDR 1 mg, IM, PRN magnesium sulfate 1 gm, IVPB, PRN magnesium sulfate 1gm/100ml D5W premix 1 gm 100 mL, IVPB, PRN ondansetron 4 mg, IVP, Q6H potassium chloride 20 mEq, IVPB, PRN potassium chloride 10 mEq, IVPB, PRN potassium chloride 10 mEq/50 ml PB 10 mEq 50 mL, IVPB, PRN potassium chloride 20 mEq/100 ml PB 20 mEq 100 mL, IVPB, PRN potassium phosphate 15 mmol, IVPB, PRN potassium phosphate 30 mmol, IVPB, PRN potassium phosphate 3mmol/1ml 15ml VL + sodium chloride 0.9% INJ 250 mL 15 mmol 5 mL, IVPB, PRN potassium phosphate 3mmol/1ml 15ml VL + sodium chloride 0.9% INJ 250 mL 30 mmol 10 mL, IVPB, PRN sodium chloride 0.9% 10 ml flush syr BD 10 mL, IVP, PRN Problem list: No qualifying data available Histories Past Medical History: No active or resolved past medical history items have been selected or recorded. Family History: No family history items have been selected or recorded. Procedure history: No active procedure history items have been selected or recorded. Social History Social & Psychosocial Habits No Data Available . Physical Examination VS/Measurements Measurements from flowsheet : Measurements 06/18/2016 20:52 Heparin Dosing Weight (kg) 87.27 06/18/2016 20:47 Height 182.88 cm Height Collection Method Stated Weight 87.273 kg Dosing Weight Difference Percent 1.053 % Dosing Weight Collection Method Estimated Body Surface Area 2.1056 m2 Body Mass Index 26.09 m2 , Vital Signs (last 24 hrs) Last Charted Temp Oral97.5 DegF (JUN 18) Heart Rate ApicalH 108bpm (JUN 18:) Resp Rate H 24BRMIN (JUN 18:) OVU734 mmHg (JUN 18:) DBP60 mmHg (JUN 18:) EpF561 % (JUN 18:) Frmozx46.273 kg (JUN 18) Zqkulj186.88 cm (JUN 18) BMI26.09 (JUN 18) Review / Management Results review: Labs (Last four charted values) WBC H 19.2(JUN 18) Hgb L 10.4(JUN 18) Hct L 32.2(JUN 18) Plt H 720(JUN 18) Na L 132(JUN 18) K H 5.5(JUN 18) CO2 L 12(JUN 18) Cl 95(JUN 18) Cr H 2.00(JUN 18) BUN H 25(JUN 18) Glucose Random H 321(JUN 18) Ca 8.5(JUN 18) PT H >100.0(JUN 18) INR C >10(JUN 18) PTT H 68.2(JUN 18) Troponin <0.02(JUN 18). Impression and Plan Mr. Mike is a 65 yo male with PMH of Afib s/p PVI on anticoagulation with coumadin, HTN, HLD, DM who presents to the ED after syncopal episode. Found to have DKA, supratherapeutic INR and cardiac tamponade. Admitted to CCU for management of cardiac tamponade. Neuro: # Syncopal episode - CT head outside hospital negative - AOx4, no focal deficits on exam. With [place] J collar due to C1 fracture. # C1 cervical fracture - Neurological exam with no focal deficit. - CT spine reveals displaced segmental fracture of anterior arch of atlas, avulsion fracture of left occipital condile. - NSGY consulted recommend MRI cervical spine (pending) no acute intervention and [place] J collar at all times. CV # Cardiac tamponade s/p pericardiocentesis - pericardiocentesis at bedside with removal of +/- 600 cc bloody fluid. - Will send for culture, cytology, AFB. - Pericardial effusion with supratherapeutic INR. Bedside echo concerning for cardiac tamponade. - Unable to perform pericardiocentesis due to supratherapeutic INR, will reassess after coumadin reversal. # AFib - s/p PVI (2013), however new ablation planned for the upcoming weeks due to progressively worsening palpitations. - Started on amiodarone gtt, HR 100-120s. Previously on diltiazem gtt. Respiratory # URI - Intubated due to worsening respiratory patter and hypoxemia - Reportedly had been having progressive weakening and decreased PO intake 2/2 URI - CXR enlarged mediastinum + cardiach sillhoutte. - Started on empiric antibiotic therapy with vancomycin + cefepime. - Influenza PCR pending, empiric tamiflu started. GI - NPO for now. - Started on IV PPI Renal # ROBERT on CKD - Cr on admission 2.00, likely 2/2 prerenal + dehydration 2/2 DKA # HAGMA - pH 7.29 HCO 12, AG 27 - Multifactorial: 2/2 sepsis + DKA + shock # Hyperkalemia - K 5.5 on admission. Likely extracellular potassium shift due to acidemia. Will monitor closely once insulin started. Endocrine # DKA - Glucose 312 on admission. AG 30, HCO 12. Will start on DKA protocol - Will monitor K and q1h glucose checks - A1C 7.0 Heme # Supratherapeutic INR - No acute signs of bleed evident - INR > 10 on admission. On home warfarin 5 mg daily. Per INR checks 1 every month. - Given 10 mg of Vit K + prothrombin complex. Will recheck INR for possible pericardiocentesis. # Anemia - Hb on admission 10.4, will monitor for signs of bleed. CBC q6h. - Patient typed and screened will transfuse if Hb <7. ID # Sepsis - LA 12.9 on admission, IVF 1 L in ED. - Leukocytosis 19.500 on admission. - Prior history of uppper respiratory symptoms. - BCx drawn x 2, UCx and respiratory culture sent. Viral respiratory panel sent. - Empriic dose of vancomycin + cefepime started in ED (Day 1). DVT prophylaxis: hold as INR supratherapeutic Diet: NPO per DKA Dispo: correct DKA, pericardiocentesis. Kirt Page MD PGY-1 Internal Medicine Addendum ATTENDING ADDENDUM by Kelsie, This patient remains critically ill and I spent at least 30min coordinating his care. Amor MARTE I have seen and examined the patient. Furthermore, I have reviewed the on resident's/fellow's note dated today, and I agree with the assessment and plan. I have 06/19/2016 personally reviewed the laboratory results, radiology results, and tracings. 23:28 Dr. Amor Iglesias MD #[id number]
[2018-11-16] MEDS ORDERED: DIGOXIN125 MCG PO (13:43)
[2018-11-16] MEDS ORDERED: ATORVASTATIN CA20 MG PO (13:43)
[2018-11-16] MEDS ORDERED: IRBESARTAN150 MG PO (13:44)
[2018-11-16] MEDS ORDERED: LORATADINE10 MG PO (13:44)
[2018-11-16] MEDS ORDERED: METFORMIN HCL500 MG PO (13:44)
[2018-11-16] MEDS ORDERED: METOPROLOL SUCC50 MG PO (13:45)
[2018-11-16] MEDS ORDERED: MULTI-VITAMIN1 EACH (13:45)
[2018-11-16] MEDS ORDERED: ASPIRIN 81 MG CHEW TAB PO ONE (13:45)
[2018-11-16] MEDS ORDERED: COUMADIN5 MG PO (13:46)
[2018-11-16] MEDS ORDERED: PREDNISOLON5 MG/5 ML OD (13:47)
[2018-11-16] MEDS ORDERED: VITAMIN C500 M1 PEG (13:48)
[2018-11-16] MEDS ORDERED: CINNAMON500 MG PO ×2 (13:49→13:53)
[2018-11-16] MEDS ORDERED: VITAMIN D32000 UNIT PO (13:53)
[2018-11-16 13:54] LABS: BASOPHILS % 0.2 % (0.0-1.0); EOSINOPHILS # (AUTO) 0.1 (0.0-0.4); EOSINOPHILS % 0.6 % (0.0-6.0); HEMATOCRIT 42.4 % (38.2-49.6); HEMOGLOBIN 14.2 g/dL (14.0-18.0); LYMPHOCYTES % 20.9 % (18.0-39.1); MEAN CORPUSCULAR HEMOGLOBIN 27.8 pg (28-32); MEAN CORPUSCULAR HGB CONC 33.5 g/dL (31-35); MEAN CORPUSCULAR VOLUME 83.1 fL (81-99); MONOCYTES # (AUTO) 0.7 (0.2-0.8); MONOCYTES % 7.2 % (4.4-11.3); NEUTROPHILS # (AUTO) 6.6 (2.1-6.9); NEUTROPHILS % 70.5 % (38.7-80.0); PLATELET COUNT 221 x10e3/uL (140-360)
[2018-11-16] MEDS ORDERED: FISH OIL 1,0001 EAC2 PO (13:54)
[2018-11-16] MEDS ORDERED: ECHINACEA400 MG PO (13:54)
[2018-11-16] MEDS ORDERED: GARLIC1000 MG PO (13:55)
[2018-11-16] MEDS ORDERED: GLUCOSAMINE &1 EACH PO (13:55)
[2018-11-16] MEDS ORDERED: TURMERIC1 GM PO (13:56)
[2018-11-16 14:09] LABS: INR 1.75; PROTHROMBIN TIME 21.1 seconds (11.9-14.5)
[2018-11-16 14:10] LABS: PARTIAL THROMBOPLASTIN TIME 60.8 seconds (23.8-35.5)
[2018-11-16 14:11] LABS: BILIRUBIN,URINE NEGATIVE (NEGATIVE); CLARITY,URINE SL CLOUDY (CLEAR); COLOR,URINE YELLOW (YELLOW); KETONES,URINE TRACE (NEGATIVE); LEUKOCYTE ESTERASE ,URINE NEGATIVE (NEGATIVE); NITRITE,URINE NEGATIVE (NEGATIVE); PROTEIN,URINE DIPSTICK TRACE (NEGATIVE); URINE UROBILINOGEN 0.2 mg/dL (0.2 - 1)
[2018-11-16 14:21] LABS: ALANINE AMINOTRANSFERASE 20 IU/L (0-55); ALBUMIN 4.2 g/dL (3.5-5.0); ALBUMIN/GLOBULIN RATIO 1.3 (0.8-2.0); ALKALINE PHOSPHATASE 63 IU/L (40-150); BLOOD UREA NITROGEN 16 mg/dL (7-26); BUN/CREATININE RATIO 14 (6-25); CALCIUM 10.1 mg/dL (8.4-10.2); CARBON DIOXIDE 19 mmol/L (22-29); CHLORIDE 104 mmol/L (98-107); CREATINE KINASE 39 IU/L (30-200); CREATININE, SERUM 1.18 mg/dL (0.72-1.25); EST GLOMERULAR FILTRATION RATE > 60 ML/MIN (60-); GLUCOSE 188 mg/dL (74-118); SODIUM 138 mmol/L (136-145)
[2018-11-16 14:22] LABS: AMORPHOUS SEDIMENT,URINE MODERATE (FEW); BACTERIA,URINE MODERATE /HPF; MUCUS,URINE MANY (RARE); WBC,URINE (MAN) 0-5 /HPF (0-5)
[2018-11-16] MEDS ORDERED: ENOXAPARIN INJ 80 MG/0.8 ML SYR SC STA (14:39)
[2018-11-16 14:42] LABS: THYROID STIMULATING HORMONE 1.298 uIU/mL (0.350-4.940)
[2018-11-16] MEDS ORDERED: WARFARIN SOD 5 MG TAB PO ONE (14:45)
[2018-11-16] MEDS ORDERED: ONDANSETRON HCL INJ 2MG/ML 2ML 2 MG/ML VIAL IV PRN (14:45)
[2018-11-16] MEDS ORDERED: DEXTROSE 50% SYRINGE 50 ML IV PRN (14:45)
[2018-11-16] MEDS ORDERED: MORPHINE SULFATE 2 MG/ML SYR 1ML IV PRN (14:45)
--- OUTSIDE RECORDS SUMMARY | 2018-11-16 14:56 | XMS REPORT | Continuity of Care Document ---
Author Author [employer] Address Unknown Phone Unavailable Care Team Providers Care Nursing Home Physician Name Role Phone Apprion Information Playground Sessions Unavailable Unavailable Problems Problem Status Onset Date Classification Date Reported Comments Source CERVICAL FRACTURE Active 07/19/2016 [facility] [place] C1 CERVICAL FRACTURE Active 07/07/2016 [facility] DKA Active 06/18/2016 [facility] CARDIAC TAMPONADE, DKA Active 06/18/2016 [facility] Atrial fibrillation Active Problem 07/21/2016 [facility] Diabetes Resolved Problem 07/21/2016 [facility] FH: hyperlipidemia Resolved Problem 07/21/2016 [facility] C1 cervical fracture Active Problem 07/21/2016 [facility] HTN (Confirmed) Resolved Problem 07/21/2016 [facility] Acute kidney injury Active Problem 07/21/2016 [facility] Generalized muscle weakness Active Problem 07/21/2016 [facility] CARDIAC TAMPONADE Active [facility] QUADRIPLEGIA, UNSPECIFIED Active [facility] Medications Medication Details Route Status Patient Instructions Ordering Provider Order Date Source Physical Therapy See Instructions, MISC, ONCALL, Evaluate and Treat 2-3 times per week for 4-6 weeks, # 1 ea, 0 Refill(s) Active 07/18/2016 [facility] Occupational Therapy See Instructions, MISC, ONCALL, Evaluate and Treat 2-3 times per week for2-4 weeks, # 1 unit, 0 Refill(s) Active 07/18/2016 [facility] Furosemide 20 MG Oral Tablet [Lasix] 40 mg, 1 tab, Route: PO, Drug form: TAB, Daily, Dosing Weight 87.364, kg, Start date: 07/18/16 9:00:00 CDT, Duration: 30 day, Stop date: 08/16/16 9:00:00 CDTNotes: (Same as: Lasix) May cause GI upset. Give with food or milk. Inactive 07/18/2016 [facility] metoprolol 100 mg oral tablet, extended release 100 mg=1 tab, PO, Daily, # 30 tab, 0 Refill(s), Pharmacy: [facility] [id number] Active 07/18/2016 [facility] atorvastatin 40 mg oral tablet 40 mg=1 tab, PO, Bedtime, # 30 tab, 0 Refill(s), Pharmacy: [facility] [id number] Active 07/18/2016 [facility] Aspirin 81 MG Chewable Tablet 81 mg=1 tab, PO, Daily, # 30 tab, 0 Refill(s), Pharmacy: [facility] [id number] Active 07/18/2016 [facility] Furosemide 40 MG Oral Tablet [Lasix] 40 mg=1 tab, PO, Daily, # 30 tab, 0 Refill(s), Pharmacy: [facility] [id number] Active 07/18/2016 [facility] epoetin carlos 10,000 units/mL preservative-free injectable solution 10,000 unit=1 mL, SUB-Q, Q, X 14 day, # 6 mL, 0 Refill(s), Pharmacy: [facility] [id number] Active 07/18/2016 [facility] warfarin 1 mg oral tablet 3 mg=3 tab, PO, Q5PM, # 90 tab, 0 Refill(s), Pharmacy: [facility] [id number] Active 07/18/2016 [facility] pantoprazole 40 mg oral enteric coated tablet 40 mg=1 tab, PO, BID, # 42 tab, 0 Refill(s), Pharmacy: [facility] [id number] Active 07/18/2016 [facility] AMIODarone 200 mg oral tablet 200 mg=1 tab, PO, BID, # 60 tab, 0 Refill(s), Pharmacy: [facility] [id number] Active 07/18/2016 [facility] Sucralfate 100 MG/ML Oral Suspension [Carafate] 1 gm=10 mL, PO, BID, # 420 mL, 0 Refill(s), Pharmacy: [facility] [id number] Active 07/18/2016 [facility] potassium chloride 20 mEq oral tablet, extended release 20 mEq=1 tab, PO, BID, # 60 tab, 0 Refill(s), Pharmacy: [place] [id number] Active 07/18/2016 [facility] Xylocaine-MPF 1% preservative-free injectable solution 10 mL, Route: INJ, Drug form: INJ, ONCE, Dosing Weight 87.364, kg, Start date: 07/17/16 12:46:00 CDT, Stop date: 07/17/16 12:46:00 CDTNotes: (Same as: Xylocaine) Inactive 07/17/2016 [facility] Warfarin 3 mg, 3 tab, Route: PO, [...] P Waste Black No Longer Active 07/16/2016 [facility] Epogen 10,000 unit, 1 mL, Route: SUB-Q, Drug form: INJ, Q-, Dosing Weight 87.364, kg, Start date: 07/15/16 17:00:00 CDT, Duration: 30 day, Stop date: 08/12/16 17:00:00 CDTNotes: (Same as: Procrit) epoe tin carlos 87202 unit/1 ml VL. For dialysis use only. (Procrit) WASTE: F/P - Red; E -Red MEDICATION WASTE Product Size: 86944 unit Product Wasted: ___ unit No Longer Active 07/15/2016 [facility] potassium chloride 40 mEq, 2 tab, Route: PO, Drug form: ERTAB, ONCE, Dosing Weight 87.364, kg, Start date: 07/15/16 11:39:00 CDT, Stop date: 07/15/16 11:39:00 CDT Inactive 07/15/2016 [facility] Everett 24 gm packet 1 pkt, Route: PO, Drug Form: PWDR, Dosing Weight 87.364, kg, BID-Before Meals, Start date: 07/14/16 16:30:00 CDT, Duration: 14 day, Stop date: 07/28/16 7:30:00 CDTNotes: (Same as: Everett Manzanita) No Longer Active 07/14/2016 [facility] Klor-Con 20 mEq, 1 tab, Route: PO, Drug form: ERTAB, BID, Dosing Weight 87.364, kg, Start date: 07/14/16 9:51:00 CDT, Duration: 30 day, Stop date: 08/13/16 9:00:00 CDTNotes: (Same as: K-Dur 20) "Do Not Crush" With food and full glass of water No Longer Active 07/14/2016 [facility] Magnesium Sulfate 2 gm, 50 mL, Route: IVPB, Drug form: INJ, Q2H, Dosing Weight 87.364, kg, Total dose=4 gm, Start date: 07/12/16 20:00:00 CDT, Duration: 2 doses or times, Stop date: 07/12/16 22:00:00 CDTNotes: WASTE: F/P - Sink; E - Municipal Trash Bin Inactive 07/13/2016 [facility] Epogen 10,000 unit, 1 mL, Route: IVP, Drug form: INJ, Q, Dosing Weight 87.364, kg, Priority: NOW, Start date: 07/12/16 11:45:00 CDT, Duration: 30 day, Stop date: 08/09/16 17:00:00 CDTNotes: (Same as: Procrit) epoetin carlos 14826 unit/1 ml VL. For dialysis use only. (Procrit) WASTE: F/P - Red; E -Red MEDICATION WASTE Product Size: 53445 unit Product Wasted: ___ unit No Longer Active 07/12/2016 [facility] Lasix 40 mg, 4 mL, Route: IVP, Drug form: INJ, Daily, Dosing Weight 87.364, kg, Priority: NOW, Start date: 07/12/16 11:44:00 CDT, Duration: 30 day, Stop date: 08/11/16 9:00:00 CDTNotes: (Same as: Lasix) MEDICATION WASTE Product Size: 40 mg Product Wasted: ___ mg No Longer Active 07/12/2016 [facility] aspirin 81 mg tablet, chewable 81 mg, 1 tab, Route: PO, Drug form: CHEWTAB, Daily, Dosing Weight 95, kg, Start date: 07/12/16 9:00:00 CDT, Duration: 30 day, Stop date: 08/10/16 9:00:00 CDTNotes: Take with food. No Longer Active 07/12/2016 [facility] Carafate 1 gm, Route: PO, Drug form: TAB, BID, Dosing Weight 87.364, kg, Start date: 07/12/16 9:00:00 CDT, Duration: 30 day, Stop date: 08/10/16 17:00:00 CDT No Longer Active 07/12/2016 [facility] Venofer 200 mg, 10 mL, Route: IVPB, Daily, Dosing Weight 87.364, kg, Start date: 07/12/16 9:00:00 CDT, Stop date: 07/16/16 6:00:00 CDTNotes: Each 5ml contains 100mg elemental iron. Mix with NS Non-Formulary (S radha as:Venofer) Administer IV only. MEDICATION WASTE Product Size: 100 mg Product Wasted: ___ mg No Longer Active 07/12/2016 [facility] prednisoLONE acetate ophthalmic 1 drp, Route: RIGHT EYE, Daily, Drug form: SUSP, Start date: 07/12/16 9:00:00 CDT, Duration: 30 day, Stop date: 08/10/16 9:00:00 CDTNotes: (Same as: Pred Forte) No Longer Active 07/12/2016 [facility] Sucralfate 100 MG/ML Oral Suspension [Carafate] 1 [...] (Same As: Carafate) No Longer Active 07/12/2016 [facility] Toprol-XL 100 mg oral tablet, extended release 100 mg, 1 tab, Route: PO, Drug form: ERTAB, Daily, Start date: 07/12/16 9:00:00 CDT, Duration: 30 day, Stop date: 08/10/16 9:00:00 CDTNotes: (Same as: Toprol XL) May split tab, but do not crush. No Longer Active 07/12/2016 [facility] amLODIPine 5 mg, 1 tab, Route: PO, Drug form: TAB, Daily, Dosing Weight 95, kg, Start date: 07/12/16 9:00:00 CDT, Duration: 30 day, Stop date: 08/10/16 9:00:00 CDTNotes: (Same as: Norvasc) Inactive 07/12/2016 [facility] Senokot S 1 tab, Route: PO, Drug Form: TAB, Dosing Weight 95, kg, Daily, Start date: 07/12/16 9:00:00 CDT, Duration: 30 day, Stop date: 08/10/16 9:00:00 CDTNotes: (Same as Senokot-S) Equiv. to Cris-Colace. No Longer Active 07/12/2016 [facility] Lipitor 40 mg, 1 tab, Route: PO, Drug form: TAB, Bedtime, Dosing Weight 87.273, kg, Start date: 07/11/16 21:00:00 CDT, Duration: 30 day, Stop date: 08/09/16 21:00:00 CDTNotes: (Same as: Lipitor) No Longer Active 07/12/2016 [facility] Protonix 40 mg, 1 tab, Route: PO, Drug form: ECTAB, BID, Dosing Weight 87.364, kg, Start date: 07/11/16 21:00:00 CDT, Duration: 30 day, Stop date: 08/10/16 17:00:00 CDTNotes: Tablet should not be chewed or crushed. (Same as: Protonix) No Longer Active 07/12/2016 [facility] Saline Flush 0.9% 10 ml, Route: IVP, Drug Form: INJ, Dosing Weight 95, kg, Q12H, Start date: 07/11/16 21:00:00 CDT, Duration: 30 day, Stop date: 08/10/16 9:00:00 CDTNotes: (Same as: BD Posiflush) No Longer Active 07/12/2016 [facility] Lasix 40 mg, 4 mL, Route: IVP, Drug form: INJ, ONCE, Dosing Weight 87.364, kg, Start date: 07/11/16 18:34:00 CDT, Stop date: 07/11/16 18:34:00 CDTNotes: (Same as: Lasix) MEDICATION WASTE Product Size: 40 mg Product Wasted: ___ mg Inactive 07/11/2016 [facility] Renvela 0.8 gm, 1 pkt, Route: PO, Drug form: PDR/REC, TID- Meals, Dosing Weight 95, kg, Start date: 07/11/16 17:00:00 CDT, Duration: 30 day, Stop date: 08/10/16 12:00:00 CDTNotes: Same as: Renvela No Longer Active 07/11/2016 [facility] Coumadin 4 mg, 2 tab, Route: PO, [...] P Waste Black No Longer Active 07/11/2016 [facility] Cordarone 200 mg, 1 tab, Route: PO, Drug form: TAB, BID, Dosing Weight 87.273, kg, Start date: 07/11/16 17:00:00 CDT, Duration: 30 day, Stop date: 08/10/16 9:00:00 CDTNotes: (Same as: Cordarone) No Longer Active 07/11/2016 [facility] Warfarin 4 mg, 2 tab, Route: PO, [...] E - P Waste Black Inactive 07/11/2016 [facility] Senokot 8.6 mg, 1 tab, Route: PO, Drug Form: TAB, Dosing Weight 87.273, kg, BID, PRN Constipation, Start date: 07/11/16 14:56:00 CDT, Duration: 30 day, Stop date: 08/10/16 14:55:00 CDTNotes: (Same as: Senokot) No Longer Active 07/11/2016 [facility] MiraLax 17 gm, 1 pkt, Route: PO, Drug form: PWDR, BID, Dosing Weight 87.273, kg, PRN Constipation, Start date: 07/11/16 14:53:00 CDT, Duration: 30 day, Stop date: 08/10/16 14:52:00 CDTNotes: Dissolve in 8 oz of water or juice. (Same as: Miralax) Inactive 07/11/2016 [facility] melatonin 3 mg, 1 tab, Route: PO, Drug form: TAB, Bedtime, Dosing Weight 87.273, kg, PRN Sleep, Start date: 07/11/16 14:53:00 CDT, Duration: 30 day, Stop date: 08/10/16 14:52:00 CDTNotes: (Same as: Melatonin) No Longer Active 07/11/2016 [facility] Insulin, Aspart, Human 1 unit, 0.01 mL, [...] days from Date No Longer Active 07/11/2016 [facility] Dextrose 50% Syringe 25 gm, 50 mL, Route: IVP, Drug Form: INJ, Dosing Weight 87.364, kg, PRN, PRN Blood Glucose Results, Start date: 07/11/16 14:51:00 CDT, Duration: 30 day, Stop date: 08/10/16 14:50:00 CDT No Longer Active 07/11/2016 [facility] Glucagon 1 mg, Route: IM, Drug form: PDR/INJ, PRN, Dosing Weight 87.364, kg, PRN Blood Glucose Results, Start date: 07/11/16 14:51:00 CDT, Duration: 30 day, Stop date: 08/10/16 14:50:00 CDT No Longer Active 07/11/2016 [facility] docusate 100 mg, 10 mL, Route: PO, Drug form: LIQ, BID, Dosing Weight 87.273, kg, PRN Constipation, Start date: 07/11/16 14:51:00 CDT, Duration: 30 day, Stop date: 08/10/16 14:50:00 CDTNotes: (Same as: Colace) No Longer Active 07/11/2016 [facility] hydrocortisone topical 1% cream 1 appl, Route: TOP, BID, Drug form: CRM, PRN Rash, Start date: 07/11/16 14:50:00 CDT, Duration: 30 day, Stop date: 08/10/16 14:49:00 CDT No Longer Active 07/11/2016 [facility] Tylenol 650 mg, 20.3 mL, Route: PO, Drug form: LIQ, Q6H, Dosing Weight 95, kg, PRN Pain Score 1-3, Start date: 07/11/16 14:48:00 CDT, Duration: 30 day, Stop date: 08/10/16 14:47:00 CDTNotes: Max acetaminophe e=5939gr/day (4 gm/day). (Same as: Tylenol) No Longer Active 07/11/2016 [facility] Saline Flush 0.9% 10 ml, Route: IVP, Drug Form: INJ, Dosing Weight 95, kg, PRN, PRN Line Flush, Start date: 07/11/16 14:36:00 CDT, Duration: 30 day, Stop date: 08/10/16 14:35:00 CDTNotes: (Same as: BD Posiflush) No Longer Active 07/11/2016 [facility] Trazodone 50 mg, 1 tab, Route: PO, Drug form: TAB, Bedtime, Dosing Weight 95, kg, PRN Insomnia, Start date: 07/11/16 14:36:00 CDT, Duration: 30 day, Stop date: 08/10/16 14:35:00 CDTNotes: (Same As: Desyrel) No Longer Active 07/11/2016 [facility] Docusate Sodium 100 MG Oral Capsule 100 mg, 1 cap, Route: PO, Drug form: CAP, BID, Dosing Weight 95, kg, PRN Constipation, Start date: 07/11/16 14:36:00 CDT, Duration: 30 day, Stop date: 08/10/16 14:35:00 CDTNotes: (Same as: Colace) (Do Not Crush) No Longer Active 07/11/2016 [facility] Miralax 17 gm, 1 pkt, Route: PO, Drug form: PWDR, BID, Dosing Weight 95, kg, PRN Constipation, Start date: 07/11/16 14:36:00 CDT, Duration: 30 day, Stop date: 08/10/16 14:35:00 CDTNotes: Dissolve in 8 oz of water or juice. (Same as: Miralax) No Longer Active 07/11/2016 [facility] Bisacodyl 10 mg, 1 supp, Route: CT, Drug form: SUPP, Daily, Dosing Weight 95, kg, PRN Constipation, Start date: 07/11/16 14:36:00 CDT, Duration: 30 day, Stop date: 08/10/16 14:35:00 CDTNotes: (Same As: Dulcolax, Bisco-Lax) No Longer Active 07/11/2016 [facility] Aspirin 81 MG Chewable Tablet 81 mg=1 tab, PO, Daily, # 30 tab, 0 Refill(s) Active 07/11/2016 [facility] amLODIPine 5 mg oral tablet 5 mg=1 tab, PO, Daily, # 30 tab, 0 Refill(s) Active 07/11/2016 [facility] AMIODarone 200 mg oral tablet 200 mg=1 tab, PO, BID, # 60 tab, 0 Refill(s) Active 07/11/2016 [facility] warfarin 2 mg oral tablet 4 mg=2 tab, PO, Q5PM, # 60 tab, 0 Refill(s) Active 07/11/2016 [facility] prednisolone acetate 10 MG/ML Ophthalmic Suspension 1 drp, RIGHT EYE, Daily, X 14 day, # 15 mL, 0 Refill(s) Active 07/11/2016 [facility] metoprolol 100 mg oral tablet, extended release 100 mg=1 tab, PO, Daily, # 30 tab, 0 Refill(s) Active 07/11/2016 [facility] pantoprazole 40 mg oral enteric coated tablet 40 mg=1 tab, PO, Daily, # 30 tab, 0 Refill(s) Active 07/11/2016 [facility] insulin aspart 100 units/mL subcutaneous solution 3 unit, SUB-Q, TID-Before Meals, # 15 mL, 0 Refill(s) Active 07/11/2016 [facility] sevelamer carbonate 26.7 MG/ML Oral Suspension 0.8 gm=1 pkt, PO, TID-Meals, # 90 pkt, 0 Refill(s) Active 07/11/2016 [facility] Insulin Glargine 100 UNT/ML Injectable Solution 10 unit, SUB-Q, Daily, # 10 mL, 0 Refill(s) Active 07/11/2016 [facility] Docusate Sodium 50 MG / sennosides, RETIREMENT 8.6 MG Oral Tablet 1 tab, PO, Daily, X 10 day, # 10 tab, 0 Refill(s) Active 07/11/2016 [facility] atorvastatin 40 mg oral tablet 40 mg=1 tab, PO, Bedtime, # 30 tab, 0 Refill(s) Active 07/11/2016 [facility] polyethylene glycol 3350 oral powder for reconstitution 17 gm, PO, Daily, X 7 day, # 12 ea, 0 Refill(s) Active 07/11/2016 [facility] Potassium Chloride 1.33 MEQ/ML Oral Solution 20 mEq, 15 mL, Route: PO, Drug form: LIQ, ONCE, Dosing Weight 95, kg, Start date: 07/11/16 7:45:00 CDT, Stop date: 07/11/16 7:45:00 CDTNotes: (Same as: Potassium Chloride) Inactive 07/11/2016 [facility] Warfarin 4 mg, 2 tab, Route: [...] E - P Waste Black Inactive 07/10/2016 [facility] Potassium Chloride 1.33 MEQ/ML Oral Solution 20 mEq, 15 mL, Route: PO, Drug form: LIQ, ONCE, Dosing Weight 95, kg, Start date: 07/10/16 10:20:00 CDT, Stop date: 07/10/16 10:20:00 CDTNotes: (Same as: Potassium Chloride) Inactive 07/10/2016 [facility] Miralax 17 gm, 1 pkt, Route: PO, Drug form: PWDR, Daily, Dosing Weight 95, kg, Start date: 07/10/16 9:00:00 CDT, Duration: 30 day, Stop date: 08/08/16 9:00:00 CDTNotes: Dissolve in 8 oz of water or juice. (Same as: Miralax) No Longer Active 07/10/2016 [facility] Toprol-XL 100 mg oral tablet, extended release 100 mg, 1 tab, Route: PO, Drug form: ERTAB, Daily, Start date: 07/10/16 9:00:00 CDT, Duration: 30 day, Stop date: 08/08/16 9:00:00 CDTNotes: (Same as: Toprol XL) May split tab, but do not crush. No Longer Active 07/10/2016 [facility] Benadryl 25 mg, 1 cap, Route: PO, Drug form: CAP, ONCE, Dosing Weight 95, kg, Start date: 07/09/16 18:06:00 CDT, Stop date: 07/09/16 18:06:00 CDTNotes: (Same as: Benadryl) Inactive 07/09/2016 [facility] Warfarin 4 mg, 2 tab, Route: [...] E - P Waste Black Inactive 07/09/2016 [facility] hydrocortisone topical 1% cream 1 appl, Route: TOP, BID, Drug form: CRM, PRN Rash, Start date: 07/09/16 11:49:00 CDT, Duration: 30 day, Stop date: 08/08/16 11:48:00 CDT No Longer Active 07/09/2016 [facility] Venofer 200 mg, 10 mL, Route: IVPB, Daily, Dosing Weight 95, kg, Start date: 07/09/16 9:00:00 CDT, Stop date: 07/12/16 9:00:00 CDTNotes: Each 5ml contains 100mg elemental iron. Mix with NS Non-Formulary (Same as:Venofer) Administer IV only. MEDICATION WASTE Product Size: 100 mg Product Wasted: ___ mg No Longer Active 07/09/2016 [facility] Warfarin 4 mg, 2 tab, Route: [...] E - P Waste Black Inactive 07/08/2016 [facility] Docusate Sodium 50 MG / sennosides, RETIREMENT 8.6 MG Oral Tablet 1 tab, Route: PO, Drug Form: TAB, Dosing Weight 95, kg, Daily, Start date: 07/08/16 9:00:00 CDT, Duration: 30 day, Stop date: 08/06/16 9:00:00 CDTNotes: (Same as Senokot-S) Equiv. to Cris-Colace. No Longer Active 07/08/2016 [facility] potassium chloride 20 mEq oral tablet, extended release 40 mEq, 2 tab, Route: PO, Drug form: ERTAB, Q2H, Dosing Weight 95, kg, Start date: 07/08/16 6:00:00 CDT, Duration: 2 doses or times, Stop date: 07/08/16 8:00:00 CDTNotes: (Same as: K-Dur 20) "Do Not Crush" With food and full glass of water Inactive 07/08/2016 [facility] Warfarin 3 mg, 1 tab, Route: PO, [...] E - P Waste Black Inactive 07/07/2016 [facility] Miralax 17 gm, 1 pkt, Route: PO, Drug form: PWDR, ONCE, Dosing Weight 95, kg, Start date: 07/07/16 10:56:00 CDT, Duration: 1 doses or times, Stop date: 07/07/16 10:56:00 CDTNotes: Dissolve in 8 oz of water or juice. (Same as: Miralax) Inactive 07/07/2016 [facility] Potassium Chloride 1.33 MEQ/ML Oral Solution 40 mEq, 30 mL, Route: PO, Drug form: LIQ, BID, Dosing Weight 95, kg, Start date: 07/07/16 9:00:00 CDT, Duration: 1 day, Stop date: 07/07/16 17:00:00 CDT Inactive 07/07/2016 [facility] Insulin Glargine 10 unit, 0.1 mL, Route: SUB-Q, Drug form: SOLN, Daily, Dosing Weight 95, kg, Start date: 07/06/16 21:00:00 CDT, Duration: 30 day, Stop date: 08/04/16 21:00:00 CDTNotes: Same as: Lantus) Do not hold i nsulin without contacting prescriber WASTE: F/P - Black; E - Municipal Trash Bin No Longer Active 07/07/2016 [facility] Lasix 40 mg, 4 mL, Route: IV, Drug form: INJ, BID, Dosing Weight 87.273, kg, Start date: 07/06/16 20:00:00 CDT, Duration: 30 day, Stop date: 08/05/16 8:00:00 CDTNotes: (Same as: Lasix) MEDICATION WASTE Product Size: 40 mg Product Wasted: ___ mg No Longer Active 07/07/2016 [facility] Warfarin 3 mg, 1 tab, Route: PO, [...] E - P Waste Black Inactive 07/06/2016 [facility] Insulin, Aspart, Human 3 unit, 0.03 mL, [...] days from Date No Longer Active 07/06/2016 [facility] Insulin Glargine 8 unit, 0.08 mL, Route: SUB-Q, Drug form: SOLN, Daily, Dosing Weight 95, kg, Start date: 07/05/16 21:00:00 CDT, Duration: 30 day, Stop date: 08/03/16 21:00:00 CDTNotes: Same as: Lantus) Do not hold i nsulin without contacting prescriber WASTE: F/P - Black; E - Municipal Trash Bin No Longer Active 07/06/2016 [facility] Insulin, Aspart, Human 2 unit, 0.02 mL, [...] days from Date No Longer Active 07/05/2016 [facility] Insulin, Aspart, Human 2 unit, 0.02 mL, [...] days from Date No Longer Active 07/05/2016 [facility] Dextrose 50% Syringe 25 gm, 50 mL, Route: IVP, Drug Form: INJ, Dosing Weight 95, kg, PRN, PRN Blood Glucose Results, Start date: 07/05/16 10:06:00 CDT, Duration: 30 day, Stop date: 08/04/16 10:05:00 CDT No Longer Active 07/05/2016 [facility] Glucagon 1 mg, Route: IM, Drug form: PDR/INJ, PRN, Dosing Weight 95, kg, PRN Blood Glucose Results, Start date: 07/05/16 10:06:00 CDT, Duration: 30 day, Stop date: 08/04/16 10:05:00 CDT No Longer Active 07/05/2016 [facility] Venofer 200 mg, Route: IV, Daily, Dosing Weight 95, kg, Start date: 07/05/16 9:00:00 CDT, Duration: 5 day, Stop date: 07/09/16 9:00:00 CDT Inactive 07/05/2016 [facility] insulin, isophane 7 unit, 0.07 mL, Route: [...] Expires in days from Date Inactive 07/05/2016 [facility] Ferrlecit + sodium chloride 0.9% INJ 100 mL 125 mg, 10 mL, Route: IVPB, Daily, Start date: 07/05/16 9:00:00 CDT, Stop date: 07/12/16 9:00:00 CDT No Longer Active 07/05/2016 [facility] Calcium Gluconate 1,000 mg, 10 mL, Route: IVPB, ONCE, Dosing Weight 95, kg, Start date: 07/05/16 4:53:00 CDT, Stop date: 07/05/16 4:53:00 CDTNotes: WASTE: F/P - Sink; E - Municipal Trash Bin Inactive 07/05/2016 [facility] benzocaine-menthol topical 1 lozenge, Route: MUCOUS MEM, Drug Form: DAHLIA, Q2H, PRN Sore Throat, Start date: 07/04/16 22:29:00 CDT, Duration: 30 day, Stop date: 08/03/16 22:28:00 CDTNotes: Cepacol lozenges Dispense 1 box=16 lozenges (Same As: Cepacol Lozenges) No Longer Active 07/05/2016 [facility] Menthol 2.5 MG Lozenge 2.5 mg, 1 lozenge, Route: PO, Q2H, Start date: 07/04/16 22:00:00 CDT, Duration: 30 day, Stop date: 08/03/16 20:00:00 CDT Inactive 07/05/2016 [facility] Renvela 0.8 gm, 1 pkt, Route: PO, Drug form: PDR/REC, TID- Meals, Dosing Weight 95, kg, Start date: 07/04/16 18:12:00 CDT, Stop date: 08/03/16 17:00:00 CDTNotes: Same as: Renvela No Longer Active 07/04/2016 [facility] sevelamer 800 mg, 1 pkt, Route: PO, Drug form: PDR/REC, TID-Meals, Dosing Weight 95, kg, Start date: 07/04/16 17:00:00 CDT, Stop date: 08/03/16 12:00:00 CDTNotes: Same as: Renvela Inactive 07/04/2016 [facility] insulin, isophane 7 unit, 0.07 mL, Route: [...] days from Date No Longer Active 07/04/2016 [facility] [facility] Ondans[facility]ron 4 mg, 2 mL, Route: IVP, Drug form: INJ, ONCE, Dosing Weight 95, kg, PRN Nausea & Vomiting, Start date: 07/04/16 10:02:00 CDTNotes: (Same as: Zofran) MEDICATION WASTE Product Size: 4 mg Pro duct Wasted: ___ mg Inactive 07/04/2016 [facility] Naloxone 0.4 mg, 1 mL, Route: IVP, Drug form: INJ, Q2MIN, Dosing Weight 95, kg, PRN Narcotic Reversal, Start date: 07/04/16 10:02:00 CDT, Duration: 8 doses or times, Stop date: Limited # of timesNotes: Same as Narcan Inactive 07/04/2016 [facility] Flumazenil 0.2 mg, 2 mL, Route: IVP, Drug form: INJ, PRN, Dosing Weight 95, kg, PRN Benzodiazepine Reversal, Initial dose, Start date: 07/04/16 10:02:00 CDT, Duration: 30 day, Stop date: 08/03/16 10:01:00 CDTNotes: (Same as: Romazicon) Inactive 07/04/2016 [facility] Hydromorphone 0.5 mg, 0.25 mL, Route: IVP, Drug form: INJ, Q5Min, Dosing Weight 95, kg, PRN Pain Score 7-10, Start date: 07/04/16 10:02:00 CDT, Duration: 4 doses or times, Stop date: Limited # of timesNotes: Same as: Dilaudid Inactive 07/04/2016 [facility] Morphine 2 mg, 1 mL, Route: IVP, Drug form: INJ, Q5Min, Dosing Weight 95, kg, PRN Pain Score 4-6, Start date: 07/04/16 10:02:00 CDT, Duration: 5 doses or times, Stop date: Limited # of timesNotes: (Same as:MO RPhine Sulfate) Inactive 07/04/2016 [facility] Hydralazine 10 mg, 0.5 mL, Route: IVP, Drug form: INJ, Q20Min, Dosing Weight 95, kg, PRN Elevated BP, Start date: 07/04/16 10:02:00 CDT, Duration: 2 doses or times, Stop date: Limited # of timesNotes: (Same as: Apresoline) Push over 5 minutes Inactive 07/04/2016 [facility] Labetalol 10 mg, 2 mL, Route: IVP, Drug form: INJ, Q5Min, Dosing Weight 95, kg, PRN Elevated BP, Start date: 07/04/16 10:02:00 CDT, Duration: 5 doses or times, Stop date: Limited # of times Inactive 07/04/2016 [facility] Golytely 4,000 ml, Route: NG, Drug Form: PDR/REC, Dosing Weight 95, kg, ONCE, Start date: 07/03/16 17:53:00 CDT, Duration: 1 doses or times, Stop date: 07/03/16 17:53:00 CDTNotes: (polyethylene glycol electrolyte solution 4 Liter bottle) (Same as: Golytely, Colyte) Inactive 07/03/2016 [facility] sodium chloride 0.9% 500 ml INJ 500 mL 500 mL, Rate: 250 ml/hr, Infuse over: 2 hr, Route: IV, Dosing Weight 95 kg, Total Volume: 500, Start date: 07/03/16 11:53:00 CDT, Duration: 1 doses or times, Stop date: 07/03/16 13:52:00 CDT Inactive 07/03/2016 [facility] heparin additive 25,000 unit [14 unit/kg/hr] + Premix Diluent Dextrose 5% 500 mL 500 mL, Rate: 23.68 ml/hr, Infuse over: 21.1 hr, Route: IV, Dosing Weight 84.56 kg, Total Volume: 500 mL, Start date: 07/03/16 11:05:00 CDT, Duration: 30 day, Stop date: 08/02/16 11:04:00 CDT No Longer Active 07/03/2016 [facility] metoprolol tartrate 25 mg, 1 tab, Route: PO, Drug form: TAB, ONCE, Dosing Weight 95, kg, Start date: 07/03/16 10:42:00 CDT, Stop date: 07/03/16 10:42:00 CDTNotes: (Same as: Lopressor) Inactive 07/03/2016 [facility] metoprolol tartrate 50 mg, Route: PO, Drug form: TAB, ONCE, Dosing Weight 95, kg, Start date: 07/03/16 10:41:00 CDT, Stop date: 07/03/16 10:41:00 CDT Inactive 07/03/2016 [facility] Amiodarone 150 mg, 3 mL, Route: IVPB, ONCE, Dosing Weight 95, kg, Start date: 07/02/16 22:02:00 CDT, Stop date: 07/02/16 22:02:00 CDTNotes: Central administration only for concentrations > 2 mg/ml. "Recommendation: Use an in-line filter during administration for continuous infusions to reduce the incidence of phlebitis" (Same as Codarone) MEDICATION WASTE Product Size: 150 mg Product Wasted: 0___ mg Inactive 07/03/2016 [facility] Dulcolax Laxative 10 mg, 2 tab, Route: PO, Drug form: ECTAB, Q8H, Dosing Weight 95, kg, Start date: 07/02/16 12:00:00 CDT, Duration: 3 doses or times, Stop date: 07/03/16 0:00:00 CDTNotes: (Same As: Dulcolax, Correctol) (Do Not Crush) "Do Not Crush" No Longer Active 07/02/2016 [facility] Golytely 4,000 ml, Route: PO, Drug Form: PDR/REC, Dosing Weight 95, kg, ONCE, Start date: 07/02/16 10:19:00 CDT, Duration: 1 doses or times, Stop date: 07/02/16 10:19:00 CDTNotes: (Same as: Nulytely) Inactive 07/02/2016 [facility] Cordarone 200 mg, 1 tab, Route: PO, Drug form: TAB, BID, Dosing Weight 87.273, kg, Start date: 07/02/16 10:00:00 CDT, Duration: 30 day, Stop date: 08/01/16 9:00:00 CDTNotes: (Same as: Cordarone) No Longer Active 07/02/2016 [facility] sodium chloride 0.9% INJ 250 mL 250 mL, Rate: call center nurse for use with blood product administration, Dosing Weight 95, kg, Route: IV, Total Volume: 250, Start Date: 07/02/16 7:11:00 CDT, Duration: 30 day, Stop date: 08/01/16 7:10:00 CDT, Replace Every: 24 hr No Longer Active 07/02/2016 [facility] vancomycin + sodium chloride 0.9% INJ 50 mL 125 mg, Route: CT, Q6H, Start date: 07/02/16 0:00:00 CDT, Duration: 30 day, Stop date: 07/31/16 18:00:00 CDTNotes: TIME CRITICAL MEDICATION (Same As: Vancocin) Inactive 07/02/2016 [facility] Lopressor 5 mg, 5 mL, Route: IV, Drug form: INJ, Q6H, Start date: 07/02/16 0:00:00 CDT, Duration: 30 day, Stop date: 07/31/16 18:00:00 CDTNotes: (Same as: Lopressor) Push over 2 minutes Inactive 07/02/2016 [facility] AMIODarone 900 mg + D5W 500 ml [...] Wasted: ___ mg No Longer Active 07/02/2016 [facility] NovoLIN 70/30 7 unit, Route: SUB-Q, BID-Before Meals, Dosing Weight 95, kg, Start date: 07/01/16 16:30:00 CDT, Duration: 30 day, Stop date: 07/31/16 7:30:00 CDT Inactive 07/01/2016 [facility] Vancomycin 125 mg, 2.5 mL, Route: PO, [...] USE IV SYRINGES. No Longer Active 07/01/2016 [facility] Labetalol 10 mg, 2 mL, Route: IVP, Drug form: INJ, Q5Min, Dosing Weight 95, kg, PRN Elevated BP, Start date: 07/01/16 12:08:00 CDT, Duration: 5 doses or times, Stop date: 07/02/16 0:00:00 CDT Inactive 07/01/2016 [facility] Hydralazine 10 mg, 0.5 mL, Route: IVP, Drug form: INJ, Q20Min, Dosing Weight 95, kg, PRN Elevated BP, Start date: 07/01/16 12:08:00 CDT, Duration: 2 doses or times, Stop date: 07/02/16 0:00:00 CDTNotes: (Same as: Apresoline) Push over 5 minutes Inactive 07/01/2016 [facility] Morphine 2 mg, 1 mL, Route: IVP, Drug form: INJ, Q5Min, Dosing Weight 95, kg, PRN Pain Score 4-6, Start date: 07/01/16 12:08:00 CDT, Duration: 5 doses or times, Stop date: 07/02/16 0:00:00 CDTNotes: (Same as: MORPhine Sulfate) Inactive 07/01/2016 [facility] Naloxone 0.4 mg, 1 mL, Route: IVP, Drug form: INJ, Q2MIN, Dosing Weight 95, kg, PRN Narcotic Reversal, Start date: 07/01/16 12:08:00 CDT, Duration: 8 doses or times, Stop date: 07/02/16 0:00:00 CDTNotes: Same as Narcan Inactive 07/01/2016 [facility] Flumazenil 0.2 mg, 2 mL, Route: IVP, Drug form: INJ, PRN, Dosing Weight 95, kg, PRN Benzodiazepine Reversal, Initial dose, Start date: 07/01/16 12:08:00 CDT, Duration: 30 day, Stop date: 07/31/16 12:07:00 CDTNotes: (Same as: Romazicon) Inactive 07/01/2016 [facility] Ondansetron 4 mg, 2 mL, Route: IVP, Drug form: INJ, ONCE, Dosing Weight 95, kg, PRN Nausea & Vomiting, Start date: 07/01/16 12:08:00 CDTNotes: (Same as: Zofran) MEDICATION WASTE Product Size: 4 mg Pro duct Wasted: ___ mg Inactive 07/01/2016 [facility] lovastatin 20 mg oral tablet 20 mg=1 tab, PO, Bedtime, # 30 tab, 0 Refill(s) No Longer Active 07/01/2016 [facility] warfarin 5 mg oral tablet 7.5 mg=1.5 tab, PO, Daily, 0 Refill(s) No Longer Active 07/01/2016 [facility] Metformin hydrochloride 500 MG Oral Tablet 500 mg=1 tab, PO, BID-Meals, # 30 tab, 0 Refill(s) No Longer Active 07/01/2016 [facility] Colesevelam hydrochloride 625 MG Oral Tablet [Welchol] 1,875 mg=3 tab, PO, BID-Meals, # 180 tab, 0 Refill(s) No Longer Active 07/01/2016 [facility] metoprolol tartrate 50 mg oral tablet 50 mg=1 tab, PO, BID, 0 Refill(s) No Longer Active 07/01/2016 [facility] losartan 25 mg oral tablet See Instructions, 1 or 2 tab PO Daily if systolic BP is higher than 140, 0 Refill(s) No Longer Active 07/01/2016 [facility] NovoLIN 70/30 7 unit, 0.07 mL, Route: SUB-Q, Drug form: INJ, ONCE, Dosing Weight 95, kg, Start date: 07/01/16 9:24:00 CDT, Stop date: 07/01/16 9:24:00 CDTNotes: Roll in palms of hands gently; Do not shake. (Same a s: NovoLIN Mix 70/30) Do not hold insulin without contacting prescriber WASTE: F/P - Black; E - Municipal Trash Bin Inactive 07/01/2016 [facility] sodium chloride 0.9% INJ 250 mL 250 mL, Rate: Business Applications Analyst for use with blood product administration., Dosing Weight 95, kg, Route: IV, Total Volume: 250, Priority: Routine, Start Date: 07/01/16 8:54:00 CDT, Duration: 1 day, Stop date: 07/02/16 8:53:00 CDT, Replace Every: 24 hr No Longer Active 07/01/2016 [facility] metoprolol tartrate 25 mg, 1 tab, Route: PO, Drug form: TAB, ONCE, Dosing Weight 95, kg, Start date: 07/01/16 0:57:00 CDT, Stop date: 07/01/16 0:57:00 CDTNotes: (Same as: Lopressor) Inactive 07/01/2016 [facility] metoprolol extended release 50 mg, 1 tab, Route: PO, Drug form: ERTAB, BID, Start date: 06/30/16 17:00:00 CDT, Stop date: 07/30/16 9:00:00 CDTNotes: (Same as: Toprol XL) May split tab, but do not crush. No Longer Active 06/30/2016 [facility] Amlodipine 5 mg, 1 tab, Route: PO, Drug form: TAB, Daily, Dosing Weight 95, kg, Start date: 06/28/16 23:42:00 SUPERVISOR EDGING, Duration: 30 day, Stop date: 07/28/16 9:00:00 CDTNotes: (Same as: Norvasc) No Longer Active 06/29/2016 [facility] heparin additive 25,000 unit [14 unit/kg/hr] + Premix Diluent Dextrose 5% 500 mL 500 mL, Rate: 24.44 ml/hr, Infuse over: 20.5 hr, Route: IVPB, Dosing Weight 87.273 kg, Total Volume: 500 mL, Start date: 06/28/16 23:17:00 SUPERVISOR EDGING, Duration: 30 day, Stop date: 07/28/16 23:16:00 CDT No Longer Active 06/29/2016 [facility] Nifedical XL 30 mg, 1 tab, Route: PO, Drug form: ERTAB, ONCE, Dosing Weight 95, kg, Start date: 06/28/16 23:13:00 SUPERVISOR EDGING, Stop date: 06/28/16 23:13:00 CSTNotes: (Same as: Adalat CC, Procardia XL) Give on empty stomach. Take 1 hour before or 2 hours after meal; "Avoid grapefruit and grapefruit juice". Do not crush Inactive 06/29/2016 [facility] heparin additive 32930 unit [14 unit/kg/hr] + Premix Diluent Dextrose 5% 500 mL 500 mL, Rate: 26.6 ml/hr, Infuse over: 18.8 hr, Route: IV, Dosing Weight 95 kg, Total Volume: 500 mL, Start date: 06/28/16 23:08:00 SUPERVISOR EDGING, Duration: 30 day, Stop date: 07/28/16 23:07:00 CDT Inactive 06/29/2016 [facility] Warfarin 4 mg, 2 tab, Route: PO, Drug form: TAB, Q5PM, Dosing Weight 95, kg, Start date: 06/28/16 17:00:00 SUPERVISOR EDGING, Duration: 1 doses or times, Stop date: 06/28/16 17:00:00 CSTNotes: Nurse to ensure documentation of patient education per anticoagulation policy. Avoid large intake of vitamin-K containing foods diet. (Same As: Coumadin) WASTE: F/P - P Waste Black; E - P Waste Black Inactive 06/28/2016 [facility] Aspirin 81 MG Chewable Tablet 81 mg, 1 tab, Route: PO, Drug form: CHEWTAB, Daily, Dosing Weight 95, kg, Start date: 06/28/16 15:00:00 SUPERVISOR EDGING, Duration: 30 day, Stop date: 07/28/16 9:00:00 CDTNotes: Take with food. No Longer Active 06/28/2016 [facility] Lasix 40 mg, 4 mL, Route: IV, Drug form: INJ, TID, Dosing Weight 87.273, kg, Start date: 06/28/16 13:00:00 SUPERVISOR EDGING, Duration: 30 day, Stop date: 07/28/16 9:00:00 CDTNotes: (Same as: Lasix) MEDICATION WASTE Product Size: 40 mg Product Wasted: ___ mg No Longer Active 06/28/2016 [facility] NovoLIN 70/30 14 unit, 0.14 mL, Route: SUB-Q, Drug form: INJ, Q8H, Dosing Weight 95, kg, Priority: Routine, Start date: 06/28/16 10:00:00 SUPERVISOR EDGING, Stop date: 07/28/16 8:00:00 CDTNotes: Roll in palms of hands gently; Do not shake. (Same as: NovoLIN Mix 70/30) Do not hold insulin without contacting prescriber WASTE: F/P - Black; E - Municipal Trash Bin No Longer Active 06/28/2016 [facility] Acetaminophen 650 mg, 20.3 mL, Route: PO, Drug form: LIQ, Q6H, Dosing Weight 95, kg, PRN Pain Score 1-3, Start date: 06/28/16 1:39:00 SUPERVISOR EDGING, Duration: 30 day, Stop date: 07/28/16 1:38:00 CDTNotes: Max acetaminophen= 4000mg/day (4 gm/day). (Same as: Tylenol) No Longer Active 06/28/2016 [facility] potassium chloride 20 mEq, 15 mL, Route: PO, Drug form: LIQ, ONCE, Dosing Weight 95, kg, Start date: 06/27/16 19:25:00 SUPERVISOR EDGING, Stop date: 06/27/16 19:25:00 CSTNotes: (Same as: Potassium Chloride) Inactive 06/28/2016 [facility] NPH Insulin, Human 70 UNT/ML / Regular Insulin, Human 30 UNT/ML Injectable Suspension 28 unit, 0.28 mL, Route: SUB-Q, Drug form: INJ, Q8H, Dosing Weight 95, kg, Priority: NOW, Start date: 06/27/16 18:21:00 SUPERVISOR EDGING, Stop date: 07/27/16 16:00:00 CDTNotes: Roll in palms of hands gently; Do not shake. (Same as: NovoLIN Mix 70/30) Do not hold insulin without contacting prescriber WASTE: F/P - Black; E - [employer] Trash Bin No Longer Active 06/28/2016 [facility] potassium chloride 20 mEq, 1 tab, Route: PO, Drug form: ERTAB, ONCE, Dosing Weight 95, kg, Start date: 06/27/16 18:19:00 SUPERVISOR EDGING, Stop date: 06/27/16 18:19:00 SUPERVISOR EDGING Inactive 06/28/2016 [facility] potassium chloride 40 mEq, 2 tab, Route: PO, Drug form: ERTAB, ONCE, Dosing Weight 95, kg, Start date: 06/27/16 17:57:00 SUPERVISOR EDGING, Stop date: 06/27/16 17:57:00 SUPERVISOR EDGING Inactive 06/27/2016 [facility] Calcium Gluconate 1,000 mg, 10 mL, Route: IVPB, Drug form: INJ, ONCE, Dosing Weight 95, kg, Start date: 06/27/16 17:56:00 SUPERVISOR EDGING, Stop date: 06/27/16 17:56:00 CSTNotes: WASTE: F/P - Sink; E - Municipal Trash Bin Inactive 06/27/2016 [facility] Amiodarone 200 mg, 1 tab, Route: PO, Drug form: TAB, BID, Dosing Weight 87.273, kg, Start date: 06/27/16 17:00:00 SUPERVISOR EDGING, Duration: 30 day, Stop date: 07/27/16 9:00:00 CDTNotes: (Same as: Cordarone) No Longer Active 06/27/2016 [facility] Warfarin 5 mg, 1 tab, Route: PO, Drug form: TAB, Q5PM, Dosing Weight 95, kg, Start date: 06/27/16 17:00:00 SUPERVISOR EDGING, Duration: 1 doses or times, Stop date: 06/27/16 17:00:00 CSTNotes: Nurse to ensure documentation of patient education per anticoagulation policy. Avoid large intake of vitamin-K containing foods diet. WASTE: F/P - P Waste Black; E - P Waste Black (Same As: Coumadin) Inactive 06/27/2016 [facility] NPH Insulin, Human 70 UNT/ML / Regular Insulin, Human 30 UNT/ML Injectable Suspension 20 unit, 0.2 mL, Route: SUB-Q, Drug form: INJ, Q8H, Dosing Weight 95, kg, Start date: 06/27/16 16:00:00 SUPERVISOR EDGING, Duration: 30 day, Stop date: 07/27/16 8:00:00 CDTNotes: Roll in palms of hands gently; Do not shake. (Same as: NovoLIN Mix 70/30) Do not hold insulin without contacting prescriber WASTE: F/P - Black; E - Municipal Trash Bin Inactive 06/27/2016 [facility] Seroquel 25 mg, 1 tab, Route: PO, Drug form: TAB, Bedtime, Dosing Weight 95, kg, Start date: 06/26/16 21:00:00 SUPERVISOR EDGING, Duration: 30 day, Stop date: 07/25/16 21:00:00 CDTNotes: (Same as: SEROquel) No Longer Active 06/27/2016 [facility] Flagyl 500 mg, 10 mL, Route: NG, Drug form: SUSP, ABXQ8H, Dosing Weight 87.273, kg, Start date: 06/26/16 19:30:00 SUPERVISOR EDGING, Duration: 30 day, Stop date: 07/26/16 11:30:00 CDTNotes: (Same as: Flagyl) Refrigerate - shake well Compounded Product - formulation not commercially available "Avoid alcohol" No Longer Active 06/27/2016 [facility] Coumadin 5 mg, 1 tab, Route: PO, Drug form: TAB, Q5PM, Dosing Weight 95, kg, Start date: 06/26/16 17:00:00 SUPERVISOR EDGING, Duration: 1 doses or times, Stop date: 06/26/16 17:00:00 CSTNotes: Nurse to ensure documentation of patient education per anticoagulation policy. Avoid large intake of vitamin-K containing foods diet. WASTE: F/P - P Waste Black; E - P Waste Black (Same As: Coumadin) Inactive 06/26/2016 [facility] Flagyl 500 mg, 10 mL, Route: NG, Drug form: SUSP, ABXQ8H, Dosing Weight 87.273, kg, Start date: 06/26/16 17:00:00 SUPERVISOR EDGING, Duration: 30 day, Stop date: 07/26/16 9:00:00 CDTNotes: (Same as: Flagyl) Refrigerate - shake well Compounded Product - formulation not commercially available "Avoid alcohol" Inactive 06/26/2016 [facility] insulin, isophane 16 unit, 0.16 mL, Route: SUB-Q, Drug form: INJ, TID-Before Meals, Dosing Weight 87.273, kg, Priority: Routine, Start date: 06/26/16 16:30:00 SUPERVISOR EDGING, Stop date: 07/26/16 11:30:00 CDTNotes: Roll in palms of hands gently; Do not shake vigorously. (Same as: Humulin N) Do not hold insulin without contacting prescriber WASTE: F/P - Black; E - Municipal Trash Bin Stable for 28 days at room temperature Expires in days from Date No Longer Active 06/26/2016 [facility] 24 HR Nifedipine 30 MG Extended Release Tablet [Procardia] 30 mg, Route: PO, Drug form: ERTAB, Daily, Dosing Weight 87.273, kg, Start date: 06/26/16 9:00:00 SUPERVISOR EDGING, Duration: 30 day, Stop date: 07/25/16 9:00:00 CDT Inactive 06/26/2016 [facility] insulin, isophane 10 unit, 0.1 mL, Route: SUB-Q, Drug form: INJ, Q8H, Dosing Weight 87.273, kg, Priority: Routine, Start date: 06/26/16 8:00:00 SUPERVISOR EDGING, Duration: 30 day, Stop date: 07/26/16 0:00:00 CDTNotes: Roll in palms of hands gently; Do not shake vigorously. (Same as: Humulin N) Do not hold insulin without contacting prescriber WASTE: F/P - Black; E - Municipal Trash Bin Stable for 28 days at room temperature Expires in days from Date Inactive 06/26/2016 [facility] insulin, isophane 8 unit, 0.08 mL, Route: SUB-Q, Drug form: INJ, Q8H, Dosing Weight 87.273, kg, Priority: Routine, Start date: 06/26/16 0:00:00 SUPERVISOR EDGING, Duration: 30 day, Stop date: 07/25/16 16:00:00 CDTNotes: Roll in palms of hands gently; Do not shake vigorously. (Same as: Humulin N) Do not hold insulin without contacting prescriber WASTE: F/P - Black; E - Municipal Trash Bin Stable for 28 days at room temperature Expires in days from Date Inactive 06/26/2016 [facility] atorvastatin 40 mg, 1 tab, Route: PO, Drug form: TAB, Bedtime, Dosing Weight 87.273, kg, Start date: 06/25/16 21:00:00 SUPERVISOR EDGING, Duration: 30 day, Stop date: 07/24/16 21:00:00 CDTNotes: (Same as: Lipitor) No Longer Active 06/26/2016 [facility] Melatonin 3 mg, 1 tab, Route: PO, Drug form: TAB, Bedtime, Dosing Weight 87.273, kg, PRN Sleep, Start date: 06/25/16 20:55:00 SUPERVISOR EDGING, Duration: 30 day, Stop date: 07/25/16 20:54:00 CDTNotes: (Same as: Melatonin) No Longer Active 06/26/2016 [facility] Coumadin 5 mg, 1 tab, Route: PO, Drug form: TAB, Q5PM, Dosing Weight 87.273, kg, Start date: 06/25/16 17:00:00 SUPERVISOR EDGING, Duration: 1 doses or times, Stop date: 06/25/16 17:00:00 CSTNotes: Nurse to ensure documentation of patient education per anticoagulation policy. Avoid large intake of vitamin-K containing foods diet. WASTE: F/P - P Waste Black; E - P Waste Black (Same As: Coumadin) Inactive 06/25/2016 [facility] Lasix 100 mg, 10 mL, Route: IV, Drug form: INJ, TID, Dosing Weight 87.273, kg, Start date: 06/25/16 13:00:00 SUPERVISOR EDGING, Stop date: 07/25/16 9:00:00 CDTNotes: (Same as: Lasix) MEDICATION WASTE Product Size: 40 mg Product Wasted: ___ mg No Longer Active 06/25/2016 [facility] Flagyl 500 mg, 100 mL, Route: IVPB, Drug form: INJ, ABXQ8H, Dosing Weight 87.273, kg, Start date: 06/25/16 12:00:00 SUPERVISOR EDGING, Duration: 30 day, Stop date: 07/25/16 4:00:00 CDTNotes: (Same as: Flagyl) Avoid alcohol. No Longer Active 06/25/2016 [facility] insulin, isophane 8 unit, 0.08 mL, Route: SUB-Q, Drug form: INJ, TID, Dosing Weight 87.273, kg, Priority: Routine, Start date: 06/25/16 9:00:00 SUPERVISOR EDGING, Duration: 30 day, Stop date: 07/24/16 17:00:00 CDTNotes: Roll in palms of hands gently; Do not shake vigorously. (Same as: Humulin N) Do not hold insulin without contacting prescriber WASTE: F/P - Black; E - Municipal Trash Bin Stable for 28 days at room temperature Expires in days from Date Inactive 06/25/2016 [facility] heparin additive 32127 unit [14 unit/kg/hr] + Premix Diluent Dextrose 5% 500 mL 500 mL, Rate: 24.44 ml/hr, Infuse over: 20.5 hr, Route: IV, Dosing Weight 87.273 kg, Total Volume: 500 mL, Start date: 06/25/16 8:44:00 SUPERVISOR EDGING, Duration: 30 day, Stop date: 07/25/16 8:43:00 CDT No Longer Active 06/25/2016 [facility] cefepime 1 gm, Route: IVPB, Drug form: INJ, [id number], Dosing Weight 87.273, kg, (CrCl Notes: (Same As: Maxipime) MEDICATION WASTE Product Size: 1000 mg Product Wasted: ___ mg No Longer Active 06/25/2016 [facility] Lactulose 667 MG/ML Oral Solution 10 gm, 15 ml, Route: PO, Drug form: SYRP, ONCE, Dosing Weight 87.273, kg, Start date: 06/25/16 6:23:00 SUPERVISOR EDGING, Stop date: 06/25/16 6:23:00 CSTNotes: (Same as:Chronulac) Inactive 06/25/2016 [facility] Warfarin 5 mg, 1 tab, Route: PO, Drug form: TAB, Q5PM, Dosing Weight 87.273, kg, Start date: 06/24/16 17:00:00 SUPERVISOR EDGING, Duration: 1 doses or times, Stop date: 06/24/16 17:00:00 CSTNotes: Nurse to ensure documentation of patient education per anticoagulation policy. Avoid large intake of vitamin-K containing foods diet. WASTE: F/P - P Waste Black; E - P Waste Black (Same As: Coumadin) Inactive 06/24/2016 [facility] Insulin regular 1 unit, 0.01 mL, Route: SUB-Q, Drug form: SOLN, Sliding Scale, Dosing Weight 87.273, kg, PRN Blood Glucose Results, Start date: 06/24/16 14:42:00 SUPERVISOR EDGING, Duration: 30 day, Stop date: 07/24/16 15:41:00 CDTN otes: (Same as: Humulin R) Roll in palms of hands gently; Do not shake vigorously. "single patient use only" (Restricted to patients requiring a dose > 60 units) WASTE: F/P - Black; E - Municipal Trash Bin Stable for 28 days at room temperature Expires in days from Date No Longer Active 06/24/2016 [facility] Glucagon 1 mg, Route: IM, Drug form: PDR/INJ, PRN, Dosing Weight 87.273, kg, PRN Blood Glucose Results, Start date: 06/24/16 14:42:00 SUPERVISOR EDGING, Duration: 30 day, Stop date: 07/24/16 15:41:00 CDT No Longer Active 06/24/2016 [facility] Dextrose 50% Syringe 25 gm, 50 mL, Route: IVP, Drug Form: INJ, Dosing Weight 87.273, kg, PRN, PRN Blood Glucose Results, Start date: 06/24/16 14:42:00 SUPERVISOR EDGING, Duration: 30 day, Stop date: 07/24/16 15:41:00 CDT No Longer Active 06/24/2016 Formerly [facility] insulin, isophane 8 unit, 0.08 mL, Route: SUB-Q, Drug form: INJ, BID, Dosing Weight 87.273, kg, Priority: Routine, Start date: 06/24/16 9:00:00 SUPERVISOR EDGING, Stop date: 07/23/16 17:00:00 CDTNotes: Roll in palms of hands gently; Do not shake vigorously. (Same as: Humulin N) Do not hold insulin without contacting prescriber WASTE: F/P - Black; E - Municipal Trash Bin Stable for 28 days at room temperature Expires in days from Date No Longer Active 06/24/2016 [facility] Aspirin 81 mg, 1 tab, Route: PO, Drug form: ECTAB, Daily, Dosing Weight 87.273, kg, Start date: 06/24/16 9:00:00 SUPERVISOR EDGING, Duration: 30 day, Stop date: 07/23/16 9:00:00 CDTNotes: Do not crush or chew. (Same As: Ecotrin) No Longer Active 06/24/2016 [facility] Dulcolax Laxative 10 mg, 1 supp, Route: CT, Drug form: SUPP, ONCE, Dosing Weight 87.273, kg, Start date: 06/24/16 7:46:00 SUPERVISOR EDGING, Stop date: 06/24/16 7:46:00 CSTNotes: (Same As: Dulcolax, Bisco-Lax) Inactive 06/24/2016 [facility] Fleet Enema 133 mL, Route: CT, Drug Form: TEJAS, Dosing Weight 87.273, kg, ONCE, Start date: 06/24/16 6:23:00 SUPERVISOR EDGING, Stop date: 06/24/16 6:23:00 SUPERVISOR EDGING Inactive 06/24/2016 [facility] Miralax 17 gm, 1 pkt, Route: PO, Drug form: PWDR, BID, Dosing Weight 87.273, kg, PRN Constipation, Start date: 06/23/16 17:00:00 SUPERVISOR EDGING, Duration: 30 day, Stop date: 07/23/16 9:00:00 CDTNotes: Dissolve in 8 oz of water or juice. (Same as: Miralax) No Longer Active 06/23/2016 [facility] insulin, isophane 5 unit, 0.05 mL, Route: SUB-Q, Drug form: INJ, Daily, Dosing Weight 87.273, kg, Priority: Routine, Start date: 06/23/16 17:00:00 SUPERVISOR EDGING, Duration: 30 day, Stop date: 07/23/16 9:00:00 CDTNotes: Roll in p alms of hands gently; Do not shake vigorously. (Same as: Humulin N) Do not hold insulin without contacting prescriber WASTE: F/P - Black; E - Municipal Trash Bin Stable for 28 days at room temperature Expires in days from Date No Longer Active 06/23/2016 [facility] Lasix 80 mg, 8 mL, Route: IV, Drug form: INJ, BID, Dosing Weight 87.273, kg, Priority: NOW, Start date: 06/23/16 13:38:00 SUPERVISOR EDGING, Duration: 30 day, Stop date: 07/23/16 9:00:00 CDTNotes: (Same as: Lasix) MEDICATION WASTE Product Size: 40 mg Product Wasted: _0_ mg No Longer Active 06/23/2016 [facility] cefepime 1 gm, Route: IVPB, Drug form: INJ, [id number], Dosing Weight 87.273, kg, (CrCl 10 - 29 ml/min), Start date: 06/23/16 12:00:00 SUPERVISOR EDGING, Duration: 30 day, Stop date: 07/22/16 12:00:00 CDTNotes: (Same As: Maxipime) MEDICATION WASTE Product Size: 1000 mg Product Wasted: ___ mg No Longer Active 06/23/2016 [facility] Bisacodyl 10 mg, 1 supp, Route: CT, Drug form: SUPP, ONCE, Dosing Weight 87.273, kg, Start date: 06/23/16 11:03:00 SUPERVISOR EDGING, Stop date: 06/23/16 11:03:00 CSTNotes: (Same As: Dulcolax, Bisco-Lax) Inactive 06/23/2016 [facility] Amiodarone 400 mg, 2 tab, Route: PO, Drug form: TAB, BID, Dosing Weight 87.273, kg, Start date: 06/23/16 9:00:00 SUPERVISOR EDGING, Duration: 30 day, Stop date: 07/22/16 17:00:00 CDTNotes: (Same as: Cordarone) No Longer Active 06/23/2016 [facility] Sodium Chloride 0.9% IV 99 mL + Insulin regular 100 unit 99 mL, Rate: Start Insulin Drip Per ICU Protocol, Dosing Weight 87.273, kg, Route: IVPB, Total Volume: 99, Start Date: 06/23/16 8:16:00 SUPERVISOR EDGING, Duration: 30 day, Stop date: 07/23/16 9:15:00 CDT, Replace Every: 24 hr Inactive 06/23/2016 [facility] Dextrose 50% Syringe 25 gm, 50 mL, Route: IVP, Drug Form: INJ, Dosing Weight 87.273, kg, PRN, PRN Blood Glucose Results, Start date: 06/23/16 8:16:00 SUPERVISOR EDGING, Duration: 30 day, Stop date: 07/23/16 9:15:00 CDT No Longer Active 06/23/2016 [facility] heparin additive 25,000 unit [14 unit/kg/hr] + Premix Diluent Dextrose 5% 500 mL 500 mL, Rate: 24.44 ml/hr, Infuse over: 20.5 hr, Route: IV, Dosing Weight 87.273 kg, Total Volume: 500 mL, Start date: 06/22/16 21:00:00 SUPERVISOR EDGING, Duration: 30 day, Stop date: 07/22/16 20:59:00 CDT No Longer Active 06/23/2016 [facility] Zofran 4 mg, 2 mL, Route: IVP, Drug form: INJ, Q8H, Dosing Weight 87.273, kg, PRN Nausea, Start date: 06/22/16 19:26:00 SUPERVISOR EDGING, Duration: 30 day, Stop date: 07/22/16 19:25:00 CDTNotes: (Same as: Zofran) MEDICATION WASTE Product Size: 4 mg Product Wasted: _0__ mg No Longer Active 06/23/2016 [facility] docusate 100 mg, 10 mL, Route: PO, Drug form: LIQ, BID, Dosing Weight 87.273, kg, PRN Other -See Comment, Start date: 06/22/16 17:04:00 SUPERVISOR EDGING, Duration: 30 day, Stop date: 07/22/16 17:00:00 CDTNotes: (Same as: Colace) No Longer Active 06/22/2016 [facility] Docusate Sodium 100 MG Oral Capsule [Colace] 100 mg, 10 mL, Route: PO, Drug form: LIQ, BID, Dosing Weight 87.273, kg, Start date: 06/22/16 17:00:00 SUPERVISOR EDGING, Stop date: 07/22/16 9:00:00 CDTNotes: (Same as: Colace) Inactive 06/22/2016 [facility] sennosides, RETIREMENT 8.6 mg, 1 tab, Route: PO, Drug Form: TAB, Dosing Weight 87.273, kg, BID, PRN Other -See Comment, Start date: 06/22/16 17:00:00 SUPERVISOR EDGING, Duration: 30 day, Stop date: 07/22/16 9:00:00 CDTNotes: (Same as: Senokot) No Longer Active 06/22/2016 [facility] Calcium Gluconate 1 gm, Route: IVPB, PRN, Dosing Weight 87.273, kg, PRN Abnormal Lab Result, Start date: 06/22/16 15:06:00 SUPERVISOR EDGING, Duration: 30 day, Stop date: 07/22/16 16:05:00 CDT, FOR ICU USE ONLY Inactive 06/22/2016 [facility] Magnesium Oxide 800 mg, Route: PO, PRN, Dosing Weight 87.273, kg, PRN Abnormal Lab Result, FOR ICU USE ONLY, Start date: 06/22/16 15:06:00 SUPERVISOR EDGING, Duration: 30 day, Stop date: 07/22/16 16:05:00 CDT Inactive 06/22/2016 [facility] Calcium Carbonate 500 MG Chewable Tablet 1,000 mg, Route: PO, PRN, Dosing Weight 87.273, kg, PRN Abnormal Lab Result, FOR ICU USE ONLY, Start date: 06/22/16 15:06:00 SUPERVISOR EDGING, Duration: 30 day, Stop date: 07/22/16 16:05:00 CDT Inactive 06/22/2016 [facility] sodium phosphate 45 mmol, Route: IVPB, PRN, Dosing Weight 87.273, kg, PRN Abnormal Lab Result, Start date: 06/22/16 15:06:00 SUPERVISOR EDGING, Duration: 30 day, Stop date: 07/22/16 16:05:00 CDT, FOR ICU USE ONLY Inactive 06/22/2016 [facility] potassium phosphate-sodium phosphate 250 mg-280 mg-160 mg oral powder for reconstitution 2 pkt, Route: PO, Dosing Weight 87.273, kg, PRN, PRN Abnormal Lab Result, FOR ICU USE ONLY, Start date: 06/22/16 15:06:00 SUPERVISOR EDGING, Duration: 30 day, Stop date: 07/22/16 16:05:00 CDT Inactive 06/22/2016 [facility] potassium phosphate 30 mmol, Route: IVPB, PRN, Dosing Weight 87.273, kg, PRN Abnormal Lab Result, Start date: 06/22/16 15:06:00 SUPERVISOR EDGING, Duration: 30 day, Stop date: 07/22/16 16:05:00 CDT, FOR ICU USE ONLY Inactive 06/22/2016 [facility] Magnesium Sulfate 2 gm, Route: IVPB, PRN, Dosing Weight 87.273, kg, PRN Abnormal Lab Result, Start date: 06/22/16 15:06:00 SUPERVISOR EDGING, Duration: 30 day, Stop date: 07/22/16 16:05:00 CDT, FOR ICU USE ONLY Inactive 06/22/2016 [facility] potassium chloride 20 mEq, Route: PO, Drug form: ERTAB, PRN, Dosing Weight 87.273, kg, PRN Abnormal Lab Result, Start date: 06/22/16 15:06:00 SUPERVISOR EDGING, Duration: 30 day, Stop date: 07/22/16 16:05:00 CDT, FOR ICU USE ONLY Inactive 06/22/2016 [facility] Flagyl 500 mg, 1 tab, Route: PO, Drug form: TAB, [id number], Dosing Weight 87.273, kg, Start date: 06/22/16 12:00:00 SUPERVISOR EDGING, Duration: 30 day, Stop date: 07/22/16 4:00:00 CDTNotes: (Same as: Flagyl) Take with food/ avoid alcohol No Longer Active 06/22/2016 [facility] metoprolol tartrate 25 mg, 1 tab, Route: PO, Drug form: TAB, Q12H, Dosing Weight 87.273, kg, Start date: 06/22/16 9:00:00 SUPERVISOR EDGING, Duration: 30 day, Stop date: 07/21/16 21:00:00 CDTNotes: (Same as: Lopressor) No Longer Active 06/22/2016 [facility] alteplase 2 mg injection 2 mg, 2 mL, Route: INJ, Drug form: INJ, ONCE, Dosing Weight 87.273, kg, CVC clearance, Start date: 06/21/16 21:53:00 SUPERVISOR EDGING, Stop date: 06/21/16 21:53:00 CSTNotes: "Syringe for catheter clearance or interventional radiology use. Reconstitute each vial of Cathflo Activase with 2.2 ml Sterile Water resulting in a 1 mg/ml solution. Stable for 8 hours only. (Same as: Activase) MEDICATION WASTE Product Size: 2 mg Product Wasted: ___ mg Inactive 06/22/2016 [facility] alteplase 2 mg injection 2 mg, 2 mL, Route: INJ, Drug form: INJ, ONCE, Dosing Weight 87.273, kg, CVC clearance, Start date: 06/21/16 20:41:00 SUPERVISOR EDGING, Stop date: 06/21/16 20:41:00 CSTNotes: "Syringe for catheter clearance or interventional radiology use. Reconstitute each vial of Cathflo Activase with 2.2 ml Sterile Water resulting in a 1 mg/ml solution. Stable for 8 hours only. (Same as: Activase) MEDICATION WASTE Product Size: 2 mg Product Wasted: ___ mg Inactive 06/22/2016 [facility] prednisoLONE acetate ophthalmic 1 drp, Route: RIGHT EYE, Daily, Drug form: SUSP, Start date: 06/21/16 9:00:00 SUPERVISOR EDGING, Duration: 30 day, Stop date: 07/20/16 9:00:00 CDTNotes: (Same as: Pred Forte) No Longer Active 06/21/2016 [facility] Insulin regular 4 unit, 0.04 mL, Route: SUB-Q, Drug form: SOLN, Sliding Scale, Dosing Weight 87.273, kg, PRN Blood Glucose Results, Start date: 06/20/16 22:52:00 SUPERVISOR EDGING, Duration: 30 day, Stop date: 07/20/16 23:51:00 C DTNotes: (Same as: Humulin R) Roll in palms of hands gently; Do not shake vigorously. "single patient use only" (Restricted to patients requiring a dose > 60 units) WASTE: F/P - Black; E - Municipal Trash Bin Stable for 28 days at room temperature Expires in days from Date No Longer Active 06/21/2016 [facility] Dextrose 50% Syringe 12.5 gm, 25 mL, Route: IVP, Drug Form: INJ, Dosing Weight 87.273, kg, PRN, PRN Blood Glucose Results, Start date: 06/20/16 22:52:00 SUPERVISOR EDGING, Duration: 30 day, Stop date: 07/20/16 23:51:00 CDT No Longer Active 06/21/2016 [facility] Glucagon 1 mg, Route: IM, Drug form: PDR/INJ, PRN, Dosing Weight 87.273, kg, PRN Blood Glucose Results, Start date: 06/20/16 22:52:00 SUPERVISOR EDGING, Duration: 30 day, Stop date: 07/20/16 23:51:00 CDT No Longer Active 06/21/2016 [facility] Beneprotein 7 gm pkt 1 pkt, Route: T FEED, Drug Form: PWDR, Dosing Weight 87.273, kg, TID-Before Meals, Start date: 06/20/16 16:30:00 SUPERVISOR EDGING, Duration: 30 day, Stop date: 07/20/16 11:30:00 CDTNotes: (Same as: Beneprotein) No Longer Active 06/20/2016 [facility] Cathflo Activase 2 mg injection 2 mg, 2 mL, Route: MISC, Drug form: INJ, ONCE, Dosing Weight 87.273, kg, Start date: 06/20/16 13:48:00 SUPERVISOR EDGING, Stop date: 06/20/16 13:48:00 CSTNotes: "Syringe for catheter clearance or interventional radiology use. Reconstitute each vial of Cathflo Activase with 2.2 ml Sterile Water resulting in a 1 mg/ml solution. Stable for 8 hours only. (Same as: Activase) MEDICATION WASTE Product Size: 2 mg Product Wasted: ___ mg Inactive 06/20/2016 [facility] nxstage pureflow rfp-401 5000ml SLN 5,000 mL 5,000 mL, Route: DIALYSIS, Irrigation Site: Vein, femoral, Rt, 2,500 ml/hr, 2 hr, Total Volume: 5,000, "For Irrigation Only", Start date: 06/20/16 8:18:00 SUPERVISOR EDGING, Duration: 20 day, Stop date: 07/10/16 8:17:00 CDTNotes: NxStage RFP-401=K4/Ca3 Total ingredients in bag Na 140meq/L; K 4meq/L; HCO 35meq/L; Ca 3meq/L; Magnesium 1meq/L; CL 113meq/L; Glucose 100mg/dL; "Break seal Between compartment s and mix before hanging" No Longer Active 06/20/2016 [facility] Insulin regular 1 unit, 0.01 mL, Route: SUB-Q, Drug form: SOLN, TID-Before Meals, Dosing Weight 87.273, kg, PRN Blood Glucose Results, Start date: 06/20/16 7:00:00 SUPERVISOR EDGING, Duration: 30 day, Stop date: 07/20/16 6:59:00 CDTNotes: (Same as: Humulin R) Roll in palms of hands gently; Do not shake vigorously. "single patient use only" (Restricted to patients requiring a dose > 60 units) WASTE: F/P - Black; E - Municipal Trash Bin Stable for 28 days at room temperature Expires in days from Date Inactive 06/20/2016 [facility] Dextrose 50% Syringe 12.5 gm, 25 mL, Route: IVP, Drug Form: INJ, Dosing Weight 87.273, kg, PRN, PRN Blood Glucose Results, Start date: 06/20/16 7:00:00 SUPERVISOR EDGING, Duration: 30 day, Stop date: 07/20/16 7:59:00 CDT Inactive 06/20/2016 [facility] Glucagon 1 mg, Route: IM, Drug form: PDR/INJ, PRN, Dosing Weight 87.273, kg, PRN Blood Glucose Results, Start date: 06/20/16 7:00:00 SUPERVISOR EDGING, Duration: 30 day, Stop date: 07/20/16 7:59:00 CDT Inactive 06/20/2016 [facility] Vancomycin 1,000 mg, Route: IVPB, Drug form: INJ, [id number], Dosing Weight 87.273, kg, Start date: 06/20/16 5:00:00 SUPERVISOR EDGING, Duration: 30 day, Stop date: 07/19/16 5:00:00 CDTNotes: TIME CRITICAL MEDICATION (Same As: Van cocin) Infusion rate 2001 mg: infuse over 2.5 hours MEDICATION WASTE Product Size: 1000 mg Product Wasted: ___ mg No Longer Active 06/20/2016 [facility] alteplase 2 mg injection 2 mg, 2 mL, Route: INJ, Drug form: INJ, ONCE, Dosing Weight 87.273, kg, Start date: 06/20/16 3:56:00 SUPERVISOR EDGING, Stop date: 06/20/16 3:56:00 CSTNotes: "Syringe for catheter clearance or interventional radiology use. Reconstitute each vial of Cathflo Activase with 2.2 ml Sterile Water resulting in a 1 mg/ml solution. Stable for 8 hours only. (Same as: Activase) MEDICATION WASTE Product Size: 2 mg Product Wasted: ___ mg Inactive 06/20/2016 [facility] alteplase 2 mg injection 2 mg, 2 mL, Route: INJ, Drug form: INJ, ONCE, Dosing Weight 87.273, kg, Start date: 06/20/16 3:55:00 SUPERVISOR EDGING, Stop date: 06/20/16 3:55:00 CSTNotes: "Syringe for catheter clearance or interventional radiology use. Reconstitute each vial of Cathflo Activase with 2.2 ml Sterile Water resulting in a 1 mg/ml solution. Stable for 8 hours only. (Same as: Activase) MEDICATION WASTE Product Size: 2 mg Product Wasted: ___ mg Inactive 06/20/2016 [facility] Vancomycin 750 mg, Route: IVPB, Q12H, Dosing Weight 87.273, kg, Start date: 06/19/16 20:00:00 SUPERVISOR EDGING, Stop date: 07/19/16 12:00:00 CDTNotes: TIME CRITICAL MEDICATION (Same As: Vancocin) No Longer Active 06/20/2016 [facility] nxstage pureflow rfp-454 5000ml SLN 5,000 mL 5,000 mL, Route: DIALYSIS, Irrigation Site: Vein, femoral, Lt, 200 ml/hr, 25 hr, Total Volume: 5,000, "For Irrigation Only", Start date: 06/19/16 13:57:00 SUPERVISOR EDGING, Duration: 30 day, Stop date: 07/19/16 13:56:00 CDTNotes: Total ingredients in bag Na 130meq/L; K+ 4meq/L; HCO 25meq/L; Ca 0meq/L; Magnesium 1.5meq/L; Glucose 1g/L; "Break seal Between compartments and mix before hanging" No Longer Active 06/19/2016 [facility] Magnesium Sulfate 4 gm, 100 mL, Route: IVPB, Drug form: INJ, Q2H, Dosing Weight 87.273, kg, PRN Abnormal Lab Result, Via central line, Start date: 06/19/16 13:16:00 SUPERVISOR EDGING, Duration: 2 doses or times, Stop date: 06/20/16 0:00:00 CSTNotes: WASTE: F/P - Sink; E - Municipal Trash Bin No Longer Active 06/19/2016 [facility] Calcium Chloride 1 gm, 10 mL, Route: IVPB, PRN, Dosing Weight 87.273, kg, PRN Abnormal Lab Result, Via central line, Start date: 06/19/16 13:16:00 SUPERVISOR EDGING, Duration: 30 day, Stop date: 07/19/16 14:15:00 CDTNotes: WASTE: F/P - Sink; E - Municipal Trash Bin No Longer Active 06/19/2016 [facility] sodium phosphate + sodium chloride 0.9% INJ 250 mL 15 mmol, 5 mL, Route: IVPB, PRN, Dosing Weight 87.273, kg, PRN Abnormal Lab Result, Via central line, Start date: 06/19/16 13:16:00 SUPERVISOR EDGING, Duration: 30 day, Stop date: 07/19/16 14:15:00 CDT No Longer Active 06/19/2016 [facility] potassium chloride 20 mEq, 100 mL, Route: IVPB, Drug form: INJ, PRN, Dosing Weight 87.273, kg, PRN Abnormal Lab Result, Via central line, Start date: 06/19/16 13:16:00 SUPERVISOR EDGING, Duration: 30 day, Stop date: 07/19/16 14:15:0 0 CDTNotes: (Same as: KCL) Infuse no faster than 10 mEq/hr if given peripherally. No Longer Active 06/19/2016 [facility] Sodium Chloride 0.154 MEQ/ML Injectable Solution 73.6 mL, Rate: 140 ml/hr, Infuse over: 7.1 hr, Route: IV, Dosing Weight 87.273 kg, Total Volume: 1,000 mL, Start date: 06/19/16 13:16:00 SUPERVISOR EDGING, Duration: 30 day, Stop date: 07/19/16 13:15:00 CDT No Longer Active 06/19/2016 [facility] nxstage pureflow rfp-401 5000ml SLN 5,000 mL 5,000 mL, Route: DIALYSIS, Irrigation Site: Vein, femoral, Lt, 2,500 ml/hr, 2 hr, Total Volume: 5,000 mL, "For Irrigation Only", Start date: 06/19/16 13:16:00 SUPERVISOR EDGING, Duration: 30 day, Stop date: 07/19/16 13:15:00 CDTNotes: NxStage RFP-401=K4/Ca3 Total ingredients in bag Na 140meq/L; K 4meq/L; HCO 35meq/L; Ca 3meq/L; Magnesium 1meq/L; CL 113meq/L; Glucose 100mg/dL; "Break seal Between compar tments and mix before hanging" Inactive 06/19/2016 [facility] sodium citrate 500 mL, Rate: 200 ml/hr, Infuse over: 2.5 hr, Route: IV, Dosing Weight 87.273 kg, Total Volume: 500 mL, Start date: 06/19/16 13:16:00 SUPERVISOR EDGING, Duration: 30 day, Stop date: 07/19/16 13:15:00 CDTNotes: (Same as: Sodium Citrate, anticoagulant) . No Longer Active 06/19/2016 [facility] Vancomycin 1,500 mg, Route: IVPB, Drug form: INJ, [id number], Dosing Weight 87.273, kg, Start date: 06/19/16 12:00:00 SUPERVISOR EDGING, Duration: 30 day, Stop date: 07/19/16 0:00:00 CDT Inactive 06/19/2016 [facility] Insulin regular 100 unit + sodium chloride 0.9% INJ 99 mL 99 mL, Rate: Start Insulin Drip Per ICU Protocol, Dosing Weight 87.273, kg, Route: IVPB, Total Volume: 100, Start Date: 06/19/16 10:03:00 SUPERVISOR EDGING, Duration: 30 day, Stop date: 07/19/16 10:02:00 CDT, Replace Every: 24 hrNotes: (Same as: Humulin R and NovoLIN R) WASTE: F/P - Black; E - Municipal Trash Bin (Do not shake) Inactive 06/19/2016 [facility] Dextrose 50% Syringe 25 gm, 50 mL, Route: IVP, Drug Form: INJ, Dosing Weight 87.273, kg, PRN, PRN Blood Glucose Results, Start date: 06/19/16 10:03:00 SUPERVISOR EDGING, Duration: 30 day, Stop date: 07/19/16 11:02:00 CDT Inactive 06/19/2016 [facility] influenza virus vaccine, inactivated 0.5 mL, Route: IM, Drug Form: SUSP, Daily, Start date: 06/19/16 9:00:00 SUPERVISOR EDGING, Duration: 1 doses or times, Stop date: 06/19/16 9:00:00 CSTNotes: (Same as: Fluzone Quadrivalent, Fluarix Quadrivalent) For 3 years of age and older (0.5 mL IM) Shake well before use Inactive 06/19/2016 [facility] sodium phosphate + sodium chloride 0.9% INJ 250 mL 30 mmol, 10 mL, Route: IVPB, PRN, Dosing Weight 87.273, kg, PRN Abnormal Lab Result, Via central line, Start date: 06/19/16 7:13:00 SUPERVISOR EDGING, Duration: 30 day, Stop date: 07/19/16 8:12:00 CDT Inactive 06/19/2016 [facility] Magnesium Sulfate 4 gm, 100 mL, Route: IVPB, Drug form: INJ, Q2H, Dosing Weight 87.273, kg, PRN Abnormal Lab Result, Via central line, Start date: 06/19/16 7:13:00 SUPERVISOR EDGING, Duration: 2 doses or times, Stop date: 07/20/16 0:00:00 CDTNotes: WASTE: F/P - Sink; E - Municipal Trash Bin Inactive 06/19/2016 [facility] Calcium Chloride 2 gm, 20 mL, Route: IVPB, PRN, Dosing Weight 87.273, kg, PRN Abnormal Lab Result, Via central line, Start date: 06/19/16 7:13:00 SUPERVISOR EDGING, Duration: 30 day, Stop date: 07/19/16 8:12:00 CDTNotes: WASTE: F/P - Sink; E - Municipal Trash Bin Inactive 06/19/2016 [facility] potassium chloride 20 mEq, 100 mL, Route: IVPB, Drug form: INJ, PRN, Dosing Weight 87.273, kg, PRN Abnormal Lab Result, Via central line, Start date: 06/19/16 7:13:00 SUPERVISOR EDGING, Duration: 30 day, Stop date: 07/19/16 8:12:00 CDTNotes: (Same as: KCL) Infuse no faster than 10 mEq/hr if given peripherally. Inactive 06/19/2016 [facility] cefepime 1 gm, Route: IVPB, Drug form: INJ, [id number], Dosing Weight 87.273, kg, (CrCl >/=50 ml/min), Start date: 06/19/16 7:00:00 SUPERVISOR EDGING, Duration: 30 day, Stop date: 07/18/16 23:00:00 CDTNotes: (Same As: Maxipime) MEDICATION WASTE Product Size: 1000 mg Product Wasted: ___ mg No Longer Active 06/19/2016 [facility] nxstage pureflow rfp-400 5000ml SLN 5,000 mL 5,000 mL, Route: DIALYSIS, Irrigation Site: Vein, femoral, Lt, 3,500 ml/hr, 1.4 hr, Total Volume: 5,000 mL, "For Irrigation Only", Start date: 06/19/16 5:02:00 SUPERVISOR EDGING, Duration: 30 day, Stop date: 07/19/16 5:01:00 CDTNotes: NxStage RFP-400=K2/Ca3 Total ingredients in bag Na 140meq/L; K 2meq/L; HCO 35meq/L; Ca 3meq/L; Magnesium 1meq/L; CL 111meq/L; Glucose 100mg/dL; "Break seal Between ceci rtments and mix before hanging" Inactive 06/19/2016 [facility] Calcium Chloride 1 gm, 10 mL, Route: IVPB, PRN, Dosing Weight 87.273, kg, PRN Abnormal Lab Result, Via central line, Start date: 06/19/16 5:02:00 SUPERVISOR EDGING, Stop date: 07/19/16 6:01:00 CDTNotes: WASTE: F/P - Sink; E - Municipal Trash Bin Inactive 06/19/2016 [facility] Magnesium Sulfate 4 gm, 100 mL, Route: IVPB, Drug form: INJ, PRN, Dosing Weight 87.273, kg, PRN Abnormal Lab Result, Via central line, Start date: 06/19/16 5:02:00 SUPERVISOR EDGING, Duration: 30 day, Stop date: 07/19/16 6:01:00 CDTNotes: WASTE: F/P - Sink; E - Municipal Trash Bin Inactive 06/19/2016 [facility] sodium phosphate + sodium chloride 0.9% INJ 250 mL 15 mmol, 5 mL, Route: IVPB, PRN, Dosing Weight 87.273, kg, PRN Abnormal Lab Result, Via central line, Start date: 06/19/16 5:02:00 SUPERVISOR EDGING, Duration: 30 day, Stop date: 07/19/16 6:01:00 CDT Inactive 06/19/2016 [facility] potassium chloride 20 mEq, 100 mL, Route: IVPB, Drug form: INJ, PRN, Dosing Weight 87.273, kg, PRN Abnormal Lab Result, Via central line, Start date: 06/19/16 5:02:00 SUPERVISOR EDGING, Duration: 30 day, Stop date: 07/19/16 6:01:00 CDTNotes: (Same as: KCL) Infuse no faster than 10 mEq/hr if given peripherally. Inactive 06/19/2016 [facility] TamiFLU 30 mg, 1 cap, Route: PO, Drug form: CAP, [id number], Start date: 06/19/16 5:00:00 SUPERVISOR EDGING, Duration: 5 day, Stop date: 06/23/16 5:00:00 CSTNotes: Same as: Tamilfu Take with Food No Longer Active 06/19/2016 [facility] Water 1,000 mL, Rate: Infuse as directed, Dosing Weight 87.273, kg, Route: IV, Total Volume: 1,150 mL, Start Date: 06/19/16 4:23:00 SUPERVISOR EDGING, Duration: 30 day, Stop date: 07/19/16 4:22:00 CDT, Replace Every: 24 hr Notes: (sodium bicarb 8.4% (1 mEq/ml) 50 ml VL) No Longer Active 06/19/2016 Formerly [facility] Midazolam 50 mg, 50 mL, Rate: Titrate, Start Dose: 1 mg/hr, Titration: Rebolus 1 mg IV and/or Titrate infusion by 1 mg/hour every 30 minutes, Goal(s): RASS 3 to 4, Max Dose: 10 mg/hr, Route: IV, Dosing Weight 87. 273 kg, Total Volume: 50, Start date: 06/19/16 4:...Notes: (Same as: Versed) No Longer Active 06/19/2016 [facility] sodium bicarbonate 8.4% 50 mEq, 50 ml, Route: IVP, Drug Form: INJ, Dosing Weight 87.273, kg, ONCE, Start date: 06/19/16 4:03:00 SUPERVISOR EDGING, Stop date: 06/19/16 4:03:00 CSTNotes: (sodium bicarb 8.4% (1 mEq/ml) 50 ml VL) Inactive 06/19/2016 [facility] sodium chloride 0.9% INJ 150 mL 150 mL, Rate: To prime line and flush remaining blood products., Dosing Weight 87.273, kg, Route: IV, Total Volume: 150, Start Date: 06/19/16 4:02:00 SUPERVISOR EDGING, Duration: 30 day, Stop date: 07/19/16 4:01:00 CDT, Replace Every: 24 hr No Longer Active 06/19/2016 [facility] sodium chloride 0.9% INJ 250 mL 250 mL, Rate: Business Applications Analyst for use with blood product administration., Dosing Weight 87.273, kg, Route: IV, Total Volume: 250, Priority: Routine, Start Date: 06/19/16 4:00:00 SUPERVISOR EDGING, Duration: 30 day, Stop date: 07/19/16 3:59:00 CDT, Replace Every: 24 hr No Longer Active 06/19/2016 [facility] Tamiflu 75 mg, Route: PO, Drug form: CAP, [id number], Dosing Weight 87.273, kg, CrCl > 60 ml/hr, Start date: 06/19/16 4:00:00 SUPERVISOR EDGING, Duration: 5 day, Stop date: 06/23/16 16:00:00 SUPERVISOR EDGING Inactive 06/19/2016 [facility] Calcium Chloride 0.0014 MEQ/ML / Potassium Chloride 0.004 MEQ/ML / Sodium Chloride 0.103 MEQ/ML / Sodium Lactate 0.028 MEQ/ML Injectable Solution 1,000 mL, 4000 ml/hr, Infuse Over: 15 minutes, Route: IV, 1,000, Drug form: INJ, ONCE, Priority: STAT, Dosing Weight 87.273 kg, Start date: 06/19/16 3:48:00 SUPERVISOR EDGING, Duration: 1 doses or times, Stop date: 06/19/16 3:48:00 SUPERVISOR EDGING Inactive 06/19/2016 [facility] Calcium Chloride 0.0014 MEQ/ML / Potassium Chloride 0.004 MEQ/ML / Sodium Chloride 0.103 MEQ/ML / Sodium Lactate 0.028 MEQ/ML Injectable Solution 1,000 mL, 4,000 ml/hr, Infuse Over: 15 minutes, Route: IV, 1,000, Drug form: INJ, ONCE, Dosing Weight 87.273 kg, Start date: 06/19/16 3:47:00 SUPERVISOR EDGING, Stop date: 06/19/16 3:47:00 SUPERVISOR EDGING Inactive 06/19/2016 [facility] Calcium Chloride 0.0014 MEQ/ML / Potassium Chloride 0.004 MEQ/ML / Sodium Chloride 0.103 MEQ/ML / Sodium Lactate 0.028 MEQ/ML Injectable Solution 1,000 mL, 333.33 ml/hr, Infuse Over: 3 hr, Route: IV, 1,000, Drug form: INJ, ONCE, Priority: STAT, Dosing Weight 87.273 kg, Start date: 06/19/16 3:27:00 SUPERVISOR EDGING, Duration: 1 doses or times, Stop date: 06/19/16 3:27:00 SUPERVISOR EDGING Inactive 06/19/2016 [facility] Fentanyl 1,000 microgram, 20 mL, Rate: Titrate, Start Dose: 50 microgram/hr, Titration: 25 microgram/hour every 15 minutes, Goal(s): RASS - 2, Max Dose: 300 microgram/hr, Route: IV, Dosing Weight 87.273 kg, Total Volume: 20, Start date: 06/19/16 2:57:00 SUPERVISOR EDGING, Du... No Longer Active 06/19/2016 [facility] sodium bicarbonate 8.4% 50 mEq, 50 ml, Route: IVP, Drug Form: INJ, Dosing Weight 87.273, kg, ONCE, Start date: 06/19/16 2:51:00 SUPERVISOR EDGING, Stop date: 06/19/16 2:51:00 CSTNotes: (sodium bicarb 8.4% (1 mEq/ml) 50 ml VL) Inactive 06/19/2016 [facility] Norepinephrine 8 mg, 8 mL, Rate: Titrate, Start Dose: 5 microgram/min, Titration: 2 microgram/min every 2-5 minutes, Goal(s): MAP >=65 mmHg, Max Dose: 70 microgram/min, Route: IV, Dosing Weight 87.273 kg, Total Vol ume: 250, Start date: 06/19/16 0:56:00 SUPERVISOR EDGING, Duratio...Notes: Not for direct administration - DILUTE. Protect from light. (Same as:Levophed). Administer by either central venous catheter or peripherally-inserted central catheter (PICC) line. No Longer Active 06/19/2016 [facility] sodium bicarbonate 8.4% 50 ml, Route: IVP, Dosing Weight 87.273, kg, ONCE, Start date: 06/19/16 0:27:00 SUPERVISOR EDGING, Stop date: 06/19/16 0:27:00 SUPERVISOR EDGING Inactive 06/19/2016 [facility] Amiodarone 150 mg, 3 mL, Route: IVPB, ONCE, Dosing Weight 87.273, kg, Start date: 06/19/16 0:16:00 SUPERVISOR EDGING, Stop date: 06/19/16 0:16:00 CSTNotes: Central administration only for concentrations > 2 mg/ml. "Recommendation: Use an in-line filter during administration for continuous infusions to reduce the incidence of phlebitis" (Same as Codarone) MEDICATION WASTE Product Size: 150 mg Product Wasted: ___ mg Inactive 06/19/2016 [facility] AMIODarone INJ 900 mg + D5W 500 ml INJ 482 mL 900 mg, 18 mL, Rate: 1 mg/min for 6 hours, then reduce to 0.5 mg/min, Dosing Weight 87.273, kg, Route: IV, Total Volume: 500, Start Date: 06/19/16 0:16:00 SUPERVISOR EDGING, Duration: 30 day, Stop date: 07/19/16 0:15:00 CDT, Replace Every: 24 hrNotes: Central administration only for concentration > 2 mg/ml. Use Glass Bottle or Non PVC Bag "Use 0.22 micron in-line filter" MEDICATION WASTE Product Size: 900 mg Product Wasted: ___ mg No Longer Active 06/19/2016 [facility] pantoprazole 40 mg, Route: IVP, Drug form: INJ, Daily, Dosing Weight 87.273, kg, Patient is NPO, Start date: 06/19/16 0:14:00 SUPERVISOR EDGING, Duration: 30 day, Stop date: 07/18/16 9:00:00 CDTNotes: For IV push reconstitute with 10 ml 0.9% sodium chloride and push over 2 minutes. (Same as: Protonix) No Longer Active 06/19/2016 [facility] Vancomycin 2,000 mg, Route: IVPB, ONCE, Dosing Weight 87.273, kg, Start date: 06/19/16 0:02:00 SUPERVISOR EDGING, Stop date: 06/19/16 0:02:00 CSTNotes: TIME CRITICAL MEDICATION (Same As: Vancocin) Infusion rate 2001 mg: infuse over 2.5 hours MEDICATION WASTE Product Size: 1000 mg Product Wasted: ___ mg Inactive 06/19/2016 [facility] D5W 1/2NS 1,000 mL 1,000 mL, Rate: 250 ml/hr, Infuse over: 4 hr, Route: IV, Dosing Weight 87.273 kg, Total Volume: 1,000, Start date: 06/18/16 23:33:00 SUPERVISOR EDGING, Duration: 30 day, Stop date: 07/18/16 23:32:00 CDT No Longer Active 06/19/2016 [facility] Sodium Chloride 0.154 MEQ/ML Injectable Solution 1,000 mL, Rate: 250 ml/hr, Infuse over: 4 hr, Route: IV, Dosing Weight 87.273 kg, Total Volume: 1,000, When Finger stick blood glucose values remain ABOVE 250 mg/dL administer until BG is less than 250 mg/dL., Start date: 06/18/16 23:33:00 SUPERVISOR EDGING, Durati... No Longer Active 06/19/2016 [facility] Insulin (regular) Titrate IV additive 100 unit + sodium chloride 0.9% INJ 99 mL 99 mL, Rate: Titrate, Dosing Weight 87.273, kg, Route: IV, Total Volume: 100, Priority: Routine, Start Date: 06/18/16 23:33:00 SUPERVISOR EDGING, Duration: 30 day, Stop date: 07/18/16 23:32:00 CDT, Replace Every: 24 hrNotes: (Same as: Humulin R and NovoLIN R) WASTE: F/P - Black; E - Municipal Trash Bin (Do not shake) No Longer Active 06/19/2016 [facility] potassium phosphate + sodium chloride 0.9% INJ 250 mL 30 mmol, 10 mL, Route: IVPB, PRN, Dosing Weight 87.273, kg, PRN Abnormal Lab Result, Start date: 06/18/16 23:33:00 SUPERVISOR EDGING, Duration: 30 day, Stop date: 07/19/16 0:32:00 CDTNotes: (Same as: K Phosphate.) 1 mMol phoshate has 1.47 mEq potassium Infuse over 4 hours No Longer Active 06/19/2016 [facility] Magnesium Sulfate 1 gm, 100 mL, Route: IVPB, Drug form: INJ, PRN, Dosing Weight 87.273, kg, PRN Abnormal Lab Result, Start date: 06/18/16 23:33:00 SUPERVISOR EDGING, Duration: 30 day, Stop date: 07/19/16 0:32:00 CDTNotes: WASTE: F/P - Sink; E - Municipal Trash Bin No Longer Active 06/19/2016 [facility] Glucagon 1 mg, Route: IM, Drug form: PDR/INJ, PRN, Dosing Weight 87.273, kg, PRN Blood Glucose Results, Start date: 06/18/16 23:33:00 SUPERVISOR EDGING, Duration: 30 day, Stop date: 07/19/16 0:32:00 CDT No Longer Active 06/19/2016 [facility] Dextrose 50% Syringe 25 gm, 50 mL, Route: IVP, Drug Form: INJ, Dosing Weight 87.273, kg, PRN, PRN Blood Glucose Results, Start date: 06/18/16 23:33:00 SUPERVISOR EDGING, Duration: 30 day, Stop date: 07/19/16 0:32:00 CDT No Longer Active 06/19/2016 [facility] potassium chloride 10 mEq, 50 mL, Route: IVPB, Drug form: INJ, PRN, Dosing Weight 87.273, kg, PRN Abnormal Lab Result, Via peripheral line, Start date: 06/18/16 23:33:00 SUPERVISOR EDGING, Duration: 30 day, Stop date: 07/19/16 0:32:00 CDTNotes: (Same as: KCL) Infuse over 2 hours. No Longer Active 06/19/2016 [facility] Ondansetron 4 mg, 2 mL, Route: IVP, Drug form: INJ, Q6H, Dosing Weight 87.273, kg, PRN Nausea & Vomiting, Start date: 06/18/16 23:29:00 SUPERVISOR EDGING, Duration: 30 day, Stop date: 07/18/16 23:28:00 CDTNotes: (Same as: Ezra) MEDICATION WASTE Product Size: 4 mg Product Wasted: ___ mg No Longer Active 06/19/2016 [facility] Sodium Chloride 0.154 MEQ/ML Injectable Solution 1,000 mL, 1000 ml/hr, Infuse Over: 1 hr, Route: IV, 1,000, Drug form: INJ, ONCE, Priority: STAT, Dosing Weight 87.273 kg, Start date: 06/18/16 22:15:00 SUPERVISOR EDGING, Duration: 1 doses or times, Stop date: 06/18/16 22:15:00 SUPERVISOR EDGING No Longer Active 06/19/2016 [facility] phytonadione + sodium chloride 0.9% INJ 50 mL 10 mg, 1 mL, Route: IVPB, ONCE, Dosing Weight 87.273, kg, Priority: STAT, Start date: 06/18/16 22:14:00 SUPERVISOR EDGING, Stop date: 06/18/16 22:14:00 CSTNotes: (Same as: Aqua- [place], Vitamin K) MEDICATION WASTE Product Size: 10 mg Product Wasted: ___ mg Inactive 06/19/2016 [facility] Factor 2-7-9-10 Prothrombin Complex Concentrate 4,268 unit + empty container 1 ea Route: IV, Drug form: INJ, ONCE, Dosing Weight 87.273, kg, ; INR > or=6; Use 100 kg max dosing weight for pt. > 100kg, Priority: STAT, Start date: 06/18/16 22:14:00 SUPERVISOR EDGING, Stop date: 06/18/16 22:14:00 CSTNotes: Same as: Kcentra WASTE: F/P - Red; E -Red Maximum zlae=2119 units; Round down dose to the nearest vial size Hematology clinical pharmacist consult required Inactive 06/19/2016 [facility] Diltiazem 125 mg, 25 mL, Rate: Titrate, Start Dose: 5 mg/hr, Titration: 5 mg/hr every hour, Goal(s): Maintain HR Notes: (Same as: Cardizem) No Longer Active 06/19/2016 [facility] Magnesium Sulfate 1 gm, 100 mL, Route: IVPB, Drug form: INJ, PRN, Dosing Weight 87.273, kg, PRN Abnormal Lab Result, Start date: 06/18/16 22:11:00 SUPERVISOR EDGING, Duration: 30 day, Stop date: 07/18/16 23:10:00 CDTNotes: WASTE: F/P - Sink; E - Municipal Trash Bin No Longer Active 06/19/2016 [facility] potassium chloride 10 mEq, 50 mL, Route: IVPB, Drug form: INJ, PRN, Dosing Weight 87.273, kg, PRN Abnormal Lab Result, Via peripheral line, Start date: 06/18/16 22:11:00 SUPERVISOR EDGING, Duration: 30 day, Stop date: 07/18/16 23:10:00 CDTNotes: (Same as: KCL) Infuse over 2 hours. No Longer Active 06/19/2016 [facility] potassium phosphate + sodium chloride 0.9% INJ 250 mL 15 mmol, 5 mL, Route: IVPB, PRN, Dosing Weight 87.273, kg, PRN Abnormal Lab Result, Start date: 06/18/16 22:11:00 SUPERVISOR EDGING, Duration: 30 day, Stop date: 07/18/16 23:10:00 CDTNotes: (Same as: K Phosphate.) 1 mMol phoshate has 1.47 mEq potassium Infuse over 4 hours No Longer Active 06/19/2016 [facility] Dextrose 50% Syringe 25 gm, 50 mL, Route: IVP, Drug Form: INJ, Dosing Weight 87.273, kg, PRN, PRN Blood Glucose Results, Start date: 06/18/16 22:11:00 SUPERVISOR EDGING, Duration: 30 day, Stop date: 07/18/16 23:10:00 CDT No Longer Active 06/19/2016 [facility] Glucagon 1 mg, Route: IM, Drug form: PDR/INJ, PRN, Dosing Weight 87.273, kg, PRN Blood Glucose Results, Start date: 06/18/16 22:11:00 SUPERVISOR EDGING, Duration: 30 day, Stop date: 07/18/16 23:10:00 CDT No Longer Active 06/19/2016 [facility] Insulin (regular) Titrate IV additive 100 unit + sodium chloride 0.9% INJ 99 mL 99 mL, Rate: Titrate, Dosing Weight 87.273, kg, Route: IV, Total Volume: 100, Priority: Routine, Start Date: 06/18/16 22:11:00 SUPERVISOR EDGING, Duration: 30 day, Stop date: 07/18/16 22:10:00 CDT, Replace Every: 24 hrNotes: (Same as: Humulin R and NovoLIN R) WASTE: F/P - Black; E - Municipal Trash Bin (Do not shake) No Longer Active 06/19/2016 [facility] D5W 1/2NS 1,000 mL 1,000 mL, Rate: 250 ml/hr, Infuse over: 4 hr, Route: IV, Dosing Weight 87.273 kg, Total Volume: 1,000, Start date: 06/18/16 22:11:00 SUPERVISOR EDGING, Duration: 30 day, Stop date: 07/18/16 22:10:00 CDT No Longer Active 06/19/2016 [facility] Diltiazem 125 mg, 25 mL, Rate: Titrate, Start Dose: 5 mg/hr, Titration: 5 mg/hr every hour, Goal(s): Maintain HR Notes: (Same as: Cardizem) No Longer Active 06/19/2016 [facility] cefepime 1 gm, Route: IVPB, ONCE, Dosing Weight 87.273, kg, Priority: STAT, Start date: 06/18/16 21:52:00 SUPERVISOR EDGING, Stop date: 06/18/16 21:52:00 SUPERVISOR EDGING Inactive 06/19/2016 [facility] niCARdipine 20 mg 20 mg, 200 mL, Rate: Titrate, Start Dose: 5 mg/hr, Titration: 2.5 mg/hr every 15 minutes, Goal(s): SBP Inactive 06/19/2016 [facility] Calcium Chloride 0.0014 MEQ/ML / Potassium Chloride 0.004 MEQ/ML / Sodium Chloride 0.103 MEQ/ML / Sodium Lactate 0.028 MEQ/ML Injectable Solution 1,000 mL, 2,000 ml/hr, Route: IV, ONCE, Priority: STAT, Dosing Weight 87.273 kg, Start date: 06/18/16 21:09:00 SUPERVISOR EDGING, Duration: 1 doses or times, Stop date: 06/18/16 21:09:00 SUPERVISOR EDGING Inactive 06/19/2016 [facility] Saline Flush 0.9% 10 mL, Route: IVP, Drug Form: INJ, Dosing Weight 87.273, kg, PRN, PRN Line Flush, Start date: 06/18/16 21:09:00 SUPERVISOR EDGING, Duration: 30 day, Stop date: 07/18/16 22:08:00 CDTNotes: (Same as: BD Posiflush) No Longer Active 06/19/2016 [facility] Saline Flush 0.9% 10 mL, Route: IVP, Drug Form: INJ, Dosing Weight 87.273, kg, PRN, PRN Line Flush, Start date: 06/18/16 21:06:00 SUPERVISOR EDGING, Duration: 30 day, Stop date: 07/18/16 22:05:00 CDT Inactive 06/19/2016 [facility] Allergies, Adverse Reactions, Alerts Substance Category Reaction Severity Reaction type Status Date Reported Comments Source penicillins Assertion Drug allergy Active [facility] Immunizations Immunization Date Given Site Status Last Updated Comments Source influenza virus vaccine, inactivated 06/23/2016 Not Given [facility] Results Order Name Results Value Reference Range Date Interpretation Comments Source CHEM PANEL Phosphorus 2.0 2.5 - 4.5 07/18/2016 [facility] CHEM PANEL eGFR 18 07/18/2016 Result Comment: [...] should be multiplied by the estimated BMI. [facility] CHEM PANEL Calcium Lvl 7.4 8.5 - 10.5 07/18/2016 [facility] CHEM PANEL CO2 27 24 - 32 07/18/2016 [facility] CHEM PANEL Albumin Lvl 2.1 3.5 - 5.0 07/18/2016 [facility] CHEM PANEL AGAP 10.3 10.0 - 20.0 07/18/2016 [facility] CHEM PANEL Glucose Lvl 140 70 - 99 07/18/2016 [facility] CHEM PANEL Chloride Lvl 105 95 - 109 07/18/2016 [facility] CHEM PANEL Potassium Lvl 3.3 3.5 - 5.1 07/18/2016 [facility] CHEM PANEL Sodium Lvl 139 135 - 145 07/18/2016 [facility] CHEM PANEL BUN 53 7 - 22 07/18/2016 [facility] CHEM PANEL Creatinine Lvl 3.30 0.50 - 1.40 07/18/2016 [facility] HEMATOLOGY PT 30.4 12.0 - 14.7 07/18/2016 [facility] HEMATOLOGY INR 2.85 0.85 - 1.17 07/18/2016 [facility] CHEM PANEL eGFR 18 07/17/2016 Result Comment: [...] should be multiplied by the estimated BMI. [facility] CHEM PANEL Calcium Lvl 7.9 8.5 - 10.5 07/17/2016 [facility] CHEM PANEL CO2 29 24 - 32 07/17/2016 [facility] CHEM PANEL Sodium Lvl 140 135 - 145 07/17/2016 [facility] CHEM PANEL Chloride Lvl 104 95 - 109 07/17/2016 [facility] CHEM PANEL Potassium Lvl 3.7 3.5 - 5.1 07/17/2016 [facility] CHEM PANEL BUN 46 7 - 22 07/17/2016 [facility] CHEM PANEL Glucose Lvl 101 70 - 99 07/17/2016 [facility] CHEM PANEL Creatinine Lvl 3.40 0.50 - 1.40 07/17/2016 [facility] CHEM PANEL Albumin Lvl 2.2 3.5 - 5.0 07/17/2016 [facility] CHEM PANEL AGAP 10.7 10.0 - 20.0 07/17/2016 [facility] CHEM PANEL Phosphorus 2.5 2.5 - 4.5 07/17/2016 [facility] HEMATOLOGY INR 2.67 0.85 - 1.17 07/17/2016 [facility] HEMATOLOGY PT 28.9 12.0 - 14.7 07/17/[address] [facility] RDW 18.0 11.5 - 14.5 07/17/[address] [facility] Hgb 7.9 14.0 - 18.0 07/17/[address] [facility] Hct 24.1 42.0 - 54.0 07/17/[address] [facility] MPV 7.2 7.4 - 10.4 07/17/[address] [facility] WBC 6.6 3.7 - 10.4 07/17/[address] [facility] RBC 2.86 4.70 - 6.10 07/17/[address] [facility] MCH 27.7 27.0 - 31.0 07/17/[address] [facility] MCV 84.3 80.0 - 94.0 07/17/[address] [facility] MCHC 32.8 32.0 - 36.0 07/17/[address] [facility] Platelet 189 133 - 450 07/17/2016 [facility] CHEM PANEL Phosphorus 2.4 2.5 - 4.5 07/16/2016 [facility] CHEM PANEL eGFR 17 07/16/2016 Result Comment: [...] should be multiplied by the estimated BMI. [facility] CHEM PANEL Sodium Lvl 137 135 - 145 07/16/2016 [facility] CHEM PANEL Creatinine Lvl 3.50 0.50 - 1.40 07/16/2016 [facility] CHEM PANEL Potassium Lvl 3.8 3.5 - 5.1 07/16/2016 [facility] CHEM PANEL Chloride Lvl 99 95 - 109 07/16/2016 [facility] CHEM PANEL CO2 27 24 - 32 07/16/2016 [facility] CHEM PANEL Glucose Lvl 108 70 - 99 07/16/2016 [facility] CHEM PANEL BUN 47 7 - 22 07/16/2016 [facility] CHEM PANEL Albumin Lvl 2.5 3.5 - 5.0 07/16/2016 [facility] CHEM PANEL Calcium Lvl 8.0 8.5 - 10.5 07/16/2016 [facility] CHEM PANEL AGAP 14.8 10.0 - 20.0 07/16/2016 [facility] ELECTROLYTES Sodium Lvl 138 135 - 145 07/16/2016 [facility] ELECTROLYTES Creatinine Lvl 3.50 0.50 - 1.40 07/16/2016 [facility] ELECTROLYTES CO2 28 24 - 32 07/16/2016 [facility] ELECTROLYTES Chloride Lvl 99 95 - 109 07/16/2016 [facility] ELECTROLYTES AGAP 15.0 10.0 - 20.0 07/16/2016 [facility] ELECTROLYTES Potassium Lvl 4.0 3.5 - 5.1 07/16/2016 [facility] ELECTROLYTES Calcium Lvl 7.7 8.5 - 10.5 07/16/2016 [facility] ELECTROLYTES eGFR 17 07/16/2016 Result Comment: The [...] should be multiplied by the estimated BMI. [facility] ELECTROLYTES BUN 49 7 - 22 07/16/2016 [facility] ELECTROLYTES Glucose Lvl 110 70 - 99 07/16/2016 [facility] HEMATOLOGY PT 31.1 12.0 - 14.7 07/16/2016 [facility] HEMATOLOGY INR 2.94 0.85 - 1.17 07/16/2016 [facility] HEMATOLOGY MPV 6.8 7.4 - 10.4 07/14/2016 [facility] HEMATOLOGY Platelet 168 133 - 450 07/14/2016 [facility] HEMATOLOGY RDW 17.7 11.5 - 14.5 07/14/2016 [facility] HEMATOLOGY MCV 82.5 80.0 - 94.0 07/14/2016 [facility] HEMATOLOGY Hct 21.8 42.0 - 54.0 07/14/[address] [facility] Hgb 7.3 14.0 - 18.0 07/14/[address] [facility] RBC 2.64 4.70 - 6.10 07/14/[address] [facility] MCHC 33.4 32.0 - 36.0 07/14/[address] [facility] MCH 27.6 27.0 - 31.0 07/14/2016 [facility] HEMATOLOGY WBC 5.3 3.7 - 10.4 07/14/2016 [facility] CHEM PANEL Magnesium Lvl 2.0 1.8 - 2.4 07/14/2016 [facility] CHEM PANEL Total Protein 5.1 6.4 - 8.4 07/12/2016 [facility] CHEM PANEL Magnesium Lvl 1.4 1.8 - 2.4 07/12/2016 [facility] CHEM PANEL Alk Phos 110 39 - 136 07/12/2016 [facility] CHEM PANEL Bili Total 0.7 0.2 - 1.3 07/12/2016 [facility] CHEM PANEL A/G Ratio 0.7 0.7 - 1.6 07/12/2016 [facility] CHEM PANEL AST 23 0 - 37 07/12/2016 [facility] CHEM PANEL ALT 43 0 - 65 07/12/2016 [facility] CHEM PANEL Total Protein 5.0 6.4 - 8.4 07/12/2016 [facility] CHEM PANEL B/C Ratio 9 6 - 25 07/12/2016 [facility] CHEM PANEL Globulin 3.0 2.7 - 4.2 07/12/2016 [facility] HEMATOLOGY Monocytes 10.3 2.0 - 12.0 07/12/2016 [facility] HEMATOLOGY Segs 66.8 45.0 - 75.0 07/12/[address] [facility] Lymphocytes 16.0 20.0 - 40.0 07/12/[address] [facility] Eosinophils # 0.3 0.0 - 0.5 07/12/2016 [facility] HEMATOLOGY Monocytes # 0.5 0.0 - 0.8 07/12/2016 [facility] HEMATOLOGY Basophils 0.8 0.0 - 1.0 07/12/[address] [facility] Segs-Bands # 3.5 1.5 - 8.1 07/12/[address] [facility] Eosinophils 6.1 0.0 - 4.0 07/12/[address] [facility] Lymphocytes # 0.8 1.0 - 5.5 07/12/[address] [facility] Platelet 185 133 - 450 07/12/[address] [facility] MPV 7.4 7.4 - 10.4 07/12/[address] [facility] RDW 17.3 11.5 - 14.5 07/12/[address] [facility] MCHC 34.0 32.0 - 36.0 07/12/[address] [facility] MCH 27.7 27.0 - 31.0 07/12/[address] [facility] MCV 81.5 80.0 - 94.0 07/12/[address] [facility] Hct 21.9 42.0 - 54.0 07/12/[address] [facility] Hgb 7.4 14.0 - 18.0 07/12/[address] [facility] RBC 2.69 4.70 - 6.10 07/12/[address] [facility] WBC 5.3 3.7 - 10.4 07/12/2016 [facility] IMMUNOLOGY Prealbumin 16.8 18.0 - 45.0 07/12/2016 [facility] CHEM PANEL Magnesium Lvl 1.6 1.8 - 2.4 07/11/2016 [facility] CHEM PANEL eGFR 13 07/11/2016 Result Comment: [...] should be multiplied by the estimated BMI. [facility] CHEM PANEL Sodium Lvl 138 135 - 145 07/11/2016 [facility] CHEM PANEL Glucose Lvl 88 70 - 99 07/11/2016 [facility] CHEM PANEL BUN 40 7 - 22 07/11/2016 [facility] CHEM PANEL Creatinine Lvl 4.54 0.50 - 1.40 07/11/2016 [facility] CHEM PANEL CO2 28 24 - 32 07/11/2016 [facility] CHEM PANEL Chloride Lvl 100 95 - 109 07/11/2016 [facility] CHEM PANEL Potassium Lvl 3.4 3.5 - 5.1 07/11/2016 [facility] CHEM PANEL Phosphorus 4.0 2.5 - 4.5 07/11/2016 [facility] CHEM PANEL Albumin Lvl 1.9 3.5 - 5.0 07/11/2016 [facility] CHEM PANEL Calcium Lvl 8.1 8.5 - 10.5 07/11/2016 [facility] CHEM PANEL AGAP 13.4 10.0 - 20.0 07/11/2016 [facility] HEMATOLOGY Eosinophils # 0.4 0.0 - 0.5 07/11/2016 [facility] HEMATOLOGY Monocytes # 0.6 0.0 - 0.8 07/11/2016 [facility] HEMATOLOGY Segs 65.1 45.0 - 75.0 07/11/2016 [facility] HEMATOLOGY Basophils 0.4 0.0 - 1.0 07/11/2016 [facility] HEMATOLOGY Eosinophils 6.6 0.0 - 4.0 07/11/2016 [facility] HEMATOLOGY Lymphocytes 16.9 20.0 - 40.0 07/11/2016 [facility] HEMATOLOGY Monocytes 11.0 2.0 - 12.0 07/11/2016 [facility] HEMATOLOGY Segs-Bands # 3.5 1.5 - 8.1 07/11/2016 [facility] HEMATOLOGY Lymphocytes # 0.9 1.0 - 5.5 07/11/2016 [facility] HEMATOLOGY MPV 7.4 7.4 - 10.4 07/11/2016 [facility] HEMATOLOGY Platelet 191 133 - 450 07/11/2016 [facility] HEMATOLOGY Hgb 7.3 14.0 - 18.0 07/11/2016 [facility] HEMATOLOGY Hct 21.6 42.0 - 54.0 07/11/2016 [facility] HEMATOLOGY MCV 81.9 80.0 - 94.0 07/11/2016 [facility] HEMATOLOGY MCH 27.4 27.0 - 31.0 07/11/2016 [facility] HEMATOLOGY MCHC 33.5 32.0 - 36.0 07/11/2016 [facility] HEMATOLOGY RDW 17.3 11.5 - 14.5 07/11/2016 [facility] HEMATOLOGY RBC 2.64 4.70 - 6.10 07/11/2016 [facility] HEMATOLOGY WBC 5.4 3.7 - 10.4 07/11/2016 [facility] HEMATOLOGY INR 1.86 0.85 - 1.17 07/11/2016 [facility] HEMATOLOGY PT 21.8 12.0 - 14.7 07/11/2016 [facility] PARATHYROID PROFILE Ca Norm WB 1.09 1.05 - 1.25 07/11/2016 [facility] PARATHYROID PROFILE Ca Ion WB 1.06 1.05 - 1.25 07/11/2016 [facility] HEMATOLOGY PTT 80.4 22.9 - 35.8 07/10/2016 [facility] CHEM PANEL Magnesium Lvl 1.7 1.8 - 2.4 07/10/2016 [facility] CHEM PANEL Phosphorus 4.6 2.5 - 4.5 07/10/2016 [facility] CHEM PANEL Bili Indirect 0.2 0.0 - 1.0 07/10/2016 [facility] CHEM PANEL Globulin 3.5 2.7 - 4.2 07/10/2016 [facility] CHEM PANEL A/G Ratio 0.5 0.7 - 1.6 07/10/2016 [facility] CHEM PANEL Bili Direct 0.2 0.0 - 0.3 07/10/2016 [facility] CHEM PANEL Alk Phos 118 39 - 136 07/10/2016 [facility] CHEM PANEL Bili Total 0.4 0.2 - 1.3 07/10/2016 [facility] CHEM PANEL AST 27 0 - 37 07/10/2016 [facility] CHEM PANEL Albumin Lvl 1.8 3.5 - 5.0 07/10/2016 [facility] CHEM PANEL ALT 53 0 - 65 07/10/2016 [facility] CHEM PANEL Total Protein 5.3 6.4 - 8.4 07/10/2016 [facility] ELECTROLYTES AGAP 13.4 10.0 - 20.0 07/10/2016 [facility] ELECTROLYTES eGFR 13 07/10/2016 Result Comment: The [...] should be multiplied by the estimated BMI. [facility] ELECTROLYTES Creatinine Lvl 4.48 0.50 - 1.40 07/10/2016 [facility] ELECTROLYTES Glucose Lvl 91 70 - 99 07/10/2016 [facility] ELECTROLYTES Potassium Lvl 3.4 3.5 - 5.1 07/10/2016 [facility] ELECTROLYTES Calcium Lvl 8.1 8.5 - 10.5 07/10/2016 [facility] ELECTROLYTES Chloride Lvl 98 95 - 109 07/10/2016 [facility] ELECTROLYTES Sodium Lvl 136 135 - 145 07/10/2016 [facility] ELECTROLYTES CO2 28 24 - 32 07/10/2016 [facility] ELECTROLYTES BUN 35 7 - 22 07/10/2016 [facility] HEMATOLOGY Hct 22.8 42.0 - 54.0 07/10/2016 [facility] HEMATOLOGY Hgb 7.6 14.0 - 18.0 07/10/2016 [facility] HEMATOLOGY MCH 27.4 27.0 - 31.0 07/10/2016 [facility] HEMATOLOGY WBC 6.1 3.7 - 10.4 07/10/2016 [facility] HEMATOLOGY MCHC 33.2 32.0 - 36.0 07/10/2016 [facility] HEMATOLOGY RDW 17.5 11.5 - 14.5 07/10/2016 [facility] HEMATOLOGY MPV 7.5 7.4 - 10.4 07/10/2016 [facility] HEMATOLOGY MCV 82.5 80.0 - 94.0 07/10/2016 [facility] HEMATOLOGY RBC 2.76 4.70 - 6.10 07/10/2016 [facility] HEMATOLOGY Platelet 203 133 - 450 07/10/2016 [facility] HEMATOLOGY INR 1.74 0.85 - 1.17 07/10/2016 [facility] HEMATOLOGY PT 20.7 12.0 - 14.7 07/10/2016 [facility] HEMATOLOGY Segs 68.9 45.0 - 75.0 07/10/2016 [facility] HEMATOLOGY Lymphocytes # 0.9 1.0 - 5.5 07/10/2016 [facility] HEMATOLOGY Eosinophils 5.6 0.0 - 4.0 07/10/2016 [facility] HEMATOLOGY Segs-Bands # 4.2 1.5 - 8.1 07/10/2016 [facility] HEMATOLOGY Basophils 0.5 0.0 - 1.0 07/10/2016 [facility] HEMATOLOGY Monocytes 10.7 2.0 - 12.0 07/10/2016 [facility] HEMATOLOGY Lymphocytes 14.3 20.0 - 40.0 07/10/2016 [facility] HEMATOLOGY Eosinophils # 0.3 0.0 - 0.5 07/10/2016 [facility] HEMATOLOGY Monocytes # 0.7 0.0 - 0.8 07/10/2016 [facility] HEMATOLOGY PTT 94.4 22.9 - 35.8 07/10/2016 [facility] HEMATOLOGY PTT 76.8 22.9 - 35.8 07/09/2016 [facility] ELECTROLYTES AGAP 13.5 10.0 - 20.0 07/09/2016 [facility] ELECTROLYTES Phosphorus 4.0 2.5 - 4.5 07/09/2016 [facility] ELECTROLYTES Albumin Lvl 1.8 3.5 - 5.0 07/09/2016 [facility] ELECTROLYTES Calcium Lvl 8.0 8.5 - 10.5 07/09/2016 [facility] ELECTROLYTES CO2 28 24 - 32 07/09/2016 [facility] ELECTROLYTES Chloride Lvl 98 95 - 109 07/09/2016 [facility] ELECTROLYTES eGFR 15 07/09/2016 Result Comment: The [...] should be multiplied by the estimated BMI. [facility] ELECTROLYTES BUN 34 7 - 22 07/09/2016 [facility] ELECTROLYTES Potassium Lvl 3.5 3.5 - 5.1 07/09/2016 [facility] ELECTROLYTES Creatinine Lvl 4.01 0.50 - 1.40 07/09/2016 [facility] ELECTROLYTES Sodium Lvl 136 135 - 145 07/09/2016 [facility] ELECTROLYTES Glucose Lvl 94 70 - 99 07/09/2016 [facility] HEMATOLOGY MPV 7.5 7.4 - 10.4 07/09/2016 [facility] HEMATOLOGY Platelet 211 133 - 450 07/09/2016 [facility] HEMATOLOGY RDW 17.9 11.5 - 14.5 07/09/2016 [facility] HEMATOLOGY MCV 82.0 80.0 - 94.0 07/09/2016 [facility] HEMATOLOGY MCH 27.6 27.0 - 31.0 07/09/2016 [facility] HEMATOLOGY MCHC 33.6 32.0 - 36.0 07/09/2016 [facility] HEMATOLOGY RBC 2.75 4.70 - 6.10 07/09/2016 [facility] HEMATOLOGY Hct 22.5 42.0 - 54.0 07/09/2016 [facility] HEMATOLOGY Hgb 7.6 14.0 - 18.0 07/09/2016 [facility] HEMATOLOGY WBC 6.5 3.7 - 10.4 07/09/2016 [facility] HEMATOLOGY PT 17.6 12.0 - 14.7 07/09/2016 [facility] HEMATOLOGY INR 1.42 0.85 - 1.17 07/09/2016 [facility] HEMATOLOGY Eosinophils # 0.3 0.0 - 0.5 07/09/2016 [facility] HEMATOLOGY Monocytes # 0.7 0.0 - 0.8 07/09/2016 [facility] HEMATOLOGY Basophils 0.5 0.0 - 1.0 07/09/2016 [facility] HEMATOLOGY Monocytes 10.5 2.0 - 12.0 07/09/2016 [facility] HEMATOLOGY Eosinophils 4.4 0.0 - 4.0 07/09/2016 [facility] HEMATOLOGY Lymphocytes # 0.8 1.0 - 5.5 07/09/2016 [facility] HEMATOLOGY Segs-Bands # 4.7 1.5 - 8.1 07/09/2016 [facility] HEMATOLOGY Lymphocytes 12.6 20.0 - 40.0 07/09/2016 [facility] HEMATOLOGY Segs 72.0 45.0 - 75.0 07/09/2016 [facility] PARATHYROID PROFILE Ca Norm WB 1.08 1.05 - 1.25 07/09/2016 [facility] PARATHYROID PROFILE Ca Ion WB 1.05 1.05 - 1.25 07/09/2016 [facility] CHEM PANEL Magnesium Lvl 1.8 1.8 - 2.4 07/08/2016 [facility] PARATHYROID PROFILE Ca Norm WB 1.05 1.05 - 1.25 07/08/2016 [facility] PARATHYROID PROFILE Ca Ion WB 1.05 1.05 - 1.25 07/08/2016 [facility] CHEM PANEL Alk Phos 120 39 - 136 07/07/2016 [facility] CHEM PANEL Bili Total 0.5 0.2 - 1.3 07/07/2016 [facility] CHEM PANEL Bili Direct 0.2 0.0 - 0.3 07/07/2016 [facility] CHEM PANEL ALT 64 0 - 65 07/07/2016 [facility] CHEM PANEL AST 24 0 - 37 07/07/2016 [facility] CHEM PANEL Total Protein 5.4 6.4 - 8.4 07/07/2016 [facility] CHEM PANEL Globulin 3.5 2.7 - 4.2 07/07/2016 [facility] CHEM PANEL A/G Ratio 0.5 0.7 - 1.6 07/07/2016 [facility] CHEM PANEL Bili Indirect 0.3 0.0 - 1.0 07/07/2016 [facility] CHEM PANEL Alk Phos 139 39 - 136 07/06/2016 [facility] CHEM PANEL Bili Total 0.5 0.2 - 1.3 07/06/2016 [facility] CHEM PANEL Bili Direct 0.2 0.0 - 0.3 07/06/2016 [facility] CHEM PANEL Total Protein 5.2 6.4 - 8.4 07/06/2016 [facility] CHEM PANEL ALT 75 0 - 65 07/06/2016 [facility] CHEM PANEL AST 29 0 - 37 07/06/2016 [facility] CHEM PANEL A/G Ratio 0.5 0.7 - 1.6 07/06/2016 [facility] CHEM PANEL Bili Indirect 0.3 0.0 - 1.0 07/06/2016 [facility] CHEM PANEL Globulin 3.4 2.7 - 4.2 07/06/2016 [facility] IMMUNOLOGY Myeloperoxidase Ab <0.2 <=0.9 AI 07/06/2016 [facility] IMMUNOLOGY P-ANCA Negative (07/06/16 5:57 AM) Negative 07/06/2016 [facility] IMMUNOLOGY C-ANCA Negative (07/06/16 5:57 AM) Negative 07/06/2016 [facility] IMMUNOLOGY ANGELA Negative (07/06/16 5:57 AM) Negative 07/06/2016 [facility] BLOOD BANK RESULTS Antibody Scrn Negative (07/04/16 3:50 AM) 07/04/2016 [facility] BLOOD BANK RESULTS ABO/Rh B POS 07/04/2016 [facility] BLOOD BANK RESULTS RBC product Product available (07/02/16 7:11 AM) 07/02/2016 [facility] URINE CHEM U12 Cr Clear 2 97 - 137 07/01/2016 [facility] URINE CHEM TV CrCl 12H 223 800 - 1800 07/01/2016 [facility] URINE CHEM HT Crcl 73 07/01/2016 [facility] URINE CHEM WT Crcl 206 07/01/2016 [facility] URINE CHEM BSA Cr Clear 2.17 07/01/2016 [facility] URINE CHEM Ur Creat 35.60 07/01/2016 [facility] MOLECULAR DIAGNOSTIC C difficile DNA Negative (07/01/16 10:07 AM) Negative 07/01/2016 [facility] BLOOD BANK RESULTS FFP product Product available (07/01/16 8:54 AM) 07/01/2016 [facility] URINE AND STOOL Occult Bld Stl Positive *ABN* (06/30/16 6:21 PM) Negative 06/30/2016 [facility] BLOOD BANK RESULTS Antibody Scrn Negative (06/30/16 2:00 PM) 06/30/2016 [facility] BLOOD BANK RESULTS ABO/Rh B POS 06/30/2016 [facility] CHEM PANEL Procalcitonin Lvl 0.30 0.00 - 0.10 06/30/2016 [facility] URINE AND STOOL UA Urobilinogen <=1.0 mg/dL 0.1 - 1.0 06/30/2016 [facility] URINE AND STOOL UA Sq Epi None Seen 06/30/2016 [facility] URINE AND STOOL UA WBC 2 0 - 5 06/30/2016 [facility] URINE AND STOOL UA RBC 11 0 - 2 06/30/2016 [facility] URINE AND STOOL UA Leuk Est Negative (06/30/16 11:05 AM) Negative 06/30/2016 [facility] URINE AND STOOL UA Amorph Shelley Occasional /HPF None Seen /HPF 06/30/2016 [facility] URINE AND STOOL UA Mucus Few /LPF None Seen /LPF 06/30/2016 [facility] URINE AND STOOL UA Spec Grav 1.008 <=1.030 06/30/2016 [facility] URINE AND STOOL UA Turbidity Clear (06/30/16 11:05 AM) Clear 06/30/2016 [facility] URINE AND STOOL UA pH 5.0 5.0 - 8.0 06/30/2016 [facility] URINE AND STOOL UA Color Yellow *NA* (06/30/16 11:05 AM) Yellow 06/30/2016 [facility] URINE AND STOOL UA Nitrite Negative (06/30/16 11:05 AM) Negative 06/30/2016 [facility] URINE AND STOOL UA Blood Moderate *ABN* (06/30/16 11:05 AM) Negative 06/30/2016 [facility] URINE AND STOOL UA Bili Negative *NA* (06/30/16 11:05 AM) Negative 06/30/2016 [facility] URINE AND STOOL UA Protein 20 mg/dL Negative mg/dL 06/30/2016 [facility] URINE AND STOOL UA Ketones Negative mg/dL Negative mg/dL 06/30/2016 [facility] URINE AND STOOL UA Glucose Negative mg/dL Negative mg/dL 06/30/2016 [facility] TOXICOLOGY Vanco Lvl 17.1 06/28/2016 [facility] CHEM PANEL B/C Ratio 16 6 - 25 06/26/2016 [facility] TOXICOLOGY Vanco Lvl 21.7 06/26/2016 [facility] TOXICOLOGY Vanco Lvl 22.9 06/25/2016 [facility] HEMATOLOGY Anti-Xa Unfractionated Heparin 0.43 06/25/2016 [facility] CHEM PANEL Procalcitonin Lvl 0.64 0.00 - 0.10 06/24/2016 [facility] HEMATOLOGY Anti-Xa Unfractionated Heparin 0.42 06/24/2016 [facility] HEMATOLOGY Anti-Xa Unfractionated Heparin 0.37 06/23/2016 [facility] HEMATOLOGY Basophils # 0.1 0.0 - 0.2 06/23/2016 [facility] HEMATOLOGY RBC Morph Normal (06/23/16 5:21 AM) 06/23/2016 [facility] HEMATOLOGY Plt Morph Normal (06/23/16 5:21 AM) 06/23/2016 [facility] IMMUNOLOGY Beta2-Glycoprotein IgG 3.5 <=19.9 unit/mL 06/23/2016 [facility] IMMUNOLOGY Beta2-Glycoprotein IgM 0.7 <=19.9 unit/mL 06/23/2016 [facility] IMMUNOLOGY Beta2-Glycoprotein IgA 0.6 <=19.9 unit/mL 06/23/2016 [facility] IMMUNOLOGY Cardiolipin IgA 0.7 <=19.9 APL 06/23/2016 [facility] IMMUNOLOGY Cardiolipin IgG 2.9 <=19.9 GPL 06/23/2016 [facility] IMMUNOLOGY Cardiolipin IgM 0.5 <=19.9 MPL 06/23/2016 [facility] IMMUNOLOGY Homocyst Tot 8.2 3.7 - 13.9 06/23/2016 [facility] TOXICOLOGY Vanco Tr TND 1130 06/22/2016 [facility] TOXICOLOGY Vanco Tr 32.0 06/22/2016 [facility] HEMATOLOGY Plt Morph Normal (06/22/16 6:11 AM) 06/22/2016 [facility] HEMATOLOGY Atypical Lymphs 0.0 <=0.0 % 06/22/2016 [facility] HEMATOLOGY Metamyelocytes 5.0 0.0 - 1.0 06/22/2016 [facility] HEMATOLOGY Anisocyte 1+ *ABN* (06/22/16 6:11 AM) None Seen 06/22/2016 [facility] HEMATOLOGY Bands 1.0 0.0 - 11.0 06/22/2016 [facility] HEMATOLOGY Polychrom Moderate *ABN* (06/22/16 6:11 AM) None Seen 06/22/2016 [facility] HEMATOLOGY Schistocyte 1-3 per HPF (06/22/16 6:11 AM) None Seen 06/22/2016 [facility] IMMUNOLOGY 24UIFE Int Urine immunofixation electrophoresis revealed spillage of polyclonal immunoglobulins mainly of IgG and IgA isotypes. There is no spillage of monoclonal immunoglobulins or free monoclonal light chains. Relevant medical information in the EMR was reviewed. I have personally reviewed the test results and concur with the resident's interpretation. CPT 71141-GK 06/21/2016 [facility] IMMUNOLOGY 24UIFE Pattern Diffusely staining immunoreactivity is present in IgG, IgA, kappa and lambda lanes. No monoclonal bands are seen. 06/21/2016 [facility] IMMUNOLOGY 24Hr UPE 368 06/21/2016 [facility] IMMUNOLOGY 24 UPE Tot Prot 142 06/21/2016 [facility] IMMUNOLOGY 24 UPE Tot Vol 259 06/21/2016 [facility] IMMUNOLOGY 24Hr UPE Int Urine protein electrophoresis [...] and concur with the resident's interpretation. CPT: 22184-IV 06/21/2016 [facility] HEMATOLOGY RBC Morph Normal (06/21/16 5:49 AM) 06/21/2016 [facility] HEMATOLOGY Plt Morph Normal (06/21/16 5:49 AM) 06/21/2016 [facility] CHEM PANEL LDH 658 98 - 192 06/20/2016 [facility] CHEM PANEL Uric Acid 6.5 3.8 - 8.0 06/20/2016 Result Comment: Specimen Slightly Hemolyzed. [facility] IMMUNOLOGY C-ANCA Negative (06/20/16 9:52 AM) Negative 06/20/2016 [facility] IMMUNOLOGY P-ANCA Negative (06/20/16 9:52 AM) Negative 06/20/2016 [facility] IMMUNOLOGY ANGELA Negative (06/20/16 9:52 AM) Negative 06/20/2016 [facility] IMMUNOLOGY Tot Prot (SPE) 4.4 6.4 - 8.4 06/20/2016 [facility] IMMUNOLOGY SPE Interp Total protein is significantly [...] and concur with the resident's interpretation. CPT 45694-VF 06/20/2016 [facility] IMMUNOLOGY Alpha 2 Glob 0.68 0.45 - 1.00 06/20/2016 [facility] IMMUNOLOGY Gamma Glob 0.59 0.71 - 1.57 06/20/2016 [facility] IMMUNOLOGY Beta Glob 0.56 0.50 - 1.15 06/20/2016 [facility] IMMUNOLOGY Gamma % 13.4 11.1 - 18.7 06/20/2016 [facility] IMMUNOLOGY Albumin (SPE) 2.21 3.57 - 5.55 06/20/2016 [facility] IMMUNOLOGY Alpha 1 Glob 0.36 0.18 - 0.41 06/20/2016 [facility] IMMUNOLOGY Albumin % 50.3 55.8 - 66.1 06/20/2016 [facility] IMMUNOLOGY Alpha 2 % 15.4 7.0 - 11.9 06/20/2016 [facility] IMMUNOLOGY Alpha 1 % 8.2 2.8 - 4.9 06/20/2016 [facility] IMMUNOLOGY Beta % 12.7 7.8 - 13.7 06/20/2016 [facility] IMMUNOLOGY HIV 1/2 Ab Negative *NA* (06/20/16 9:52 AM) Negative 06/20/2016 [facility] IMMUNOLOGY Hep C Ab Negative *NA* (06/20/16 9:52 AM) 06/20/2016 [facility] IMMUNOLOGY Hep B Core IgM Negative *NA* (06/20/16 9:52 AM) Negative 06/20/2016 [facility] IMMUNOLOGY Hep A IgM Negative *NA* (06/20/16 9:52 AM) Negative 06/20/2016 [facility] IMMUNOLOGY Hep Bs Ag Negative *NA* (06/20/16 9:52 AM) Negative 06/20/2016 [facility] IMMUNOLOGY DNA Ab (DS) Negative (06/20/16 9:52 AM) Negative 06/20/2016 [facility] IMMUNOLOGY C4 Complement 9 16 - 47 06/20/2016 [facility] IMMUNOLOGY C3 Complement 39 88 - 201 06/20/2016 [facility] SPECIAL CHEMISTRY Hgb A1C 7.0 <=5.6 % 06/20/2016 [facility] CHEM PANEL Lactic Acid Lvl 1.8 0.5 - 2.2 06/19/2016 [facility] CHEM PANEL Lactic Acid Lvl 3.0 0.5 - 2.2 06/19/2016 [facility] CHEM PANEL Ketone Quantitative 0.24 <=0.27 mmol/L 06/19/2016 [facility] CHEM PANEL Lactic Acid Lvl 6.4 0.5 - 2.2 06/19/2016 Result Comment: Critical Result(s) called to Ksenia Barry at 06/19/2016 08:59 by ET. Read back OK. [facility] CHEM PANEL B/C Ratio 13 6 - 25 06/19/2016 [facility] HEMATOLOGY D-Dimer 4.19 06/19/2016 [facility] HEMATOLOGY Fibrinogen Lvl 400 230 - 510 06/19/2016 [facility] HEMATOLOGY Toxic Gran Moderate *ABN* (06/19/16 7:37 AM) None Seen 06/19/2016 [facility] HEMATOLOGY Polychrom Moderate *ABN* (06/19/16 7:37 AM) None Seen 06/19/2016 [facility] HEMATOLOGY PB Smear Path Peripheral smear shows normocytic normochromic anemia with mild anisocytosis and polychromasia. Neutrophilic leukocytosis with mild reactive features. Platelets are adequate, with large forms and rare microscopic clumps. Comment: The actual platelet count may be higher. For accurate platelet count, recommend recollection for CBC in a blue- top tube. CPT: 11745 06/19/2016 [facility] BLOOD BANK RESULTS RBC product Product available (06/19/16 4:08 AM) 06/19/2016 [facility] BLOOD BANK RESULTS FFP product Product available (06/19/16 4:08 AM) 06/19/2016 [facility] BLOOD BANK RESULTS Platelet product Product available (06/19/16 4:02 AM) 06/19/2016 [facility] BLOOD BANK RESULTS FFP product Product available (06/19/16 4:02 AM) 06/19/2016 [facility] BLOOD BANK RESULTS RBC product Product available (06/19/16 4:00 AM) 06/19/2016 [facility] HEMATOLOGY D-Dimer 3.89 06/19/2016 [facility] HEMATOLOGY Fibrinogen Lvl 482 230 - 510 06/19/2016 [facility] HEMATOLOGY Thrombin Time 13.8 15.0 - 21.2 06/19/2016 [facility] BODY FLUIDS Lymph BF 8 06/19/2016 [facility] BODY FLUIDS CellCnt BF Type Pericard (06/19/16 2:18 AM) 06/19/2016 [facility] BODY FLUIDS Macrophage BF 5 06/19/2016 [facility] BODY FLUIDS Segs BF 87 06/19/2016 [facility] BODY FLUIDS RBC BF [id number] 06/19/2016 [facility] BODY FLUIDS Color BF Red *ABN* (06/19/16 2:18 AM) Colorless 06/19/2016 [facility] [place] [id number] 06/19/2016 [facility] BODY FLUIDS Supernat BF Yellow *ABN* (06/19/16 2:18 AM) Colorless 06/19/2016 [facility] BODY FLUIDS Clarity BF Marked *ABN* (06/19/16 2:18 AM) Clear 06/19/2016 [facility] CHEM PANEL B/C Ratio 11 6 - 25 06/19/2016 [facility] HEMATOLOGY Myelocytes 4.0 <=0.0 % 06/19/2016 [facility] HEMATOLOGY Metamyelocytes 2.0 0.0 - 1.0 06/19/2016 [facility] HEMATOLOGY Promyelocytes 1.0 <=0.0 % 06/19/2016 [facility] HEMATOLOGY Bands 6.0 0.0 - 11.0 06/19/2016 [facility] HEMATOLOGY RBC Morph Normal (06/19/16 2:18 AM) 06/19/2016 [facility] HEMATOLOGY Atypical Lymphs 0.0 <=0.0 % 06/19/2016 [facility] BACTERIAL - SEROLOGY MRSA by PCR Negative (06/19/16 12:25 AM) 06/19/2016 [facility] BLOOD BANK RESULTS Antibody Scrn Negative (06/19/16 12:25 AM) 06/19/2016 [facility] BLOOD BANK RESULTS ABO/Rh B POS 06/19/2016 [facility] CARDIAC ENZYMES CK MB Index 0.7 0.0 - 2.5 06/19/2016 [facility] CARDIAC ENZYMES CK MB 0.6 0.5 - 3.6 06/19/2016 [facility] CARDIAC ENZYMES Total CK 90 12 - 191 06/19/2016 [facility] CARDIAC ENZYMES Troponin-T <0.010 0.000 - 0.100 06/19/2016 [facility] CARDIAC ENZYMES Troponin-I 0.01 0.00 - 0.40 06/19/2016 [facility] CHEM PANEL Procalcitonin Lvl 0.20 0.00 - 0.10 06/19/2016 [facility] CHEM PANEL Ketone Quantitative 0.64 <=0.27 mmol/L 06/19/2016 [facility] HEMATOLOGY Bands 3.0 0.0 - 11.0 06/19/2016 [facility] HEMATOLOGY Metamyelocytes 1.0 0.0 - 1.0 06/19/2016 [facility] HEMATOLOGY Anisocyte 1+ *ABN* (06/19/16 12:25 AM) None Seen 06/19/2016 [facility] HEMATOLOGY Atypical Lymphs 0.0 <=0.0 % 06/19/2016 [facility] HEMATOLOGY Large Plt slight 06/19/2016 [facility] LIPIDS CHD Risk 2.44 4.00 - 7.30 06/19/2016 [facility] LIPIDS VLDL 18 06/19/2016 [facility] LIPIDS LDL (Calculated) 21 <=99 mg/dL 06/19/2016 [facility] LIPIDS HDL 27 >=61 mg/dL 06/19/2016 [facility] LIPIDS Trig 89 <=149 mg/dL 06/19/2016 [facility] LIPIDS Chol 66 <=199 mg/dL 06/19/2016 [facility] MOLECULAR DIAGNOSTIC Source Respiratory Panel PCR [employer] SUPER[employer]OR Swab (06/19/16 12:25 AM) 06/19/2016 [facility] MOLECULAR DIAGNOSTIC Influenza B PCR Negative (06/19/16 12:25 AM) Negative 06/19/2016 [facility] MOLECULAR DIAGNOSTIC Influenza A PCR Negative (06/19/16 12:25 AM) Negative 06/19/2016 [facility] MOLECULAR DIAGNOSTIC RSV PCR Negative (06/19/16 12:25 AM) Negative 06/19/2016 [facility] MYOGLOBIN Myoglobin 296 25 - 72 06/19/2016 [facility] SPECIAL CHEMISTRY Hgb A1C 7.0 <=5.6 % 06/19/2016 [facility] DRUG SCREEN U Amph Scr Negative *NA* (06/18/16 9:45 PM) Negative 06/19/2016 [facility] DRUG SCREEN U Cocaine Scr Negative *NA* (06/18/16 9:45 PM) Negative 06/19/2016 [facility] DRUG SCREEN U Benzodia Scr Negative *NA* (06/18/16 9:45 PM) Negative 06/19/2016 [facility] DRUG SCREEN U Maribell Scr Negative *NA* (06/18/16 9:45 PM) Negative 06/19/2016 [facility] DRUG SCREEN UDS Note See Note *NA* (06/18/16 9:45 PM) 06/19/2016 [facility] DRUG SCREEN U Phencyc Scr Negative *NA* (06/18/16 9:45 PM) Negative 06/19/2016 [facility] DRUG SCREEN U Opiate Scr Negative *NA* (06/18/16 9:45 PM) Negative 06/19/2016 [facility] DRUG SCREEN U Cannab Scr Negative *NA* (06/18/16 9:45 PM) Negative 06/19/2016 [facility] URINE AND STOOL UA Glucose 500 mg/dL Negative mg/dL 06/19/2016 [facility] URINE AND STOOL UA Protein 30 mg/dL Negative mg/dL 06/19/2016 [facility] URINE AND STOOL UA Ketones Negative *NA* (06/18/16 9:45 PM) Negative 06/19/2016 [facility] URINE AND STOOL UA Nitrite Negative (06/18/16 9:45 PM) Negative 06/19/2016 [facility] URINE AND STOOL UA Urobilinogen 0.2 0.1 - 1.0 06/19/2016 [facility] URINE AND STOOL UA Blood Large *ABN* (06/18/16 9:45 PM) Negative 06/19/2016 [facility] URINE AND STOOL UA Bili Negative *NA* (06/18/16 9:45 PM) Negative 06/19/2016 [facility] URINE AND STOOL UA Leuk Est Negative (06/18/16 9:45 PM) Negative 06/19/2016 [facility] URINE AND STOOL UA Color Yellow *NA* (06/18/16 9:45 PM) Yellow 06/19/2016 [facility] URINE AND STOOL UA Turbidity Slight Cloudy (06/18/16 9:45 PM) Clear 06/19/2016 [facility] URINE AND STOOL UA Spec Grav 1.020 <=1.030 06/19/2016 [facility] URINE AND STOOL UA pH 5.0 5.0 - 8.0 06/19/2016 [facility] URINE AND STOOL UA Sq Epi None Seen (06/18/16 9:45 PM) Few 06/19/2016 [facility] URINE AND STOOL UA WBC 0-2 /HPF None Seen /HPF 06/19/2016 [facility] URINE AND STOOL UA Mucus None Seen (06/18/16 9:45 PM) None Seen 06/19/2016 [facility] URINE AND STOOL UA RBC 51-100 /HPF 0 - 2 06/19/2016 [facility] URINE AND STOOL UA Amorph Shelley Moderate /HPF None Seen /HPF 06/19/2016 [facility] URINE AND STOOL UA Bacteria Few /HPF None Seen /HPF 06/19/2016 [facility] URINE AND STOOL UA Hyal Cast 3-5 (06/18/16 9:45 PM) 0 - 2 06/19/2016 [facility] HEMATOLOGY ACT (TEG) Rapid 269 86 - 118 06/19/2016 [facility] HEMATOLOGY Angle Rapid 80 64 - 80 06/19/2016 [facility] HEMATOLOGY Max Amplitude Rapid 81 52 - 71 06/19/2016 [facility] HEMATOLOGY G-value Rapid 21.2 5.0 - 11.6 06/19/2016 [facility] HEMATOLOGY K-time Rapid 0.8 0.6 - 2.3 06/19/2016 [facility] HEMATOLOGY R-time Rapid 2.3 0.4 - 0.7 06/19/2016 [facility] HEMATOLOGY Split Point Rapid 2.0 06/19/2016 [facility] HEMATOLOGY Estimated % Lysis Rapid 3.2 0.0 - 7.5 06/19/2016 Result Comment: "Significant Findings called to Dr. Zambrano/ER at 06/18/2016 22:21 by VV.Read Back OK." [facility] CARDIAC ENZYMES Troponin-I <0.02 0.00 - 0.40 06/19/2016 [facility] TOXICOLOGY Ethanol Lvl <3.0 mg/dL 06/19/2016 [facility] TOXICOLOGY Etoh (%) <0.003 % 06/19/2016 [facility] Pathology Reports No Data Provided for This [...] venous Doppler of the lower extremities. SL [id number] 07/11/2016 [facility] Ext Upper Venous Doppler Bilat US DOPPLER [...] the left upper extremity. SL: IRVING 07/11/2016 [facility] Abdomen AP DX EXAM: XR ABDOMEN 1 [...] with or without left pleural effusion. 07/03/2016 [facility] Abdomen AP DX EXAM: XR ABDOMEN [...] with or without left pleural effusion. 07/03/2016 [facility] CVC insert tunnel w/-w/o port/pump age 5+ yrs VR EXAM: CVC insert tunnel w/-w/o port/pump age 5+ yrs VR HISTORY: 65 years old Male with renal failure presents for a dialysis catheter placement. FACULTY: LUKE CRAIG M.D. RESIDENT/FELLOW/SOFTWARE DEVELOPMENT ANALYST: Hesham Bunch RPA SUPERVISION: Level 1 Direct [...] recovery area in stable condition. FINDINGS: A 15-Pakistani, 55-cm long Medcomp tunneled hemodialysis catheter was placed. The tip of the catheter was positioned in the retrocaval inferior vena cava using fluoroscopic guidance. IMPRESSION: 1. Right common femoral vein tunneled dialysis catheter was placed without complications. FOLLOW-UP RECOMMENDATIONS: Per clinical team. 07/01/2016 [facility] Chest 1view DX EXAM: XR CHEST 1 [...] No significant change in cardiopulmonary status. 06/30/2016 [facility] Chest 1view DX EXAM: XR CHEST 1 [...] contours. IMPRESSION: 1. No significant changes. 06/30/2016 [facility] Chest 1view DX EXAM: XR CHEST 1 [...] change when compared to prior radiograph. 06/29/2016 [facility] Chest 1view DX EXAM: XR CHEST 1 [...] change when compared to prior radiograph. 06/29/2016 [facility] Chest 1view DX EXAM: XR CHEST 1 [...] change when compared to prior radiograph. 06/27/2016 [facility] Chest 1view DX EXAM: Chest 1view DX DATE: 06/27/2016 7:59 PM SUPERVISOR EDGING INDICATION: Line Placement ADDITIONAL HISTORY: None. COMPARISON: [...] Left basilar atelectasis/consolidation unchanged 2. Cardiomegaly. 06/27/2016 [facility] Chest 1view DX EXAM: XR CHEST 1 VIEW DATE: 06/27/2016 3:00 AM SUPERVISOR EDGING INDICATION: Shortness of Breath COMPARISON: X-ray chest [...] or consolidation of left lower lobe. 06/27/2016 [facility] Chest 1view DX EXAM: XR CHEST 1 VIEW DATE: 06/25/2016 3:00 AM SUPERVISOR EDGING INDICATION: Pleural effusion. FINDINGS: Comparison is made [...] no significant change from yesterday morning. 06/25/2016 [facility] Abdomen AP DX EXAM: XR ABDOMEN 1 VIEW DATE: 06/24/2016 4:19 PM SUPERVISOR EDGING INDICATION: Tube placement/removal/reposition ADDITIONAL INFORMATION: None. COMPARISON: [...] placed with tip overlying the pylorus. 06/24/2016 [facility] Abdomen AP DX EXAM: XR ABDOMEN 1 VIEW DATE: 06/24/2016 5:09 AM SUPERVISOR EDGING INDICATION: Vomiting TECHNIQUE: AP view of the [...] of the colon without pathologic dilatation. 06/24/2016 [facility] Chest 1view DX EXAM: XR CHEST 1 VIEW DATE: 06/24/2016 INDICATION: Dyspnea . Comparison is made with yesterday FINDINGS: Cardiomediastinal silhouette and life-support lines are stable. Bilateral retrocardiac opacities. The upper lungs are clear IMPRESSION: No significant interval change when compared to prior radiograph. 06/24/2016 [facility] Chest 1view DX EXAM: XR CHEST 1 VIEW DATE: 06/23/2016 11:01 AM SUPERVISOR EDGING INDICATION: Absent of breath sounds COMPARISON: Previous [...] effusions with superimposed atelectasis and/or pneumonia. 06/23/2016 [facility] Spine Cranio-junction wo contrast MRI EXAM: MRI CERVICAL SPINE WITHOUT CONTRAST EXAM: MRI CRANIOCERVICAL JUNCTION WITHOUT CONTRAST DATE: 06/22/2016 22:12 PM SUPERVISOR EDGING INDICATION: Fracture COMPARISON: Cervical spine CT dated [...] cord contusion or spinal canal hematoma. 06/22/2016 [facility] Spine cervical wo contrast MRI EXAM: MRI CERVICAL SPINE WITHOUT CONTRAST EXAM: MRI CRANIOCERVICAL JUNCTION WITHOUT CONTRAST DATE: 06/22/2016 22:12 PM SUPERVISOR EDGING INDICATION: Fracture COMPARISON: Cervical spine CT dated [...] cord contusion or spinal canal hematoma. 06/22/2016 [facility] Chest 1view DX EXAM: XR CHEST 1 VIEW DATE: 06/22/2016 11:07 AM SUPERVISOR EDGING INDICATION: Coughing. FINDINGS: Comparison is made to [...] in place. IMPRESSION: No significant change. 06/22/2016 [facility] Chest 1view DX EXAM: XR CHEST 1 VIEW DATE: 06/22/2016 3:00 AM SUPERVISOR EDGING INDICATION: Respiratory distress. FINDINGS: Comparison is made [...] no significant change from yesterday morning. 06/22/2016 [facility] Chest 1view DX EXAM: XR CHEST 1 VIEW DATE: 06/21/2016 6:23 AM SUPERVISOR EDGING INDICATION: Abnormal chest sounds. FINDINGS: Comparison is made to yesterday. The cardiomediastinal silhouette, life-support lines and tubes are stable. A small left pleural effusion obscures the left base. There is a left retrocardiac opacity which may be due to a layering left pleural effusion and/or a left lower lobe airspace opacity such as pneumonia or atelectasis. IMPRESSION: No significant change. 06/21/2016 [facility] Chest 1 v for Placement DX Chest [...] venous catheter. Otherwise, no significant change. 06/20/2016 [facility] Abdomen RUQ US EXAM: US ABDOMEN LIMITED DATE: 06/20/2016 6:08 AM SUPERVISOR EDGING INDICATION: Abnormal Lab tests- LFT ADDITIONAL INFORMATION: [...] normal limits. IMPRESSION: Diffuse hepatic steatosis. 06/20/2016 [facility] Chest 1view DX EXAM: XR CHEST 1 VIEW DATE: 06/20/2016 3:00 AM SUPERVISOR EDGING INDICATION: Shortness of Breath COMPARISON: Yesterday. TECHNIQUE: AP chest FINDINGS: Lines and tubes: ET tube, NG tube, pericardial drain with stable positioning. Lungs and pleura: Left pleural effusion is noted. Right effusion better seen on chest CT. Left retrocardiac atelectasis. Heart and mediastinum: Stable mediastinal contours. IMPRESSION: 1. No significant changes. 06/20/2016 [facility] Chest wo contrast CT EXAM: CT CHEST WITHOUT CONTRAST DATE: 06/19/2016 3:12 PM SUPERVISOR EDGING INDICATION: Mass TECHNIQUE: Volumetric CT acquisition of [...] with lateral lower lobe compressive atelectasis. 06/20/2016 [facility] Brain wo contrast MRI and MRA EXAM: MRI BRAIN WITHOUT CONTRAST EXAM: MRA BRAIN WITHOUT CONTRAST DATE: 06/19/2016 11:22 AM SUPERVISOR EDGING INDICATION: Syncope. Concern for CVA. COMPARISON: CT [...] occlusion of the major arteries of the [place]. IMPRESSION: 1. Age-indeterminate hemorrhage in the left middle frontal gyrus. 2. Extra calvarial fluid along the suboccipital, bilateral temporal and parietal convexities. 3. Fluid levels in the sphenoid, ethmoidal sinuses could be secondary to intubation. 4. No acute intracranial abnormality. No vascular abnormality on the brain MRA. 06/20/2016 [facility] Chest 1view DX EXAM: XR CHEST 1 [...] or superimposed consolidation. 5. Left effusion. 06/19/2016 [facility] Abdomen 1 v for Placement DX EXAM: XR ABDOMEN 1 VIEW DATE: 06/19/2016 8:26 AM SUPERVISOR EDGING INDICATION: Tube Placement NG ADDITIONAL INFORMATION: None. [...] IMPRESSION: 1. Tube positions as above. 06/19/2016 [facility] Chest 1view DX EXAM: XR CHEST 1 VIEW DATE: 06/19/2016 4:01 AM SUPERVISOR EDGING INDICATION: Abnormal chest sounds. FINDINGS: Comparison is [...] opacity such as pneumonia or atelectasis. 06/19/2016 [facility] Chest 1view DX EXAM: XR CHEST 1 VIEW DATE: 06/19/2016 12:54 AM SUPERVISOR EDGING INDICATION: Line Placement. FINDINGS: Comparison is made [...] IMPRESSION: Intubated. Otherwise, no significant change. 06/19/2016 [facility] Chest 1view DX EXAM: XR CHEST 1 VIEW DATE: 06/19/2016 12:20 AM SUPERVISOR EDGING INDICATION: Arrhythmias. FINDINGS: Comparison is made to yesterday. The cardiomediastinal silhouette is prominent but stable. A left retrocardiac opacity could be due to atelectasis and/or pneumonia. There is a small left pleural effusion. IMPRESSION: No significant change. 06/19/2016 [facility] Brain-Outside Consult CT EXAM: CT BRAIN WITHOUT CONTRAST DATE: 06/18/2016 9:43 PM SUPERVISOR EDGING INDICATION: Second opinion consultation COMPARISON: None available TECHNIQUE: A brain CT obtained at [facility] was submitted for 2nd opinion consultation following [...] I agree with the outside report. 06/18/2016 [facility] Spine-Outside Consult CT EXAM: CT CERVICAL SPINE WITHOUT CONTRAST DATE: 06/18/2016 9:36 PM SUPERVISOR EDGING INDICATION: Outside facility CT for reinterpretation COMPARISON: [...] spine with C7-T1 degenerative disc disease 06/18/2016 [facility] Chest 1view DX EXAM: XR CHEST 1 VIEW DATE: 06/18/2016 9:05 PM SUPERVISOR EDGING INDICATION: Fall COMPARISON: 01/27/2012 TECHNIQUE: AP chest [...] chest is recommended for further evaluation. 06/18/2016 [facility] Pelvis AP DX EXAM: XR PELVIS 1 VIEW DATE: 06/18/2016 9:06 PM SUPERVISOR EDGING INDICATION: Fall COMPARISON: None TECHNIQUE: A single AP supine radiograph of the pelvis FINDINGS: Multiple overlying button artifacts are identified. No acute fracture or malalignment is identified. The soft tissues are unremarkable. IMPRESSION: No acute bony abnormality. 06/18/2016 [facility] Consultation Notes No Data Provided for This Section Discharge Summaries No Data Provided for This Section History and Physicals No Data Provided for This Section Vital Signs Vital Sign Value Date Comments Source Heart Rate 78 07/18/2016 [facility] Temperature Oral (F) 98.9 F 07/18/2016 [facility] Systolic (mm Hg) 130 07/18/2016 [facility] Diastolic (mm Hg) 70 07/18/2016 [facility] Temperature Oral (F) 98 F 07/18/2016 [facility] Heart Rate 80 07/18/2016 [facility] Diastolic (mm Hg) 72 07/18/2016 [facility] Respitory Rate 16 07/18/2016 [facility] Systolic (mm Hg) 127 07/18/2016 [facility] Heart Rate 74 07/17/2016 [facility] Temperature Oral (F) 98.0 F 07/17/2016 [facility] Systolic (mm Hg) 126 07/17/2016 [facility] Diastolic (mm Hg) 75 07/17/2016 [facility] Respitory Rate 16 07/17/2016 [facility] Respitory Rate 16 07/17/2016 [facility] BMI Calculated 26.12 07/11/2016 [facility] Height 182.88 cm 07/11/2016 [facility] Weight 87.364 07/11/2016 [facility] Systolic (mm Hg) 114 07/11/2016 [facility] Diastolic (mm Hg) 69 07/11/2016 [facility] Respitory Rate 18 07/11/2016 [facility] Heart Rate 80 07/11/2016 [facility] Temperature Oral (F) 98.8 F 07/11/2016 [facility] Heart Rate 92 07/11/2016 [facility] Temperature Oral (F) 98.5 F 07/11/2016 [facility] Respitory Rate 18 07/11/2016 [facility] Systolic (mm Hg) 119 07/11/2016 [facility] Diastolic (mm Hg) 79 07/11/2016 [facility] Systolic (mm Hg) 125 07/11/2016 [facility] Diastolic (mm Hg) 79 07/11/2016 [facility] Temperature Oral (F) 98.2 F 07/11/2016 [facility] Heart Rate 85 07/11/2016 [facility] Respitory Rate 18 07/11/2016 [facility] Weight 95 06/26/2016 [facility] Height 182.88 cm 06/21/2016 [facility] Height 182.88 cm 06/21/2016 [facility] Height 182.88 cm 06/21/2016 [facility] Weight 87.273 06/19/2016 [facility] BMI Calculated 26.09 06/19/2016 [facility] Encounters Location Location Details Encounter Type Encounter Number Reason For Visit Attending Provider ADM Date DC Date Status Source [facility] Inpatient [id number] Tyrese Pineda 06/19/2016 07/11/2016 [facility] [id number] Abelardo Loco 07/11/2016 07/18/2016 [facility] Procedures Procedure Code Date Perfomer Comments Source Laser eye surgery [id number] [facility] Laser eye surgery [id number] [facility] Assessment and Plan Assessment and Plan Date [...] follow-up with the outpatient neurosurgeon from the [facility] after discharge 2. Recent septic shock with multiorgan failure-all resolved 3. Cardiac tamponade status post her cardiocentesis status post 600 cc of bloody fluid removed-repeat echo shows EF of 50-55%, continue to follow, patient had multiple [place] [facility] continue to follow 4. Acute kidney injury likely secondary to ATN from shockcreatinine is stable and improving, nephrology consulted, Lasix 40 mg IV daily--> discharge on oral diuretics and needs to follow-up outpatient with the local flatbed driver 5. Anemia multifactorial from recent sickness, iron [...] PT/OTinpatient rehab 13. Questionable [facility] [place] [facility] [place] 4 weeks of PPI and Carafate, EGD and colonoscopy performed no evidence of bleeding, monitor stool 14. Dispositioninpatient rehab, nephrology consulted 15. Hypokalemiareplaced Discussed with the patient and the at bedside. Patient was discharged will need to follow-up with his prints and drawings curator, neurosurgeon, nephrology, GI and primary care physician [...] patient had multiple repeat echo was at [facility], continue to follow 4. Acute kidney injury [...] PT/OTinpatient rehab 13. Questionable GI bleed at [facility] recommends 4 weeks of PPI and Carafate, EGD and colonoscopy performed no evidence of bleeding, monitor stool 14. Dispositioninpatient rehab, nephrology consulted 07/18/2016 [facility] Plan of Care No Data Provided for [...] No; Reg Smoking Cessation Counseling No 06/19/2016 [facility] Social History TypeResponse Alcohol Current, Type Liquor. [...] No; Reg Smoking Cessation Counseling No 06/19/2016 [facility] Family History No Data Provided for This Section Advance Directives No Data Provided for This Section Functional Status No Data Provided for This Section
[2018-11-16] MEDS ORDERED: ENOXAPARIN SODIUM INJ 100 MG/ML SYR SC SCH (15:00)
--- NOTE | 2018-11-16 15:04 | Diagnostic Imaging Report ---
EXAMINATION: CHEST SINGLE (PORTABLE) INDICATION: Chest pain COMPARISON: None FINDINGS: LINES/TUBES:EKG leads overlie the chest. LUNGS:The lungs are well-inflated. No focal consolidation or pulmonary edema. PLEURA:No pleural effusion or pneumothorax. MEDIASTINUM:The cardiomediastinal silhouette appears normal in size and shape. BONES/SOFT TISSUES:No acute osseous injury. ABDOMEN:No free air under the diaphragm. IMPRESSION: No focal pneumonia or pulmonary edema. Signed by: Bertha Rowland MD on 11/16/2018 3:01 PM
[2018-11-16] MEDS: INSULIN REGULAR, HUMAN 100 UNIT/1 ML 3ML VIAL SQ SCH ×2 (16:30→21:00)
[2018-11-16 17:31] VITALS: BP 119/85
[2018-11-16 17:48] VITALS: BP 119/85
--- NOTE | 2018-11-16 19:00 | NUR ---
RECEIVED PATIENT IN BEDSIDE REPORT. PATIENT IS RESTING IN BED. MD MONGE RECENTLY LEFT ROOM AND PATIENT REPORTS FEELING CONFIDENT IN HIS PLAN OF CARE. NO PAIN REPORTED. NO S&S OF DISTRESS NOTED. BED LOCKED IN LOWEST POSITION, SIDE RAILS UPX2, CALL LIGHT IN REACH.
[2018-11-16 19:30] VITALS: BP 127/77
[2018-11-16 20:00] VITALS: BP 177/77
[2018-11-16 22:31] LABS: CREATINE KINASE MB 0.7 ng/mL (0-5.0)
[2018-11-17] VITALS (7 sets, daily range): BP systolic 100–165; BP diastolic 63–78
--- NOTE | 2018-11-17 03:44 | Consultation ---
DATE OF CONSULTATION: 11/16/2018 The patient admitted for Dr. Barrientos. HISTORY OF PRESENT ILLNESS: This 68-year-old patient was taken to the emergency room by his because of several episodes of chest tightness with profuse diaphoresis and dizziness. The patient stated that he awakened the day before yesterday with heavy weights on his chest and found himself to be profusely sweating. The patient also had episodes of dizziness, where he felt like he is passing out and this continued over the last 25 hours. The patient was then seen by his primary care doctor, Dr. Polk, who obtained electrocardiogram, which showed some nonspecific ST-T changes and atrial fibrillation with a controlled ventricular rate. However, he recommended the patient should go to the emergency room since he felt that he has already had a myocardial infarction and was at high risk of developing myocardial infarction. On arrival, the patient was found to be in atrial fibrillation. His cardiac enzymes on admission have been normal. The patient's blood sugar was elevated and most recently his A1c was 7.0. PAST MEDICAL HISTORY: The patient's past history reveals that he has dilated cardiomyopathy with most recent ejection fraction ranging from 47% to 42%. He also has a history of hypertension, diabetes mellitus, hyperlipidemia mainly with elevated triglycerides, and low HDL. The patient does have a long history of atrial fibrillation, required the previous cardioversions and also had ablation procedure in 2012, which kept his rhythm stable for one year and the patient has been in chronic atrial fibrillation since 2013, when he decided that he did not want any further procedures for restoring normal sinus rhythm. In 2016, the patient had rapid atrial fibrillation and when he entered the emergency room, he fell with head injury, mostly of skull hematoma with fracture of C1. He was then transferred to [facility]. He had multiple complications including acute kidney injury requiring temporary hemodialysis and also pericardiocentesis. 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 SOCIAL HISTORY: Negative. ALLERGIES: PENICILLIN. THE PATIENT HAD COUGH WITH LISINOPRIL. FAMILY HISTORY: Positive for diabetes mellitus and CVA. REVIEW OF SYSTEMS: The remainder of systems reviewed. The patient denies any headache or sore throat. The patient denies any neck pain. At the moment, the patient is resting in bed and denying any chest pain or shortness of breath. He is complaining of abdominal pain, particularly on the right side with increased gas, which also occurred lately. The patient stated that he never had any dizziness until recently. He denies any leg swelling or leg pain. PHYSICAL EXAMINATION: VITAL SIGNS: Reveals temperature of 96.5, blood pressure 119/85, oxygen saturation is 100%. NECK: Carotid pulses are present. CHEST: Clear to auscultation. CARDIOVASCULAR: Normal apical impulse. The rhythm is irregularly irregular with a rate of 78 per minute. First and second heart sounds are normal. There is no S3. There is no rub. ABDOMEN: Soft. There is no tenderness or organomegaly. EXTREMITIES: Pulses are present, but diminished. There is no peripheral edema. NEUROLOGIC: Does not reveal any localizing defect. The patient had a cardiogram in the emergency room also showed atrial fibrillation, but no acute EKG changes. There is an ST depression, which is nonspecific. The telemetry showed atrial fibrillation with controlled ventricular rate. The patient's troponin and BNP levels are normal. IMPRESSION: 1. Angina pectoralis. 2. Chronic atrial fibrillation. 3. Hypertension. 4. Vertigo. 5. Diabetes mellitus. 6. Abdominal pain with nausea and vomitus. 7. History of hypoventilation. The patient is stable. At the moment, I would recommend to continue cardiac monitoring and observation and ultrasound studies of the carotid arteries and echocardiogram also because the patient has several episodes of chest tightness associated with diaphoresis and recommend to obtain a nuclear stress test. The patient has been on Coumadin anticoagulation and was given Lovenox. At the moment, I do not see any specific need to continue the Lovenox since his prothrombin time is close to therapeutic and we should be monitoring the patient's pro-time and INR carefully. Thank you very much for letting me to see this very nice patient. MD SOBEIDA Bradford/MODL /[id number]
--- NOTE | 2018-11-17 04:00 | NUR ---
PATIENT RESTING IN BED. BREATHING EVEN AND NON-LABORED. NO S&S OF DISTRESS NOTED. BED LOCKED IN LOWEST POSITION, SIDE RAILS UPX2, CALL LIGHT IN REACH.
[2018-11-17 06:14] LABS: BASOPHILS % 0.2 % (0.0-1.0); EOSINOPHILS # (AUTO) 0.1 (0.0-0.4); EOSINOPHILS % 1.9 % (0.0-6.0); HEMATOCRIT 39.5 % (38.2-49.6); HEMOGLOBIN 12.8 g/dL (14.0-18.0); LYMPHOCYTES # (AUTO) 1.6 (1.0-3.2); LYMPHOCYTES % 26.5 % (18.0-39.1); MEAN CORPUSCULAR HEMOGLOBIN 27.5 pg (28-32); MEAN CORPUSCULAR HGB CONC 32.4 g/dL (31-35); MEAN CORPUSCULAR VOLUME 84.8 fL (81-99); MONOCYTES # (AUTO) 0.6 (0.2-0.8); MONOCYTES % 9.3 % (4.4-11.3); NEUTROPHILS # (AUTO) 3.6 (2.1-6.9); NEUTROPHILS % 61.3 % (38.7-80.0); PLATELET COUNT 172 x10e3/uL (140-360); RED BLOOD COUNT 4.66 x10e6/uL (4.3-5.7); RED CELL DISTRIBUTION WIDTH 13.2 % (11.7-14.4)
[2018-11-17 06:25] LABS: INR 1.86; PROTHROMBIN TIME 22.1 seconds (11.9-14.5)
[2018-11-17 06:35] LABS: ALANINE AMINOTRANSFERASE 18 IU/L (0-55); ALBUMIN 3.4 g/dL (3.5-5.0); ALBUMIN/GLOBULIN RATIO 1.2 (0.8-2.0); ALKALINE PHOSPHATASE 50 IU/L (40-150); ANION GAP 15.1 mmol/L (8-16); BLOOD UREA NITROGEN 17 mg/dL (7-26); BUN/CREATININE RATIO 15 (6-25); CALCIUM 9.2 mg/dL (8.4-10.2); CARBON DIOXIDE 24 mmol/L (22-29); CHLORIDE 104 mmol/L (98-107); CHOLESTEROL 113 MD/DL (0-199); CREATININE, SERUM 1.12 mg/dL (0.72-1.25); EST GLOMERULAR FILTRATION RATE > 60 ML/MIN (60-); GLUCOSE 142 mg/dL (74-118); HDL CHOLESTEROL 28 MG/DL (40-60); LDL CHOLESTEROL 47 MG/DL (60-130); MAGNESIUM 1.8 MG/DL (1.3-2.1); PHOSPHORUS 2.8 MG/DL (2.3-4.7); POTASSIUM 4.1 mmol/L (3.5-5.1); SODIUM 139 mmol/L (136-145); TRIGLYCERIDES 191 MG/DL (0-149)
[2018-11-17 06:41] LABS: CREATINE KINASE MB 0.5 ng/mL (0-5.0)
--- NOTE | 2018-11-17 07:00 | NUR ---
BEDSIDE SHIFT CHANGE REPORT RECEIVED FROM RASHEED SUH. PT DENIES NEEDS AT THIS TIME.
[2018-11-17] MEDS: INSULIN REGULAR, HUMAN 100 UNIT/1 ML 3ML VIAL SQ SCH ×4 (07:30→21:14)
--- NOTE | 2018-11-17 09:16 | Diagnostic Imaging Report ---
EXAMINATION: CHEST SINGLE (PORTABLE) INDICATION: Chest pain COMPARISON: Chest radiograph of 11/16/2018 FINDINGS: LINES/TUBES:EKG leads overlie the chest. LUNGS:The lungs are well-inflated. No focal consolidation or pulmonary edema. PLEURA:No pleural effusion or pneumothorax. MEDIASTINUM:The cardiomediastinal silhouette appears unchanged in size and shape. BONES/SOFT TISSUES:No acute osseous injury. ABDOMEN:No free air under the diaphragm. IMPRESSION: No focal pneumonia or pulmonary edema. Signed by: Bertha Rowland MD on 11/17/2018 9:13 AM
[2018-11-17] MEDS ORDERED: REGADENOSON 0.4 MG/5 ML SYR IV ONE (11:06)
--- NOTE | 2018-11-17 11:27 | NUR ---
PT OFF THE FLOOR AT THIS TIME FOR STRESS TEST.
--- NOTE | 2018-11-17 14:40 | Diagnostic Imaging Report ---
EXAM: US ABDOMEN COMPLETE DATE: 11/17/2018 12:00 AM INDICATION: Abdominal pain COMPARISON: None TECHNIQUE: Transverse and longitudinal richey scale and color doppler sonographic images of the upper abdomen were obtained. FINDINGS: There is no evidence of fluid or masses seen in the area of clinical concern in the right lower quadrant. LIVER 13.4 cm in the right midclavicular line. Normal echogenicity of the liver with normal contour, no masses. SPLEEN 11.2 cm in maximum diameter. Normal echogenicity, no masses. GALLBLADDER No gallbladder wall thickening, distension, stone, or pericholecystic fluid. NEgative reported sonographic Yanes's sign. Gallbladder wall thickness of 2 mm. BILE DUCTS No intra nor extra-hepatic biliary dilation. Common bile duct measures 0.3cm PANCREAS: Visualized portions are normal. RIGHT KIDNEY: 10.6 cm Echogenicity: Normal Collecting System: No hydronephrosis Stones: None Cyst/Mass: Right midpole 1.4 x 1.5 x 1.6 cm anechoic simple cyst. LEFT KIDNEY: 11.2 cm Echogenicity: Normal Collecting System: No hydronephrosis Stones: None Cyst/Mass: None VESSELS: Aorta: Visualized portions are within normal size limits Inferior Vena Cava: Visualized portions are normal Main Portal Vein: 0.9 cm, normal size with hepatopetal flow. FREE FLUID: None IMPRESSION: No acute sonographic findings in the abdomen or pelvis. No sonographic evidence of cholelithiasis or cholecystitis. Signed by: Bertha Rowland MD on 11/17/2018 2:37 PM
[2018-11-17] MEDS ORDERED: DEXTROSE 50% SYRINGE 50 ML IV PRN (18:00)
[2018-11-17] MEDS ORDERED: ENOXAPARIN SOD INJ 40 MG/0.4 ML SYR SC SCH (18:30)
[2018-11-17] MEDS ORDERED: WARFARIN SOD 5 MG TAB PO SCH (18:30)
[2018-11-17] MEDS: DIGOXIN 0.125 MG TAB PO SCH (18:41)
[2018-11-17] MEDS: METOPROLOL SUCCINATE 50 MG TAB XL PO SCH (18:42)
[2018-11-17] MEDS ORDERED: ATORVASTATIN 20 MG TAB PO SCH (21:00)
[2018-11-17] MEDS ORDERED: ATORVASTATIN 40 MG TAB PO SCH (21:00)
--- NOTE | 2018-11-17 21:03 | History and Physical ---
CHIEF COMPLAINT: Chest pain. HISTORY OF PRESENT ILLNESS: A 68-year-old male, who follows up with Dr. Castilol, his spare person. Past medical history of hyperlipidemia, hypertension, type 2 diabetes, currently on anticoagulation; underlying atrial fibrillation, presents to the ED with complaints of chest pain that began on yesterday. Yesterday, he reports it began substernally to the left shoulder and arm. He went to the spare person, he was unable to find them and stated he went to his PCP, he had an EKG and was told to go back to the spare person. The patient was directed to come to the hospital for further evaluation and management. The patient reports having some chest pain, left-sided, radiates to his left shoulder and arm. He does have a history of chronic left shoulder pain. He denies any palpitation, nausea, or vomiting. Does endorse some cough and some congestion. The patient is seen and evaluated at bedside on the medical floor. He is currently doing well with no other issues at this time. Currently, he denies any chest pain. Cardiology was consulted. Vital signs are stable when I evaluated him. REVIEW OF SYSTEMS: Pertinent positives: Chest pain. Pertinent negatives: Denies any palpitation, nausea, vomiting, diarrhea, dysuria, hematuria, frequency, urgency, lightheadedness, dizziness, abdominal pain, headaches, shortness of breath, cough, congestion, fever, or any other complaints. The rest of 14-point review of systems have been reviewed with the patient and are negative. ALLERGIES: PENICILLIN. HOME MEDICATIONS: He takes: 1. Ascorbic acid. 2. Loratadine. 3. Metformin. 4. Cinnamon. 5. Garlic. 6. Multivitamins. 7. Atorvastatin 40 mg daily. 8. Digoxin 0.125 mg daily. 9. Irbesartan 300 mg daily. 10. Metoprolol ER 100 mg daily. 11. Warfarin 5 mg daily. PAST MEDICAL HISTORY: Hypertension, CAD in the past, atrial fibrillation, type 2 diabetes. PAST SURGICAL HISTORY: Reports none. FAMILY HISTORY: Hypertension and diabetes. SOCIAL HISTORY: No drugs. No alcohol. Does not smoke. Good social support. LABORATORY FINDINGS: Show white count 5.9, hemoglobin 4.8, hematocrit 39.5, platelets of 172. Chemistries, sodium 139, potassium 4.1, chloride 104, bicarb 24, anion gap of 15. BUN 17, creatinine is 1.1, glucose 142, calcium is 9.2, phosphorus 2.8. Magnesium 1.8. LFTs within normal range. Troponins were all negative. LDL was 47, triglycerides 191. TSH is 1.298. Urinalysis, concerning for underlying urine bacteria , leukocyte esterase negative, nitrite negative. Digoxin level undetectable. MICROBIOLOGY: Urine cultures, no growth. IMAGING STUDIES: Chest x-ray, no focal pneumonia or pulmonary edema. Abdominal ultrasound showed no clear sonographic findings in the abdomen showed no sonographic evidence of cholelithiasis and cholecystitis. Chest x-ray this morning, no focal pneumonia or pulmonary edema. PHYSICAL EXAMINATION: VITAL SIGNS: Temperature 97.3, pulse 97, respiratory rate is 20, blood pressure 115/75, pulse ox 99% on room air. GENERAL: Not in acute distress. Alert and oriented x3. Cooperative on examination. HEENT: Head is normocephalic and atraumatic. Eyes; pupils are equal, round, and reactive to light bilaterally. Extraocular muscles are intact bilaterally. Throat, no evidence of erythema or exudates in the posterior pharynx. Has poor dentition. NECK: Supple. Good range of motion. PULMONARY: Clear to auscultation bilaterally. No wheezing, no rales, no rhonchi, no crackles appreciated. CARDIOVASCULAR: Positive S1, S2. No murmurs, rubs, or gallops appreciated. ABDOMEN: Soft, nondistended, and nontender to palpation. Bowel sounds present. MUSCULOSKELETAL: Strength is 5/5 throughout. No evidence of any muscle deficits on examination. No weakness appreciated. NEUROLOGICAL: Cranial nerves 2 through 12 are grossly intact. . SKIN: Intact. Warm to touch. Good cap refill. PSYCHIATRIC: Normal affect and mood. EXTREMITIES: No edema. Good range of motion throughout. IMPRESSION: 1. Chest pain, rule out acute coronary syndrome. 2. History of atrial fibrillation. 3. Hyperlipidemia. 4. Type 2 diabetes. PLAN: At this time, 2D echo. Cardiac stress test has been ordered by Cardiology. Cardiac enzymes were negative. Continue with cardioprotective med. Follow Cardiology recommendations. Resume same home medications. We will discontinue metformin. Add insulin sliding scale for diabetes. Resume his antihypertensive medications. He will be on Lovenox for DVT prophylaxis. Hopefully will be discharged tomorrow once cleared by Cardiology. MD SCARLET Arnett/MODL /[id number]
[2018-11-18 00:31] VITALS: BP 90/57
[2018-11-18 05:35] LABS: BASOPHILS % 0.3 % (0.0-1.0); EOSINOPHILS # (AUTO) 0.2 (0.0-0.4); EOSINOPHILS % 2.2 % (0.0-6.0); HEMATOCRIT 39.1 % (38.2-49.6); HEMOGLOBIN 12.7 g/dL (14.0-18.0); LYMPHOCYTES % 29.6 % (18.0-39.1); MEAN CORPUSCULAR HEMOGLOBIN 27.5 pg (28-32); MEAN CORPUSCULAR HGB CONC 32.5 g/dL (31-35); MEAN CORPUSCULAR VOLUME 84.8 fL (81-99); MONOCYTES # (AUTO) 0.7 (0.2-0.8); MONOCYTES % 10.7 % (4.4-11.3); NEUTROPHILS # (AUTO) 3.8 (2.1-6.9); NEUTROPHILS % 56.6 % (38.7-80.0); PLATELET COUNT 174 x10e3/uL (140-360); RED BLOOD COUNT 4.61 x10e6/uL (4.3-5.7); RED CELL DISTRIBUTION WIDTH 13.2 % (11.7-14.4)
[2018-11-18 05:53] LABS: ANION GAP 14.2 mmol/L (8-16); CALCIUM 9.1 mg/dL (8.4-10.2); CREATININE, SERUM 1.21 mg/dL (0.72-1.25); POTASSIUM 4.2 mmol/L (3.5-5.1)
[2018-11-18 06:23] VITALS: BP 111/67
--- NOTE | 2018-11-18 07:00 | NUR ---
BEDSIDE SHIFT CHANGE REPORT RECEIVED FROM SHANE SUH. PT DENIES NEEDS AT THIS TIME.
--- NOTE | 2018-11-18 07:11 | NUR ---
REPORT GIVEN TO ONCOMING NURSE,WALKING ROUNDS MADE.PT RESTING IN BED WITH NO S/S OF DISTRESS.
[2018-11-18] MEDS: INSULIN REGULAR, HUMAN 100 UNIT/1 ML 3ML VIAL SQ SCH ×2 (07:30→12:08)
[2018-11-18 07:50] VITALS: BP 104/70
[2018-11-18 09:00] VITALS: BP 104/70
[2018-11-18] MEDS ORDERED: IRBESARTAN 150 MG TAB PO SCH (09:00)
[2018-11-18] MEDS: DIGOXIN 0.125 MG TAB PO SCH (09:00)
[2018-11-18] MEDS: METOPROLOL SUCCINATE 50 MG TAB XL PO SCH (09:00)
--- NOTE | 2018-11-18 11:42 | NUR ---
CALLED DR. MONGE OFFICE AND SPOKE WITH BAR HOST WHO STATED THEY WOULD PAGE TO FIND OUT PLAN FOR PT.
[2018-11-18 12:35] VITALS: BP 100/56
--- NOTE | 2018-11-18 13:19 | NUR ---
PT CLEARED BY DR. MONGE TO DISCHARGE HOME AND FOLLOW UP IN HIS OFFICE IN 2 WEEKS.
--- NOTE | 2018-11-18 13:43 | Myoview Stress Test ---
DATE OF STUDY: 11/17/2018 00:00:00 Stress Test - Treadmill ONLY Nuclear gated myocardial perfusion scan performed as per protocol at Nuclear Medicine Lab at [facility]. The stress test is supervised by Dr. Saul Castillo. I interpreted only nuclear stress test. Lexiscan injected 0.4 mg intravenously stress agent. Sestamibi injected 11 mCi for resting protocol and 33 mCi for stress protocol. Left ventricular ejection fraction 50%. No evidence of ischemia or scar noted. Normal study. Thank you Dr. Saul Castillo for this nuclear interpretation consultation. MD INGA BoothB/MODL /[id number]
--- NOTE | 2018-11-19 05:04 | Discharge Summary ---
FINAL DISCHARGE DIAGNOSES: 1. Atypical chest pain. 2. History of coronary artery disease. 3. History of atrial fibrillation. 4. Hyperlipidemia. 5. Type 2 diabetes. CONSULTANTS: Cardiology. PHYSICAL EXAMINATION: VITAL SIGNS: Temperature is 97.2, pulse 60, respiratory rate is 16, blood pressure 104/74, pulse ox 97% on room air LABORATORY DATA: Lab findings show white count 6.7, hemoglobin 12.7 and hematocrit is 39, platelets of 174. Chemistry, sodium 140, potassium 4.2, chloride 104, bicarb 26, anion gap of 14, BUN 19, creatinine 1.2, glucose is 142. Calcium is 9.1. Troponins were negative. LDL is 47. TSH is 1.298. LFTs within normal range. MICROBIOLOGY: Urine cultures are negative. IMAGING STUDIES: Chest x-ray was negative. Abdominal ultrasound, no sonographic findings in the abdomen or pelvis. No evidence of cholelithiasis or cholecystitis. Chest x-ray repeat shows no focal pneumonia or pulmonary edema. Cardiac stress test was negative. Carotid ultrasound was also negative. HOSPITAL COURSE: This is a 68-year-old male, comes in with complaints of chest pain and was evaluated by Cardiology. Cardiac enzymes are found to be negative. 2D echo notes no acute findings or changes. EKG showed no acute findings. Cardiac stress test was performed, which was found to be negative results. The patient was cleared for discharge by Cardiology. The patient is to resume same home medications with no changes. On discharge, the patient was doing well. Denies any chest pain. On the day of discharge, vital signs were stable, labs were reviewed and stable. The patient is seen and evaluated, examined thoroughly on the day of discharge. No other complaints. The patient verbalized understanding and agrees to plan of care with followup appointment as an outpatient with primary care physician in 1 week and the data operations leader in 2 weeks' time. MEDICATIONS: See med reconciliation form. DISPOSITION: Home. CONDITION: Stable. DIET: Heart healthy. In the event of any worsening symptoms, the patient was advised to come back to the ED for further evaluation. Discharge summary took greater than 35 minutes. MD SCARLET Arnett/SOHAIL /[id number]
== END 2018-11-18 15:04 | disposition home or self-care (01) ==
LOC: ER 13:27 → INTOOBSV 14:42 → ERHOLD 14:42 → MED/SURG2 17:05
PROVIDERS: ADMIT Internal Medicine; ATTEND Internal Medicine
DX: I20.9 Angina pectoris, unspecified (principal); R07.89 Other chest pain; Z79.01 Long term (current) use of anticoagulants; E11.9 Type 2 diabetes mellitus without complications; Z79.4 Long term (current) use of insulin; I42.9 Cardiomyopathy, unspecified; R42 Dizziness and giddiness; I48.2 Chronic atrial fibrillation; R10.9 Unspecified abdominal pain
CPT/HCPCS: 36415 ×3; 71045 ×2; 76700; 78452; 80048; 80053 ×2; 80061; 80162; 81001; 82550 ×2; 82553 ×2; 82948 ×3; 83735; 83880; 84100; 84443; 84484 ×2; 85025 ×3; 85610 ×2; 85730; 87086; 93005 ×2; 93017; 93306; 93880; 96372; 99284; A9500; G0378 ×3; J1650 ×2; J1817; J2785; A9502

== ENCOUNTER → 2021-01-28 | Day surgery (SDC) | payer MEDICARE, OTHER ==
[2021-01-25 09:50] LABS: BASOPHILS % 0.3 % (0.0-1.0); EOSINOPHILS # (AUTO) 0.2 (0.0-0.4); EOSINOPHILS % 2.8 % (0.0-6.0); HEMATOCRIT 42.5 % (38.2-49.6); HEMOGLOBIN 13.4 g/dL (14.0-18.0); LYMPHOCYTES # (AUTO) 1.4 (1.0-3.2); LYMPHOCYTES % 21.2 % (18.0-39.1); MEAN CORPUSCULAR HGB CONC 31.5 g/dL (31-35); MEAN CORPUSCULAR VOLUME 88.7 fL (81-99); MONOCYTES # (AUTO) 0.5 (0.2-0.8); MONOCYTES % 7.1 % (4.4-11.3); NEUTROPHILS # (AUTO) 4.6 (2.1-6.9); NEUTROPHILS % 67.4 % (38.7-80.0); PLATELET COUNT 173 x10e3/uL (140-360); RED BLOOD COUNT 4.79 x10e6/uL (4.3-5.7); RED CELL DISTRIBUTION WIDTH 12.9 % (11.7-14.4)
[~2021-01-28] MED LIST: ATORVASTATIN CA20 MG PO; CINNAMON500 MG PO; COUMADIN5 MG PO; DIGOXIN125 MCG PO; ECHINACEA400 MG PO; FENTANYL CITRATE/PF 100MCG/2 ML INJ ONE; FISH OIL 1,0001 EAC2 PO; GARLIC1000 MG PO; GLIMEPIRIDE2 MG PO; GLUCOSAMINE &1 EACH PO; IRBESARTAN150 MG PO; LORATADINE10 MG PO; LOVENOX30 MG/0.3 SC; METFORMIN HCL500 MG PO; METOPROLOL SUCC50 MG PO; MIDAZOLAM HCL 2 MG/2 ML VIAL ONE; MULTI-VITAMIN1 EACH; PREDNISOLON5 MG/5 ML OD; TURMERIC1 GM PO; VITAMIN C500 M1 PO; VITAMIN D32000 UNIT PO
[2021-01-28 08:07] LABS: INR 0.9; PROTHROMBIN TIME 12.5 seconds (11.9-14.5)
[2021-01-28 08:08] LABS: PARTIAL THROMBOPLASTIN TIME 48.6 seconds (23.8-35.5)
[2021-01-28 10:50] VITALS: BP 108/76
[2021-01-28 11:54] LABS: WBC,FECAL (FECAL LACTOFERRIN) NEGATIVE (NEGATIVE)
[2021-01-29 15:49] LABS: C DIFFICILE TOXIN A&B AMP PROB **POSITIVE** (NEGATIVE)
== END | disposition home or self-care (01) ==
LOC: OR 08:03
PROVIDERS: ATTEND Internal Medicine Gastroenterology
DX: Z09 Encounter for follow-up examination after completed treatment for conditions other than malignant neoplasm (principal); D12.0 Benign neoplasm of cecum; D12.2 Benign neoplasm of ascending colon; D12.4 Benign neoplasm of descending colon; K52.9 Noninfective gastroenteritis and colitis, unspecified; K62.89 Other specified diseases of anus and rectum; K64.8 Other hemorrhoids; I10 Essential (primary) hypertension; I48.91 Unspecified atrial fibrillation; E78.00 Pure hypercholesterolemia, unspecified; E11.9 Type 2 diabetes mellitus without complications; Z01.810 Encounter for preprocedural cardiovascular examination; Z01.812 Encounter for preprocedural laboratory examination; Z20.822 Contact with and (suspected) exposure to COVID-19; Z88.0 Allergy status to penicillin; Z79.84 Long term (current) use of oral hypoglycemic drugs; Z79.01 Long term (current) use of anticoagulants; Z86.73 Personal history of transient ischemic attack (TIA), and cerebral infarction without residual deficits
CPT/HCPCS: 36415 ×2; 45380; 45385; 82948; 83630; 83993; 85025; 85610; 85730; 87045; 87177; 87328; 87493; 88305; 93005; U0002; 45378; J2250; J3010